=== PATIENT | female | born 1940 | race Caucasian/White ===

== ENCOUNTER → 2022-09-29 | Outpatient (CLI) | payer MEDICARE, SELFPAY ==
[2022-09-29 17:43] LABS: Absolute Lymphocyte Count 1.94 X10^3/uL (0.83-4.51); Absolute Neutrophil Count 4.4 X10^3/uL (2.0-7.7); Basophil# 0.05 X10^3/uL; Basophil% 0.7 % (0-1); Eosinophil# 0.08 X10^3/uL; Eosinophils% 1.1 % (0-5); Hematocrit 41.7 % (37-47); Hemoglobin 13.6 g/dL (12.0-15.0); Lymphocyte # 1.94 X10^3/ul (0.83-4.51); Lymphocyte % 26.8 % (19-41); Mean Corp Hgb Conc 32.6 g/dL (32-36); Mean Corpuscular Hgb 29.5 pg (27.0-32.0); Mean Corpuscular Volume 90.5 fL (81-99); Mean Platelet Vol. 10.1 fl (6.2-12.0); Monocyte# 0.72 X10^3/uL; NRBC Flagged by Analyzer 0 % (0-5); Neutrophil % 60.8 % (47-70); Platelet Count 313 K/mm3 (150-450); RBC Distribution Width CV 12.2 % (11.6-14.6); RBC Distribution Width SD 39.9 fl (35.1-43.9); Red Blood Count 4.61 M/mm3 (4.2-5.4); White Blood Count 7.2 K/mm3 (4.4-11.0)
[2022-09-29 18:11] LABS: AST(SGOT) 21 U/L (15-37); Alanine Aminotransfer ALT/SGPT 23 U/L (13-56); Alkaline Phosphatase 32 U/L (45-117); Anion Gap 8 (5-15); BUN 21 mg/dL (7-18); BUN/Creat Ratio 26.7 RATIO (10-20); Calcium,Total 9.2 mg/dL (8.5-10.1); Chloride 103 mmol/L (98-107); Creatinine, Serum 0.79 mg/dL (0.55-1.02); EST Glomerular Filtration Rate 74 mL/min (>60); Est Glom Filt Rate - Afr Amer 90 mL/min (>60); Glucose 101 mg/dL (74-106); Potassium 3.8 mmol/L (3.5-5.1); Sodium Level 140 mmol/L (136-145); Thyroid Stim Hormone (TSH) 2.53 uIU/mL (0.358-3.74)
[2022-09-29 20:11] LABS: Hepatitis C Antibody Non-Reactive (Nonreactive); Syphilis Antibodies Non-reactive; Vitamin B12 391 pg/mL (211-911); Vitamin D,25 Hydroxy 12.3 ng/mL
== END | disposition home or self-care (01) ==
PROVIDERS: Visit Provider Family Medicine Geriatric Medicine
DX: R53.83 Other fatigue (principal); E55.9 Vitamin D deficiency, unspecified; Z13.89 Encounter for screening for other disorder
CPT/HCPCS: 36415; 80053; 82306; 82607; 82746; 84443; 85025; 86780; 86803

== ENCOUNTER → 2022-10-05 | Outpatient (CLI) | payer MEDICARE, SELFPAY ==
--- NOTE | 2022-10-05 17:39 | CT_ITS ---
INDICATION: ALZHEIMERS DISEASE EXAMINATION: CT BRAIN - CT Head or Brain W/O Contrast Injection TECHNIQUE: Multiple axial images were obtained of the head without intravenous contrast. A radiation dose optimization technique was used for this scan. IV Contrast dosage and agent: None. COMPARISON: None FINDINGS: BRAIN PARENCHYMA: No intra- or extra-axial hemorrhage. No evidence of acute infarct. No intracranial mass or mass effect. Unremarkable white matter for age. There is preservation of the romo/white matter interface. Posterior fossa structures are unremarkable. Mild bilateral carotid and vertebral atherosclerosis. CSF SPACES: Mild global cerebral volume loss for age. No hydrocephalus. Basal cisterns are patent. CALVARIUM, SKULL BASE, PARANASAL SINUSES AND MASTOID AIR CELLS: No acute osseous finding. Paransasal sinuses are clear. Mastoid air cells are clear. ORBITS: Both globes, extraocular muscles, optic nerves and retrobulbar fat appear unremarkable. ASPECTS Score for Acute Strokes: 10 CT/Brain/Head without Contrast IMPRESSION: No CT evidence of acute intracranial hemorrhage or injury. Mild cerebral volume loss for age. Carotid and vertebral atherosclerosis. Electronically Signed: Corey Jerome MD at 1:50 EST ,
== END | disposition home or self-care (01) ==
LOC: CT 17:36
PROVIDERS: PCP Family Medicine Geriatric Medicine; Referring Provider Family Medicine Geriatric Medicine; Visit Provider Family Medicine Geriatric Medicine
DX: G30.9 Alzheimer's disease, unspecified (principal)
CPT/HCPCS: 70450

== ENCOUNTER → 2022-11-05 | Outpatient (CLI) | payer MEDICARE, SELFPAY ==
--- NOTE | 2022-11-05 14:02 | BD_ITS ---
STUDY: DUAL ENERGY X-RAY ABSORPTIOMETRY / DXA REASON FOR EXAM: Female, 82 years old. [id number] TECHNIQUE: Bone Mineral Density (BMD) measurements of lumbar spine and bilateral hips were obtained. COMPARISON: None. FINDINGS: Lumbar Spine (L1-L4): g/cm2 (1.051) / T-score (0.0) / Z-score (2.8) Findings are suggestive of normal bone density with a low fracture risk. Left Femur Total: g/cm2 (0.794) / T-score (-1.2) / Z-score (1.0) Left Femoral Neck: g/cm2 (0.72) / T-score (-0.6) / Z-score (1.8) Right Femur Total: g/cm2 (0.746) / T-score (-1.6) / Z-score (0.6) Right Femoral Neck: g/cm2 (0.777) / T-score (-0.7) / Z-score (1.8) BD/Dexa Bone Density Study IMPRESSION: The patient is considered osteopenic as outlined below according to World Otf Organization (WHO) criteria with a moderate fracture risk. Reference Information: The T-score is the number of standard deviations above or below the standard which is normal for young adults at their peak bone mineral density. The World Health Organization (WHO) interprets the T-scores as follows: Above -1 Normal bone density Between -1 and -2.5 Osteopenia Equal to / or below -2.5 Osteoporosis As a practical clinical guideline, osteopenia may be graded as follows: Mild -1 through -1.5 Moderate -1.6 through -2.0 Severe -2.1 through -2.4 The Z-score is the number of standard deviations above or below age-matched controls. A Z-score of less than -1.5 would be considered abnormal. References: 1. NIH Osteoporosis and Related Bone Diseases www osteo.org 2. International Society for Clinical Densitometry www iscd.org 3. National Osteoporosis Foundation www nof.org Electronically Signed: Sravan Troncoso MD at 13:46 EST ,
== END | disposition home or self-care (01) ==
PROVIDERS: PCP Family Medicine Geriatric Medicine; Visit Provider Family Medicine Geriatric Medicine
DX: Z78.0 Asymptomatic menopausal state (principal)
CPT/HCPCS: 77080

== ENCOUNTER → 2023-03-25 | Outpatient (CLI) | payer MEDICARE, SELFPAY ==
[2023-03-25 15:30] LABS: Absolute Lymphocyte Count 1.65 X10^3/uL (0.83-4.51); Absolute Neutrophil Count 3.7 X10^3/uL (2.0-7.7); Basophil# 0.05 X10^3/uL; Basophil% 0.8 % (0-1); Eosinophil# 0.07 X10^3/uL; Eosinophils% 1.1 % (0-5); Hematocrit 41.8 % (37-47); Hemoglobin 13.6 g/dL (12.0-15.0); Lymphocyte # 1.65 X10^3/ul (0.83-4.51); Lymphocyte % 26.7 % (19-41); Mean Corp Hgb Conc 32.5 g/dL (32-36); Mean Corpuscular Hgb 30.5 pg (27.0-32.0); Mean Corpuscular Volume 93.7 fL (81-99); Mean Platelet Vol. 10.4 fl (6.2-12.0); Monocyte# 0.68 X10^3/uL; NRBC Flagged by Analyzer 0 % (0-5); Neutrophil # 3.71 X10^3/uL (2.7-7.7); Neutrophil % 59.9 % (47-70); Platelet Count 295 K/mm3 (150-450); RBC Distribution Width CV 12.1 % (11.6-14.6); RBC Distribution Width SD 41.9 fl (35.1-43.9); Red Blood Count 4.46 M/mm3 (4.2-5.4); White Blood Count 6.2 K/mm3 (4.4-11.0)
[2023-03-25 15:44] LABS: Vitamin D,25 Hydroxy 18.1 ng/mL
[2023-03-25 15:54] LABS: ALB/GLOB Ratio 1.1 RATIO (0.9-2.4); AST(SGOT) 17 U/L (15-37); Alanine Aminotransfer ALT/SGPT 21 U/L (13-56); Albumin, Serum 3.8 g/dL (3.2-5.0); Alkaline Phosphatase 31 U/L (45-117); Anion Gap 4 (5-15); BUN 23 mg/dL (7-18); BUN/Creat Ratio 25.1 RATIO (10-20); Calcium,Total 8.8 mg/dL (8.5-10.1); Chloride 105 mmol/L (98-107); Creatinine, Serum 0.92 mg/dL (0.55-1.02); EST Glomerular Filtration Rate 62 mL/min (>60); Est Glom Filt Rate - Afr Amer 75 mL/min (>60); Globulin 3.6 g/dL (2.2-4.2); Glucose 115 mg/dL (74-106); Potassium 4.3 mmol/L (3.5-5.1); Protein, Total 7.4 g/dL (6.4-8.2); Sodium Level 139 mmol/L (136-145); Thyroid Stim Hormone (TSH) 2.26 uIU/mL (0.358-3.74)
== END | disposition home or self-care (01) ==
PROVIDERS: PCP Family Medicine Geriatric Medicine; Visit Provider Family Medicine Geriatric Medicine
DX: R53.83 Other fatigue (principal); E55.9 Vitamin D deficiency, unspecified
CPT/HCPCS: 36415; 80053; 82306; 84443; 85025

== ENCOUNTER → 2023-07-01 | Outpatient (CLI) | payer MEDICARE, SELFPAY ==
[2023-07-01 13:22] LABS: Absolute Lymphocyte Count 1.59 X10^3/uL (0.83-4.51); Absolute Neutrophil Count 4.2 X10^3/uL (2.0-7.7); Basophil# 0.04 X10^3/uL; Basophil% 0.6 % (0-1); Eosinophil# 0.06 X10^3/uL; Eosinophils% 0.9 % (0-5); Hematocrit 39.8 % (37-47); Hemoglobin 13.4 g/dL (12.0-15.0); Lymphocyte # 1.59 X10^3/ul (0.83-4.51); Lymphocyte % 24.5 % (19-41); Mean Corp Hgb Conc 33.7 g/dL (32-36); Mean Corpuscular Hgb 31.1 pg (27.0-32.0); Mean Corpuscular Volume 92.3 fL (81-99); Mean Platelet Vol. 9.8 fl (6.2-12.0); Monocyte# 0.59 X10^3/uL; Monocyte% 9.1 % (0-10); NRBC Flagged by Analyzer 0 % (0-5); Neutrophil # 4.18 X10^3/uL (2.7-7.7); Neutrophil % 64.3 % (47-70); Platelet Count 286 K/mm3 (150-450); RBC Distribution Width CV 12.3 % (11.6-14.6); RBC Distribution Width SD 41.9 fl (35.1-43.9); Red Blood Count 4.31 M/mm3 (4.2-5.4); White Blood Count 6.5 K/mm3 (4.4-11.0)
[2023-07-01 13:51] LABS: Vitamin D,25 Hydroxy 15.7 ng/mL
[2023-07-01 14:03] LABS: ALB/GLOB Ratio 1.1 RATIO (0.9-2.4); AST(SGOT) 18 U/L (15-37); Alanine Aminotransfer ALT/SGPT 22 U/L (13-56); Albumin, Serum 3.8 g/dL (3.2-5.0); Alkaline Phosphatase 28 U/L (45-117); Anion Gap 4 (5-15); BUN 18 mg/dL (7-18); BUN/Creat Ratio 22.2 RATIO (10-20); Calcium,Total 8.8 mg/dL (8.5-10.1); Chloride 105 mmol/L (98-107); Creatinine, Serum 0.81 mg/dL (0.55-1.02); EST Glomerular Filtration Rate 71 mL/min (>60); Est Glom Filt Rate - Afr Amer 86 mL/min (>60); Globulin 3.4 g/dL (2.2-4.2); Glucose 100 mg/dL (74-106); Potassium 4.1 mmol/L (3.5-5.1); Protein, Total 7.2 g/dL (6.4-8.2); Sodium Level 140 mmol/L (136-145); Thyroid Stim Hormone (TSH) 2.03 uIU/mL (0.358-3.74)
== END | disposition home or self-care (01) ==
LOC: POLAB3 13:03
PROVIDERS: PCP Family Medicine Geriatric Medicine; Visit Provider Family Medicine Geriatric Medicine
DX: E55.9 Vitamin D deficiency, unspecified (principal); R53.83 Other fatigue
CPT/HCPCS: 36415; 80053; 82306; 84443; 85025

== ENCOUNTER → 2023-08-02 | Outpatient (CLI) | payer MEDICARE, SELFPAY ==
--- NOTE | 2023-08-02 17:47 | MRI_ITS ---
STUDY: MRI BRAIN WITHOUT CONTRAST REASON FOR EXAM: Female, 82 years old. ALZHEIMERS DISEASE TECHNIQUE: Standardized multiplanar fat and water weighted pulse sequences were obtained. COMPARISON: Head CT dated October 05, 2022 FINDINGS: There is mild cerebral atrophy with widening of the extra-axial spaces and ventricular dilatation. There are a limited number of small white matter hyperintensities, distributed throughout the deep white matter tracts of the cerebral hemispheres, consistent with mild chronic white matter ischemic changes. There is no evidence for recent intracranial ischemia or other cause of cytotoxic edema on diffusion weighted imaging (DWI). Normal T2* images of the brain without demonstrated susceptibility artifact. There is no demonstrated hemosiderin stain. Benign bilateral choroid plexus cystws are present which are of no clinical significance. Normal bilateral basal ganglia. Normal thalami. There is no extra-axial fluid accumulation. Normal flow voids within the major intracranial circulation suggesting patency by spin echo criteria. Normal sella turcica, pituitary gland, infundibular stalk, optic chiasm and hypothalamus. Normal tectal plate and pineal gland. Normal midbrain, rohit and medulla. Normal cerebellum. Benign arachnoid granulation posterior to the right cerebellar lobe mentioned. Normal basal cisterns. Normal bilateral temporal bones. Normal bilateral internal auditory canals. No demonstrated orbital abnormality, within the constraints of a routine brain study. Normal visualized paranasal sinuses. Normal calvarium and skull base. Normal visualized soft tissue structures. Normal visualized upper cervical spine. MRI/Brain without Contrast IMPRESSION: 1. Involutional and mild chronic ischemic changes of the brain, as described above. 2. No demonstrated acute infarct or intracranial hemorrhage or suspicious brain lesions Electronically Signed: Carlos Enrique Cruz MD at 16:07 EST Reading Location ID and State: [facility] / [place] , Service support ,
== END | disposition home or self-care (01) ==
PROVIDERS: PCP Family Medicine Geriatric Medicine; Referring Provider Family Medicine Geriatric Medicine; Visit Provider Family Medicine Geriatric Medicine
DX: G30.9 Alzheimer's disease, unspecified (principal)
CPT/HCPCS: 70551

== ENCOUNTER → 2023-08-04 | Outpatient (CLI) | payer MEDICARE, SELFPAY | END | disposition home or self-care (01) | PROVIDERS: PCP Family Medicine Geriatric Medicine; Visit Provider Family Medicine Geriatric Medicine | DX: G30.9 Alzheimer's disease, unspecified (principal) | CPT/HCPCS: 36415 ==

== ENCOUNTER → 2023-10-04 | Outpatient (CLI) | payer MEDICARE, SELFPAY ==
--- OUTSIDE RECORDS SUMMARY | 2023-10-04 11:37 | XMS RPT_ITS | CCD ---
Author Name Unknown Address [address] [place] [id number] Organization [facility] Clinical Note 07-08-2021 Note Date & Type Note Facility 07-08-2021 Note Patient Outreach (DEVEN TNAV) JUAN CALDERON ([id number]) 1940 F Date Time Provider Department 07/08/21 LENA CARDOZO During your visit today, we recorded the following information about you: Lena Cardozo Population Health Navigator 07/08/2021 11:11 AM Signed POPULATION HEALTH NAVIGATION OUTREACH Action/ I tried to leave a voice message and phone is busy sending a letter No care everywhere Contact made with patient or family member? NO Pt identified by name and : NO Outreach Outcome/Action Unable to reach patient: Phone number not valid / voicemail full Letter mailed Reason for Outreach Attribution: Provider Off-boarding Payer: Payor: AET[employer] MEDICARE / Plan: AET[employer] MEDICARE PPO / Product Type: PPO / Care Gap Reviewed:: Reminder: Reminder note to check Health Maintenance for items below Health Maintenance items due: COVID-19 VACCINE(1) Never done ADVANCE DIRECTIVE DISCUSSION Never done PNEUMOVAX AGE 65 AND OVER WITH 5YR LOOKBACK(1) Never done DIABETES SCREEN due on 08/05/2008 DTAP,TDAP,TD(2 - Tdap) due on 12/29/2009 SHINGRIX VACCINE(2 of 3) due on 10/01/2010 INFLUENZA(1) due on 04/30/2021 Advanced Directives Completed: Have you ever planned for future healthcare decisions with a power of contract attorney, living will, or advance directives? No. Please bring a copy to your next appointment or email to [email or web address] Referrals: N/A Message Sent to Practice: NO Navigation Signature: Lena Cardozo Population Health Navigator July 08, 2021 11:10 AM Allergies As of Date: 07/08/2021 Noted Allergy Reaction LIPITOR (ATORVASTATIN CALCIUM) 08/08/2007 SULFA (SULFONAMIDE ANTIBIOTICS) 06/17/2005 2 - Rash Date Reviewed: 08/10/2017 Reviewed by: Lou (Poacher Operator) KEVIN Jones.[employer] PERSON - Fully Assessed Reason for Visit: Population Health Navigation Outreach [[id number]] Cmt: Offboarding Problem List As Of Date 07/08/2021 Noted Resolved DIVERTICULOSIS OF COLON W/O BLEED [K57.30] HYPERLIPIDEMIA NEC/NOS [E78.5] PALPITATIONS [R00.2] 09/02/2007 Letter Text Encounter Status:Closed by [facility] HEALTH NAVIGATOR, LENA Mills on 07/08/21 [facility] Progress note 07-08-2021 Note Date & Type Note Facility 07-08-2021 Note HNO ID: [id number] Author: Lena Cardozo [facility] Health Navigator Service: ? Author Type: ? Type: Progress Notes Filed: 07/08/2021 11:11 AM Note Text: POPULATION HEALTH NAVIGATION OUTREACH Action/I I tried to leave a voice message and phone is busy sending a letter No care everywhere Contact made with patient or family member? NO Pt identified by name and : NO Outreach Outcome/Action Unable to reach patient: Phone number not valid / voicemail full Letter mailed Reason for Outreach Attribution: Provider Off-boarding Payer: Payor: AETNA MEDICARE / Plan: AETNA MEDICARE PPO / Product Type: PPO / Care Gap Reviewed:: Reminder: Reminder note to check Health Maintenance for items below Health Maintenance items due: COVID-19 VACCINE(1) Never done ADVANCE DIRECTIVE DISCUSSION Never done PNEUMOVAX AGE 65 AND OVER WITH 5YR LOOKBACK(1) Never done DIABETES SCREEN due on 08/05/2008 DTAP,TDAP,TD(2 - Tdap) due on 12/29/2009 SHINGRIX VACCINE(2 of 3) due on 10/01/2010 INFLUENZA(1) due on 04/30/2021 Advanced Directives Completed: Have you ever planned for future healthcare decisions with a power of contract attorney, living will, or advance directives? No. Please bring a copy to your next appointment or email to Referrals: N/A Message Sent to Practice: NO Navigation Signature: Lena Cardozo Population Health Navigator July 08, 2021 11:10 AM [facility] Summary Purpose Family History No Family History Records Found Advance Directives No Advanced Directives Records Found Additional Source Comments INFORMATION SOURCE (unrecogn ized section and content) FOR RECORDS PERTAINING TO PATIENTS WHO ARE OR HAVE BEEN ENROLLED IN A CHEMICAL DEPENDENCY/SUBSTANCEABUSE PROGRAM, SOME INFORMATION MAY BE OMITTED. This clinical summary was aggregated from multiple sources. Caution should be exercised in using it in the provision of clinical care. This summary normalizes information from multiple sources, and as a consequence, information in this document may materially change the coding, format and clinical context of patient data. In addition, data may be omitted in some cases. CLINICAL DECISIONS SHOULD BE BASED ON THE PRIMARY CLINICAL RECORDS. [employer] provides no warranty or guarantee of the accuracy or completeness of information in this document.
[2023-10-04 12:38] LABS: Absolute Lymphocyte Count 1.62 X10^3/uL (0.83-4.51); Absolute Neutrophil Count 4.9 X10^3/uL (2.0-7.7); Basophil# 0.05 X10^3/uL; Basophil% 0.7 % (0-1); Eosinophil# 0.06 X10^3/uL; Eosinophils% 0.8 % (0-5); Hematocrit 40.1 % (37-47); Hemoglobin 13.4 g/dL (12.0-15.0); Lymphocyte # 1.62 X10^3/ul (0.83-4.51); Lymphocyte % 22.1 % (19-41); Mean Corp Hgb Conc 33.4 g/dL (32-36); Mean Corpuscular Hgb 30.5 pg (27.0-32.0); Mean Corpuscular Volume 91.1 fL (81-99); Mean Platelet Vol. 9.8 fl (6.2-12.0); Monocyte# 0.68 X10^3/uL; Monocyte% 9.3 % (0-10); NRBC Flagged by Analyzer 0 % (0-5); Neutrophil # 4.85 X10^3/uL (2.7-7.7); Neutrophil % 66.3 % (47-70); Platelet Count 292 K/mm3 (150-450); RBC Distribution Width CV 11.9 % (11.6-14.6); RBC Distribution Width SD 39.6 fl (35.1-43.9); White Blood Count 7.3 K/mm3 (4.4-11.0)
[2023-10-04 13:01] LABS: Vitamin D,25 Hydroxy 29.7 ng/mL
[2023-10-04 13:08] LABS: ALB/GLOB Ratio 0.9 RATIO (0.9-2.4); AST(SGOT) 11 U/L (15-37); Alanine Aminotransfer ALT/SGPT 22 U/L (13-56); Albumin, Serum 3.9 g/dL (3.2-5.0); Alkaline Phosphatase 40 U/L (45-117); Anion Gap 8 (5-15); BUN 21 mg/dL (7-18); BUN/Creat Ratio 24.9 RATIO (10-20); Calcium,Total 9.4 mg/dL (8.5-10.1); Chloride 105 mmol/L (98-107); Creatinine, Serum 0.84 mg/dL (0.55-1.02); EST Glomerular Filtration Rate 68 mL/min (>60); Est Glom Filt Rate - Afr Amer 83 mL/min (>60); Globulin 4.2 g/dL (2.2-4.2); Glucose 122 mg/dL (74-106); Potassium 4.2 mmol/L (3.5-5.1); Protein, Total 8.1 g/dL (6.4-8.2); Sodium Level 140 mmol/L (136-145); Thyroid Stim Hormone (TSH) 2.92 uIU/mL (0.358-3.74)
== END | disposition home or self-care (01) ==
LOC: POLAB3 11:16
PROVIDERS: PCP Family Medicine Geriatric Medicine; Visit Provider Family Medicine Geriatric Medicine
DX: R53.83 Other fatigue (principal); E55.9 Vitamin D deficiency, unspecified
CPT/HCPCS: 36415; 80053; 82306; 84443; 85025

== ENCOUNTER → 2024-06-05 | Outpatient (CLI) | payer MEDICARE, SELFPAY ==
[2024-06-05 11:56] LABS: Absolute Lymphocyte Count 1.48 X10^3/uL (0.83-4.51); Absolute Neutrophil Count 3.4 X10^3/uL (2.0-7.7); Basophil# 0.04 X10^3/uL; Basophil% 0.7 % (0-1); Eosinophil# 0.04 X10^3/uL; Eosinophils% 0.7 % (0-5); Hematocrit 40.4 % (37-47); Hemoglobin 13.3 g/dL (12.0-15.0); Lymphocyte # 1.48 X10^3/ul (0.83-4.51); Lymphocyte % 26.5 % (19-41); Mean Corp Hgb Conc 32.9 g/dL (32-36); Mean Corpuscular Hgb 29.9 pg (27.0-32.0); Mean Corpuscular Volume 90.8 fL (81-99); Mean Platelet Vol. 9.5 fl (6.2-12.0); Monocyte# 0.59 X10^3/uL; Monocyte% 10.6 % (0-10); NRBC Flagged by Analyzer 0 % (0-5); Neutrophil # 3.37 X10^3/uL (2.7-7.7); Neutrophil % 60.2 % (47-70); Platelet Count 277 K/mm3 (150-450); RBC Distribution Width CV 12.3 % (11.6-14.6); RBC Distribution Width SD 40.8 fl (35.1-43.9); Red Blood Count 4.45 M/mm3 (4.2-5.4); White Blood Count 5.6 K/mm3 (4.4-11.0)
[2024-06-05 12:32] LABS: ALB/GLOB Ratio 1.1 RATIO (0.9-2.4); AST(SGOT) 19 U/L (15-37); Alanine Aminotransfer ALT/SGPT 18 U/L (13-56); Albumin, Serum 3.8 g/dL (3.2-5.0); Alkaline Phosphatase 33 U/L (45-117); Anion Gap 6 (5-15); BUN 17 mg/dL (7-18); BUN/Creat Ratio 17.7 RATIO (10-20); Calcium,Total 9.2 mg/dL (8.5-10.1); Chloride 106 mmol/L (98-107); Creatinine, Serum 0.96 mg/dL (0.55-1.02); EST Glomerular Filtration Rate 59 mL/min (>60); Est Glom Filt Rate - Afr Amer 71 mL/min (>60); Globulin 3.6 g/dL (2.2-4.2); Glucose 103 mg/dL (74-106); Protein, Total 7.4 g/dL (6.4-8.2); Sodium Level 139 mmol/L (136-145)
== END | disposition home or self-care (01) ==
LOC: POLAB3 11:40
PROVIDERS: PCP Family Medicine Geriatric Medicine; Visit Provider Family Medicine Geriatric Medicine
DX: R53.83 Other fatigue (principal); E55.9 Vitamin D deficiency, unspecified
CPT/HCPCS: 36415; 80053; 82306; 84443; 85025

== ENCOUNTER → 2024-10-05 | Outpatient (CLI) | payer MEDICARE, SELFPAY ==
[2024-10-05 12:03] LABS: Absolute Neutrophil Count 4.3 X10^3/uL (2.0-7.7); Basophil# 0.07 X10^3/uL; Basophil% 1.1 % (0-1); Eosinophil# 0.03 X10^3/uL; Eosinophils% 0.5 % (0-5); Hematocrit 43.2 % (37-47); Hemoglobin 14.2 g/dL (12.0-15.0); Lymphocyte % 24.3 % (19-41); Mean Corp Hgb Conc 32.9 g/dL (32-36); Mean Corpuscular Hgb 30.6 pg (27.0-32.0); Mean Corpuscular Volume 93.1 fL (81-99); Mean Platelet Vol. 9.5 fl (6.2-12.0); Monocyte# 0.59 X10^3/uL; NRBC Flagged by Analyzer 0 % (0-5); Neutrophil # 4.25 X10^3/uL (2.7-7.7); Neutrophil % 64.5 % (47-70); Platelet Count 310 K/mm3 (150-450); RBC Distribution Width CV 12.3 % (11.6-14.6); RBC Distribution Width SD 42.1 fl (35.1-43.9); Red Blood Count 4.64 M/mm3 (4.2-5.4); White Blood Count 6.6 K/mm3 (4.4-11.0)
[2024-10-05 12:27] LABS: Vitamin D,25 Hydroxy 32.1 ng/mL
[2024-10-05 12:32] LABS: AST(SGOT) 15 U/L (15-37); Alanine Aminotransfer ALT/SGPT 16 U/L (13-56); Albumin, Serum 3.9 g/dL (3.2-5.0); Alkaline Phosphatase 36 U/L (45-117); Anion Gap 8 (5-15); BUN 20 mg/dL (7-18); BUN/Creat Ratio 19.2 RATIO (10-20); Calcium,Total 9.7 mg/dL (8.5-10.1); Chloride 105 mmol/L (98-107); Creatinine, Serum 1.04 mg/dL (0.55-1.02); EST Glomerular Filtration Rate 54 mL/min (>60); Est Glom Filt Rate - Afr Amer 65 mL/min (>60); Glucose 119 mg/dL (74-106); Potassium 4.1 mmol/L (3.5-5.1); Protein, Total 7.9 g/dL (6.4-8.2); Sodium Level 141 mmol/L (136-145)
== END | disposition home or self-care (01) ==
LOC: POLAB3 11:39
PROVIDERS: PCP Family Medicine Geriatric Medicine; Visit Provider Family Medicine Geriatric Medicine
DX: R53.83 Other fatigue (principal); E55.9 Vitamin D deficiency, unspecified
CPT/HCPCS: 36415; 80053; 82306; 84443; 85025

== ENCOUNTER 2024-10-27 08:03 | Emergency (ER) | payer MEDICARE, SELFPAY ==
[2024-10-27 08:06] VITALS: BP 138/78; PULSE 81; RESP 16; O2SAT 96
[2024-10-27 08:07] VITALS: BP 110/69; PULSE 94; RESP 14; TEMP 36.6; O2SAT 97; BMI 19.5
--- NOTE | 2024-10-27 08:26 | EX.ED.DYSGE1 ---
HPI History of Present Illness Chief Complaint: Confusion Informant: patient and friend Narrative Narrative: 84-year-old female presenting to the emergency room out of concern with confusion. Patient has a history of dementia. She follows with Dr. Hahn for primary care. Reportedly this morning around 0700 hrs. the patient texted her friend and asked for help because she was confused. Her friend came over to check on her and nothing seemed off when she brought her to the emergency to be evaluated. Patient notes that she had a few bites of breakfast this morning but not a proper breakfast. She denies any physical pain. No new medications. No dysuria or diarrhea cough or URI symptoms. [facility] Medical History Alzheimer dementia Home Medications ?Medication ?Instructions ?Recorded ?Last Taken ?Type ciprofloxacin HCl 500 mg tablet 1 tab PO BID 08/16/17 Unknown History metronidazole 500 mg tablet 1 tab PO TID 08/16/17 Unknown History Allergy/AdvReac Type Severity Reaction Status Date / Time Sulfa (Sulfonamide Allergy Hives Verified 10/27/24 08:09 Antibiotics) Social History Smoking Status: Never smoker ROS ROS ED Constitutional Constitutional ED: Denies chills, fever(s) or weight loss Eyes Eyes: Denies change in vision or diplopia ENT ENT ED: Denies ear pain, rhinorrhea or sore throat Cardiovascular Cardiovascular: Denies chest pain, orthopnea, palpitations or racing heartbeat Respiratory/Chest Respiratory/Chest: Denies cough, dyspnea or orthopnea Gastrointestinal Gastrointestinal: Denies abdominal pain, diarrhea, nausea or vomiting Genitourinary Genitourinary ED: Denies dysuria, hematuria or urinary frequency Musculoskeletal Musculoskeletal: Denies arthralgias or myalgias Integumentary Denies abscess or rash Neurologic Neurologic: Denies headache(s) or weakness Psychiatric Psychiatric: Denies anxiety, depression, suicidal ideation or suicidal thoughts Endocrine Endocrinology: Denies polydipsia, polyphagia or polyuria Allergic/Immunologic Allergic/Immunologic ED: Denies mouth swelling, tongue swelling or urticaria EXAM Physical Exam Const Vital Signs: 10/27/24 08:06 10/27/24 08:07 10/27/24 10:24 Temperature 97.9 F Temperature Source Oral Pulse Rate 81 94 71 Respiratory Rate 16 14 16 Blood Pressure 138/78 H 110/69 126/78 H Blood Pressure Mean 98 82 94 Pulse Ox 96 97 96 Oxygen Delivery Method Room Air Room Air Room Air Positive well nourished and well developed General Appearance ED: well developed and NAD HEENT Reports normocephalic, head/scalp atraumatic and moist mucous membranes Eyes PERRL and EOMs intact bilaterally Neck no lymphadenopathy, supple and no JVD Resp normal respiratory effort and clear to auscultation bilaterally Cardio regular rate, regular rhythm and no murmurs GI normal to inspection, nondistended, normoactive bowel sounds and non-tender Palpation: soft Back/Spine no CVA tenderness and normal ROM Extremity normal to inspection General Extremety ED: Negative for edema General Extremity: Negative for edema Neuro CN's II-XII intact bilaterally Neuro Narrative: Patient is orientated to name and place this is year. NIH is 0. Sensorium / Orientation: alert Motor Exam: strength 5/5 throughout Psych mental status grossly normal Mood & Affect: Negative for depressed or tearful Skin no rashes or lesions noted and no wounds MDM MDM MDM Narrative Medical decision making narrative: Differential diagnosis includes UTI stroke brain hemorrhage electrolyte abnormalities dehydration encephalopathy hepatic dysfunction Basic blood work was obtained essentially negative glucose 125 normal sodium potassium. Urinalysis with no overt infection. CT the brain showed no acute findings. Clinically the patient is at baseline per family and herself. They are working to get her into care facility with an appointment on Wednesday. Patient and friend are comfortable going home. Return if worsening or concerns History & Record Review Discussion w/independent historian: Patient and Friend Lab Data Attestation: I reviewed the patient's lab results. Labs: Laboratory Results - last 24 hr 10/27/24 10/27/24 08:39 09:09 WBC 5.7 RBC 4.29 Hgb 13.1 Hct 39.0 MCV 90.9 MCH 30.5 MCHC 33.6 RDW Std Deviation 40.5 RDW Coeff of Teresa 12.2 Plt Count 276 MPV 9.4 Immature Gran % (Auto) 0.700 Neut % (Auto) 65.2 Lymph % (Auto) 22.8 [place] % (Auto) 9.6 Eos % (Auto) 1.2 Baso % (Auto) 0.5 Absolute Neuts (auto) 3.7 Absolute Lymphs (auto) 1.29 Nucleated RBC % 0 Sodium 138 Potassium 4.0 Chloride Direct 102 Carbon Dioxide 25.5 Anion Gap 10 BUN 19 Creatinine 0.78 Estim Creat Clear Calc 36.81 Est GFR (MDRD) Non-Af 74 BUN/Creatinine Ratio 24.1 H Glucose 125 H Calcium 9.0 Total Bilirubin 0.49 AST 18 ALT 11 Alkaline Phosphatase 34 L Total Protein 6.6 Albumin 4.0 Globulin 2.5 Albumin/Globulin Ratio 1.6 Urine Color Yellow Urine Clarity Clear Urine pH 7.0 Ur Specific [place] 1.010 Urine Protein Negative Urine Glucose (UA) Normal Urine Ketones Negative Urine Occult Blood Negative Urine Nitrite Negative Urine Bilirubin Negative Urine Urobilinogen Normal Ur Leukocyte Esterase Negative Urine RBC 0 SEEN Urine WBC 0-5 SEEN Ur Squamous Epith Cells 0 SEEN Ur Renal Epithelial Cell 0-5 SEEN Urine Bacteria 0 SEEN Urine Mucus 0 SEEN Radiography Diagnostic Testing: Clinical Impression(s) from Imaging Studies Brain CT 10/27/24 08:44 IMPRESSION: Stable examination. Atrophy in keeping with the patient's age. Reading Location: [id number] Discharge Plan Triage Chief Complaint: Confusion ED Provider: Yoshi Hebert Dx/Rx/DC Orders Clinical Impression: Alzheimer's dementia, Confusion Instructions: ED DEMENTIA Alzheimer's Prescriptions: No Action metronidazole 500 MG tablet 1 tab PO TID Patient Comments: ciprofloxacin HCl 500 MG tablet 1 tab PO BID Patient Comments: Primary Care Provider: Adrian Hahn Chi Referrals: Adrian Hahn Chi, MD [Primary Care Provider] - Keep Arielle appointment Print Language: Uzbek Disposition Disposition: Home, Self Care
--- NOTE | 2024-10-27 08:44 | CT_ITS ---
EXAM: BRAIN/HEAD WITHOUT CONTRAST CLINICAL HISTORY: Confusion. History of Alzheimer's dementia. COMPARISON: Comparison is made with prior study dated October 07, 2022. TECHNIQUE: Multiple axial tomographic images were obtained without intravenous contrast administration. Coronal and sagittal reconstruction were obtained as well. FINDINGS: There is a mild degree of cerebral atrophy. Hyperostosis frontalis interna. Mild degree of decreased attenuation in the periventricular distribution suggestive of chronic small-vessel disease. Atherosclerotic plaque formation of the vertebral arteries and cavernous portions of the internal carotid arteries bilaterally. CT/Brain/Head without Contrast IMPRESSION: Stable examination. Atrophy in keeping with the patient's age. Reading Location: [id number]
[2024-10-27 08:46] LABS: Absolute Lymphocyte Count 1.29 X10^3/uL (0.83-4.51); Absolute Neutrophil Count 3.7 X10^3/uL (2.0-7.7); Basophil# 0.03 X10^3/uL; Basophil% 0.5 % (0-1); Eosinophil# 0.07 X10^3/uL; Eosinophils% 1.2 % (0-5); Hemoglobin 13.1 g/dL (12.0-15.0); Lymphocyte # 1.29 X10^3/ul (0.83-4.51); Lymphocyte % 22.8 % (19-41); Mean Corp Hgb Conc 33.6 g/dL (32-36); Mean Corpuscular Hgb 30.5 pg (27.0-32.0); Mean Corpuscular Volume 90.9 fL (81-99); Mean Platelet Vol. 9.4 fl (6.2-12.0); Monocyte# 0.54 X10^3/uL; Monocyte% 9.6 % (0-10); NRBC Flagged by Analyzer 0 % (0-5); Neutrophil # 3.68 X10^3/uL (2.7-7.7); Neutrophil % 65.2 % (47-70); Platelet Count 276 K/mm3 (150-450); RBC Distribution Width CV 12.2 % (11.6-14.6); RBC Distribution Width SD 40.5 fl (35.1-43.9); Red Blood Count 4.29 M/mm3 (4.2-5.4); White Blood Count 5.7 K/mm3 (4.4-11.0)
[2024-10-27 09:15] LABS: ALB/GLOB Ratio 1.6 RATIO (0.9-2.4); AST(SGOT) 18 U/L (<=31); Alanine Aminotransfer ALT/SGPT 11 U/L (<=34); Alkaline Phosphatase 34 U/L (35-104); Anion Gap 10 (5-15); BUN 19 mg/dL (4-19); BUN/Creat Ratio 24.1 RATIO (10-20); Carbon Dioxide 25.5 mmol/L (22.0-29.0); Chloride 102 mmol/L (96-108); Creatinine, Serum 0.78 mg/dL (0.70-1.20); EST Glomerular Filtration Rate 74 (>60); Estimated Creatinine Clearance 36.81 ml/min; Globulin 2.5 g/dL (2.2-4.2); Glucose 125 mg/dL (70-99); Protein, Total 6.6 g/dL (5.9-8.4); Sodium Level 138 mmol/L (133-145); Total Bilirubin 0.49 mg/dL (0.00-1.30)
[2024-10-27 09:16] LABS: Bacteria 0 SEEN /hpf (None Seen); Mucous, Urine 0 SEEN /hpf (<or=2+); Squamous Epithelial Cells - UA 0 SEEN /hpf (5-10)
[2024-10-27 09:46] LABS: Color, Urine Yellow (Yellow); Glucose, Dipstick Normal (Normal); Ketone-Dipstick Negative (Negative); Leukocyte Esterase-Dipstick Negative /ul (Negative); Nitrite-Dipstick Negative (Negative); Occult Blood-Urine Negative /ul (Negative); Protein-Dipstick Negative (Negative); Urine Bilirubin Dipstick Negative (Negative); Urine Clarity Clear (Clear); Urine Urobilinogen Normal (Normal)
[2024-10-27 10:14] LABS: Red Blood Cells-Urine 0 SEEN /hpf (0-5); Renal Epithelial Cells 0-5 SEEN /hpf (0-5); White Blood Cells 0-5 SEEN /hpf (0-5)
[2024-10-27 10:24] VITALS: BP 126/78; PULSE 71; RESP 16; O2SAT 96
[2024-10-27 10:39] VITALS: BP 128/70; PULSE 70; RESP 16; TEMP 36.6; O2SAT 99
== END 2024-10-27 10:40 | disposition home or self-care (01) ==
PROVIDERS: Emergency Provider Emergency Medicine; PCP Family Medicine Geriatric Medicine; Visit Provider Emergency Medicine
DX: G30.9 Alzheimer's disease, unspecified (principal); F02.80 Dementia in other diseases classified elsewhere, unspecified severity, without behavioral disturbance, psychotic disturbance, mood disturbance, and anxiety; R41.0 Disorientation, unspecified
CPT/HCPCS: 70450; 80053; 81001; 85025; 99283; A4216

== ENCOUNTER → 2025-01-26 | Outpatient (CLI) | payer MEDICARE, SELFPAY ==
[2025-01-26 12:56] LABS: Absolute Lymphocyte Count 1.56 X10^3/uL (0.83-4.51); Absolute Neutrophil Count 5.1 X10^3/uL (2.0-7.7); Basophil# 0.06 X10^3/uL; Basophil% 0.8 % (0-1); Eosinophil# 0.07 X10^3/uL; Eosinophils% 0.9 % (0-5); Hemoglobin 13.4 g/dL (12.0-15.0); Lymphocyte # 1.56 X10^3/ul (0.83-4.51); Lymphocyte % 20.4 % (19-41); Mean Corp Hgb Conc 33.5 g/dL (32-36); Mean Corpuscular Hgb 31.2 pg (27.0-32.0); Mean Platelet Vol. 9.8 fl (6.2-12.0); Monocyte# 0.78 X10^3/uL; Monocyte% 10.2 % (0-10); NRBC Flagged by Analyzer 0 % (0-5); Neutrophil # 5.11 X10^3/uL (2.7-7.7); Neutrophil % 66.8 % (47-70); Platelet Count 269 K/mm3 (150-450); RBC Distribution Width CV 12.5 % (11.6-14.6); RBC Distribution Width SD 43.1 fl (35.1-43.9); White Blood Count 7.7 K/mm3 (4.4-11.0)
[2025-01-26 13:02] LABS: Anion Gap 11 (5-15); BUN 19 mg/dL (4-19); BUN/Creat Ratio 20.2 RATIO (10-20); Calcium,Total 9.6 mg/dL (7.6-11.0); Carbon Dioxide 25.8 mmol/L (21.0-32.0); Chloride 103 mmol/L (98-108); Creatinine, Serum 0.95 mg/dL (0.70-1.20); EST Glomerular Filtration Rate 58 (>60); Glucose 112 mg/dL (70-99); Potassium 4.4 mmol/L (3.3-5.1); Sodium Level 140 mmol/L (133-145)
== END | disposition home or self-care (01) ==
PROVIDERS: PCP Family Medicine Geriatric Medicine; Referring Provider Family Medicine Geriatric Medicine; Visit Provider Family Medicine Geriatric Medicine
DX: G93.40 Encephalopathy, unspecified (principal); N39.0 Urinary tract infection, site not specified
CPT/HCPCS: 36415; 80048; 85025; 87077; 87086; 87088; 87186

== ENCOUNTER → 2025-02-26 | Outpatient (REF) | payer MEDICARE, SELFPAY ==
[2025-02-27 09:52] LABS: Bacteria 0 SEEN /hpf (None Seen); Mucous, Urine 0 SEEN /hpf (<or=2+); Red Blood Cells-Urine 0 SEEN /hpf (0-5)
[2025-02-27 10:55] LABS: Color, Urine Yellow (Yellow); Glucose, Dipstick Normal (Normal); Ketone-Dipstick Negative (Negative); Leukocyte Esterase-Dipstick 500 /ul (Negative); Nitrite-Dipstick Negative (Negative); Occult Blood-Urine 10 /ul (Negative); Protein-Dipstick 15 mg/dl (Negative); Specific Gravity, Urine 1.025 (1.002-1.030); Urine Bilirubin Dipstick Negative (Negative); Urine Clarity Sl. Cloudy (Clear); Urine Urobilinogen Normal (Normal)
[2025-02-27 12:26] LABS: Calcium Oxalate Crystals Ur 1+ /hpf (<or=2+); Squamous Epithelial Cells - UA 0-5 SEEN /hpf (5-10); White Blood Cells 5-10 SEEN /hpf (0-5)
== END ==
LOC: OLS.BROOKB 02:00
PROVIDERS: PCP Family Medicine Geriatric Medicine; Visit Provider Family Medicine Geriatric Medicine
DX: N39.0 Urinary tract infection, site not specified (principal)
CPT/HCPCS: 81001; 87086; 87088

== ENCOUNTER → 2025-04-04 | Outpatient (CLI) | payer MEDICARE, SELFPAY ==
[2025-04-04 10:03] LABS: Hematocrit 42.5 % (37-47); Hemoglobin 14.2 g/dL (12.0-15.0); Immature Granulocytes Count 0.050 X10^3/uL (0.0-0.0); Mean Corp Hgb Conc 33.4 g/dL (32-36); Mean Corpuscular Volume 93.2 fL (81-99); Mean Platelet Vol. 10.3 fl (6.2-12.0); NRBC Flagged by Analyzer 0 % (0-5); Platelet Count 279 K/mm3 (150-450); RBC Distribution Width CV 12.2 % (11.6-14.6); RBC Distribution Width SD 42.1 fl (35.1-43.9); Red Blood Count 4.56 M/mm3 (4.2-5.4); White Blood Count 6.9 K/mm3 (4.4-11.0)
[2025-04-04 11:25] LABS: AST(SGOT) 19 U/L (<=31); Alanine Aminotransfer ALT/SGPT 14 U/L (<=34); Albumin, Serum 4.2 g/dL (3.4-4.8); Alkaline Phosphatase 38 U/L (35-104); Anion Gap 14 (5-15); BUN 19 mg/dL (4-19); BUN/Creat Ratio 21.0 RATIO (10-20); Calcium,Total 9.6 mg/dL (7.6-11.0); Carbon Dioxide 24.6 mmol/L (21.0-32.0); Chloride 103 mmol/L (98-108); Globulin 3.0 g/dL (2.2-4.2); Glucose 117 mg/dL (70-99); Potassium 4.2 mmol/L (3.3-5.1); Vitamin D,25 Hydroxy 22.5 ng/mL (30-100)
--- OUTSIDE RECORDS SUMMARY | 2025-04-04 12:00 | XMS RPT_ITS | CCD ---
Author Organization [facility] Care Team Providers Care Telephony Engineer Name Role Phone Jovani VARGAS, Dr. Adrian Tomas Primary Care Provider Dr. Adrian Hahn MD, Chi Attending Provider Dr. Yoshi Hebert DO Attending Provider [phone] Dr. Yoshi Hebert DO Emergency Provider Dr. Adrian Hahn MD, Chi Referring Provider Jovani, Adrian Chi Primary Care Unavailable Jovani, Adrian Chi Attending Unavailable Yoshi Hebert Attending Unavailable Jovani, Adrian Chi Primary Care Unavailable Jovani, Adrian Chi Primary Care Unavailable Jovani OLS, Adrian Chi Attending Unavailable Jovani, Adrian Chi Primary Care Unavailable Jovani, Adrian Chi Attending Unavailable Jovani, Adrian Chi Attending Unavailable Jovani, Adrian Chi Referring Unavailable Jovani, Adrian Chi Primary Care Unavailable Allergies Allergy Classification Reported Allergen(s) Allergy Type Date of Onset Reaction(s) Facility (7 sources) Sulfonamides (Antibiotic) Allergy to substance 0 [facility] (1 source) Sulfonamides (Antibiotic) Drug allergy (disorder) 5 [facility] Repository Medications Current Medications Medication Drug Class(es) Dates Sig (Normalized) Sig (Original) ciprofloxacin 500 mg oral tablet (7 sources) Quinolone Antimicrobial Start: 08-16-2017 Ciprofloxacin Hcl 500 MG tablet Active 1 {tbl} PO TWICE A DAY August 16, 2017 1:00am metroNIDAZOLE 500 mg oral tablet (7 sources) Nitroimidazole Antimicrobial Start: 08-16-2017 Metronidazole 500 MG tablet Active 1 {tbl} PO THREE TIMES A DAY August 16, 2017 1:00am Problems Active Problems Problem Classification Problem Date Documented Da te Episodic/Chronic Delirium, dementia, and amnestic and other cognitive disorders (1 source) Alzheimer's disease; Translations: [Alzheimer's disease, unspecified] 11-04-2024 Chronic Other nervous system disorders (1 source) Encephalopathy, unspecified; Translations: [Encephalopathy, unspecified] Onset: 01-30-2025 Chronic Residual codes; unclassified (1 source) Confusional state; Translations: [Disorientation, unspecified] 11-04-2024 Episodic Urinary tract infections (1 source) Urinary tract infection, site not specified; Translations: [Urinary tract infection, site not specified] Onset: 03-19-2025 Episodic Past or Other Problems Problem Classification Problem Date Documented Da te Episodic/Chronic Malaise and fatigue (1 source) Other fatigue; Translations: [Other fatigue] Onset: 10-19-2024 Episodic Residual codes; unclassified (1 source) Disorientation, unspecified; Translations: [Disorientation, unspecified] Onset: 11-09-2024 Episodic Results Test Name Value Interpretation Reference Range Facility Urine Cultureon 01-29-2025 [facility] #1, 2 Below infectio n level. Staphylococcus aureus [place] Count <1000 Mixed Gram Pos Gram Neg Org Mixed Gram Pos Gram Neg Org MIXC Mixed contaminants. Submit a new specimen if indicated. Staphylococcus aureus: REACTION cefOXitin Susc Islt Doxycycline Islt [place] <=0.5 S Clindamycin.induced Susc Islt Gentamicin Islt [place] <=0.5 S Linezolid Islt [place] 2 S Moxifloxacin Islt [place] <=0.25 S Nitrofurantoin Islt [place] <=16 S Oxacillin Susc Islt 0.5 S Tetracycline Islt [place] <=1 S TMP SMX Islt [place] <=10 S Vancomycin Islt [place] 1 S Normal [facility] Comment on above: Performed By: #### M 100.2207 #### [facility] [address] [place], [address] Absolute lymphocyte countOrd ered By: Adrian Hahn on 01-26-2025 Lymphocytes Auto (Unsp spec) [#/Vol] 1.56 10*3/uL 0.83-4.51 [facility] Absolute neutrophil countOrd ered By: Adrian Hahn on 01-26-2025 Neutrophils (Bld) [#/Vol] 5.1 10*3/uL 2.0-7.7 [facility] Anion gap in Serum or Plasma Ordered By: Adrian Hahn on 01-26-2025 Anion gap [Moles/Vol] 11 mmol/L 5-15 [facility] Automated lymphocyte count a s percentage of total leukocytesOrdered By: Adrian Hahn on 01-26-2025 Lymphocytes/100 WBC Auto (Unsp spec) 20.4 % 19-41 [facility] BUN/creatinine ratioOrdered By: Adrian Hahn on 01-26-2025 Urea nitrogen/Creatinine [Mass ratio] 20.2 mg/mg High 10-20 [facility] Basic Metabolic Profile (BMP )on 01-26-2025 BUN/CRE 20.2 RATIO High - [facility] Comment on above: Performed By: #### L 500.4050, L501.9520, L506.1000, L100.0100 #### [facility] [address] [place], [address] Calcium [Mass/Vol] 9.6 mg/dL Normal 7.6-11.0 [facility] Comment on above: Performed By: #### L 500.4050, L501.9520, L506.1000, L100.0100 #### [facility] [address] [place], [address] Chloride [Moles/Vol] 103 mmol/L Normal 98-108 [facility] Comment on above: Performed By: #### L 500.4050, L501.9520, L506.1000, L100.0100 #### [facility] [address] [place], [address] CO2 [Moles/Vol] 25.8 mmol/L Normal 21.0-32.0 [facility] Comment on above: Performed By: #### L 500.4050, L501.9520, L506.1000, L100.0100 #### [facility] [address] [place], [address] Creatinine [Mass/Vol] 0.95 mg/dL Normal 0.70-1.20 [facility] Comment on above: Performed By: #### L 500.4050, L501.9520, L506.1000, L100.0100 #### [facility] [address] [place], [address] GAP 11 Normal 5-15 [facility] Comment on above: Performed By: #### L 500.4050, L501.9520, L506.1000, L100.0100 #### [facility] [address] [place], [address] GFR/1.73 sq M.predicted among non-blacks MDRD (S/P/Bld) [Vol rate/Area] 58 mL/min/{1.73_m2} Low >60 [facility] Comment on above: Result Comment: mL/m in/1.73m2 CKD-EPI Creatinine Equation (2020) Performed By: #### L 500.4050, L501.9520, L506.1000, L100.0100 #### [facility] [address] [place], [address] Glucose [Mass/Vol] 112 mg/dL High 70-99 [facility] Comment on above: Performed By: #### L 500.4050, L501.9520, L506.1000, L100.0100 #### [facility] [address] [place], [address] Potassium [Moles/Vol] 4.4 mmol/L Normal 3.3-5.1 [facility] Comment on above: Performed By: #### L 500.4050, L501.9520, L506.1000, L100.0100 #### [facility] [address] [place], [address] Sodium [Moles/Vol] 140 mmol/L Normal 133-145 [facility] Comment on above: Performed By: #### L 500.4050, L501.9520, L506.1000, L100.0100 #### [facility] [address] [place], [address] Urea nitrogen [Mass/Vol] 19 mg/dL Normal 4-19 [facility] Comment on above: Performed By: #### L 500.4050, L501.9520, L506.1000, L100.0100 #### [facility] [address] [place], [address] Basophil percentageOrdered B y: Adrian aHhn on 01-26-2024 Basophils/100 WBC (Bld) 0.8 % 0-1 [facility] CBC W/Diff, Automatedon 12-30-2024 Absolute Lymph 1.56 X10 3/uL Normal 0.83-4.51 [facility] Comment on above: Performed By: #### L 500.4050, L501.9520, L506.1000, L100.0100 #### [facility] [address] [place], [address] Absolute Neut 5.1 X10 3/uL Normal 2.0-7.7 [facility] Comment on above: Performed By: #### L 500.4050, L501.9520, L506.1000, L100.0100 #### [facility] [address] [place], [address] Basophils/100 WBC (Bld) 0.8 % Normal 0-1 [facility] Comment on above: Performed By: #### L 500.4050, L501.9520, L506.1000, L100.0100 #### [facility] [address] [place], [address] Eosinophils/100 WBC (Bld) 0.9 % Normal 0-5 [facility] Comment on above: Performed By: #### L 500.4050, L501.9520, L506.1000, L100.0100 #### [facility] [address] [place], [address] Erythrocyte distribution width (RBC) [Ratio] 12.5 % Normal 11.6-14.6 [facility] Comment on above: Performed By: #### L 500.4050, L501.9520, L506.1000, L100.0100 #### [facility] [address] [place], [address] Hematocrit (Bld) [Volume fraction] 40.0 % Normal 37-47 [facility] Comment on above: Performed By: #### L 500.4050, L501.9520, L506.1000, L100.0100 #### [facility] [address] [place], [address] Hemoglobin (Bld) [Mass/Vol] 13.4 g/dL Normal 12.0-15.0 [facility] Comment on above: Performed By: #### L 500.4050, L501.9520, L506.1000, L100.0100 #### [facility] [address] [place], [address] IG% 0.900 Normal 0.0-0.9 [facility] Comment on above: Result Comment: IG% - Immature Granulocytes (promyelocytes, myelocytes and metamyelocytes) > 1% indicates that a LEFT SHIFT is Present. Performed By: #### L 500.4050, L501.9520, L506.1000, L100.0100 #### [facility] [address] [place], [address] Lymphocytes/100 WBC (Bld) 20.4 % Normal 19-41 [facility] Comment on above: Performed By: #### L 500.4050, L501.9520, L506.1000, L100.0100 #### [facility] [address] [place], [address] MCH (RBC) [Entitic mass] 31.2 pg Normal 27.0-32.0 [facility] Comment on above: Performed By: #### L 500.4050, L501.9520, L506.1000, L100.0100 #### [facility] [address] [place], [address] MCHC (RBC) [Mass/Vol] 33.5 g/dL Normal 32-36 [facility] Comment on above: Performed By: #### L 500.4050, L501.9520, L506.1000, L100.0100 #### [facility] [address] [place], [address] MCV (RBC) [Entitic vol] 93.0 fL Normal 81-99 [facility] Comment on above: Performed By: #### L 500.4050, L501.9520, L506.1000, L100.0100 #### [facility] [address] [place], [address] Monocytes/100 WBC (Bld) 10.2 % High 0-10 [facility] Comment on above: Performed By: #### L 500.4050, L501.9520, L506.1000, L100.0100 #### [facility] [address] [place], [address] Neutrophils/100 WBC (Bld) 66.8 % Normal 47-70 [facility] Comment on above: Performed By: #### L 500.4050, L501.9520, L506.1000, L100.0100 #### [facility] [address] [place], [address] Nucleated RBC (Bld) [#/Vol] 0 10*3/uL Normal 0-5 [facility] Comment on above: Performed By: #### L 500.4050, L501.9520, L506.1000, L100.0100 #### [facility] [address] [place], [address] Platelet mean volume (Bld) [Entitic vol] 9.8 fL Normal 6.2-12.0 [facility] Comment on above: Performed By: #### L 500.4050, L501.9520, L506.1000, L100.0100 #### [facility] [address] [place], [address] Platelets (Bld) [#/Vol] 269 10*3/uL Normal 150-450 [facility] Comment on above: Performed By: #### L 500.4050, L501.9520, L506.1000, L100.0100 #### [facility] [address] [place], [address] RBC (Bld) [#/Vol] 4.30 10*6/uL Normal 4.2-5.4 [facility] Comment on above: Performed By: #### L 500.4050, L501.9520, L506.1000, L100.0100 #### [facility] [address] [place], [address] RDW SD 43.1 fl Normal 35.1-43.9 [facility] Comment on above: Performed By: #### L 500.4050, L501.9520, L506.1000, L100.0100 #### [facility] [address] [place], [address] WBC (Bld) [#/Vol] 7.7 10*3/uL Normal 4.4-11.0 [facility] Comment on above: Performed By: #### L 500.4050, L501.9520, L506.1000, L100.0100 #### [facility] [address] [place], [address] Carbon dioxide, total [Moles /volume] in Central venous bloodOrdered By: Adrian frazier 01-26-2025 CO2 [Moles/Vol] 25.8 mmol/L 21.0-32.0 [facility] Chloride assayOrdered By: Clarence Hahn on 01-26-2025 Chloride [Moles/Vol] 103 mmol/L 98-108 [facility] Eosinophil percentageOrdered By: Adrian Hahn 01-26-2025 Eosinophils/100 WBC (Bld) 0.9 % 0-5 [facility] Erythrocyte distribution wid th ratioOrdered By: Adrian Hahn 01-26-2025 Erythrocyte distribution width (RBC) [Ratio] 12.5 % 11.6-14.6 [facility] Erythrocyte distribution wid th standard deviationOrdered By: Adrian Hahn 01-26-2025 Erythrocyte distribution width (RBC) [Ratio] 43.1 fl 35.1-43.9 [facility] Glomerular filtration rate ( GFR) estimation/1.73 sq m using serum, plasma, or whole bOrdered By: Adrian Hahn on 01-26-2025 GFR/1.73 sq M.predicted among non-blacks MDRD (S/P/Bld) [Vol rate/Area] 58 mL/min/{1.73_m2} Low >60 [facility] Comment on above: mL/min/1.73m2 CKD-EP I Creatinine Equation (2020) Hematocrit Auto (Bld) [Volum e fraction]Ordered By: Adrian Hahn 01-26-2025 Hematocrit (Bld) [Volume fraction] 40.0 % 37-47 [facility] Hemoglobin measurementOrdere d By: Adrian Hahn 01-26-2025 Hemoglobin (Bld) [Mass/Vol] 13.4 g/dL 12.0-15.0 [facility] Immature granulocytes/100 WB C Auto (Bld)Ordered By: Adrian Hahn 01-26-2025 Immature granulocytes/100 WBC (Bld) 0.900 % 0.0-0.9 [facility] Comment on above: IG% - Immature Granu locytes (promyelocytes, myelocytes and metamyelocytes) > 1% indicates that a LEFT SHIFT is Present. MCV (mean corpuscular volume ) determinationOrdered By: Adrian Hahn 01-26-2025 MCV (RBC) [Entitic vol] 93.0 fL 81-99 [facility] Mean corpuscular hemoglobin (MCH) determinationOrdered By: Adrian Hahn 01-26-2025 MCH (RBC) [Entitic mass] 31.2 pg 27.0-32.0 [facility] Mean corpuscular hemoglobin concentration (MCHC) determinationOrdered By: Adrian Hahn on 01-26-2025 MCHC (RBC) [Mass/Vol] 33.5 g/dL 32-36 [facility] Mean platelet volume determi nationOrdered By: Adrian Hahn on 01-26-2025 Platelet mean volume (Bld) [Entitic vol] 9.8 fL 6.2-12.0 [facility] Monocyte percentageOrdered B y: Adrian Hahn on 01-26-2025 Monocytes/100 WBC (Bld) 10.2 % High 0-10 [facility] Neutrophil percentageOrdered By: Adrian Hahn on 01-26-2025 Neutrophils/100 WBC (Bld) 66.8 % 47-70 [facility] Nucleated red blood cell per centageOrdered By: Adrian Hahn on 01-26-2025 Nucleated RBC/100 WBC (Bld) [Ratio] 0 % 0-5 [facility] Platelet countOrdered By: Clarence Hahn on 01-26-2025 Platelets (Bld) [#/Vol] 269 10*3/uL 150-450 [facility] Potassium measurement (mass/ volume)Ordered By: Adrian Hahn on 01-26-2025 Potassium (Unsp spec) [Mass/Vol] 4.4 mmol/L 3.3-5.1 [facility] RBC Auto (Bld) [#/Vol]Ordere d By: Adrian Hahn on 01-26-2025 RBC (Bld) [#/Vol] 4.30 10*6/uL 4.2-5.4 [facility] Serum creatinine measurement (mass/volume)Ordered By: Adrian Hahn on 01-26-2025 Creatinine [Mass/Vol] 0.95 mg/dL 0.70-1.20 [facility] Serum glucose measurement (m ass/volume)Ordered By: Adrian Hahn on 01-26-2025 Glucose [Mass/Vol] 112 mg/dL High 70-99 [facility] Serum or plasma calcium rosio urement (mass/volume)Ordered By: Adrian Hahn 01-26-2025 Calcium [Mass/Vol] 9.6 mg/dL 7.6-11.0 [facility] Serum or plasma urea nitroge n measurement (mass/volume)Ordered By: Adrian Hahn on 01-26-2025 Urea nitrogen [Mass/Vol] 19 mg/dL 4-19 [facility] Sodium levelOrdered By: Adrian Hahn on 01-26-2025 Sodium [Moles/Vol] 140 mmol/L 133-145 [facility] Urine cultureOrdered By: Adrian Hahn on 01-26-2025 Bacteria identified Cx Nom (U) Staphylococcus aureus Abnormal [facility] Bacteria identified Cx Nom (U) Mixed Gram Pos & Gram Neg Org Abnormal [facility] White blood cell (WBC) count Ordered By: Adrian Hahn on 01-26-2025 WBC (Bld) [#/Vol] 7.7 10*3/uL 4.4-11.0 [facility] Absolute lymphocyte countOrd ered By: Yoshi Hebert on 10-27-2024 Lymphocytes Auto (Unsp spec) [#/Vol] 1.29 10*3/uL 0.83-4.51 [facility] Absolute neutrophil countOrd ered By: Yoshi Hebert on 10-27-2024 Neutrophils (Bld) [#/Vol] 3.7 10*3/uL 2.0-7.7 [facility] Automated lymphocyte count a s percentage of total leukocytesOrdered By: Yoshi Hebert on 10-27-2024 Lymphocytes/100 WBC Auto (Unsp spec) 22.8 % 19-41 [facility] BUN/creatinine ratioOrdered By: Yoshi Hebert on 10-27-2024 Urea nitrogen/Creatinine [Mass ratio] 24.1 mg/mg High 10-20 [facility] Basophil percentageOrdered B y: Yoshi Hebert on 10-27-2024 Basophils/100 WBC (Bld) 0.5 % 0-1 [facility] Bilirubin Test strip Ql (U)O rdered By: Yoshi Hebert on 10-27-2024 Bilirubin Ql (U) Negative Negative [facility] Bilirubin, totalOrdered By: Yoshi Hebert on 10-27-2024 Bilirubin [Mass/Vol] 0.49 mg/dL 0.00-1.30 [facility] Brain/Head without Contrasto n 10-27-2024 Brain/Head without Contrast [facility] Services [address] [place], [place] [id number] Brain/Head without Contrast MR#: [id number] Acct: [id number] Name: JUAN CALDERON Rep #: [id number] : [id number] F 84 From: Sravan pendleton MD PCP: Dr. Adrian Hahn MD Status: REG ER Study: Brain/Head without Contrast Date of Exam: 10/01 04/23 Exam# [id number] Ordering Dr: Yoshi Hebert DO EXAM: BRAIN/HEAD WITHOUT CONTRAST CLINICAL HISTORY: Confusion. History of Alzheimer's dementia. COMPARISON: Comparison is made with prior study dated October 07, 2022. TECHNIQUE: Multiple axial tomographic images were obtained without intravenous contrast administration. Coronal and sagittal reconstruction were obtained as well. FINDINGS: There is a mild degree of cerebral atrophy. Hyperostosis frontalis interna. Mild degree of decreased attenuation in the periventricular distribution suggestive of chronic small-vessel disease. Atherosclerotic plaque formation of the vertebral arteries and cavernous portions of the internal carotid arteries bilaterally. CT/Brain/Head without Contrast IMPRESSION: Stable examination. Atrophy in keeping with the patient's age. Reading Location: [facility] CC: Dr. Yoshi Hebert DO; Dr. Adrian Hahn MD Clinical Evaluator: Signed Normal [facility] CBC W/Diff, Automatedon 10-01 Absolute Lymph 1.29 X10 3/uL Normal 0.83-4.51 [facility] Comment on above: Performed By: #### L 500.4050, L501.9520, L506.1000, L100.0100 #### [facility] [address] [place], [place], [id number] Absolute Neut 3.7 X10 3/uL Normal 2.0-7.7 [facility] Comment on above: Performed By: #### L 500.4050, L501.9520, L506.1000, L100.0100 #### [facility] [address] [place], [address] Basophils/100 WBC (Bld) 0.5 % Normal 0-1 [facility] Comment on above: Performed By: #### L 500.4050, L501.9520, L506.1000, L100.0100 #### [facility] [address] [place], [address] Eosinophils/100 WBC (Bld) 1.2 % Normal 0-5 [facility] Comment on above: Performed By: #### L 500.4050, L501.9520, L506.1000, L100.0100 #### [facility] [address] [place], [address] Erythrocyte distribution width (RBC) [Ratio] 12.2 % Normal 11.6-14.6 [facility] Comment on above: Performed By: #### L 500.4050, L501.9520, L506.1000, L100.0100 #### [facility] [address] [place], [address] Hematocrit (Bld) [Volume fraction] 39.0 % Normal 37-47 [facility] Comment on above: Performed By: #### L 500.4050, L501.9520, L506.1000, L100.0100 #### [facility] [address] [place], [address] Hemoglobin (Bld) [Mass/Vol] 13.1 g/dL Normal 12.0-15.0 [facility] Comment on above: Performed By: #### L 500.4050, L501.9520, L506.1000, L100.0100 #### [facility] [address] [place], [address] IG% 0.700 Normal 0.0-0.9 [facility] Comment on above: Result Comment: IG% - Immature Granulocytes (promyelocytes, myelocytes and metamyelocytes) > 1% indicates that a LEFT SHIFT is Present. Performed By: #### L 500.4050, L501.9520, L506.1000, L100.0100 #### [facility] [address] [place], [address] Lymphocytes/100 WBC (Bld) 22.8 % Normal 19-41 [facility] Comment on above: Performed By: #### L 500.4050, L501.9520, L506.1000, L100.0100 #### [facility] [address] [place], [address] MCH (RBC) [Entitic mass] 30.5 pg Normal 27.0-32.0 [facility] Comment on above: Performed By: #### L 500.4050, L501.9520, L506.1000, L100.0100 #### [facility] [address] [place], [address] MCHC (RBC) [Mass/Vol] 33.6 g/dL Normal 32-36 [facility] Comment on above: Performed By: #### L 500.4050, L501.9520, L506.1000, L100.0100 #### [facility] [address] [place], [address] MCV (RBC) [Entitic vol] 90.9 fL Normal 81-99 [facility] Comment on above: Performed By: #### L 500.4050, L501.9520, L506.1000, L100.0100 #### [facility] [address] [place], [address] Monocytes/100 WBC (Bld) 9.6 % Normal 0-10 [facility] Comment on above: Performed By: #### L 500.4050, L501.9520, L506.1000, L100.0100 #### [facility] [address] [place], [address] Neutrophils/100 WBC (Bld) 65.2 % Normal 47-70 [facility] Comment on above: Performed By: #### L 500.4050, L501.9520, L506.1000, L100.0100 #### [facility] [address] [place], [address] Nucleated RBC (Bld) [#/Vol] 0 10*3/uL Normal 0-5 [facility] Comment on above: Performed By: #### L 500.4050, L501.9520, L506.1000, L100.0100 #### [facility] [address] [place], [address] Platelet mean volume (Bld) [Entitic vol] 9.4 fL Normal 6.2-12.0 [facility] Comment on above: Performed By: #### L 500.4050, L501.9520, L506.1000, L100.0100 #### [facility] [address] [place], [address] Platelets (Bld) [#/Vol] 276 10*3/uL Normal 150-450 [facility] Comment on above: Performed By: #### L 500.4050, L501.9520, L506.1000, L100.0100 #### [facility] [address] [place], [address] RBC (Bld) [#/Vol] 4.29 10*6/uL Normal 4.2-5.4 [facility] Comment on above: Performed By: #### L 500.4050, L501.9520, L506.1000, L100.0100 #### [facility] [address] [place], [address] RDW SD 40.5 fl Normal 35.1-43.9 [facility] Comment on above: Performed By: #### L 500.4050, L501.9520, L506.1000, L100.0100 #### [facility] [address] [place], [address] WBC (Bld) [#/Vol] 5.7 10*3/uL Normal 4.4-11.0 [facility] Comment on above: Performed By: #### L 500.4050, L501.9520, L506.1000, L100.0100 #### [facility] [address] [place], [address] Carbon dioxide measurementOr dered By: Yoshi Hebert on 10-27-2024 CO2 [Moles/Vol] 25.5 mmol/L 22.0-29.0 [facility] Chloride measurementOrdered By: Yoshi Hebert on 10-27-2024 Chloride [Moles/Vol] 102 mmol/L 96-108 [facility] Comprehensive Metabolic Prof ilon 10-27-2024 Albumin [Mass/Vol] 4.0 g/dL Normal 3.4-4.8 [facility] Comment on above: Performed By: #### L 500.4050, L501.9520, L506.1000, L100.0100 #### [facility] [address] [place], [address] Albumin/Globulin [Mass ratio] 1.6 {ratio} Normal 0.9-2.4 [facility] Comment on above: Performed By: #### L 500.4050, L501.9520, L506.1000, L100.0100 #### [facility] [address] [place], [address] ALK PHOS 34 U/L Low 35-104 [facility] Comment on above: Performed By: #### L 500.4050, L501.9520, L506.1000, L100.0100 #### [facility] [address] [place], [address] ALT [Catalytic activity/Vol] 11 U/L Normal <=34 [facility] [facility] Comment on above: Performed By: #### L 500.4050, L501.9520, L506.1000, L100.0100 #### [facility] [address] [place], [address] Anion gap [Moles/Vol] 10 mmol/L Normal 5-15 [facility] Comment on above: Performed By: #### L 500.4050, L501.9520, L506.1000, L100.0100 #### [facility] [address] [place], [address] AST [Catalytic activity/Vol] 18 U/L Normal <=31 [facility] Comment on above: Performed By: #### L 500.4050, L501.9520, L506.1000, L100.0100 #### [facility] [address] [place], [address] Bilirubin [Mass/Vol] 0.49 mg/dL Normal 0.00-1.30 [facility] Comment on above: Performed By: #### L 500.4050, L501.9520, L506.1000, L100.0100 #### [facility] [address] [place], [address] BUN/CRE 24.1 RATIO High 10-20 [facility] Comment on above: Performed By: #### L 500.4050, L501.9520, L506.1000, L100.0100 #### [facility] [address] [place], [address] Calcium [Mass/Vol] 9.0 mg/dL Normal 7.6-11.0 [facility] Comment on above: Performed By: #### L 500.4050, L501.9520, L506.1000, L100.0100 #### [facility] [address] [place], [address] Chloride [Moles/Vol] 102 mmol/L Normal 96-108 [facility] Comment on above: Performed By: #### L 500.4050, L501.9520, L506.1000, L100.0100 #### [facility] [address] [place], [address] CO2 [Moles/Vol] 25.5 mmol/L Normal 22.0-29.0 [facility] Comment on above: Performed By: #### L 500.4050, L501.9520, L506.1000, L100.0100 #### [facility] [address] [place], [address] Creatinine [Mass/Vol] 0.78 mg/dL Normal 0.70-1.20 [facility] Comment on above: Performed By: #### L 500.4050, L501.9520, L506.1000, L100.0100 #### [facility] [address] [place], [address] ECRCL 36.81 ml/min Normal [facility] Comment on above: Performed By: #### L 500.4050, L501.9520, L506.1000, L100.0100 #### [facility] [address] [place], [address] GFR/1.73 sq M.predicted among non-blacks MDRD (S/P/Bld) [Vol rate/Area] 74 mL/min/{1.73_m2} Normal >60 [facility] Comment on above: Result Comment: mL/m in/1.73m2 CKD-EPI Creatinine Equation (2020) Performed By: #### L 500.4050, L501.9520, L506.1000, L100.0100 #### [facility] [address] [place], [address] Globulin (S) [Mass/Vol] 2.5 g/dL Normal 2.2-4.2 [facility] Comment on above: Performed By: #### L 500.4050, L501.9520, L506.1000, L100.0100 #### [facility] [address] [place], [address] Glucose [Mass/Vol] 125 mg/dL High 70-99 [facility] Comment on above: Performed By: #### L 500.4050, L501.9520, L506.1000, L100.0100 #### [facility] [address] [place], [address] Potassium [Moles/Vol] 4.0 mmol/L Normal 3.3-5.1 [facility] Comment on above: Performed By: #### L 500.4050, L501.9520, L506.1000, L100.0100 #### [facility] [address] [place], [address] Sodium [Moles/Vol] 138 mmol/L Normal 133-145 [facility] Comment on above: Performed By: #### L 500.4050, L501.9520, L506.1000, L100.0100 #### [facility] [address] [place], [address] T PROT 6.6 g/dL Normal 5.9-8.4 [facility] Comment on above: Performed By: #### L 500.4050, L501.9520, L506.1000, L100.0100 #### [facility] [address] [place], [address] Urea nitrogen [Mass/Vol] 19 mg/dL Normal 4-19 [facility] Comment on above: Performed By: #### L 500.4050, L501.9520, L506.1000, L100.0100 #### [facility] [address] [place], [address] Emergency Department Summary on 10-27-2024 Emergency Department Summary [facility] Medical Records Department [address] [place] [address] Emergency Department Summary 10/27/24 MR#: [id number] Acct: [id number] Name: JUAN CALDERON Rep #: [id number] : 1940 84 From: Yoshi Hebert DO PCP: Dr. Adrian Hahn MD Status:DEP ER Location: ED HPI History of Present Illness Chief Complaint: Confusion Informant: patient and friend Narrative Narrative: 84-year-old female presenting to the emergency room out of concern with confusion. Patient has a history of dementia. She follows with Dr. Hahn for primary care. Reportedly this morning around 0700 hrs. the patient texted her friend and asked for help because she was confused. Her friend came over to check on her and nothing seemed off when she brought her to the emergency to be evaluated. Patient notes that she had a few bites of breakfast this morning but not a proper breakfast. She denies any physical pain. No new medications. No dysuria or diarrhea cough or URI symptoms. [facility] Medical History Alzheimer dementia Home Medications ???Medication ???Instructions ???Recorded ???Last Taken ???Type ciprofloxacin HCl 500 mg tablet 1 tab PO BID 08/16/17 Unknown Hist ory metronidazole 500 mg tablet 1 tab PO TID 08/16/17 Unknown Hist ory Allergy/AdvReac Type Severity Reaction Status Date / Time Sulfa (Sulfonamide Allergy Hives Verified 10/27/24 08:09 Antibiotics) Social History Smoking Status: Never smoker ROS ROS ED Constitutional Constitutional ED: Denies chills, fever(s) or weight loss Eyes Eyes: Denies change in vision or diplopia ENT ENT ED: Denies ear pain, rhinorrhea or sore throat Cardiovascular Cardiovascular: Denies chest pain, orthopnea, palpitations or racing heartbeat Respiratory/Chest Respiratory/Chest: Denies cough, dyspnea or orthopnea Gastrointestinal Gastrointestinal: Denies abdominal pain, diarrhea, nausea or vomiting Genitourinary Genitourinary ED: Denies dysuria, hematuria or urinary frequency Musculoskeletal Musculoskeletal: Denies arthralgias or myalgias Integumentary Denies abscess or rash Neurologic Neurologic: Denies headache(s) or weakness Psychiatric Psychiatric: Denies anxiety, depression, suicidal ideation or suicidal thoughts Endocrine Endocrinology: Denies polydipsia, polyphagia or polyuria Allergic/Immunologic Allergic/Immunologic ED: Denies mouth swelling, tongue swelling or urticaria EXAM Physical Exam Const Vital Signs: 10/27/24 08:06 10/27/24 08:07 10/27/24 10:24 Temperature 97.9 F Temperature Source Oral Pulse Rate 81 94 71 Respiratory Rate 16 14 16 Blood Pressure 138/78 H 110/69 126/78 H Blood Pressure Mean 98 82 94 Pulse Ox 96 97 96 Oxygen Delivery Method Room Air Room Air Room Air Positive well nourished and well developed General Appearance ED: well developed and NAD HEENT Reports normocephalic, head/scalp atraumatic and moist mucous membranes Eyes PERRL and EOMs intact bilaterally Neck no lymphadenopathy, supple and no JVD Resp normal respiratory effort and clear to auscultation bilaterally Cardio regular rate, regular rhythm and no murmurs GI normal to inspection, nondistended, normoactive bowel sounds and non-tender Palpation: soft Back/Spine no CVA tenderness and normal ROM Extremity normal to inspection General Extremety ED: Negative for edema General Extremity: Negative for edema Neuro CN's II-XII intact bilaterally Neuro Narrative: Patient is orientated to name and place this is year. NIH is 0. Sensorium / Orientation: alert Motor Exam: strength 5/5 throughout Psych mental status grossly normal Mood Affect: Negative for depressed or tearful Skin no rashes or lesions noted and no wounds MDM MDM MDM Narrative Medical decision making narrative: Differential diagnosis includes UTI stroke brain hemorrhage electrolyte abnormalities dehydration encephalopathy hepatic dysfunction Basic blood work was obtained essentially negative glucose 125 normal sodium potassium. Urinalysis with no overt infection. CT the brain showed no acute findings. Clinically the patient is at baseline per family and herself. They are working to get her into care facility with an appointment on Wednesday. Patient and friend are comfortable going home. Return if worsening or concerns History Record Review Discussion w/independent historian: Patient and Friend Lab Data Attestation: I reviewed the patient's lab results. Labs: Laboratory Results - last 24 hr 10/27/24 10/27/24 08:39 09:09 WBC 5.7 RBC 4.29 Hgb 13.1 Hct 39.0 MCV 90.9 MCH 30.5 MCHC 33.6 RDW Std Deviation 40.5 RDW Coeff of (more content not included)... Normal [facility] Eosinophil percentageOrdered By: Yoshi Hebert on 10-27-2024 Eosinophils/100 WBC (Bld) 1.2 % 0-5 [facility] Erythrocyte distribution wid th ratioOrdered By: Yoshi Hebert on 10-27-2024 Erythrocyte distribution width (RBC) [Ratio] 12.2 % 11.6-14.6 [facility] Erythrocyte distribution wid th standard deviationOrdered By: Yoshi Hebert on 10-27-2024 Erythrocyte distribution width (RBC) [Ratio] 40.5 fl 35.1-43.9 [facility] Glomerular filtration rate ( GFR) estimation/1.73 sq m using serum, plasma, or whole bOrdered By: Yoshi Hebert on 10-27-2024 GFR/1.73 sq M.predicted among non-blacks MDRD (S/P/Bld) [Vol rate/Area] 74 mL/min/{1.73_m2} >60 [facility] Comment on above: mL/min/1.73m2 CKD-EP I Creatinine Equation (2020) Hematocrit Auto (Bld) [Volum e fraction]Ordered By: Yoshi Hebert on 10-27-2024 Hematocrit (Bld) [Volume fraction] 39.0 % 37-47 [facility] Hemoglobin measurementOrdere d By: Yoshi Hebert on 10-27-2024 Hemoglobin (Bld) [Mass/Vol] 13.1 g/dL 12.0-15.0 [facility] Immature granulocytes/100 WB C Auto (Bld)Ordered By: Yoshi Hebert on 10-27-2024 Immature granulocytes/100 WBC (Bld) 0.700 % 0.0-0.9 [facility] Comment on above: IG% - Immature Granu locytes (promyelocytes, myelocytes and metamyelocytes) > 1% indicates that a LEFT SHIFT is Present. Ketones Test strip Ql (U)Ord ered By: Yoshi Hebert on 10-27-2024 Ketones Ql (U) Negative Negative [facility] - Chemistry and C hemistry - challengeOrdered By: Yoshi Hebert on 10-27-2024 AST [Catalytic activity/Vol] 18 U/L <32 [facility] MCV (mean corpuscular volume ) determinationOrdered By: Yoshi Hebert on 10-27-2024 MCV (RBC) [Entitic vol] 90.9 fL 81-99 [facility] Mean corpuscular hemoglobin (MCH) determinationOrdered By: Yoshi Hebert on 10-27-2024 MCH (RBC) [Entitic mass] 30.5 pg 27.0-32.0 [facility] Mean corpuscular hemoglobin concentration (MCHC) determinationOrdered By: Yoshi Hebert on 10-27-2024 MCHC (RBC) [Mass/Vol] 33.6 g/dL 32-36 [facility] Mean platelet volume determi nationOrdered By: Yoshi Hebert on 10-27-2024 Platelet mean volume (Bld) [Entitic vol] 9.4 fL 6.2-12.0 [facility] Microscopic analysis of urin e for red blood cells (RBC)Ordered By: Yoshi Hebert on 10-27-2024 Microscopic analysis of urine for red blood cells (RBC) 0 SEEN /hpf 0-5 [facility] Monocyte percentageOrdered B y: Yoshi Hebert on 10-27-2024 Monocytes/100 WBC (Bld) 9.6 % 0-10 [facility] Mucus LM Ql (Urine sed)Order ed By: Yoshi Hebert on 10-27-2024 Mucus Ql (Urine sed) 0 SEEN /hpf [facility] Neutrophil percentageOrdered By: Yoshi Hebert on 10-27-2024 Neutrophils/100 WBC (Bld) 65.2 % 47-70 [facility] Nitrite Test strip Ql (U)Ord ered By: Yoshi Hebert on 10-27-2024 Nitrite Ql (U) Negative Negative [facility] Nucleated red blood cell per centageOrdered By: Yoshi Hebert on 10-27-2024 Nucleated RBC/100 WBC (Bld) [Ratio] 0 % 0-5 [facility] Platelet countOrdered By: Ramon Hebert on 10-27-2024 Platelets (Bld) [#/Vol] 276 10*3/uL 150-450 [facility] Protein Test strip Ql (U)Ord ered By: Yoshi Hebert on 10-27-2024 Protein Ql (U) Negative Negative [facility] RBC Auto (Bld) [#/Vol]Ordere d By: Yoshi Hebert on 10-27-2024 RBC (Bld) [#/Vol] 4.29 10*6/uL 4.2-5.4 [facility] Serum creatinine measurement (mass/volume)Ordered By: Yoshi Hebert on 10-27-2024 Creatinine [Mass/Vol] 0.78 mg/dL 0.70-1.20 [facility] Serum globulin measurementOr dered By: Yoshi Hebert on 10-27-2024 Globulin (S) [Mass/Vol] 2.5 g/dL 2.2-4.2 [facility] Serum glucose measurement (m ass/volume)Ordered By: Yoshi Hebert on 10-27-2024 Glucose [Mass/Vol] 125 mg/dL High 70-99 [facility] Serum or plasma alanine husain otransferase (ALT) measurementOrdered By: Yoshi Hebert on 10-27-2024 ALT [Catalytic activity/Vol] 11 U/L <35 [facility] Serum or plasma albumin rosio urement (mass/volume)Ordered By: Yoshi Hebert on 10-27-2024 Albumin [Mass/Vol] 4.0 g/dL 3.4-4.8 [facility] Serum or plasma albumin/glob ulin mass ratioOrdered By: Yoshi Hebert on 10-27-2024 Albumin/Globulin [Mass ratio] 1.6 {ratio} 0.9-2.4 [facility] Serum or plasma alkaline ed sphatase measurementOrdered By: Yoshi Hebert on 10-27-2024 ALP [Catalytic activity/Vol] 34 U/L Low 35-104 [facility] Serum or plasma anion gap de termination (moles/volume)Ordered By: Yoshi Hebert on 10-27-2024 Anion gap [Moles/Vol] 10 mmol/L 5-15 [facility] Serum or plasma calcium rosio urement (mass/volume)Ordered By: Yoshi Hebert on 10-27-2024 Calcium [Mass/Vol] 9.0 mg/dL 7.6-11.0 [facility] Serum or plasma potassium me asurementOrdered By: Yoshi Hebert on 10-27-2024 Potassium [Moles/Vol] 4.0 mmol/L 3.3-5.1 [facility] Serum or plasma sodium measu rement (moles/volume)Ordered By: Yoshi Hebert on 10-27-2024 Sodium [Moles/Vol] 138 mmol/L 133-145 [facility] Serum or plasma urea nitroge n measurement (mass/volume)Ordered By: Yoshi Hebert on 10-27-2024 Urea nitrogen [Mass/Vol] 19 mg/dL 4-19 [facility] Squamous epithelial cells de tection in urine sediment by light microscopyOrdered By: Yoshi Hebert on 10-27-2024 Epithelial cells.squamous LM Ql (Urine sed) 0 SEEN /hpf 5-10 [facility] Total proteinOrdered By: Franklin Hebert on 10-27-2024 Protein [Mass/Vol] 6.6 g/dL 5.9-8.4 [facility] Urinalysis, Completeon 10-27 EPI,RENAL 0-5 SEEN Normal 0-5 [facility] Comment on above: Order Comment: CLEAN CATCH Performed By: #### L 500.4050, L501.9520, L506.1000, L100.0100 #### [facility] [address] [place], [address] RBC 0 SEEN Normal 0-5 [facility] Comment on above: Order Comment: CLEAN CATCH Performed By: #### L 500.4050, L501.9520, L506.1000, L100.0100 #### [facility] [address] [place], [address] WBC 0-5 SEEN Normal 0-5 [facility] Comment on above: Order Comment: CLEAN CATCH Performed By: #### L 500.4050, L501.9520, L506.1000, L100.0100 #### [facility] [address] [place], [address] BACTERIA 0 SEEN Normal None Seen [facility] Comment on above: Order Comment: CLEAN CATCH Performed By: #### L 500.4050, L501.9520, L506.1000, L100.0100 #### [facility] [address] [place], [address] EPI,SQUAMOUS 0 SEEN Normal 5-10 [facility] Comment on above: Order Comment: CLEAN CATCH Performed By: #### L 500.4050, L501.9520, L506.1000, L100.0100 #### [facility] [address] [place], [address] Mucus Ql (Urine sed) 0 SEEN Normal [facility] Comment on above: Order Comment: CLEAN CATCH Performed By: #### L 500.4050, L501.9520, L506.1000, L100.0100 #### [facility] [address] [place], [address] Urine clarityOrdered By: Franklin Hebert on 10-27-2024 Clarity (U) Clear Clear [facility] Urine color determinationOrd ered By: Yoshi Hebert on 10-27-2024 Color (U) Yellow Yellow [facility] Urine glucose detectionOrder ed By: Yoshi Hebert on 10-27-2024 Glucose Ql (U) Normal mg/dl Normal [facility] Urine leukocyte esterase det ection by dipstickOrdered By: Yoshi Hebert on 10-27-2024 Leukocyte esterase Test strip Ql (U) Negative Negative [facility] Urine pHOrdered By: Yoshi lima on 10-27-2024 pH (U) 7.0 [pH] 5.0 - 8.0 [facility] Urine sediment bacteria coun t by microscopy (number/high power field)Ordered By: Yoshi Hebert on 10-27-2024 Bacteria LM.HPF (Urine sed) [#/Area] 0 /[HPF] None Seen [facility] Urine sediment renal epithel ial cell count by microscopy (number/high power field)Ordered By: Yoshi Hebert on 10-27-2024 Epithelial cells.renal LM.HPF (Urine sed) [#/Area] 0 /[HPF] 0-5 [facility] Urine specific gravity measu rementOrdered By: Yoshi Hebert on 10-27-2024 Specific gravity (U) [Rel density] 1.010 1.002-1.030 [facility] Urine urobilinogen measureme ntOrdered By: Yoshi Hebert on 10-27-2024 Urobilinogen Ql (U) Normal mg/dl Normal [facility] White blood cell (WBC) count Ordered By: Yoshi Hebert on 10-27-2024 WBC (Bld) [#/Vol] 5.7 10*3/uL 4.4-11.0 [facility] White blood cell countOrdere d By: Yoshi Hebert on 10-27-2024 White blood cell count 0-5 SEEN /hpf 0-5 [facility] Absolute lymphocyte countOrd ered By: Adrian Hahn on 10-05-2024 Lymphocytes Auto (Unsp spec) [#/Vol] 1.60 10*3/uL 0.83-4.51 [facility] Absolute neutrophil countOrd ered By: Adrian Hahn on 10-05-2024 Neutrophils (Bld) [#/Vol] 4.3 10*3/uL 2.0-7.7 [facility] Albumin to globulin ratioOrd ered By: Adrian Hahn on 10-05-2024 Albumin/Globulin [Mass ratio] 1.0 {ratio} 0.9-2.4 [facility] Automated lymphocyte count a s percentage of total leukocytesOrdered By: Adrian Hahn on 10-05-2024 Lymphocytes/100 WBC Auto (Unsp spec) 24.3 % 19-41 [facility] Basophil percentageOrdered B y: Adrian Hahn on 10-05-2024 Basophils/100 WBC (Bld) 1.1 % High 0-1 [facility] Bilirubin, totalOrdered By: Adrian Hahn on 10-05-2024 Bilirubin [Mass/Vol] 0.70 mg/dL 0.20-1.00 [facility] Comment on above: For patients on eltr ombopag therapy, use of Dimension [place] TBIL is not recommended. Blood urea nitrogen (BUN)/cr eatinine ratioOrdered By: Adrian Hahn on 10-05-2024 Urea nitrogen/Creatinine [Mass ratio] 19.2 mg/mg 10-20 [facility] CBC W/Diff, Automatedon Absolute Lymph 1.60 X10 3/uL Normal 0.83-4.51 [facility] Comment on above: Performed By: #### L 501.9520, L100.0100, L500.4050, L506.1000 #### [facility] [address] [place], [address] Absolute Neut 4.3 X10 3/uL Normal 2.0-7.7 [facility] Comment on above: Performed By: #### L 501.9520, L100.0100, L500.4050, L506.1000 #### [facility] [address] [place], [address] Basophils/100 WBC (Bld) 1.1 % High 0-1 [facility] Comment on above: Performed By: #### L 501.9520, L100.0100, L500.4050, L506.1000 #### [facility] [address] [place], [address] Eosinophils/100 WBC (Bld) 0.5 % Normal 0-5 [facility] Comment on above: Performed By: #### L 501.9520, L100.0100, L500.4050, L506.1000 #### [facility] [address] [place], [address] Erythrocyte distribution width (RBC) [Ratio] 12.3 % Normal 11.6-14.6 [facility] Comment on above: Performed By: #### L 501.9520, L100.0100, L500.4050, L506.1000 #### [facility] [address] [place], [address] Hematocrit (Bld) [Volume fraction] 43.2 % Normal 37-47 [facility] Comment on above: Performed By: #### L 501.9520, L100.0100, L500.4050, L506.1000 #### [facility] [address] [place], [address] Hemoglobin (Bld) [Mass/Vol] 14.2 g/dL Normal 12.0-15.0 [facility] Comment on above: Performed By: #### L 501.9520, L100.0100, L500.4050, L506.1000 #### [facility] [address] [place], [address] IG% 0.600 Normal 0.0-0.9 [facility] Comment on above: Result Comment: IG% - Immature Granulocytes (promyelocytes, myelocytes and metamyelocytes) > 1% indicates that a LEFT SHIFT is Present. Performed By: #### L 501.9520, L100.0100, L500.4050, L506.1000 #### [facility] [address] [place], [address] Lymphocytes/100 WBC (Bld) 24.3 % Normal 19-41 [facility] Comment on above: Performed By: #### L 501.9520, L100.0100, L500.4050, L506.1000 #### [facility] [address] [place], [address] MCH (RBC) [Entitic mass] 30.6 pg Normal 27.0-32.0 [facility] Comment on above: Performed By: #### L 501.9520, L100.0100, L500.4050, L506.1000 #### [facility] [address] [place], [address] MCHC (RBC) [Mass/Vol] 32.9 g/dL Normal 32-36 [facility] Comment on above: Performed By: #### L 501.9520, L100.0100, L500.4050, L506.1000 #### [facility] [address] [place], [address] MCV (RBC) [Entitic vol] 93.1 fL Normal 81-99 [facility] Comment on above: Performed By: #### L 501.9520, L100.0100, L500.4050, L506.1000 #### [facility] [address] [place], [address] Monocytes/100 WBC (Bld) 9.0 % Normal 0-10 [facility] Comment on above: Performed By: #### L 501.9520, L100.0100, L500.4050, L506.1000 #### [facility] [address] [place], [address] Neutrophils/100 WBC (Bld) 64.5 % Normal 47-70 [facility] Comment on above: Performed By: #### L 501.9520, L100.0100, L500.4050, L506.1000 #### [facility] [address] [place], [address] Nucleated RBC (Bld) [#/Vol] 0 10*3/uL Normal 0-5 [facility] Comment on above: Performed By: #### L 501.9520, L100.0100, L500.4050, L506.1000 #### [facility] [address] [place], [address] Platelet mean volume (Bld) [Entitic vol] 9.5 fL Normal 6.2-12.0 [facility] Comment on above: Performed By: #### L 501.9520, L100.0100, L500.4050, L506.1000 #### [facility] [address] [place], [address] Platelets (Bld) [#/Vol] 310 10*3/uL Normal 150-450 [facility] Comment on above: Performed By: #### L 501.9520, L100.0100, L500.4050, L506.1000 #### [facility] [address] [place], [address] RBC (Bld) [#/Vol] 4.64 10*6/uL Normal 4.2-5.4 [facility] Comment on above: Performed By: #### L 501.9520, L100.0100, L500.4050, L506.1000 #### [facility] [address] [place], [address] RDW SD 42.1 fl Normal 35.1-43.9 [facility] Comment on above: Performed By: #### L 501.9520, L100.0100, L500.4050, L506.1000 #### [facility] [address] [place], [address] WBC (Bld) [#/Vol] 6.6 10*3/uL Normal 4.4-11.0 [facility] Comment on above: Performed By: #### L 501.9520, L100.0100, L500.4050, L506.1000 #### [facility] [address] [place], [address] Carbon dioxide measurementOr dered By: Adrian Hahn on 10-05-2024 CO2 [Moles/Vol] 28.0 mmol/L 21.0-32.0 [facility] Chloride measurementOrdered By: Adrian Hahn on 10-05-2024 Chloride [Moles/Vol] 105 mmol/L 98-107 [facility] Comprehensive Metabolic Prof ilon 10-05-2024 Albumin [Mass/Vol] 3.9 g/dL Normal 3.2-5.0 [facility] Comment on above: Performed By: #### L 501.9520, L100.0100, L500.4050, L506.1000 #### [facility] [address] [place], [address] Albumin/Globulin [Mass ratio] 1.0 {ratio} Normal 0.9-2.4 [facility] Comment on above: Performed By: #### L 501.9520, L100.0100, L500.4050, L506.1000 #### [facility] [address] [place], [address] ALK P 36 U/L Low 45-117 [facility] Comment on above: Performed By: #### L 501.9520, L100.0100, L500.4050, L506.1000 #### [facility] [facility] [address] [place], [address] ALT [Catalytic activity/Vol] 16 U/L Normal 13-56 [facility] Comment on above: Performed By: #### L 501.9520, L100.0100, L500.4050, L506.1000 #### [facility] [address] [place], [address] AST [Catalytic activity/Vol] 15 U/L Normal 15-37 [facility] Comment on above: Performed By: #### L 501.9520, L100.0100, L500.4050, L506.1000 #### [facility] [address] [place], [address] Bilirubin [Mass/Vol] 0.70 mg/dL Normal 0.20-1.00 [facility] Comment on above: Result Comment: For patients on eltrombopag therapy, use of Dimension [place] TBIL is not recommended. Performed By: #### L 501.9520, L100.0100, L500.4050, L506.1000 #### [facility] [address] [place], [address] BUN/CRE 19.2 RATIO Normal 10-20 [facility] Comment on above: Performed By: #### L 501.9520, L100.0100, L500.4050, L506.1000 #### [facility] [address] [place], [address] CA,Total 9.7 mg/dL Normal 8.5-10.1 [facility] Comment on above: Performed By: #### L 501.9520, L100.0100, L500.4050, L506.1000 #### [facility] [address] [place], [address] Chloride [Moles/Vol] 105 mmol/L Normal 98-107 [facility] Comment on above: Performed By: #### L 501.9520, L100.0100, L500.4050, L506.1000 #### [facility] [address] [place], [address] CO2 [Moles/Vol] 28.0 mmol/L Normal 21.0-32.0 [facility] Comment on above: Performed By: #### L 501.9520, L100.0100, L500.4050, L506.1000 #### [facility] [address] [place], [address] Creatinine [Mass/Vol] 1.04 mg/dL High 0.55-1.02 [facility] Comment on above: Result Comment: The validity of the calculated GFR GFRAA in patients over 70 years has not been determined. Clinical correlation is essential. Performed By: #### L 501.9520, L100.0100, L500.4050, L506.1000 #### [facility] [address] [place], [address] EST GFR - AA 65 mL/min Normal >60 [facility] Comment on above: Result Comment: Afri can [place] GFR Calc Performed By: #### L 501.9520, L100.0100, L500.4050, L506.1000 #### [facility] [address] [place], [address] GAP 8 Normal 5-15 [facility] Comment on above: Performed By: #### L 501.9520, L100.0100, L500.4050, L506.1000 #### [facility] [address] [place], [address] GFR/1.73 sq M.predicted among non-blacks MDRD (S/P/Bld) [Vol rate/Area] 54 mL/min/{1.73_m2} Low >60 [facility] Comment on above: Result Comment: Non- GFR Calc Performed By: #### L 501.9520, L100.0100, L500.4050, L506.1000 #### [facility] [address] [place], [address] Globulin (S) [Mass/Vol] 4.0 g/dL Normal 2.2-4.2 [facility] Comment on above: Performed By: #### L 501.9520, L100.0100, L500.4050, L506.1000 #### [facility] [address] [place], [address] Glucose [Mass/Vol] 119 mg/dL High 74-106 [facility] Comment on above: Result Comment: Fast ing Glucose result from 100 to 125 mg/dL suggests IMPAIRED HOMEOSTASIS per A.D.A. criteria. Performed By: #### L 501.9520, L100.0100, L500.4050, L506.1000 #### [facility] [address] [place], [address] Potassium [Moles/Vol] 4.1 mmol/L Normal 3.5-5.1 [facility] Comment on above: Performed By: #### L 501.9520, L100.0100, L500.4050, L506.1000 #### [facility] [address] [place], [address] Sodium [Moles/Vol] 141 mmol/L Normal 136-145 [facility] Comment on above: Performed By: #### L 501.9520, L100.0100, L500.4050, L506.1000 #### [facility] [address] [place], [address] T PROT 7.9 g/dL Normal 6.4-8.2 [facility] Comment on above: Performed By: #### L 501.9520, L100.0100, L500.4050, L506.1000 #### [facility] [address] [place], [address] Urea nitrogen [Mass/Vol] 20 mg/dL High 7-18 [facility] Comment on above: Performed By: #### L 501.9520, L100.0100, L500.4050, L506.1000 #### [facility] [address] [place], [address] Eosinophil percentageOrdered By: Adrian Hahn on 10-05-2024 Eosinophils/100 WBC (Bld) 0.5 % 0-5 [facility] Erythrocyte distribution wid th ratioOrdered By: Adrian Hahn on 10-05-2024 Erythrocyte distribution width (RBC) [Ratio] 12.3 % 11.6-14.6 [facility] Erythrocyte distribution wid th standard deviationOrdered By: Adrian Hahn on 10-05-2024 Erythrocyte distribution width (RBC) [Ratio] 42.1 fl 35.1-43.9 [facility] Glomerular filtration rate ( GFR) estimationOrdered By: Adrian Hahn on 10-05-2024 GFR/1.73 sq M.predicted among non-blacks MDRD (S/P/Bld) [Vol rate/Area] 54 mL/min/{1.73_m2} Low >60 [facility] Comment on above: Non- GFR Calc Glucose measurementOrdered B y: Adrian Hahn on 10-05-2024 Glucose [Mass/Vol] 119 mg/dL High 74-106 [facility] Comment on above: Fasting Glucose resu lt from 100 to 125 mg/dL suggests IMPAIRED HOMEOSTASIS per A.D.A. criteria. Hematocrit Auto (Bld) [Volum e fraction]Ordered By: Adrian Hahn on 10-05-2024 Hematocrit (Bld) [Volume fraction] 43.2 % 37-47 [facility] Hemoglobin measurementOrdere d By: Adrian Hahn on 10-05-2024 Hemoglobin (Bld) [Mass/Vol] 14.2 g/dL 12.0-15.0 [facility] Immature granulocytes/100 WB C Auto (Bld)Ordered By: Adrian Hahn on 10-05-2024 Immature granulocytes/100 WBC (Bld) 0.600 % 0.0-0.9 [facility] Comment on above: IG% - Immature Granu locytes (promyelocytes, myelocytes and metamyelocytes) > 1% indicates that a LEFT SHIFT is Present. Laboratory - Chemistry and C hemistry - challengeOrdered By: Adrian Hahn on 10-05-2024 AST [Catalytic activity/Vol] 15 U/L 15-37 [facility] MCV (mean corpuscular volume ) determinationOrdered By: Adrian Hahn 10-05-2024 MCV (RBC) [Entitic vol] 93.1 fL 81-99 [facility] Mean corpuscular hemoglobin (MCH) determinationOrdered By: Adrian Hahn 10-05-2024 MCH (RBC) [Entitic mass] 30.6 pg 27.0-32.0 [facility] Mean corpuscular hemoglobin concentration (MCHC) determinationOrdered By: Adrian Hahn 10-05-2024 MCHC (RBC) [Mass/Vol] 32.9 g/dL 32-36 [facility] Mean platelet volume determi nationOrdered By: Adrian Hahn 10-05-2024 Platelet mean volume (Bld) [Entitic vol] 9.5 fL 6.2-12.0 [facility] Monocyte percentageOrdered B y: Adrian Hahn on 10-05-2024 Monocytes/100 WBC (Bld) 9.0 % 0-10 [facility] Neutrophil percentageOrdered By: Adrian Hahn on 10-05-2024 Neutrophils/100 WBC (Bld) 64.5 % 47-70 [facility] Nucleated red blood cell per centageOrdered By: Adrian Hahn on 10-05-2024 Nucleated RBC/100 WBC (Bld) [Ratio] 0 % 0-5 [facility] Platelet countOrdered By: Clarence Hahn on 10-05-2024 Platelets (Bld) [#/Vol] 310 10*3/uL 150-450 [facility] Potassium measurementOrdered By: Adrian Hahn on 10-05-2024 Potassium [Moles/Vol] 4.1 mmol/L 3.5-5.1 [facility] RBC Auto (Bld) [#/Vol]Ordere d By: Adrian Hahn on 10-05-2024 RBC (Bld) [#/Vol] 4.64 10*6/uL 4.2-5.4 [facility] Serum anion gap measurementO rdered By: Adrian Hahn on 10-05-2024 Anion gap [Moles/Vol] 8 mmol/L 5-15 [facility] Serum globulin measurementOr dered By: Adrian Hahn on 10-05-2024 Globulin (S) [Mass/Vol] 4.0 g/dL 2.2-4.2 [facility] Serum or plasma alanine husain otransferase (ALT) measurementOrdered By: Adrian Hahn on 10-05-2024 ALT [Catalytic activity/Vol] 16 U/L 13-56 [facility] Serum or plasma albumin rosio urement (mass/volume)Ordered By: Adrian Hahn on 10-05-2024 Albumin [Mass/Vol] 3.9 g/dL 3.2-5.0 [facility] Serum or plasma alkaline ed sphatase measurementOrdered By: Adrian Hahn on 10-05-2024 ALP [Catalytic activity/Vol] 36 U/L Low 45-117 [facility] Serum or plasma calcium rosio urement (mass/volume)Ordered By: Adrian Hahn on 10-05-2024 Calcium [Mass/Vol] 9.7 mg/dL 8.5-10.1 [facility] Serum or plasma creatinine m easurement (mass/volume)Ordered By: Adrian Hahn on 10-05-2024 Creatinine [Mass/Vol] 1.04 mg/dL High 0.55-1.02 [facility] Comment on above: The validity of the calculated GFR & GFRAA in patients over 70 years has not been determined. Clinical correlation is essential. Serum or plasma thyroid stim ulating hormone (TSH) measurement (units/volume)Ordered By: Adrian Hahn on 10-05-2024 TSH Qn 2.060 uIU/mL 0.358-3.740 [facility] Serum or plasma urea nitroge n measurement (mass/volume)Ordered By: Adrian Hahn on 10-05-2024 Urea nitrogen [Mass/Vol] 20 mg/dL High 7-18 [facility] Sodium levelOrdered By: Adrian Hahn on 10-05-2024 Sodium [Moles/Vol] 141 mmol/L 136-145 [facility] Thyroid Stim Hormone (TSH)on 10-05-2024 TSH 2.060 uIU/mL Normal 0.358-3.740 [facility] Comment on above: Performed By: #### L 501.9520, L100.0100, L500.4050, L506.1000 #### [facility] [address] [place], [place], [address] Total proteinOrdered By: Adrian Hahn on 10-05-2024 Protein [Mass/Vol] 7.9 g/dL 6.4-8.2 [facility] Vitamin D,25 Hydroxyon 10-05 Vitamin D 25-OH 32.1 ng/mL Normal [facility] Comment on above: Result Comment: Claritza min D 25(OH) Status Range Deficiency <20 ng/mL (50nmol/L) Insufficiency 20 - 30 ng/mL (50 - 75 nmol/L) Sufficiency 30 - 100 ng/mL (75 - 250 nmol/L) Toxicity >100 ng/mL (>250 nmol/L) Performed By: #### L 501.9520, L100.0100, L500.4050, L506.1000 #### [facility] [address] [place], [address] White blood cell (WBC) count Ordered By: Adrian Hahn on 10-05-2024 WBC (Bld) [#/Vol] 6.6 10*3/uL 4.4-11.0 [facility] CBC W/Diff, Automatedon 10-0 7-2023 Absolute Lymph 1.48 X10 3/uL Normal 0.83-4.51 [facility] Comment on above: Performed By: #### L 500.4050, L501.9520, L506.1000, L100.0100 #### [facility] [address] [place], [address] Absolute Neut 3.4 X10 3/uL Normal 2.0-7.7 [facility] Comment on above: Performed By: #### L 500.4050, L501.9520, L506.1000, L100.0100 #### [facility] [address] [place], [address] Basophils/100 WBC (Bld) 0.7 % Normal 0-1 [facility] Comment on above: Performed By: #### L 500.4050, L501.9520, L506.1000, L100.0100 #### [facility] [address] [place], [address] Eosinophils/100 WBC (Bld) 0.7 % Normal 0-5 [facility] Comment on above: Performed By: #### L 500.4050, L501.9520, L506.1000, L100.0100 #### [facility] [address] [place], [address] Erythrocyte distribution width (RBC) [Ratio] 12.3 % Normal 11.6-14.6 [facility] Comment on above: Performed By: #### L 500.4050, L501.9520, L506.1000, L100.0100 #### [facility] [address] [place], [address] Hematocrit (Bld) [Volume fraction] 40.4 % Normal 37-47 [facility] Comment on above: Performed By: #### L 500.4050, L501.9520, L506.1000, L100.0100 #### [facility] [address] [place], [address] Hemoglobin (Bld) [Mass/Vol] 13.3 g/dL Normal 12.0-15.0 [facility] Comment on above: Performed By: #### L 500.4050, L501.9520, L506.1000, L100.0100 #### [facility] [address] [place], [address] IG% 1.300 High 0.0-0.9 [facility] Comment on above: Result Comment: IG% - Immature Granulocytes (promyelocytes, myelocytes and metamyelocytes) > 1% indicates that a LEFT SHIFT is Present. Performed By: #### L 500.4050, L501.9520, L506.1000, L100.0100 #### [facility] [address] [place], [address] Lymphocytes/100 WBC (Bld) 26.5 % Normal 19-41 [facility] Comment on above: Performed By: #### L 500.4050, L501.9520, L506.1000, L100.0100 #### [facility] [address] [place], [address] MCH (RBC) [Entitic mass] 29.9 pg Normal 27.0-32.0 [facility] Comment on above: Performed By: #### L 500.4050, L501.9520, L506.1000, L100.0100 #### [facility] [address] [place], [address] MCHC (RBC) [Mass/Vol] 32.9 g/dL Normal 32-36 [facility] Comment on above: Performed By: #### L 500.4050, L501.9520, L506.1000, L100.0100 #### [facility] [address] [place], [address] MCV (RBC) [Entitic vol] 90.8 fL Normal 81-99 [facility] Comment on above: Performed By: #### L 500.4050, L501.9520, L506.1000, L100.0100 #### [facility] [address] [place], [address] Monocytes/100 WBC (Bld) 10.6 % High 0-10 [facility] Comment on above: Performed By: #### L 500.4050, L501.9520, L506.1000, L100.0100 #### [facility] [address] [place], [address] Neutrophils/100 WBC (Bld) 60.2 % Normal 47-70 [facility] Comment on above: Performed By: #### L 500.4050, L501.9520, L506.1000, L100.0100 #### [facility] [address] [place], [address] Nucleated RBC (Bld) [#/Vol] 0 10*3/uL Normal 0-5 [facility] Comment on above: Performed By: #### L 500.4050, L501.9520, L506.1000, L100.0100 #### [facility] [address] [place], [address] Platelet mean volume (Bld) [Entitic vol] 9.5 fL Normal 6.2-12.0 [facility] Comment on above: Performed By: #### L 500.4050, L501.9520, L506.1000, L100.0100 #### [facility] [address] [place], [address] Platelets (Bld) [#/Vol] 277 10*3/uL Normal 150-450 [facility] Comment on above: Performed By: #### L 500.4050, L501.9520, L506.1000, L100.0100 #### [facility] [address] [place], [address] RBC (Bld) [#/Vol] 4.45 10*6/uL Normal 4.2-5.4 [facility] Comment on above: Performed By: #### L 500.4050, L501.9520, L506.1000, L100.0100 #### [facility] [address] [place], [address] RDW SD 40.8 fl Normal 35.1-43.9 [facility] Comment on above: Performed By: #### L 500.4050, L501.9520, L506.1000, L100.0100 #### [facility] [address] [place], [address] WBC (Bld) [#/Vol] 5.6 10*3/uL Normal 4.4-11.0 [facility] Comment on above: Performed By: #### L 500.4050, L501.9520, L506.1000, L100.0100 #### [facility] [address] [place], [address] Comprehensive Metabolic Prof [facility] 06-05-2024 Albumin [Mass/Vol] 3.8 g/dL Normal 3.2-5.0 [facility] Comment on above: Performed By: #### L 500.4050, L501.9520, L506.1000, L100.0100 #### [facility] [address] [place], [address] Albumin/Globulin [Mass ratio] 1.1 {ratio} Normal 0.9-2.4 [facility] Comment on above: Performed By: #### L 500.4050, L501.9520, L506.1000, L100.0100 #### [facility] [address] [place], [address] ALK P 33 U/L Low 45-117 [facility] Comment on above: Performed By: #### L 500.4050, L501.9520, L506.1000, L100.0100 #### [facility] [address] [place], [address] ALT [Catalytic activity/Vol] 18 U/L Normal 13-56 [facility] Comment on above: Performed By: #### L 500.4050, L501.9520, L506.1000, L100.0100 #### [facility] [address] [place], [address] AST [Catalytic activity/Vol] 19 U/L Normal 15-37 [facility] Comment on above: Performed By: #### L 500.4050, L501.9520, L506.1000, L100.0100 #### [facility] [address] [place], [address] Bilirubin [Mass/Vol] 0.70 mg/dL Normal 0.20-1.00 [facility] Comment on above: Result Comment: For patients on eltrombopag therapy, use of Dimension [place] TBIL is not recommended. Performed By: #### L 500.4050, L501.9520, L506.1000, L100.0100 #### [facility] [address] [place], [address] BUN/CRE 17.7 RATIO Normal 10-20 [facility] Comment on above: Performed By: #### L 500.4050, L501.9520, L506.1000, L100.0100 #### [facility] [address] [place], [address] CA,Total 9.2 mg/dL Normal 8.5-10.1 [facility] Comment on above: Performed By: #### L 500.4050, L501.9520, L506.1000, L100.0100 #### [facility] [address] [place], [address] Chloride [Moles/Vol] 106 mmol/L Normal 98-107 [facility] Comment on above: Performed By: #### L 500.4050, L501.9520, L506.1000, L100.0100 #### [facility] [address] [place], [address] CO2 [Moles/Vol] 27.0 mmol/L Normal 21.0-32.0 [facility] Comment on above: Performed By: #### L 500.4050, L501.9520, L506.1000, L100.0100 #### [facility] [address] [place], [address] Creatinine [Mass/Vol] 0.96 mg/dL Normal 0.55-1.02 [facility] Comment on above: Result Comment: The validity of the calculated GFR GFRAA in patients over 70 years has not been determined. Clinical correlation is essential. Performed By: #### L 500.4050, L501.9520, L506.1000, L100.0100 #### [facility] [address] [place], [address] EST GFR - AA 71 mL/min Normal >60 [facility] Comment on above: Result Comment: Afri can [place] GFR Calc Performed By: #### L 500.4050, L501.9520, L506.1000, L100.0100 #### [facility] [address] [place], [address] GAP 6 Normal 5-15 [facility] Comment on above: Performed By: #### L 500.4050, L501.9520, L506.1000, L100.0100 #### [facility] [address] [place], [address] GFR/1.73 sq M.predicted among non-blacks MDRD (S/P/Bld) [Vol rate/Area] 59 mL/min/{1.73_m2} Low >60 [facility] Comment on above: Result Comment: Non- GFR Calc Performed By: #### L 500.4050, L501.9520, L506.1000, L100.0100 #### [facility] [address] [place], [address] Globulin (S) [Mass/Vol] 3.6 g/dL Normal 2.2-4.2 [facility] Comment on above: Performed By: #### L 500.4050, L501.9520, L506.1000, L100.0100 #### [facility] [address] [place], [address] Glucose [Mass/Vol] 103 mg/dL Normal 74-106 [facility] Comment on above: Result Comment: Fast ing Glucose result from 100 to 125 mg/dL suggests IMPAIRED HOMEOSTASIS per A.D.A. criteria. Performed By: #### L 500.4050, L501.9520, L506.1000, L100.0100 #### [facility] [address] [place], [address] Potassium [Moles/Vol] 4.0 mmol/L Normal 3.5-5.1 [facility] Comment on above: Performed By: #### L 500.4050, L501.9520, L506.1000, L100.0100 #### [facility] [address] [place], [address] Sodium [Moles/Vol] 139 mmol/L Normal 136-145 [facility] Comment on above: Performed By: #### L 500.4050, L501.9520, L506.1000, L100.0100 #### [facility] [address] [place], [address] T PROT 7.4 g/dL Normal 6.4-8.2 [facility] Comment on above: Performed By: #### L 500.4050, L501.9520, L506.1000, L100.0100 #### [facility] [address] [place], [address] Urea nitrogen [Mass/Vol] 17 mg/dL Normal 7-18 [facility] Comment on above: Performed By: #### L 500.4050, L501.9520, L506.1000, L100.0100 #### [facility] [address] [place], [address] Thyroid Stim Hormone (TSH)on 06-05-2024 TSH 2.880 uIU/mL Normal 0.358-3.740 [facility] Comment on above: Performed By: #### L 500.4050, L501.9520, L506.1000, L100.0100 #### [facility] [address] [place], [address] Vitamin D,25 Hydroxyon 06-05 Vitamin D 25-OH 33.0 ng/mL Normal [facility] Comment on above: Result Comment: Claritza min D 25(OH) Status Range Deficiency <20 ng/mL (50nmol/L) Insufficiency 20 - 30 ng/mL (50 - 75 nmol/L) Sufficiency 30 - 100 ng/mL (75 - 250 nmol/L) Toxicity >100 ng/mL (>250 nmol/L) Performed By: #### L 500.4050, L501.9520, L506.1000, L100.0100 #### [facility] [address] [place], [address] Absolute lymphocyte countOrd ered By: Adrian Hahn on 10-04-2023 Lymphocytes Auto (Unsp spec) [#/Vol] 1.62 10*3/uL 0.83-4.51 [facility] Automated lymphocyte count a s percentage of total leukocytesOrdered By: Adrian Hahn on 10-04-2023 Lymphocytes/100 WBC Auto (Unsp spec) 22.1 % 19-41 [facility] Basophil percentageOrdered B y: Adrian Hahn on 10-04-2023 Basophils/100 WBC (Bld) 0.7 % 0-1 [facility] Bilirubin [Mass/Vol] 0.50 mg/dL 0.20-1.00 [facility] Comment on above: For patients on eltr ombopag therapy, use of Dimension [place] TBIL is not recommended. Chloride [Moles/Vol] 105 mmol/L 98-107 [facility] Eosinophils/100 WBC (Bld) 0.8 % 0-5 [facility] Glucose [Mass/Vol] 122 mg/dL 74-106 [facility] Comment on above: Fasting Glucose resu lt from 100 to 125 mg/dL suggests IMPAIRED HOMEOSTASIS per A.D.A. criteria. Hemoglobin (Bld) [Mass/Vol] 13.4 g/dL 12.0-15.0 [facility] Monocytes/100 WBC (Bld) 9.3 % 0-10 [facility] Neutrophils (Bld) [#/Vol] 4.9 10*3/uL 2.0-7.7 [facility] Neutrophils/100 WBC (Bld) 66.3 % 47-70 [facility] Potassium [Moles/Vol] 4.2 mmol/L 3.5-5.1 [facility] Protein [Mass/Vol] 8.1 g/dL 6.4-8.2 [facility] Sodium [Moles/Vol] 140 mmol/L 136-145 [facility] WBC (Bld) [#/Vol] 7.3 10*3/uL 4.4-11.0 [facility] Determination of erythrocyte mean corpuscular volume (MCV)Ordered By: Adrian Hahn on 10-04-2023 MCV (RBC) [Entitic vol] 91.1 fL 81-99 [facility] Erythrocyte distribution wid th ratioOrdered By: Adrian Hahn 10-04-2023 Erythrocyte distribution width (RBC) [Ratio] 11.9 % 11.6-14.6 [facility] Erythrocyte distribution wid th standard deviationOrdered By: Adrian Hahn on 10-04-2023 Erythrocyte distribution width (RBC) [Entitic vol] 39.6 fL 35.1-43.9 [facility] Hematocrit Auto (Bld) [Volum e fraction]Ordered By: Adrian Hahn on 10-04-2023 Hematocrit (Bld) [Volume fraction] 40.1 % 37-47 [facility] Immature granulocytes/100 WB C Auto (Bld)Ordered By: Adrian Hahn on 10-04-2023 Immature granulocytes/100 WBC (Bld) 0.800 % 0.0-0.9 [facility] Comment on above: IG% - Immature Granu locytes (promyelocytes, myelocytes and metamyelocytes) > 1% indicates that a LEFT SHIFT is Present. Laboratory - Chemistry and C hemistry - challengeOrdered By: Adrian Hahn on 10-04-2023 Albumin/Globulin [Mass ratio] 0.9 {ratio} 0.9-2.4 [facility] ALP [Catalytic activity/Vol] 40 U/L 45-117 [facility] ALT [Catalytic activity/Vol] 22 U/L 13-56 [facility] CO2 [Moles/Vol] 27.0 mmol/L 21.0-32.0 [facility] Globulin (S) [Mass/Vol] 4.2 g/dL 2.2-4.2 [facility] Urea nitrogen/Creatinine [Mass ratio] 24.9 mg/mg 10-20 [facility] Laboratory - Hematology and Cell countsOrdered By: Adrian Hahn on 10-04-2023 MCH (RBC) [Entitic mass] 30.5 pg 27.0-32.0 [facility] MCHC (RBC) [Mass/Vol] 33.4 g/dL 32-36 [facility] Nucleated RBC/100 WBC (Bld) [Ratio] 0 % 0-5 [facility] Platelets (Bld) [#/Vol] 292 10*3/uL 150-450 [facility] No Panel InformationOrdered By: Adrian Hahn on 10-04-2023 Estimated GFR (MDRD) Amer 83 mL/min >60 [facility] Comment on above: GFR Calc Estimated GFR (MDRD) Non-Af Amer 68 mL/min >60 [facility] Comment on above: Non- GFR Calc Vitamin D 25-Hydroxy 29.7 ng/mL [facility] Comment on above: Vitamin D 25(OH) Sta tus Range Deficiency <20 ng/mL (50nmol/L) Insufficiency 20 - 30 ng/mL (50 - 75 nmol/L) Sufficiency 30 - 100 ng/mL (75 - 250 nmol/L) Toxicity >100 ng/mL (>250 nmol/L) Platelet mean volume Delio-Ec ker (Bld) [Entitic vol]Ordered By: Adrian Hahn on 10-04-2023 Platelet mean volume (Bld) [Entitic vol] 9.8 fL 6.2-12.0 [facility] RBC Auto (Bld) [#/Vol]Ordere d By: Adrian Hahn on 10-04-2023 RBC (Bld) [#/Vol] 4.40 10*6/uL 4.2-5.4 [facility] Serum or plasma calcium rosio urement (mass/volume)Ordered By: Adrian Hahn on 10-04-2023 Calcium [Mass/Vol] 9.4 mg/dL 8.5-10.1 [facility] Serum or plasma creatinine m easurement (mass/volume)Ordered By: Adrian Hahn on 10-04-2023 Creatinine [Mass/Vol] 0.84 mg/dL 0.55-1.02 [facility] Comment on above: The validity of the calculated GFR & GFRAA in patients over 70 years has not been determined. Clinical correlation is essential. Serum or plasma thyroid stim ulating hormone (TSH) measurement (units/volume)Ordered By: Adrian Hahn on 10-04-2023 TSH Qn 2.92 uIU/mL 0.358-3.74 [facility] Serum or plasma urea nitroge n measurement (mass/volume)Ordered By: Adrian Hahn on 10-04-2023 Urea nitrogen [Mass/Vol] 21 mg/dL 7-18 [facility] Thin prep Papanicolaou smear with manual screeningOrdered By: Adrian Hahn on 10-04-2023 Thin prep Papanicolaou smear with manual screening 3.9 g/dL 3.2-5.0 [facility] Thin prep Papanicolaou smear with manual screening 11 U/L 15-37 [facility] Thin prep Papanicolaou smear with manual screening 8 5-15 [facility] No Panel InformationOrdered By: Adrian Hahn on 08-04-2023 Miscellaneous Test See comment [facility] Comment on above: TEST RESULTS LIMITSA JOHNNY Alzheimer's RiskMethodology: Patient DNA is assayed for the APOE genotype by PCRamplification of a specific region in exon 4 of the APOEgene followed by digestion with restriction enzyme Tape Sewer Iand separation of fragments by polyacrylamide gelelectrophoresis. This approach allows the APOE E2, E3, andE4 alleles to be distinguished. Analytical sensitivity andspecificity are >99.5%. Individuals are interpreted ashaving one of the following genotypes: E2/E2, E3/E3, E4/E4,E2/E3, E2/E4, E3/E4.APO E Genotyping Result: E3/E4 (one copy of the APOE4 variant)Interpretation: Positive for one copy of the APOE4 variant that isassociated with increased risk for late onset Alzheimer'sdisease (AD). Therefore the lifetime risk for AD isincreased in this individual. However, most individualswith one copy of the APOE4 variant do not develop AD.RECOMMENDATIONSGenetic counseling is recommended.Due to the lack of measures to prevent the development ofAD, the ACMG/NSGC guidelines do not recommendpresymptomatic testing, but if it is performed, guidelinesare provided (Silvino LEIJA et al. 2011). The APOE Genotyping:Alzheimer's Risk test is not recommended for children.NOTE: This is not a diagnostic test. Results should beinterpreted along with clinical findings and other data.This test evaluates only for the APOE genotype and cannotdetect genetic abnormalities elsewhere in the genome. Itshould be realized that there are possible sources of errorincluding sample misidentification, rare technical errors,trace contamination of PCR reactions, and rare geneticvariants that may interfere with analysis.For inquiries or genetic consultation, please call [facility] .Comment: INFORMATION ABOUT THE APOE GENOTYPE AND ALZHEIMER'S DISEASEAlzheimer's disease (AD) is the most common form ofdementia in the elderly and currently affects more than 5million Americans. It is a progressive neurodegenerativedisorder with brain findings of plaques and neurofibrillarytangles containing beta-amyloid and tau proteinrespectively. The predominant form of AD is late onset (age > 60-65), which can be familial (15-20%) or sporadic. The [id number] increases the risk for late onset AD and maycontribute to the pathology of the disease. This risk isincreased by approximately 2 to 3-fold for individuals withone copy of the APOE4 variant and by approximately [id number] for individuals with two copies of this variant(E4/E4 genotype). The APOE2 variant has some protectiveeffect against development of late onset AD. The lifetimerisk for late onset AD is approximately 10-12% in thegeneral population, though it is higher in women than menand doubles when there is a first degree relative with thisdisorder. The lifetime risk is approximately 9% forindividuals negative for APOE4, and for individuals withE4/E4 may be as high as 25% for males and 45% for females.Among patients with late onset AD, the presence of [id number] lead to earlier development of symptoms.However, APOE4 is neither necessary nor sufficient for thedevelopment of AD. Approximately 30-50% of patients withlate onset AD do not have an APOE4 allele.APOE4 is common, with 25% of the general population havingone copy and 1% having two copies of this variant. Amongpatients with late onset AD, 50-70% are positive for APOE4.The development of late onset AD is influenced by manyfactors other than APOE4 including age, gender, familyhistory, level of education and history of head trauma.Midlife cardiovascular risk factors in individuals withAPOE4 also increase risk for cognitive decline. A number ofgenetic influences in addition to APOE4 have also beenreported and are under investigation.This test was developed and its performance characteristicsdetermined by [employer]. It has not been cleared or approvedby the Food and Drug Administration. The FDA has determinedthat such clearance or approval is not necessary.REFERENCESAlladonna A et al. Sex modifies the APOE-related risk ofdeveloping Alzheimer disease. Annal [id number];75(4):563-573Bird TD. Alzheimer Disease Overview. GeneReviews(internet). Adrian JIMENEZ et al., editors. [facility]:[employer], [place], [place]. Last revised 2014.Silvino JS et al. Genetic counseling and testing forAlzheimer disease: Joint practice guidelines of theAmerican College of Medical Genetics and the [facility]. Leatha in Dpe0496;[phone])555-601.Ben MCCRAY. Apolipoprotein E: Implications for ADneurobiology, epidemiology and risk assessment.Neurobiology of Aging 2011;32:778-790 TESTING PERFORMED AT [facility]. ORIGINAL REPORT ON FILE IN LAB CONTAINS ADDITIONAL TEST SITE INFORMATION. Absolute lymphocyte countOrd ered By: Adrian Hahn on 07-01-2023 Lymphocytes Auto (Unsp spec) [#/Vol] 1.59 10*3/uL 0.83-4.51 [facility] Basophil percentageOrdered B y: Adrian Hahn on 07-01-2023 Basophils/100 WBC (Bld) 0.6 % 0-1 [facility] Bilirubin [Mass/Vol] 0.40 mg/dL 0.20-1.00 [facility] Comment on above: For patients on eltr ombopag therapy, use of [place] TBIL is not recommended. Chloride [Moles/Vol] 105 mmol/L 98-107 [facility] Eosinophils/100 WBC (Bld) 0.9 % 0-5 [facility] Glucose [Mass/Vol] 100 mg/dL 74-106 [facility] Comment on above: Fasting Glucose resu lt from 100 to 125 mg/dL suggests IMPAIRED HOMEOSTASIS per A.D.A. criteria. Neutrophils (Bld) [#/Vol] 4.2 10*3/uL 2.0-7.7 [facility] Neutrophils/100 WBC (Bld) 64.3 % 47-70 [facility] Potassium [Moles/Vol] 4.1 mmol/L 3.5-5.1 [facility] Protein [Mass/Vol] 7.2 g/dL 6.4-8.2 [facility] Sodium [Moles/Vol] 140 mmol/L 136-145 [facility] WBC (Bld) [#/Vol] 6.5 10*3/uL 4.4-11.0 [facility] Blood erythrocytes count (nu mber/volume)Ordered By: Adrian Hahn on 07-01-2023 RBC (Bld) [#/Vol] 4.31 10*6/uL 4.2-5.4 [facility] Blood hemoglobin measurement (mass/volume)Ordered By: Adrian Hahn on 07-01-2023 Hemoglobin (Bld) [Mass/Vol] 13.4 g/dL 12.0-15.0 [facility] Blood lymphocytes/100 leukoc ytesOrdered By: Adrian Hahn on 07-01-2023 Lymphocytes/100 WBC (Bld) 24.5 % 19-41 [facility] Blood monocytes/100 leukocyt esOrdered By: [facility]ani on 07-01-2023 Monocytes/100 WBC (Bld) 9.1 % 0-10 [facility] Blood platelet mean volumeOr dered By: [facility] on 07-01-2023 Platelet mean volume (Bld) [Entitic vol] 9.8 fL 6.2-12.0 [facility] Determination of erythrocyte mean corpuscular volume (MCV)Ordered By: Adrian Hahn on 07-01-2023 MCV (RBC) [Entitic vol] 92.3 fL 81-99 [facility] Hematocrit Auto (Bld) [Volum e fraction][facility] Hematocrit (Bld) [Volume fraction] 39.8 % 37-47 [facility] Laboratory - Chemistry and C hemistry - challengeOrdered By: [facility]ani 07-01-2023 ALP [Catalytic activity/Vol] 28 U/L 45-117 [facility] ALT [Catalytic activity/Vol] 22 U/L 13-56 [facility] CO2 [Moles/Vol] 31.0 mmol/L 21.0-32.0 [facility] Globulin (S) [Mass/Vol] 3.4 g/dL 2.2-4.2 [facility] Urea nitrogen/Creatinine [Mass ratio] 22.2 mg/mg 10-20 [facility] Laboratory - Hematology and Cell countsOrdered By: Adrian Hahn on 07-01-2023 Erythrocyte distribution width (RBC) [Entitic vol] 41.9 fL 35.1-43.9 [facility] Erythrocyte distribution width (RBC) [Ratio] 12.3 % 11.6-14.6 [facility] Immature granulocytes/100 WBC (Bld) 0.600 % 0.0-0.9 [facility] Comment on above: IG% - Immature Granu locytes (promyelocytes, myelocytes and metamyelocytes) > 1% indicates that a LEFT SHIFT is Present. MCH (RBC) [Entitic mass] 31.1 pg 27.0-32.0 [facility] Nucleated RBC/100 WBC (Bld) [Ratio] 0 % 0-5 [facility] MCHC Auto (RBC) [Mass/Vol]Or dered By: Adrian Hahn on 07-01-2023 MCHC (RBC) [Mass/Vol] 33.7 g/dL 32-36 [facility] No Panel InformationOrdered By: Adrian Hahn on 07-01-2023 Estimated GFR (MDRD) Amer 86 mL/min >60 [facility] Comment on above: GFR Calc Estimated GFR (MDRD) Non-Af Amer 71 mL/min >60 [facility] Comment on above: Non- GFR Calc Thyroid Stimulating Hormone (TSH) 2.03 uIU/mL 0.358-3.74 [facility] Vitamin D 25-Hydroxy 15.7 ng/mL [facility] Comment on above: Vitamin D 25(OH) Sta tus Range Deficiency <20 ng/mL (50nmol/L) Insufficiency 20 - 30 ng/mL (50 - 75 nmol/L) Sufficiency 30 - 100 ng/mL (75 - 250 nmol/L) Toxicity >100 ng/mL (>250 nmol/L) Platelets bldOrdered By: Adrian Hahn on 07-01-2023 Platelets (Bld) [#/Vol] 286 10*3/uL 150-450 [facility] Serum or plasma albumin rosio urement (mass/volume)Ordered By: Adrian Hahn on 07-01-2023 Albumin [Mass/Vol] 3.8 g/dL 3.2-5.0 [facility] Serum or plasma albumin/glob ulin mass ratioOrdered By: Adrian Hahn on 07-01-2023 Albumin/Globulin [Mass ratio] 1.1 {ratio} 0.9-2.4 [facility] Serum or plasma calcium rosio urement (mass/volume)Ordered By: Adrian Hahn on 07-01-2023 Calcium [Mass/Vol] 8.8 mg/dL 8.5-10.1 [facility] Serum or plasma creatinine m easurement (mass/volume)Ordered By: Adrian Hahn on 07-01-2023 Creatinine [Mass/Vol] 0.81 mg/dL 0.55-1.02 [facility] Comment on above: The validity of the calculated GFR & GFRAA in patients over 70 years has not been determined. Clinical correlation is essential. Serum or plasma urea nitroge n measurement (mass/volume)Ordered By: Adrian Hahn on 07-01-2023 Urea nitrogen [Mass/Vol] 18 mg/dL 7-18 [facility] Thin prep Papanicolaou smear with manual screeningOrdered By: Adrian Hahn on 07-01-2023 Thin prep Papanicolaou smear with manual screening 18 U/L 15-37 [facility] Thin prep Papanicolaou smear with manual screening 4 5-15 [facility] Absolute lymphocyte countOrd ered By: Adrian Hahn on 03-25-2023 Lymphocytes Auto (Unsp spec) [#/Vol] 1.65 10*3/uL 0.83-4.51 [facility] Basophil percentageOrdered B y: Adrian Hahn on 03-25-2023 Basophils/100 WBC (Bld) 0.8 % 0-1 [facility] Bilirubin [Mass/Vol] 0.60 mg/dL 0.20-1.00 [facility] Comment on above: For patients on eltr ombopag therapy, use of [place] TBIL is not recommended. Chloride [Moles/Vol] 105 mmol/L 98-107 [facility] Eosinophils/100 WBC (Bld) 1.1 % 0-5 [facility] Glucose [Mass/Vol] 115 mg/dL 74-106 [facility] Comment on above: Fasting Glucose resu lt from 100 to 125 mg/dL suggests IMPAIRED HOMEOSTASIS per A.D.A. criteria. Neutrophils (Bld) [#/Vol] 3.7 10*3/uL 2.0-7.7 [facility] Neutrophils/100 WBC (Bld) 59.9 % 47-70 [facility] Potassium [Moles/Vol] 4.3 mmol/L 3.5-5.1 [facility] Protein [Mass/Vol] 7.4 g/dL 6.4-8.2 [facility] Sodium [Moles/Vol] 139 mmol/L 136-145 [facility] WBC (Bld) [#/Vol] 6.2 10*3/uL 4.4-11.0 [facility] Blood erythrocytes count (nu mber/volume)Ordered By: Adrian Hahn on 03-25-2023 RBC (Bld) [#/Vol] 4.46 10*6/uL 4.2-5.4 [facility] Blood hemoglobin measurement (mass/volume)Ordered By: Adrian Hahn on 03-25-2023 Hemoglobin (Bld) [Mass/Vol] 13.6 g/dL 12.0-15.0 [facility] Blood lymphocytes/100 leukoc ytesOrdered By: Adrian Hahn on 03-25-2023 Lymphocytes/100 WBC (Bld) 26.7 % 19-41 [facility] Blood monocytes/100 leukocyt esOrdered By: Adrian Hahn on 03-25-2023 Monocytes/100 WBC (Bld) 11.0 % 0-10 [facility] Blood platelet mean volumeOr dered By: Adrian Hahn on 03-25-2023 Platelet mean volume (Bld) [Entitic vol] 10.4 fL 6.2-12.0 [facility] Determination of erythrocyte mean corpuscular volume (MCV)Ordered By: Adrian Hahn 03-25-2023 MCV (RBC) [Entitic vol] 93.7 fL 81-99 [facility] Hematocrit Auto (Bld) [Volum e fraction]Ordered By: Adrian Hahn 03-25-2023 Hematocrit (Bld) [Volume fraction] 41.8 % 37-47 [facility] Laboratory - Chemistry and C hemistry - challengeOrdered By: Adrian Hahn on 03-25-2023 ALP [Catalytic activity/Vol] 31 U/L 45-117 [facility] ALT [Catalytic activity/Vol] 21 U/L 13-56 [facility] CO2 [Moles/Vol] 30.0 mmol/L 21.0-32.0 [facility] Globulin (S) [Mass/Vol] 3.6 g/dL 2.2-4.2 [facility] Urea nitrogen/Creatinine [Mass ratio] 25.1 mg/mg 10-20 [facility] Laboratory - Hematology and Cell countsOrdered By: Adrian Hahn on 03-25-2023 Erythrocyte distribution width (RBC) [Entitic vol] 41.9 fL 35.1-43.9 [facility] Erythrocyte distribution width (RBC) [Ratio] 12.1 % 11.6-14.6 [facility] Immature granulocytes/100 WBC (Bld) 0.500 % 0.0-0.9 [facility] Comment on above: IG% - Immature Granu locytes (promyelocytes, myelocytes and metamyelocytes) > 1% indicates that a LEFT SHIFT is Present. MCH (RBC) [Entitic mass] 30.5 pg 27.0-32.0 [facility] Nucleated RBC/100 WBC (Bld) [Ratio] 0 % 0-5 [facility] MCHC Auto (RBC) [Mass/Vol]Or dered By: Adrian Hahn on 03-25-2023 MCHC (RBC) [Mass/Vol] 32.5 g/dL 32-36 [facility] No Panel InformationOrdered By: Adrian Hahn on 03-25-2023 Estimated GFR (MDRD) Amer 75 mL/min >60 [facility] Comment on above: GFR Calc Estimated GFR (MDRD) Non-Af Amer 62 mL/min >60 [facility] Comment on above: Non- GFR Calc Thyroid Stimulating Hormone (TSH) 2.26 uIU/mL 0.358-3.74 [facility] Vitamin D 25-Hydroxy 18.1 ng/mL [facility] Comment on above: Vitamin D 25(OH) Sta tus Range Deficiency <20 ng/mL (50nmol/L) Insufficiency 20 - 30 ng/mL (50 - 75 nmol/L) Sufficiency 30 - 100 ng/mL (75 - 250 nmol/L) Toxicity >100 ng/mL (>250 nmol/L) Platelets bldOrdered By: Adrian Hahn on 03-25-2023 Platelets (Bld) [#/Vol] 295 10*3/uL 150-450 [facility] Serum or plasma albumin rosio urement (mass/volume)Ordered By: Adrian Hahn on 03-25-2023 Albumin [Mass/Vol] 3.8 g/dL 3.2-5.0 [facility] Serum or plasma albumin/glob ulin mass ratioOrdered By: Adrian Hahn on 03-25-2023 Albumin/Globulin [Mass ratio] 1.1 {ratio} 0.9-2.4 [facility] Serum or plasma calcium rosio urement (mass/volume)Ordered By: Adrian Hahn on 03-25-2023 Calcium [Mass/Vol] 8.8 mg/dL 8.5-10.1 [facility] Serum or plasma creatinine m easurement (mass/volume)Ordered By: Adrian Hahn on 03-25-2023 Creatinine [Mass/Vol] 0.92 mg/dL 0.55-1.02 [facility] Comment on above: The validity of the calculated GFR & GFRAA in patients over 70 years has not been determined. Clinical correlation is essential. Serum or plasma urea nitroge n measurement (mass/volume)Ordered By: Adrian Hahn on 03-25-2023 Urea nitrogen [Mass/Vol] 23 mg/dL 7-18 [facility] Thin prep Papanicolaou smear with manual screeningOrdered By: Adrian Hahn 03-25-2023 Thin prep Papanicolaou smear with manual screening 17 U/L 15-37 [facility] Thin prep Papanicolaou smear with manual screening 4 5-15 [facility] Absolute lymphocyte countOrd ered By: Adrian Hahn on 09-29-2022 Lymphocytes Auto (Unsp spec) [#/Vol] 1.94 10*3/uL 0.83-4.51 [facility] Basophil percentageOrdered B y: Adrian Hahn on 09-29-2022 Basophils/100 WBC (Bld) 0.7 % 0-1 [facility] Bilirubin [Mass/Vol] 0.40 mg/dL 0.20-1.00 [facility] Comment on above: For patients on eltr ombopag therapy, use of [place] TBIL is not recommended. Chloride [Moles/Vol] 103 mmol/L 98-107 [facility] Eosinophils/100 WBC (Bld) 1.1 % 0-5 [facility] Glucose [Mass/Vol] 101 mg/dL 74-106 [facility] Comment on above: Fasting Glucose resu lt from 100 to 125 mg/dL suggests IMPAIRED HOMEOSTASIS per A.D.A. criteria. Neutrophils (Bld) [#/Vol] 4.4 10*3/uL 2.0-7.7 [facility] Neutrophils/100 WBC (Bld) 60.8 % 47-70 [facility] Potassium [Moles/Vol] 3.8 mmol/L 3.5-5.1 [facility] Protein [Mass/Vol] 8.0 g/dL 6.4-8.2 [facility] Sodium [Moles/Vol] 140 mmol/L 136-145 [facility] WBC (Bld) [#/Vol] 7.2 10*3/uL 4.4-11.0 [facility] Blood erythrocytes count (nu mber/volume)Ordered By: Adrian Hahn on 09-29-2022 RBC (Bld) [#/Vol] 4.61 10*6/uL 4.2-5.4 [facility] Blood hemoglobin measurement (mass/volume)Ordered By: Adrian Hahn on 09-29-2022 Hemoglobin (Bld) [Mass/Vol] 13.6 g/dL 12.0-15.0 [facility] Blood lymphocytes/100 leukoc ytesOrdered By: Adrian Hahn on 09-29-2022 Lymphocytes/100 WBC (Bld) 26.8 % 19-41 [facility] Blood monocytes/100 leukocyt esOrdered By: Adrian Hahn on 09-29-2022 Monocytes/100 WBC (Bld) 10.0 % 0-10 [facility] Blood platelet mean volumeOr dered By: Adrian Hahn on 09-29-2022 Platelet mean volume (Bld) [Entitic vol] 10.1 fL 6.2-12.0 [facility] Determination of erythrocyte mean corpuscular volume (MCV)Ordered By: Adrian Hahn on 09-29-2022 MCV (RBC) [Entitic vol] 90.5 fL 81-99 [facility] Hematocrit Auto (Bld) [Volum e fraction]Ordered By: Adrian Hahn on 09-29-2022 Hematocrit (Bld) [Volume fraction] 41.7 % 37-47 [facility] Laboratory - Chemistry and C hemistry - challengeOrdered By: Adrian Hahn on 09-29-2022 ALP [Catalytic activity/Vol] 32 U/L 45-117 [facility] ALT [Catalytic activity/Vol] 23 U/L 13-56 [facility] CO2 [Moles/Vol] 29.0 mmol/L 21.0-32.0 [facility] Cobalamin (Vitamin B12) [Mass/Vol] 391 pg/mL 211-911 [facility] Globulin (S) [Mass/Vol] 4.0 g/dL 2.2-4.2 [facility] Urea nitrogen/Creatinine [Mass ratio] 26.7 mg/mg 10-20 [facility] Laboratory - Hematology and Cell countsOrdered By: Adrian Hahn on 09-29-2022 Erythrocyte distribution width (RBC) [Entitic vol] 39.9 fL 35.1-43.9 [facility] Erythrocyte distribution width (RBC) [Ratio] 12.2 % 11.6-14.6 [facility] Immature granulocytes/100 WBC (Bld) 0.600 % 0.0-0.9 [facility] Comment on above: IG% - Immature Granu locytes (promyelocytes, myelocytes and metamyelocytes) > 1% indicates that a LEFT SHIFT is Present. MCH (RBC) [Entitic mass] 29.5 pg 27.0-32.0 [facility] Nucleated RBC/100 WBC (Bld) [Ratio] 0 % 0-5 [facility] MCHC Auto (RBC) [Mass/Vol]Or dered By: Adrian Hahn on 09-29-2022 MCHC (RBC) [Mass/Vol] 32.6 g/dL 32-36 [facility] No Panel InformationOrdered By: Adrian Hahn on 09-29-2022 Estimated GFR (MDRD) Amer 90 mL/min >60 [facility] Comment on above: GFR Calc Estimated GFR (MDRD) Non-Af Amer 74 mL/min >60 [facility] Comment on above: Non- GFR Calc Hepatitis C Antibody Non-Reactive Nonreactive [facility] Comment on above: Non Reactive: < 0.8 Equivocal: >/= 0.8 to < 1.0 Reactive: >/= 1.0The CDC recommends that a reactive/equivocal HCV antibody result be followed up by the HCV Nucleic Acid Amplificationtest ([id number]) Thyroid Stimulating Hormone (TSH) 2.53 uIU/mL 0.358-3.74 [facility] Vitamin D 25-Hydroxy 12.3 ng/mL [facility] Comment on above: Vitamin D 25(OH) Sta tus Range Deficiency <20 ng/mL (50nmol/L) Insufficiency 20 - 30 ng/mL (50 - 75 nmol/L) Sufficiency 30 - 100 ng/mL (75 - 250 nmol/L) Toxicity >100 ng/mL (>250 nmol/L) Platelets bldOrdered By: Adrian Hahn on 09-29-2022 Platelets (Bld) [#/Vol] 313 10*3/uL 150-450 [facility] Serum Treponema species anti body detectionOrdered By: Adrian Hahn on 09-29-2022 Treponema sp Ab Ql (S) Non-Reactive [facility] Serum or plasma albumin rsoio urement (mass/volume)Ordered By: Adrian Hahn 09-29-2022 Albumin [Mass/Vol] 4.0 g/dL 3.2-5.0 [facility] Serum or plasma albumin/glob ulin mass ratioOrdered By: Adrian Hahn 09-29-2022 Albumin/Globulin [Mass ratio] 1.0 {ratio} 0.9-2.4 [facility] Serum or plasma calcium rosio urement (mass/volume)Ordered By: Adrian Hahn 09-29-2022 Calcium [Mass/Vol] 9.2 mg/dL 8.5-10.1 [facility] Serum or plasma creatinine m easurement (mass/volume)Ordered By: Adrian Hahn 09-29-2022 Creatinine [Mass/Vol] 0.79 mg/dL 0.55-1.02 [facility] Comment on above: The validity of the calculated GFR & GFRAA in patients over 70 years has not been determined. Clinical correlation is essential. Serum or plasma folate measu rement (mass/volume)Ordered By: Adrian Hahn on 09-29-2022 Folate [Mass/Vol] 14.80 ng/mL 3.1-55.4 [facility] Serum or plasma urea nitroge n measurement (mass/volume)Ordered By: Adrian Hahn on 09-29-2022 Urea nitrogen [Mass/Vol] 21 mg/dL 7-18 [facility] Thin prep Papanicolaou smear with manual screeningOrdered By: Adrian Hahn on 09-29-2022 Thin prep Papanicolaou smear with manual screening 21 U/L 15-37 [facility] Thin prep Papanicolaou smear with manual screening 8 5-15 [facility] Vital Signs Date Time Vital Sign Value Performing Clinician Faci lity 10-27-2024 10:39-0500 Body temperature 97.9 [degF] Dr. Adrian Hahn MD Work Phone: [facility] 10-27-2024 10:39-0500 Diastolic blood pressure 70 mm[Hg] Dr. Adrian Hahn MD Work Phone: [facility] 10-27-2024 10:39-0500 Heart rate 70 /min Dr. Adrian Hahn MD Work Phone: [facility] 10-27-2024 10:39-0500 Respiratory rate 16 /min Dr. Adrian Hahn MD Work Phone: [facility] 10-27-2024 10:39-0500 SaO2% (BldA) [Mass fraction] 99 % Dr. Adrian Hahn MD Work Phone: [facility] 10-27-2024 10:39-0500 Systolic blood pressure 128 mm[Hg] Dr. Adrian Hahn MD Work Phone: [facility] 10-27-2024 08:07-0500 Body height 152.[address] Adrian Hahn MD Work Phone: [facility] 10-27-2024 08:07-0500 Body mass index (BMI) [Ratio] 19.5 kg/m2 Dr. Adrian Hahn MD Work Phone: [facility] 10-27-2024 08:07-0500 Body weight 45.[address] Adrian Hahn MD Work Phone: [facility] Encounters Encounter Date Encounter Type Care Provider Facility Start: 02-26-2025 ambulatory Adrian Hahn Facility:[facility] Start: 01-26-2025 End: 01-26-[address] Adrian Hahn MD Work Phone: [facility] Work Phone: Start: 01-26-2025 End: 01-26-[address] Adrian Hahn MD -Laboratory Work Phone: Start: 01-26-2025 End: 01-26-[address] [facility] Facility:[facility] Start: 10-27-2024 End: 10-27-2024 Emergency department patient visit Dr. Yoshi Hebert DO -Emergency Department Work Phone: Start: 10-05-2024 End: 10-05-[address] Adrian Hahn MD -Laboratory Phy Office 3rd Flr Start: 10-05-2024 End: 10-05-[address] [facility] Facility:[facility] Start: 06-05-2024 End: 06-05-[address] [facility] Facility:[facility] Start: 10-04-2023 End: 10-04-2023 ambulatory [facility] Work Phone: Start: 10-04-2023 End: 10-04-2023 Patient encounter procedure [facility]-Laboratory, Phy Office 3rd Flr Start: 08-04-2023 End: 08-04-2023 ambulatory [facility] Work Phone: Start: 08-04-2023 End: 08-04-2023 Patient encounter procedure [facility]-Laboratory, Phy Office 3rd Flr Start: 08-02-2023 End: 08-02-2023 ambulatory [facility] Work Phone: Start: 08-02-2023 End: 08-02-2023 Patient encounter procedure [facility] Work Phone: Start: 07-01-2023 End: 07-01-2023 ambulatory [facility] Work Phone: Start: 07-01-2023 End: 07-01-2023 Patient encounter procedure [facility]-Laboratory, Phy Office 3rd Flr Start: 03-25-2023 End: 03-25-2023 ambulatory [facility] Work Phone: Start: 03-25-2023 End: 03-25-2023 Patient encounter procedure [facility]-Laboratory, Phy Office 3rd Flr Start: 10-05-2022 Patient encounter procedure [facility], [facility] Start: 09-29-2022 End: 09-29-2022 ambulatory [facility] Work Phone: Start: 09-29-2022 End: 09-29-2022 Patient encounter procedure [facility]-Laboratory, Phy Office 3rd Flr Procedures Date Procedure Procedure Detail Performing Clinician Start: 01-26-[address] Adrian zabala MD Work Phone: Start: 10-27-2024 Urnls dip stick/tabl et reagent auto microscopy Dr. Adrian Hahn MD Work Phone: Start: 10-27-2024 CT of head without contrast Dr. Adrian Hahn MD Work Phone: Start: 10-27-[address] Adrian Hahn MD Work Phone: Start: 10-05-2024 Measurement of renal function Dr. Adrian Hahn MD Work Phone: Comment on above: GFR Calc Start: 10-05-2024 Vitamin D, 25-hydrox y measurement Dr. Adrian Hahn MD Work Phone: Comment on above: Vitamin D 25(OH) Sta tus Range Deficiency <20 ng/mL (50nmol/L) Insufficiency 20 - 30 ng/mL (50 - 75 nmol/L) Sufficiency 30 - 100 ng/mL (75 - 250 nmol/L) Toxicity >100 ng/mL (>250 nmol/L) Start: 08-02-2023 MRI of brain without contrast Start: 10-05-2022 CT of head without contrast Plan of Treatment Date Care Activity Detail Author Start: 10-27-2024 [facility] Start: 08-04-2023 Procedure [facility] Patient Education ED DEMENTIA [facility] Work Phone: Patient referral [facility] Work Phone: Payers Date Payer Category Payer Medicare [id number] 2024 Self-pay [id number] Private Health Insurance [employer] [facility] [id number] Unknown MED [facility] AMER [id number] Unknown [id number] Unknown [id number] Unknown [id number] Unknown [id number] Unknown [id number] Social History Date Type Detail Facility Start: 08-16-2017 End: 08-16-2017 Tobacco smoking status NHIS Unknown if ever smoked [facility] Start: 1940 Sex Assigned At Female [facility] Start: 10-27-2024 Tobacco smoking stat us NHIS Never smoked tobacco (finding) [facility] Mental Status Date Assessment Result Facility 10-27-2024 Cognitive function Voice/Name [facility] Work Phone: Clinical Note 07-08-2021 Note Date & Type Note Facility 07-08-2021 Note Patient Outreach (DEVEN CRUZ) JUAN CALDERON ([id number]) 1940 F Date Time Provider Department 07/08/21 JOELLE CARDOZO During your visit today, we recorded the following information about you: Joelle Cardozo Population Health Navigator 07/08/2021 11:11 AM Signed POPULATION HEALTH NAVIGATION OUTREACH Action/FYI I tried to leave a voice message [...] future healthcare decisions with a power of securities attorney, living will, or advance directives? No. Please bring a copy to your next appointment or email to Referrals: N/A Message Sent to Practice: NO Navigation Signature: Joelle Cardozo Population Health Navigator July 08, 2021 11:10 AM Allergies As of Date: 07/08/2021 Noted Allergy Reaction LIPITOR (ATORVASTATIN CALCIUM) 08/08/2007 SULFA (SULFONAMIDE ANTIBIOTICS) 06/17/2005 2 - Rash Date Reviewed: 08/10/2017 Reviewed by: [facility] KEVIN Jones.GUERRERO - Fully Assessed Reason for Visit: Population Health Navigation Outreach [3910] Cmt: Offboarding Problem List As Of Date 07/08/2021 Noted Resolved DIVERTICULOSIS OF COLON W/O BLEED [K57.30] HYPERLIPIDEMIA NEC/NOS [E78.5] PALPITATIONS [R00.2] 09/02/2007 Letter Text Encounter Status:Closed by JULIANE POPULATION HEALTH NAVIGATOR, JOELLE Mills on 07/08/21 [facility] Progress note 07-08-2021 Note Date & Type Note Facility 07-08-2021 Note HNO ID: [id number] Author: Joelle Cardozo Population Health Navigciro Service: ? Author Type: ? Type: Progress Notes Filed: 07/08/2021 11:11 AM Note Text: POPULATION HEALTH NAVIGATION OUTREACH Action/FYI I tried to leave a voice message [...] future healthcare decisions with a power of securities attorney, living will, or advance directives? No. Please bring a copy to your next appointment or email to Referrals: N/A Message Sent to Practice: NO Navigation Signature: Joelle Cardozo Population Health Navigator July 08, 2021 11:10 AM [facility] Evaluation note Note Date & Type Note Facility Evaluation note No assessment information availa [facility] Work Phone: Reason for referral (narrative) Note Date & Type Note Facility Reason for referral (narrative) No reason for referral information available [facility] Work Phone: Summary Purpose Family History No Family History Records FoundNo Family History Records Found Advance Directives No Advanced Directives Records Found Advance Directive Response Recorded Date/ Time Living Will Yes August 16 017 2:52pm Power of Veterinary Nurse Yes August 16, 2017 2:52pm Advance Directive Response Recorded Date/ Time Living Will Yes August 16 017 3:52pm Power of Veterinary Nurse Yes August 16, 2017 3:52pm Advance Directive Response Recorded Date/ Time Living Will No October 27 025 9:20am Do you have a Healthcare Power of Veterinary Nurse? No October 27, 2024 9:20am Chief Complaint and Reason for Visit Chief Complaint ALZHEIMERS Chief Complaint Alzheimer's disease, unspecified Chief Complaint Admit Date CONFUSION October 27, 2024 8:03am Additional Source Comments INFORMATION SOURCE (unrecogn ized section and content) DATE CREATED AUTHOR 07/09/2021 [facility] DATE CREATED AUTHOR AUTHOR'S ORGANIZ ATION 03/20/2025 [facility] Teams (unrecognized sec tion and content) Team Status: Active Member Role Status Dates Dr. Antonino Mandel III, MD Family Provider Active Dr. Adrian Hahn MD Primary Care Provider Active Team Status: Inactive Member Role Status Dates Adrian Hahn MD Attending Provider Active Team Status: Active Member Role Status Dates Dr. Adrian Hahn MD Primary Care Provi sarah, Attending Provider, Referring Provider Active Team Status: Inactive Member Role Status Dates Dr. Adrian Hahn MD Primary Care Provider, Attending Provider Active Team Status: Inactive Member Role Status Dates Dr. Adrian Hahn MD Primary Care Provi sarah, Attending Provider, Referring Provider Active Team Status: Active Member Role Status Dates Dr. Adrian Hahn MD Primary Care Provider, Attending Provider Active Team Status: Active Member Role Status Dates Dr. Adrian Hahn MD Primary Care Provider Active Team Status: Inactive Member Role Status Dates Dr. Adrian Hahn MD Primary Care Provider Active Start: October 05, 2024 End: October 05, 2024 Dr. Adrian Hahn MD Attending Provider Active Start: October 05, 2024 End: October 05, 2024 Team Status: Inactive Member Role Status Dates Dr. Adrian Hahn MD Primary Care Provider Active Start: October 27, 2024 End: October 27, 2024 Dr. Yoshi Hebert DO Attending Provider Active Start: October 27, 2024 End: October 27, 2024 Dr. Yoshi Hebert DO Emergency Provider Active Start: October 27, 2024 End: October 27, 2024 Team Status: Inactive Member Role Status Dates Dr. Adrian Hahn MD Primary Care Provider Active Start: January 26, 2025 End: January 26, 2025 Dr. Adrian Hahn MD Attending Provider Active Start: January 26, 2025 End: January 26, 2025 Dr. Adrian Hahn MD Referring Provider Active Start: January 26, 2025 End: January 26, 2025 Goals (unrecognized section and content) Goals may be documented in a n alternate sectionGoals may be documented in an alternate sectionGoals may be documented in an alternate sectionGoals may be documented in an alternate sectionGoals may be documented in an alternate sectionGoals may be documented in an alternate sectionGoals may be documented in an alternate section FOR RECORDS PERTAINING TO PATIENTS WHO ARE [...] BE BASED ON THE PRIMARY CLINICAL RECORDS. [employer] provides no warranty or guarantee of the accuracy or completeness of information in this document.
--- OUTSIDE RECORDS SUMMARY | 2025-04-04 12:00 | XMS RPT_ITS | CCD ---
Author Organization [facility] Care Team Providers Care Small Electric Engine Technician Name Role Phone Jovani VARGAS, Dr. Adrian Tomas Primary Care Provider [phone] Dr. Adrian Hahn MD, [place] Attending Provider Dr. Yoshi Hebert DO Attending Provider Dr. Yoshi Hebert DO Emergency Provider Dr. [...] sources) Sulfonamides (Antibiotic) Allergy to substance 0 [facility] (1 source) Sulfonamides (Antibiotic) Drug allergy (disorder) 5 [facility] Repository Medications Current Medications Medication Drug Class(es) [...] 2 Below infectio n level. Staphylococcus aureus [place] Count <1000 Mixed Gram Pos Gram Neg [...] S Vancomycin Islt [place] 1 S Normal [facility] Comment on above: Performed By: #### M 100.2201 #### [facility] [address] [place], [address] Absolute lymphocyte countOrd ered By: Adrian Hahn on 01-26-2025 Lymphocytes Auto (Unsp spec) [#/Vol] 1.56 10*3/uL 0.83-4.51 [facility] Absolute neutrophil countOrd ered By: Adrian Hahn on 01-26-2025 Neutrophils (Bld) [#/Vol] 5.1 10*3/uL 2.0-7.7 [facility] Anion gap in Serum or Plasma Ordered By: Adrian Hahn on 01-26-2025 Anion gap [Moles/Vol] 11 mmol/L 5-15 [facility] Automated lymphocyte count a s percentage of total leukocytesOrdered By: Adrian Hahn on 01-26-2025 Lymphocytes/100 WBC Auto (Unsp spec) 20.4 % 19-41 [facility] BUN/creatinine ratioOrdered By: Adrian Hahn on 01-26-2025 Urea nitrogen/Creatinine [Mass ratio] 20.2 mg/mg High 10-20 [facility] Basic Metabolic Profile (BMP )on 01-26-2025 BUN/CRE 20.2 RATIO High - [facility] Comment on above: Performed By: #### L 500.4050, L501.9520, L506.1000, L100.0100 #### [facility] [address] [place], [address] Calcium [Mass/Vol] 9.6 mg/dL Normal 7.6-11.0 [facility] Comment on above: Performed By: #### L 500.4050, L501.9520, L506.1000, L100.0100 #### [facility] [address] [place], [address] Chloride [Moles/Vol] 103 mmol/L Normal 98-108 [facility] Comment on above: Performed By: #### L 500.4050, L501.9520, L506.1000, L100.0100 #### [facility] [address] [place], [address] CO2 [Moles/Vol] 25.8 mmol/L Normal 21.0-32.0 [facility] Comment on above: Performed By: #### L 500.4050, L501.9520, L506.1000, L100.0100 #### [facility] [address] [place], [address] Creatinine [Mass/Vol] 0.95 mg/dL Normal 0.70-1.20 [facility] Comment on above: Performed By: #### L 500.4050, L501.9520, L506.1000, L100.0100 #### [facility] [address] [place], [address] GAP 11 Normal 5-15 [facility] Comment on above: Performed By: #### L 500.4050, L501.9520, L506.1000, L100.0100 #### [facility] [address] [place], [address] GFR/1.73 sq M.predicted among non-blacks MDRD (S/P/Bld) [Vol rate/Area] 58 mL/min/{1.73_m2} Low >60 [facility] Comment on above: Result Comment: mL/m in/1.73m2 CKD-EPI Creatinine Equation (2020) Performed By: #### L 500.4050, L501.9520, L506.1000, L100.0100 #### [facility] [address] [place], [address] Glucose [Mass/Vol] 112 mg/dL High 70-99 [facility] Comment on above: Performed By: #### L 500.4050, L501.9520, L506.1000, L100.0100 #### [facility] [address] [place], [address] Potassium [Moles/Vol] 4.4 mmol/L Normal 3.3-5.1 [facility] Comment on above: Performed By: #### L 500.4050, L501.9520, L506.1000, L100.0100 #### [facility] [address] [place], [address] Sodium [Moles/Vol] 140 mmol/L Normal 133-145 [facility] Comment on above: Performed By: #### L 500.4050, L501.9520, L506.1000, L100.0100 #### [facility] [address] [place], [address] Urea nitrogen [Mass/Vol] 19 mg/dL Normal 4-19 [facility] Comment on above: Performed By: #### L 500.4050, L501.9520, L506.1000, L100.0100 #### [facility] [address] [place], [address] Basophil percentageOrdered B y: Adrian Hahn on 01-26-2024 Basophils/100 WBC (Bld) 0.8 % 0-1 [facility] CBC W/Diff, Automatedon 12-30-2024 Absolute Lymph 1.56 X10 3/uL Normal 0.83-4.51 [facility] Comment on above: Performed By: #### L 500.4050, L501.9520, L506.1000, L100.0100 #### [facility] [address] [place], [address] Absolute Neut 5.1 X10 3/uL Normal 2.0-7.7 [facility] Comment on above: Performed By: #### L 500.4050, L501.9520, L506.1000, L100.0100 #### [facility] [address] [place], [address] Basophils/100 WBC (Bld) 0.8 % Normal 0-1 [facility] Comment on above: Performed By: #### L 500.4050, L501.9520, L506.1000, L100.0100 #### [facility] [address] [place], [address] Eosinophils/100 WBC (Bld) 0.9 % Normal 0-5 [facility] Comment on above: Performed By: #### L 500.4050, L501.9520, L506.1000, L100.0100 #### [facility] [address] [place], [address] Erythrocyte distribution width (RBC) [Ratio] 12.5 % Normal 11.6-14.6 [facility] Comment on above: Performed By: #### L 500.4050, L501.9520, L506.1000, L100.0100 #### [facility] [address] [place], [address] Hematocrit (Bld) [Volume fraction] 40.0 % Normal 37-47 [facility] Comment on above: Performed By: #### L 500.4050, L501.9520, L506.1000, L100.0100 #### [facility] [address] [place], [address] Hemoglobin (Bld) [Mass/Vol] 13.4 g/dL Normal 12.0-15.0 [facility] Comment on above: Performed By: #### L 500.4050, L501.9520, L506.1000, L100.0100 #### [facility] [address] [place], [address] IG% 0.900 Normal 0.0-0.9 [facility] Comment on above: Result Comment: IG% - Immature Granulocytes (promyelocytes, myelocytes and metamyelocytes) > 1% indicates that a LEFT SHIFT is Present. Performed By: #### L 500.4050, L501.9520, L506.1000, L100.0100 #### [facility] [address] [place], [address] Lymphocytes/100 WBC (Bld) 20.4 % Normal 19-41 [facility] Comment on above: Performed By: #### L 500.4050, L501.9520, L506.1000, L100.0100 #### [facility] [address] [place], [address] MCH (RBC) [Entitic mass] 31.2 pg Normal 27.0-32.0 [facility] Comment on above: Performed By: #### L 500.4050, L501.9520, L506.1000, L100.0100 #### [facility] [address] [place], [address] MCHC (RBC) [Mass/Vol] 33.5 g/dL Normal 32-36 [facility] Comment on above: Performed By: #### L 500.4050, L501.9520, L506.1000, L100.0100 #### [facility] [address] [place], [address] MCV (RBC) [Entitic vol] 93.0 fL Normal 81-99 [facility] Comment on above: Performed By: #### L 500.4050, L501.9520, L506.1000, L100.0100 #### [facility] [address] [place], [address] Monocytes/100 WBC (Bld) 10.2 % High 0-10 [facility] Comment on above: Performed By: #### L 500.4050, L501.9520, L506.1000, L100.0100 #### [facility] [address] [place], [address] Neutrophils/100 WBC (Bld) 66.8 % Normal 47-70 [facility] Comment on above: Performed By: #### L 500.4050, L501.9520, L506.1000, L100.0100 #### [facility] [address] [place], [address] Nucleated RBC (Bld) [#/Vol] 0 10*3/uL Normal 0-5 [facility] Comment on above: Performed By: #### L 500.4050, L501.9520, L506.1000, L100.0100 #### [facility] [address] [place], [address] Platelet mean volume (Bld) [Entitic vol] 9.8 fL Normal 6.2-12.0 [facility] Comment on above: Performed By: #### L 500.4050, L501.9520, L506.1000, L100.0100 #### [facility] [address] [place], [address] Platelets (Bld) [#/Vol] 269 10*3/uL Normal 150-450 [facility] Comment on above: Performed By: #### L 500.4050, L501.9520, L506.1000, L100.0100 #### [facility] [address] [place], [address] RBC (Bld) [#/Vol] 4.30 10*6/uL Normal 4.2-5.4 [facility] Comment on above: Performed By: #### L 500.4050, L501.9520, L506.1000, L100.0100 #### [facility] [address] [place], [address] RDW SD 43.1 fl Normal 35.1-43.9 [facility] Comment on above: Performed By: #### L 500.4050, L501.9520, L506.1000, L100.0100 #### [facility] [address] [place], [address] WBC (Bld) [#/Vol] 7.7 10*3/uL Normal 4.4-11.0 [facility] Comment on above: Performed By: #### L 500.4050, L501.9520, L506.1000, L100.0100 #### [facility] [address] [place], [address] Carbon dioxide, total [Moles /volume] in Central venous bloodOrdered By: Adrian frazier 01-26-2025 CO2 [Moles/Vol] 25.8 mmol/L 21.0-32.0 [facility] Chloride assayOrdered By: Clarence Hahn on 01-26-2025 Chloride [Moles/Vol] 103 mmol/L 98-108 [facility] Eosinophil percentageOrdered By: Adrian Hahn 01-26-2025 Eosinophils/100 WBC (Bld) 0.9 % 0-5 [facility] Erythrocyte distribution wid th ratioOrdered By: Adrian Hahn 01-26-2025 Erythrocyte distribution width (RBC) [Ratio] 12.5 % 11.6-14.6 [facility] Erythrocyte distribution wid th standard deviationOrdered By: Adrian Hahn 01-26-2025 Erythrocyte distribution width (RBC) [Ratio] 43.1 fl 35.1-43.9 [facility] Glomerular filtration rate ( GFR) estimation/1.73 sq m using serum, plasma, or whole bOrdered By: Adrian Hahn on 01-26-2025 GFR/1.73 sq M.predicted among non-blacks MDRD (S/P/Bld) [Vol rate/Area] 58 mL/min/{1.73_m2} Low >60 [facility] Comment on above: mL/min/1.73m2 CKD-EP I Creatinine Equation (2020) Hematocrit Auto (Bld) [Volum e fraction]Ordered By: Adrian Hahn 01-26-2025 Hematocrit (Bld) [Volume fraction] 40.0 % 37-47 [facility] Hemoglobin measurementOrdere d By: Adrian Hahn 01-26-2025 Hemoglobin (Bld) [Mass/Vol] 13.4 g/dL 12.0-15.0 [facility] Immature granulocytes/100 WB C Auto (Bld)Ordered By: Adrian Hahn 01-26-2025 Immature granulocytes/100 WBC (Bld) 0.900 % 0.0-0.9 [facility] Comment on above: IG% - Immature Granu locytes (promyelocytes, myelocytes and metamyelocytes) > 1% indicates that a LEFT SHIFT is Present. MCV (mean corpuscular volume ) determinationOrdered By: Adrian Hahn 01-26-2025 MCV (RBC) [Entitic vol] 93.0 fL 81-99 [facility] Mean corpuscular hemoglobin (MCH) determinationOrdered By: Adrian Hahn 01-26-2025 MCH (RBC) [Entitic mass] 31.2 pg 27.0-32.0 [facility] Mean corpuscular hemoglobin concentration (MCHC) determinationOrdered By: Adrian Hahn on 01-26-2025 MCHC (RBC) [Mass/Vol] 33.5 g/dL 32-36 [facility] Mean platelet volume determi nationOrdered By: Adrian Hahn on 01-26-2025 Platelet mean volume (Bld) [Entitic vol] 9.8 fL 6.2-12.0 [facility] Monocyte percentageOrdered B y: Adrian Hahn on 01-26-2025 Monocytes/100 WBC (Bld) 10.2 % High 0-10 [facility] Neutrophil percentageOrdered By: Adrian Hahn on 01-26-2025 Neutrophils/100 WBC (Bld) 66.8 % 47-70 [facility] Nucleated red blood cell per centageOrdered By: Adrian Hahn on 01-26-2025 Nucleated RBC/100 WBC (Bld) [Ratio] 0 % 0-5 [facility] Platelet countOrdered By: Clarence Hahn on 01-26-2025 Platelets (Bld) [#/Vol] 269 10*3/uL 150-450 [facility] Potassium measurement (mass/ volume)Ordered By: Adrian Hahn on 01-26-2025 Potassium (Unsp spec) [Mass/Vol] 4.4 mmol/L 3.3-5.1 [facility] RBC Auto (Bld) [#/Vol]Ordere d By: Adrian Hahn on 01-26-2025 RBC (Bld) [#/Vol] 4.30 10*6/uL 4.2-5.4 [facility] Serum creatinine measurement (mass/volume)Ordered By: Adrian Hahn on 01-26-2025 Creatinine [Mass/Vol] 0.95 mg/dL 0.70-1.20 [facility] Serum glucose measurement (m ass/volume)Ordered By: Adrian Hahn on 01-26-2025 Glucose [Mass/Vol] 112 mg/dL High 70-99 [facility] Serum or plasma calcium rosio urement (mass/volume)Ordered By: Adrian Hahn 01-26-2025 Calcium [Mass/Vol] 9.6 mg/dL 7.6-11.0 [facility] Serum or plasma urea nitroge n measurement (mass/volume)Ordered By: Adrian Hahn on 01-26-2025 Urea nitrogen [Mass/Vol] 19 mg/dL 4-19 [facility] Sodium levelOrdered By: Adrian Hahn on 01-26-2025 Sodium [Moles/Vol] 140 mmol/L 133-145 [facility] Urine cultureOrdered By: Adrian Hahn on 01-26-2025 Bacteria identified Cx Nom (U) Staphylococcus aureus Abnormal [facility] Bacteria identified Cx Nom (U) Mixed Gram Pos & Gram Neg Org Abnormal [facility] White blood cell (WBC) count Ordered By: Adrian Hahn on 01-26-2025 WBC (Bld) [#/Vol] 7.7 10*3/uL 4.4-11.0 [facility] Absolute lymphocyte countOrd ered By: Yoshi Hebert on 10-27-2024 Lymphocytes Auto (Unsp spec) [#/Vol] 1.29 10*3/uL 0.83-4.51 [facility] Absolute neutrophil countOrd ered By: Yoshi Hebert on 10-27-2024 Neutrophils (Bld) [#/Vol] 3.7 10*3/uL 2.0-7.7 [facility] Automated lymphocyte count a s percentage of total leukocytesOrdered By: Yoshi Hebert on 10-27-2024 Lymphocytes/100 WBC Auto (Unsp spec) 22.8 % 19-41 [facility] BUN/creatinine ratioOrdered By: Yoshi Hebert on 10-27-2024 Urea nitrogen/Creatinine [Mass ratio] 24.1 mg/mg High 10-20 [facility] Basophil percentageOrdered B y: Yoshi Hebert on 10-27-2024 Basophils/100 WBC (Bld) 0.5 % 0-1 [facility] Bilirubin Test strip Ql (U)O rdered By: Yoshi Hebert on 10-27-2024 Bilirubin Ql (U) Negative Negative [facility] Bilirubin, totalOrdered By: Yoshi Hebert on 10-27-2024 Bilirubin [Mass/Vol] 0.49 mg/dL 0.00-1.30 [facility] Brain/Head without Contrasto n 10-27-2024 Brain/Head without Contrast [facility] Imaging Services [address] [place], [place] [id number] Brain/Head without Contrast MR#: [id number] Acct: [id number] Name: JUAN CALDERON Rep #: [id number] : 1940 F 84 From: Sravan pendleton MD PCP: Dr. Adrian Hahn MD Status: REG ER Study: Brain/Head without Contrast Date of Exam: 10/01 04/23 Exam# [id number] Ordering Dr: Yoshi Hebert DO EXAM: BRAIN/HEAD [...] keeping with the patient's age. Reading Location: [facility] CC: Dr. Yoshi Hebert DO; Dr. Adrian Hahn MD Client Application Support Engineer: Signed Normal [facility] CBC W/Diff, Automatedon 10-01 Absolute Lymph 1.29 X10 3/uL Normal 0.83-4.51 [facility] Comment on above: Performed By: #### L 500.4050, L501.9520, L506.1000, L100.0100 #### [facility] [address] [place], [place], [id number] Absolute Neut 3.7 X10 3/uL Normal 2.0-7.7 [facility] Comment on above: Performed By: #### L 500.4050, L501.9520, L506.1000, L100.0100 #### [facility] [address] [place], [address] Basophils/100 WBC (Bld) 0.5 % Normal 0-1 [facility] Comment on above: Performed By: #### L 500.4050, L501.9520, L506.1000, L100.0100 #### [facility] [address] [place], [address] Eosinophils/100 WBC (Bld) 1.2 % Normal 0-5 [facility] Comment on above: Performed By: #### L 500.4050, L501.9520, L506.1000, L100.0100 #### [facility] [address] [place], [address] Erythrocyte distribution width (RBC) [Ratio] 12.2 % Normal 11.6-14.6 [facility] Comment on above: Performed By: #### L 500.4050, L501.9520, L506.1000, L100.0100 #### [facility] [address] [place], [address] Hematocrit (Bld) [Volume fraction] 39.0 % Normal 37-47 [facility] Comment on above: Performed By: #### L 500.4050, L501.9520, L506.1000, L100.0100 #### [facility] [address] [place], [address] Hemoglobin (Bld) [Mass/Vol] 13.1 g/dL Normal 12.0-15.0 [facility] Comment on above: Performed By: #### L 500.4050, L501.9520, L506.1000, L100.0100 #### [facility] [address] [place], [address] IG% 0.700 Normal 0.0-0.9 [facility] Comment on above: Result Comment: IG% - Immature Granulocytes (promyelocytes, myelocytes and metamyelocytes) > 1% indicates that a LEFT SHIFT is Present. Performed By: #### L 500.4050, L501.9520, L506.1000, L100.0100 #### [facility] [address] [place], [address] Lymphocytes/100 WBC (Bld) 22.8 % Normal 19-41 [facility] Comment on above: Performed By: #### L 500.4050, L501.9520, L506.1000, L100.0100 #### [facility] [address] [place], [address] MCH (RBC) [Entitic mass] 30.5 pg Normal 27.0-32.0 [facility] Comment on above: Performed By: #### L 500.4050, L501.9520, L506.1000, L100.0100 #### [facility] [address] [place], [address] MCHC (RBC) [Mass/Vol] 33.6 g/dL Normal 32-36 [facility] Comment on above: Performed By: #### L 500.4050, L501.9520, L506.1000, L100.0100 #### [facility] [address] [place], [address] MCV (RBC) [Entitic vol] 90.9 fL Normal 81-99 [facility] Comment on above: Performed By: #### L 500.4050, L501.9520, L506.1000, L100.0100 #### [facility] [address] [place], [address] Monocytes/100 WBC (Bld) 9.6 % Normal 0-10 [facility] Comment on above: Performed By: #### L 500.4050, L501.9520, L506.1000, L100.0100 #### [facility] [address] [place], [address] Neutrophils/100 WBC (Bld) 65.2 % Normal 47-70 [facility] Comment on above: Performed By: #### L 500.4050, L501.9520, L506.1000, L100.0100 #### [facility] [address] [place], [address] Nucleated RBC (Bld) [#/Vol] 0 10*3/uL Normal 0-5 [facility] Comment on above: Performed By: #### L 500.4050, L501.9520, L506.1000, L100.0100 #### [facility] [address] [place], [address] Platelet mean volume (Bld) [Entitic vol] 9.4 fL Normal 6.2-12.0 [facility] Comment on above: Performed By: #### L 500.4050, L501.9520, L506.1000, L100.0100 #### [facility] [address] [place], [address] Platelets (Bld) [#/Vol] 276 10*3/uL Normal 150-450 [facility] Comment on above: Performed By: #### L 500.4050, L501.9520, L506.1000, L100.0100 #### [facility] [address] [place], [address] RBC (Bld) [#/Vol] 4.29 10*6/uL Normal 4.2-5.4 [facility] Comment on above: Performed By: #### L 500.4050, L501.9520, L506.1000, L100.0100 #### [facility] [address] [place], [address] RDW SD 40.5 fl Normal 35.1-43.9 [facility] Comment on above: Performed By: #### L 500.4050, L501.9520, L506.1000, L100.0100 #### [facility] [address] [place], [address] WBC (Bld) [#/Vol] 5.7 10*3/uL Normal 4.4-11.0 [facility] Comment on above: Performed By: #### L 500.4050, L501.9520, L506.1000, L100.0100 #### [facility] [address] [place], [address] Carbon dioxide measurementOr dered By: Yoshi Hebert on 10-27-2024 CO2 [Moles/Vol] 25.5 mmol/L 22.0-29.0 [facility] Chloride measurementOrdered By: Yoshi Hebert on 10-27-2024 Chloride [Moles/Vol] 102 mmol/L 96-108 [facility] Comprehensive Metabolic Prof ilon 10-27-2024 Albumin [Mass/Vol] 4.0 g/dL Normal 3.4-4.8 [facility] Comment on above: Performed By: #### L 500.4050, L501.9520, L506.1000, L100.0100 #### [facility] [address] [place], [address] Albumin/Globulin [Mass ratio] 1.6 {ratio} Normal 0.9-2.4 [facility] Comment on above: Performed By: #### L 500.4050, L501.9520, L506.1000, L100.0100 #### [facility] [address] [place], [address] ALK PHOS 34 U/L Low 35-104 [facility] Comment on above: Performed By: #### L 500.4050, L501.9520, L506.1000, L100.0100 #### [facility] [address] [place], [address] ALT [Catalytic activity/Vol] 11 U/L Normal <=34 [facility] Comment on above: Performed By: #### L 500.4050, L501.9520, L506.1000, L100.0100 #### [facility] [address] [place], [address] Anion gap [Moles/Vol] 10 mmol/L Normal 5-15 [facility] Comment on above: Performed By: #### L 500.4050, L501.9520, L506.1000, L100.0100 #### [facility] [address] [place], [address] AST [Catalytic activity/Vol] 18 U/L Normal <=31 [facility] Comment on above: Performed By: #### L 500.4050, L501.9520, L506.1000, L100.0100 #### [facility] [address] [place], [address] Bilirubin [Mass/Vol] 0.49 mg/dL Normal 0.00-1.30 [facility] Comment on above: Performed By: #### L 500.4050, L501.9520, L506.1000, L100.0100 #### [facility] [address] [place], [address] BUN/CRE 24.1 RATIO High 10-20 [facility] Comment on above: Performed By: #### L 500.4050, L501.9520, L506.1000, L100.0100 #### [facility] [address] [place], [address] Calcium [Mass/Vol] 9.0 mg/dL Normal 7.6-11.0 [facility] Comment on above: Performed By: #### L 500.4050, L501.9520, L506.1000, L100.0100 #### [facility] [address] [place], [address] Chloride [Moles/Vol] 102 mmol/L Normal 96-108 [facility] Comment on above: Performed By: #### L 500.4050, L501.9520, L506.1000, L100.0100 #### [facility] [address] [place], [address] CO2 [Moles/Vol] 25.5 mmol/L Normal 22.0-29.0 [facility] Comment on above: Performed By: #### L 500.4050, L501.9520, L506.1000, L100.0100 #### [facility] [address] [place], [address] Creatinine [Mass/Vol] 0.78 mg/dL Normal 0.70-1.20 [facility] Comment on above: Performed By: #### L 500.4050, L501.9520, L506.1000, L100.0100 #### [facility] [address] [place], [address] ECRCL 36.81 ml/min Normal [facility] Comment on above: Performed By: #### L 500.4050, L501.9520, L506.1000, L100.0100 #### [facility] [address] [place], [address] GFR/1.73 sq M.predicted among non-blacks MDRD (S/P/Bld) [Vol rate/Area] 74 mL/min/{1.73_m2} Normal >60 [facility] Comment on above: Result Comment: mL/m in/1.73m2 CKD-EPI Creatinine Equation (2020) Performed By: #### L 500.4050, L501.9520, L506.1000, L100.0100 #### [facility] [address] [place], [address] Globulin (S) [Mass/Vol] 2.5 g/dL Normal 2.2-4.2 [facility] Comment on above: Performed By: #### L 500.4050, L501.9520, L506.1000, L100.0100 #### [facility] [address] [place], [address] Glucose [Mass/Vol] 125 mg/dL High 70-99 [facility] Comment on above: Performed By: #### L 500.4050, L501.9520, L506.1000, L100.0100 #### [facility] [address] [place], [address] Potassium [Moles/Vol] 4.0 mmol/L Normal 3.3-5.1 [facility] Comment on above: Performed By: #### L 500.4050, L501.9520, L506.1000, L100.0100 #### [facility] [address] [place], [address] Sodium [Moles/Vol] 138 mmol/L Normal 133-145 [facility] Comment on above: Performed By: #### L 500.4050, L501.9520, L506.1000, L100.0100 #### [facility] [address] [place], [address] T PROT 6.6 g/dL Normal 5.9-8.4 [facility] Comment on above: Performed By: #### L 500.4050, L501.9520, L506.1000, L100.0100 #### [facility] [address] [place], [address] Urea nitrogen [Mass/Vol] 19 mg/dL Normal 4-19 [facility] Comment on above: Performed By: #### L 500.4050, L501.9520, L506.1000, L100.0100 #### [facility] [address] [place], [address] Emergency Department Summary on 10-27-2024 Emergency Department Summary [facility] Medical Records Department [address] [place] [address] Emergency Department Summary 10/27/24 MR#: [id number] Acct: [id number] Name: JUAN CALDERON Rep #: [id number] : 1940 84 From: Yoshi Hebert DO [...] dysuria or diarrhea cough or URI symptoms. [facility] Medical History Alzheimer dementia Home Medications [...] Coeff of (more content not included)... Normal [facility] Eosinophil percentageOrdered By: Yoshi Hebert on 10-27-2024 Eosinophils/100 WBC (Bld) 1.2 % 0-5 [facility] Erythrocyte distribution wid th ratioOrdered By: Yoshi Hebert on 10-27-2024 Erythrocyte distribution width (RBC) [Ratio] 12.2 % 11.6-14.6 [facility] Erythrocyte distribution wid th standard deviationOrdered By: Yoshi Hebert on 10-27-2024 Erythrocyte distribution width (RBC) [Ratio] 40.5 fl 35.1-43.9 [facility] Glomerular filtration rate ( GFR) estimation/1.73 sq m using serum, plasma, or whole bOrdered By: Yoshi Hebert on 10-27-2024 GFR/1.73 sq M.predicted among non-blacks MDRD (S/P/Bld) [Vol rate/Area] 74 mL/min/{1.73_m2} >60 [facility] Comment on above: mL/min/1.73m2 CKD-EP I Creatinine Equation (2020) Hematocrit Auto (Bld) [Volum e fraction]Ordered By: Yoshi Hebert on 10-27-2024 Hematocrit (Bld) [Volume fraction] 39.0 % 37-47 [facility] Hemoglobin measurementOrdere d By: Yoshi Hebert on 10-27-2024 Hemoglobin (Bld) [Mass/Vol] 13.1 g/dL 12.0-15.0 [facility] Immature granulocytes/100 WB C Auto (Bld)Ordered By: Yoshi Hebert on 10-27-2024 Immature granulocytes/100 WBC (Bld) 0.700 % 0.0-0.9 [facility] Comment on above: IG% - Immature Granu locytes (promyelocytes, myelocytes and metamyelocytes) > 1% indicates that a LEFT SHIFT is Present. Ketones Test strip Ql (U)Ord ered By: Yoshi Hebert on 10-27-2024 Ketones Ql (U) Negative Negative [facility] - Chemistry and C hemistry - challengeOrdered By: Yoshi Hebert on 10-27-2024 AST [Catalytic activity/Vol] 18 U/L <32 [facility] MCV (mean corpuscular volume ) determinationOrdered By: Yoshi Hebert on 10-27-2024 MCV (RBC) [Entitic vol] 90.9 fL 81-99 [facility] Mean corpuscular hemoglobin (MCH) determinationOrdered By: Yoshi Hebert on 10-27-2024 MCH (RBC) [Entitic mass] 30.5 pg 27.0-32.0 [facility] Mean corpuscular hemoglobin concentration (MCHC) determinationOrdered By: Yoshi Hebert on 10-27-2024 MCHC (RBC) [Mass/Vol] 33.6 g/dL 32-36 [facility] Mean platelet volume determi nationOrdered By: Yoshi Hebert on 10-27-2024 Platelet mean volume (Bld) [Entitic vol] 9.4 fL 6.2-12.0 [facility] Microscopic analysis of urin e for red blood cells (RBC)Ordered By: Yoshi Hebert on 10-27-2024 Microscopic analysis of urine for red blood cells (RBC) 0 SEEN /hpf 0-5 [facility] Monocyte percentageOrdered B y: Yoshi Hebert on 10-27-2024 Monocytes/100 WBC (Bld) 9.6 % 0-10 [facility] Mucus LM Ql (Urine sed)Order ed By: Yoshi Hebert on 10-27-2024 Mucus Ql (Urine sed) 0 SEEN /hpf [facility] Neutrophil percentageOrdered By: Yoshi Hebert on 10-27-2024 Neutrophils/100 WBC (Bld) 65.2 % 47-70 [facility] Nitrite Test strip Ql (U)Ord ered By: Yoshi Hebert on 10-27-2024 Nitrite Ql (U) Negative Negative [facility] Nucleated red blood cell per centageOrdered By: Yoshi Hebert on 10-27-2024 Nucleated RBC/100 WBC (Bld) [Ratio] 0 % 0-5 [facility] Platelet countOrdered By: Ramon Hebert on 10-27-2024 Platelets (Bld) [#/Vol] 276 10*3/uL 150-450 [facility] Protein Test strip Ql (U)Ord ered By: Yoshi Hebert on 10-27-2024 Protein Ql (U) Negative Negative [facility] RBC Auto (Bld) [#/Vol]Ordere d By: Yoshi Hebert on 10-27-2024 RBC (Bld) [#/Vol] 4.29 10*6/uL 4.2-5.4 [facility] Serum creatinine measurement (mass/volume)Ordered By: Yoshi Hebert on 10-27-2024 Creatinine [Mass/Vol] 0.78 mg/dL 0.70-1.20 [facility] Serum globulin measurementOr dered By: Yoshi Hebert on 10-27-2024 Globulin (S) [Mass/Vol] 2.5 g/dL 2.2-4.2 [facility] Serum glucose measurement (m ass/volume)Ordered By: Yoshi Hebert on 10-27-2024 Glucose [Mass/Vol] 125 mg/dL High 70-99 [facility] Serum or plasma alanine husain otransferase (ALT) measurementOrdered By: Yoshi Hebert on 10-27-2024 ALT [Catalytic activity/Vol] 11 U/L <35 [facility] Serum or plasma albumin rosio urement (mass/volume)Ordered By: Yoshi Hebert on 10-27-2024 Albumin [Mass/Vol] 4.0 g/dL 3.4-4.8 [facility] Serum or plasma albumin/glob ulin mass ratioOrdered By: Yoshi Hebert on 10-27-2024 Albumin/Globulin [Mass ratio] 1.6 {ratio} 0.9-2.4 [facility] Serum or plasma alkaline ed sphatase measurementOrdered By: Yoshi Hebert on 10-27-2024 ALP [Catalytic activity/Vol] 34 U/L Low 35-104 [facility] Serum or plasma anion gap de termination (moles/volume)Ordered By: Yoshi Hebert on 10-27-2024 Anion gap [Moles/Vol] 10 mmol/L 5-15 [facility] Serum or plasma calcium rosio urement (mass/volume)Ordered By: Yoshi Hebert on 10-27-2024 Calcium [Mass/Vol] 9.0 mg/dL 7.6-11.0 [facility] Serum or plasma potassium me asurementOrdered By: Yoshi Hebert on 10-27-2024 Potassium [Moles/Vol] 4.0 mmol/L 3.3-5.1 [facility] Serum or plasma sodium measu rement (moles/volume)Ordered By: Yoshi Hebert on 10-27-2024 Sodium [Moles/Vol] 138 mmol/L 133-145 [facility] Serum or plasma urea nitroge n measurement (mass/volume)Ordered By: Yoshi Hebert on 10-27-2024 Urea nitrogen [Mass/Vol] 19 mg/dL 4-19 [facility] Squamous epithelial cells de tection in urine sediment by light microscopyOrdered By: Yoshi Hebert on 10-27-2024 Epithelial cells.squamous LM Ql (Urine sed) 0 SEEN /hpf 5-10 [facility] Total proteinOrdered By: Franklin Hebert on 10-27-2024 Protein [Mass/Vol] 6.6 g/dL 5.9-8.4 [facility] Urinalysis, Completeon 10-27 EPI,RENAL 0-5 SEEN Normal 0-5 [facility] Comment on above: Order Comment: CLEAN CATCH Performed By: #### L 500.4050, L501.9520, L506.1000, L100.0100 #### [facility] [address] [place], [address] RBC 0 SEEN Normal 0-5 [facility] Comment on above: Order Comment: CLEAN CATCH Performed By: #### L 500.4050, L501.9520, L506.1000, L100.0100 #### [facility] [address] [place], [address] WBC 0-5 SEEN Normal 0-5 [facility] Comment on above: Order Comment: CLEAN CATCH Performed By: #### L 500.4050, L501.9520, L506.1000, L100.0100 #### [facility] [address] [place], [address] BACTERIA 0 SEEN Normal None Seen [facility] Comment on above: Order Comment: CLEAN CATCH Performed By: #### L 500.4050, L501.9520, L506.1000, L100.0100 #### [facility] [address] [place], [address] EPI,SQUAMOUS 0 SEEN Normal 5-10 [facility] Comment on above: Order Comment: CLEAN CATCH Performed By: #### L 500.4050, L501.9520, L506.1000, L100.0100 #### [facility] [address] [place], [address] Mucus Ql (Urine sed) 0 SEEN Normal [facility] Comment on above: Order Comment: CLEAN CATCH Performed By: #### L 500.4050, L501.9520, L506.1000, L100.0100 #### [facility] [address] [place], [address] Urine clarityOrdered By: Franklin Hebert on 10-27-2024 Clarity (U) Clear Clear [facility] Urine color determinationOrd ered By: Yoshi Hebert on 10-27-2024 Color (U) Yellow Yellow [facility] Urine glucose detectionOrder ed By: Yoshi Hebert on 10-27-2024 Glucose Ql (U) Normal mg/dl Normal [facility] Urine leukocyte esterase det ection by dipstickOrdered By: Yoshi Hebert on 10-27-2024 Leukocyte esterase Test strip Ql (U) Negative Negative [facility] Urine pHOrdered By: Yoshi lima on 10-27-2024 pH (U) 7.0 [pH] 5.0 - 8.0 [facility] Urine sediment bacteria coun t by microscopy (number/high power field)Ordered By: Yoshi Hebert on 10-27-2024 Bacteria LM.HPF (Urine sed) [#/Area] 0 /[HPF] None Seen [facility] Urine sediment renal epithel ial cell count by microscopy (number/high power field)Ordered By: Yoshi Hebert on 10-27-2024 Epithelial cells.renal LM.HPF (Urine sed) [#/Area] 0 /[HPF] 0-5 [facility] Urine specific gravity measu rementOrdered By: Yoshi Hebert on 10-27-2024 Specific gravity (U) [Rel density] 1.010 1.002-1.030 [facility] Urine urobilinogen measureme ntOrdered By: Yoshi Hebert on 10-27-2024 Urobilinogen Ql (U) Normal mg/dl Normal [facility] White blood cell (WBC) count Ordered By: Yoshi Hebert on 10-27-2024 WBC (Bld) [#/Vol] 5.7 10*3/uL 4.4-11.0 [facility] White blood cell countOrdere d By: Yoshi Hebert on 10-27-2024 White blood cell count 0-5 SEEN /hpf 0-5 [facility] Absolute lymphocyte countOrd ered By: Adrian Hahn on 10-05-2024 Lymphocytes Auto (Unsp spec) [#/Vol] 1.60 10*3/uL 0.83-4.51 [facility] Absolute neutrophil countOrd ered By: Adrian Hahn on 10-05-2024 Neutrophils (Bld) [#/Vol] 4.3 10*3/uL 2.0-7.7 [facility] Albumin to globulin ratioOrd ered By: Adrian Hahn on 10-05-2024 Albumin/Globulin [Mass ratio] 1.0 {ratio} 0.9-2.4 [facility] Automated lymphocyte count a s percentage of total leukocytesOrdered By: Adrian Hahn on 10-05-2024 Lymphocytes/100 WBC Auto (Unsp spec) 24.3 % 19-41 [facility] Basophil percentageOrdered B y: Adrian Hahn on 10-05-2024 Basophils/100 WBC (Bld) 1.1 % High 0-1 [facility] Bilirubin, totalOrdered By: Adrian Hahn on 10-05-2024 Bilirubin [Mass/Vol] 0.70 mg/dL 0.20-1.00 [facility] Comment on above: For patients on eltr ombopag therapy, use of Dimension Turney TBIL is not recommended. Blood urea nitrogen (BUN)/cr eatinine ratioOrdered By: Adrian Hahn on 10-05-2024 Urea nitrogen/Creatinine [Mass ratio] 19.2 mg/mg 10-20 [facility] CBC W/Diff, Automatedon Absolute Lymph 1.60 X10 3/uL Normal 0.83-4.51 [facility] Comment on above: Performed By: #### L 501.9520, L100.0100, L500.4050, L506.1000 #### [facility] [address] [place], [address] Absolute Neut 4.3 X10 3/uL Normal 2.0-7.7 [facility] Comment on above: Performed By: #### L 501.9520, L100.0100, L500.4050, L506.1000 #### [facility] [address] [place], [address] Basophils/100 WBC (Bld) 1.1 % High 0-1 [facility] Comment on above: Performed By: #### L 501.9520, L100.0100, L500.4050, L506.1000 #### [facility] [address] [place], [address] Eosinophils/100 WBC (Bld) 0.5 % Normal 0-5 [facility] Comment on above: Performed By: #### L 501.9520, L100.0100, L500.4050, L506.1000 #### [facility] [address] [place], [address] Erythrocyte distribution width (RBC) [Ratio] 12.3 % Normal 11.6-14.6 [facility] Comment on above: Performed By: #### L 501.9520, L100.0100, L500.4050, L506.1000 #### [facility] [address] [place], [address] Hematocrit (Bld) [Volume fraction] 43.2 % Normal 37-47 [facility] Comment on above: Performed By: #### L 501.9520, L100.0100, L500.4050, L506.1000 #### [facility] [address] [place], [address] Hemoglobin (Bld) [Mass/Vol] 14.2 g/dL Normal 12.0-15.0 [facility] Comment on above: Performed By: #### L 501.9520, L100.0100, L500.4050, L506.1000 #### [facility] [address] [place], [address] IG% 0.600 Normal 0.0-0.9 [facility] Comment on above: Result Comment: IG% - Immature Granulocytes (promyelocytes, myelocytes and metamyelocytes) > 1% indicates that a LEFT SHIFT is Present. Performed By: #### L 501.9520, L100.0100, L500.4050, L506.1000 #### [facility] [address] [place], [address] Lymphocytes/100 WBC (Bld) 24.3 % Normal 19-41 [facility] Comment on above: Performed By: #### L 501.9520, L100.0100, L500.4050, L506.1000 #### [facility] [address] [place], [address] MCH (RBC) [Entitic mass] 30.6 pg Normal 27.0-32.0 [facility] Comment on above: Performed By: #### L 501.9520, L100.0100, L500.4050, L506.1000 #### [facility] [address] [place], [address] MCHC (RBC) [Mass/Vol] 32.9 g/dL Normal 32-36 [facility] Comment on above: Performed By: #### L 501.9520, L100.0100, L500.4050, L506.1000 #### [facility] [address] [place], [address] MCV (RBC) [Entitic vol] 93.1 fL Normal 81-99 [facility] Comment on above: Performed By: #### L 501.9520, L100.0100, L500.4050, L506.1000 #### [facility] [address] [place], [address] Monocytes/100 WBC (Bld) 9.0 % Normal 0-10 [facility] Comment on above: Performed By: #### L 501.9520, L100.0100, L500.4050, L506.1000 #### [facility] [address] [place], [address] Neutrophils/100 WBC (Bld) 64.5 % Normal 47-70 [facility] Comment on above: Performed By: #### L 501.9520, L100.0100, L500.4050, L506.1000 #### [facility] [address] [place], [address] Nucleated RBC (Bld) [#/Vol] 0 10*3/uL Normal 0-5 [facility] Comment on above: Performed By: #### L 501.9520, L100.0100, L500.4050, L506.1000 #### [facility] [address] [place], [address] Platelet mean volume (Bld) [Entitic vol] 9.5 fL Normal 6.2-12.0 [facility] Comment on above: Performed By: #### L 501.9520, L100.0100, L500.4050, L506.1000 #### [facility] [address] [place], [address] Platelets (Bld) [#/Vol] 310 10*3/uL Normal 150-450 [facility] Comment on above: Performed By: #### L 501.9520, L100.0100, L500.4050, L506.1000 #### [facility] [address] [place], [address] RBC (Bld) [#/Vol] 4.64 10*6/uL Normal 4.2-5.4 [facility] Comment on above: Performed By: #### L 501.9520, L100.0100, L500.4050, L506.1000 #### [facility] [address] [place], [address] RDW SD 42.1 fl Normal 35.1-43.9 [facility] Comment on above: Performed By: #### L 501.9520, L100.0100, L500.4050, L506.1000 #### [facility] [address] [place], [address] WBC (Bld) [#/Vol] 6.6 10*3/uL Normal 4.4-11.0 [facility] Comment on above: Performed By: #### L 501.9520, L100.0100, L500.4050, L506.1000 #### [facility] [address] [place], [address] Carbon dioxide measurementOr dered By: Adrian Hahn on 10-05-2024 CO2 [Moles/Vol] 28.0 mmol/L 21.0-32.0 [facility] Chloride measurementOrdered By: Adrian Hahn on 10-05-2024 Chloride [Moles/Vol] 105 mmol/L 98-107 [facility] Comprehensive Metabolic Prof ilon 10-05-2024 Albumin [Mass/Vol] 3.9 g/dL Normal 3.2-5.0 [facility] Comment on above: Performed By: #### L 501.9520, L100.0100, L500.4050, L506.1000 #### [facility] [address] [place], [address] Albumin/Globulin [Mass ratio] 1.0 {ratio} Normal 0.9-2.4 [facility] Comment on above: Performed By: #### L 501.9520, L100.0100, L500.4050, L506.1000 #### [facility] [address] [place], [address] ALK P 36 U/L Low 45-117 [facility] Comment on above: Performed By: #### L 501.9520, L100.0100, L500.4050, L506.1000 #### [facility] [address] [place], [address] ALT [Catalytic activity/Vol] 16 U/L Normal 13-56 [facility] Comment on above: Performed By: #### L 501.9520, L100.0100, L500.4050, L506.1000 #### [facility] [address] [place], [address] AST [Catalytic activity/Vol] 15 U/L Normal 15-37 [facility] Comment on above: Performed By: #### L 501.9520, L100.0100, L500.4050, L506.1000 #### [facility] [address] [place], [address] Bilirubin [Mass/Vol] 0.70 mg/dL Normal 0.20-1.00 [facility] Comment on above: Result Comment: For patients on eltrombopag therapy, use of Dimension [place] TBIL is not recommended. Performed By: #### L 501.9520, L100.0100, L500.4050, L506.1000 #### [facility] [address] [place], [address] BUN/CRE 19.2 RATIO Normal 10-20 [facility] Comment on above: Performed By: #### L 501.9520, L100.0100, L500.4050, L506.1000 #### [facility] [address] [place], [address] CA,Total 9.7 mg/dL Normal 8.5-10.1 [facility] Comment on above: Performed By: #### L 501.9520, L100.0100, L500.4050, L506.1000 #### [facility] [address] [place], [address] Chloride [Moles/Vol] 105 mmol/L Normal 98-107 [facility] Comment on above: Performed By: #### L 501.9520, L100.0100, L500.4050, L506.1000 #### [facility] [address] [place], [address] CO2 [Moles/Vol] 28.0 mmol/L Normal 21.0-32.0 [facility] Comment on above: Performed By: #### L 501.9520, L100.0100, L500.4050, L506.1000 #### [facility] [address] [place], [address] Creatinine [Mass/Vol] 1.04 mg/dL High 0.55-1.02 [facility] Comment on above: Result Comment: The validity of the calculated GFR GFRAA in patients over 70 years has not been determined. Clinical correlation is essential. Performed By: #### L 501.9520, L100.0100, L500.4050, L506.1000 #### [facility] [address] [place], [address] EST GFR - AA 65 mL/min Normal >60 [facility] Comment on above: Result Comment: Afri can Malian GFR Calc Performed By: #### L 501.9520, L100.0100, L500.4050, L506.1000 #### [facility] [address] [place], [address] GAP 8 Normal 5-15 [facility] Comment on above: Performed By: #### L 501.9520, L100.0100, L500.4050, L506.1000 #### [facility] [address] [place], [address] GFR/1.73 sq M.predicted among non-blacks MDRD (S/P/Bld) [Vol rate/Area] 54 mL/min/{1.73_m2} Low >60 [facility] Comment on above: Result Comment: Non- GFR Calc Performed By: #### L 501.9520, L100.0100, L500.4050, L506.1000 #### [facility] [address] [place], [address] Globulin (S) [Mass/Vol] 4.0 g/dL Normal 2.2-4.2 [facility] Comment on above: Performed By: #### L 501.9520, L100.0100, L500.4050, L506.1000 #### [facility] [address] [place], [address] Glucose [Mass/Vol] 119 mg/dL High 74-106 [facility] Comment on above: Result Comment: Fast ing Glucose result from 100 to 125 mg/dL suggests IMPAIRED HOMEOSTASIS per A.D.A. criteria. Performed By: #### L 501.9520, L100.0100, L500.4050, L506.1000 #### [facility] [address] [place], [address] Potassium [Moles/Vol] 4.1 mmol/L Normal 3.5-5.1 [facility] Comment on above: Performed By: #### L 501.9520, L100.0100, L500.4050, L506.1000 #### [facility] [address] [place], [address] Sodium [Moles/Vol] 141 mmol/L Normal 136-145 [facility] Comment on above: Performed By: #### L 501.9520, L100.0100, L500.4050, L506.1000 #### [facility] [address] [place], [address] T PROT 7.9 g/dL Normal 6.4-8.2 [facility] Comment on above: Performed By: #### L 501.9520, L100.0100, L500.4050, L506.1000 #### [facility] [address] [place], [address] Urea nitrogen [Mass/Vol] 20 mg/dL High 7-18 [facility] Comment on above: Performed By: #### L 501.9520, L100.0100, L500.4050, L506.1000 #### [facility] [address] [place], [address] Eosinophil percentageOrdered By: Adrian Hahn on 10-05-2024 Eosinophils/100 WBC (Bld) 0.5 % 0-5 [facility] Erythrocyte distribution wid th ratioOrdered By: Adrian Hahn on 10-05-2024 Erythrocyte distribution width (RBC) [Ratio] 12.3 % 11.6-14.6 [facility] Erythrocyte distribution wid th standard deviationOrdered By: Adrian Hahn on 10-05-2024 Erythrocyte distribution width (RBC) [Ratio] 42.1 fl 35.1-43.9 [facility] Glomerular filtration rate ( GFR) estimationOrdered By: Adrian Hahn on 10-05-2024 GFR/1.73 sq M.predicted among non-blacks MDRD (S/P/Bld) [Vol rate/Area] 54 mL/min/{1.73_m2} Low >60 [facility] Comment on above: Non- GFR Calc Glucose measurementOrdered B y: Adrian Hahn on 10-05-2024 Glucose [Mass/Vol] 119 mg/dL High 74-106 [facility] Comment on above: Fasting Glucose resu lt from 100 to 125 mg/dL suggests IMPAIRED HOMEOSTASIS per A.D.A. criteria. Hematocrit Auto (Bld) [Volum e fraction]Ordered By: Adrian Hahn on 10-05-2024 Hematocrit (Bld) [Volume fraction] 43.2 % 37-47 [facility] Hemoglobin measurementOrdere d By: Adrian Hahn on 10-05-2024 Hemoglobin (Bld) [Mass/Vol] 14.2 g/dL 12.0-15.0 [facility] Immature granulocytes/100 WB C Auto (Bld)Ordered By: Adrian Hahn on 10-05-2024 Immature granulocytes/100 WBC (Bld) 0.600 % 0.0-0.9 [facility] Comment on above: IG% - Immature Granu locytes (promyelocytes, myelocytes and metamyelocytes) > 1% indicates that a LEFT SHIFT is Present. Laboratory - Chemistry and C hemistry - challengeOrdered By: Adrian Hahn on 10-05-2024 AST [Catalytic activity/Vol] 15 U/L 15-37 [facility] MCV (mean corpuscular volume ) determinationOrdered By: Adrian Hahn 10-05-2024 MCV (RBC) [Entitic vol] 93.1 fL 81-99 [facility] Mean corpuscular hemoglobin (MCH) determinationOrdered By: Adrian Hahn 10-05-2024 MCH (RBC) [Entitic mass] 30.6 pg 27.0-32.0 [facility] Mean corpuscular hemoglobin concentration (MCHC) determinationOrdered By: Adrian Hahn 10-05-2024 MCHC (RBC) [Mass/Vol] 32.9 g/dL 32-36 [facility] Mean platelet volume determi nationOrdered By: Adrian Hahn 10-05-2024 Platelet mean volume (Bld) [Entitic vol] 9.5 fL 6.2-12.0 [facility] Monocyte percentageOrdered B y: Adrian Hahn on 10-05-2024 Monocytes/100 WBC (Bld) 9.0 % 0-10 [facility] Neutrophil percentageOrdered By: Adrian Hahn on 10-05-2024 Neutrophils/100 WBC (Bld) 64.5 % 47-70 [facility] Nucleated red blood cell per centageOrdered By: Adrian Hahn on 10-05-2024 Nucleated RBC/100 WBC (Bld) [Ratio] 0 % 0-5 [facility] Platelet countOrdered By: Clarence Hahn on 10-05-2024 Platelets (Bld) [#/Vol] 310 10*3/uL 150-450 [facility] Potassium measurementOrdered By: Adrian Hahn on 10-05-2024 Potassium [Moles/Vol] 4.1 mmol/L 3.5-5.1 [facility] RBC Auto (Bld) [#/Vol]Ordere d By: Adrian Hahn on 10-05-2024 RBC (Bld) [#/Vol] 4.64 10*6/uL 4.2-5.4 [facility] Serum anion gap measurementO rdered By: Adrian Hahn on 10-05-2024 Anion gap [Moles/Vol] 8 mmol/L 5-15 [facility] Serum globulin measurementOr dered By: Adrian Hahn on 10-05-2024 Globulin (S) [Mass/Vol] 4.0 g/dL 2.2-4.2 [facility] Serum or plasma alanine husain otransferase (ALT) measurementOrdered By: Adrian Hahn on 10-05-2024 ALT [Catalytic activity/Vol] 16 U/L 13-56 [facility] Serum or plasma albumin rosio urement (mass/volume)Ordered By: Adrian Hahn on 10-05-2024 Albumin [Mass/Vol] 3.9 g/dL 3.2-5.0 [facility] Serum or plasma alkaline ed sphatase measurementOrdered By: Adrian Hahn on 10-05-2024 ALP [Catalytic activity/Vol] 36 U/L Low 45-117 [facility] Serum or plasma calcium rosio urement (mass/volume)Ordered By: Adrian Hahn on 10-05-2024 Calcium [Mass/Vol] 9.7 mg/dL 8.5-10.1 [facility] Serum or plasma creatinine m easurement (mass/volume)Ordered By: Adrian Hahn on 10-05-2024 Creatinine [Mass/Vol] 1.04 mg/dL High 0.55-1.02 [facility] Comment on above: The validity of the calculated GFR & GFRAA in patients over 70 years has not been determined. Clinical correlation is essential. Serum or plasma thyroid stim ulating hormone (TSH) measurement (units/volume)Ordered By: Adrian Hahn on 10-05-2024 TSH Qn 2.060 uIU/mL 0.358-3.740 [facility] Serum or plasma urea nitroge n measurement (mass/volume)Ordered By: Adrian Hahn on 10-05-2024 Urea nitrogen [Mass/Vol] 20 mg/dL High 7-18 [facility] Sodium levelOrdered By: Adrian Hahn on 10-05-2024 Sodium [Moles/Vol] 141 mmol/L 136-145 [facility] Thyroid Stim Hormone (TSH)on 10-05-2024 TSH 2.060 uIU/mL Normal 0.358-3.740 [facility] Comment on above: Performed By: #### L 501.9520, L100.0100, L500.4050, L506.1000 #### [facility] [address] [place], [place], [address] Total proteinOrdered By: Adrian Hahn on 10-05-2024 Protein [Mass/Vol] 7.9 g/dL 6.4-8.2 [facility] Vitamin D,25 Hydroxyon 10-05 Vitamin D 25-OH 32.1 ng/mL Normal [facility] Comment on above: Result Comment: Claritza min D 25(OH) Status Range Deficiency <20 ng/mL (50nmol/L) Insufficiency 20 - 30 ng/mL (50 - 75 nmol/L) Sufficiency 30 - 100 ng/mL (75 - 250 nmol/L) Toxicity >100 ng/mL (>250 nmol/L) Performed By: #### L 501.9520, L100.0100, L500.4050, L506.1000 #### [facility] [address] [place], [address] White blood cell (WBC) count Ordered By: Adrian Hahn on 10-05-2024 WBC (Bld) [#/Vol] 6.6 10*3/uL 4.4-11.0 [facility] CBC W/Diff, Automatedon 10-0 7-2023 Absolute Lymph 1.48 X10 3/uL Normal 0.83-4.51 [facility] Comment on above: Performed By: #### L 500.4050, L501.9520, L506.1000, L100.0100 #### [facility] [address] [place], [address] Absolute Neut 3.4 X10 3/uL Normal 2.0-7.7 [facility] Comment on above: Performed By: #### L 500.4050, L501.9520, L506.1000, L100.0100 #### [facility] [address] [place], [address] Basophils/100 WBC (Bld) 0.7 % Normal 0-1 [facility] Comment on above: Performed By: #### L 500.4050, L501.9520, L506.1000, L100.0100 #### [facility] [address] [place], [address] Eosinophils/100 WBC (Bld) 0.7 % Normal 0-5 [facility] Comment on above: Performed By: #### L 500.4050, L501.9520, L506.1000, L100.0100 #### [facility] [address] [place], [address] Erythrocyte distribution width (RBC) [Ratio] 12.3 % Normal 11.6-14.6 [facility] Comment on above: Performed By: #### L 500.4050, L501.9520, L506.1000, L100.0100 #### [facility] [address] [place], [address] Hematocrit (Bld) [Volume fraction] 40.4 % Normal 37-47 [facility] Comment on above: Performed By: #### L 500.4050, L501.9520, L506.1000, L100.0100 #### [facility] [address] [place], [address] Hemoglobin (Bld) [Mass/Vol] 13.3 g/dL Normal 12.0-15.0 [facility] Comment on above: Performed By: #### L 500.4050, L501.9520, L506.1000, L100.0100 #### [facility] [address] [place], [address] IG% 1.300 High 0.0-0.9 [facility] Comment on above: Result Comment: IG% - Immature Granulocytes (promyelocytes, myelocytes and metamyelocytes) > 1% indicates that a LEFT SHIFT is Present. Performed By: #### L 500.4050, L501.9520, L506.1000, L100.0100 #### [facility] [address] [place], [address] Lymphocytes/100 WBC (Bld) 26.5 % Normal 19-41 [facility] Comment on above: Performed By: #### L 500.4050, L501.9520, L506.1000, L100.0100 #### [facility] [address] [place], [address] MCH (RBC) [Entitic mass] 29.9 pg Normal 27.0-32.0 [facility] Comment on above: Performed By: #### L 500.4050, L501.9520, L506.1000, L100.0100 #### [facility] [address] [place], [address] MCHC (RBC) [Mass/Vol] 32.9 g/dL Normal 32-36 [facility] Comment on above: Performed By: #### L 500.4050, L501.9520, L506.1000, L100.0100 #### [facility] [address] [place], [address] MCV (RBC) [Entitic vol] 90.8 fL Normal 81-99 [facility] Comment on above: Performed By: #### L 500.4050, L501.9520, L506.1000, L100.0100 #### [facility] [address] [place], [address] Monocytes/100 WBC (Bld) 10.6 % High 0-10 [facility] Comment on above: Performed By: #### L 500.4050, L501.9520, L506.1000, L100.0100 #### [facility] [address] [place], [address] Neutrophils/100 WBC (Bld) 60.2 % Normal 47-70 [facility] Comment on above: Performed By: #### L 500.4050, L501.9520, L506.1000, L100.0100 #### [facility] [address] [place], [address] Nucleated RBC (Bld) [#/Vol] 0 10*3/uL Normal 0-5 [facility] Comment on above: Performed By: #### L 500.4050, L501.9520, L506.1000, L100.0100 #### [facility] [address] [place], [address] Platelet mean volume (Bld) [Entitic vol] 9.5 fL Normal 6.2-12.0 [facility] Comment on above: Performed By: #### L 500.4050, L501.9520, L506.1000, L100.0100 #### [facility] [address] [place], [address] Platelets (Bld) [#/Vol] 277 10*3/uL Normal 150-450 [facility] Comment on above: Performed By: #### L 500.4050, L501.9520, L506.1000, L100.0100 #### [facility] [address] [place], [address] RBC (Bld) [#/Vol] 4.45 10*6/uL Normal 4.2-5.4 [facility] Comment on above: Performed By: #### L 500.4050, L501.9520, L506.1000, L100.0100 #### [facility] [address] [place], [address] RDW SD 40.8 fl Normal 35.1-43.9 [facility] Comment on above: Performed By: #### L 500.4050, L501.9520, L506.1000, L100.0100 #### [facility] [address] [place], [address] WBC (Bld) [#/Vol] 5.6 10*3/uL Normal 4.4-11.0 [facility] Comment on above: Performed By: #### L 500.4050, L501.9520, L506.1000, L100.0100 #### [facility] [address] [place], [address] Comprehensive Metabolic Prof [facility] 06-05-2024 Albumin [Mass/Vol] 3.8 g/dL Normal 3.2-5.0 [facility] Comment on above: Performed By: #### L 500.4050, L501.9520, L506.1000, L100.0100 #### [facility] [address] [place], [address] Albumin/Globulin [Mass ratio] 1.1 {ratio} Normal 0.9-2.4 [facility] Comment on above: Performed By: #### L 500.4050, L501.9520, L506.1000, L100.0100 #### [facility] [address] [place], [address] ALK P 33 U/L Low 45-117 [facility] Comment on above: Performed By: #### L 500.4050, L501.9520, L506.1000, L100.0100 #### [facility] [address] [place], [address] ALT [Catalytic activity/Vol] 18 U/L Normal 13-56 [facility] Comment on above: Performed By: #### L 500.4050, L501.9520, L506.1000, L100.0100 #### [facility] [address] [place], [address] AST [Catalytic activity/Vol] 19 U/L Normal 15-37 [facility] Comment on above: Performed By: #### L 500.4050, L501.9520, L506.1000, L100.0100 #### [facility] [address] [place], [address] Bilirubin [Mass/Vol] 0.70 mg/dL Normal 0.20-1.00 [facility] Comment on above: Result Comment: For patients on eltrombopag therapy, use of Dimension Turney TBIL is not recommended. Performed By: #### L 500.4050, L501.9520, L506.1000, L100.0100 #### [facility] [address] [place], [address] BUN/CRE 17.7 RATIO Normal 10-20 [facility] Comment on above: Performed By: #### L 500.4050, L501.9520, L506.1000, L100.0100 #### [facility] [address] [place], [address] CA,Total 9.2 mg/dL Normal 8.5-10.1 [facility] Comment on above: Performed By: #### L 500.4050, L501.9520, L506.1000, L100.0100 #### [facility] [address] [place], [address] Chloride [Moles/Vol] 106 mmol/L Normal 98-107 [facility] Comment on above: Performed By: #### L 500.4050, L501.9520, L506.1000, L100.0100 #### [facility] [address] [place], [address] CO2 [Moles/Vol] 27.0 mmol/L Normal 21.0-32.0 [facility] Comment on above: Performed By: #### L 500.4050, L501.9520, L506.1000, L100.0100 #### [facility] [address] [place], [address] Creatinine [Mass/Vol] 0.96 mg/dL Normal 0.55-1.02 [facility] Comment on above: Result Comment: The validity of the calculated GFR GFRAA in patients over 70 years has not been determined. Clinical correlation is essential. Performed By: #### L 500.4050, L501.9520, L506.1000, L100.0100 #### [facility] [address] [place], [address] EST GFR - AA 71 mL/min Normal >60 [facility] Comment on above: Result Comment: Afri can Malian GFR Calc Performed By: #### L 500.4050, L501.9520, L506.1000, L100.0100 #### [facility] [address] [place], [address] GAP 6 Normal 5-15 [facility] Comment on above: Performed By: #### L 500.4050, L501.9520, L506.1000, L100.0100 #### [facility] [address] [place], [address] GFR/1.73 sq M.predicted among non-blacks MDRD (S/P/Bld) [Vol rate/Area] 59 mL/min/{1.73_m2} Low >60 [facility] Comment on above: Result Comment: Non- GFR Calc Performed By: #### L 500.4050, L501.9520, L506.1000, L100.0100 #### [facility] [address] [place], [address] Globulin (S) [Mass/Vol] 3.6 g/dL Normal 2.2-4.2 [facility] Comment on above: Performed By: #### L 500.4050, L501.9520, L506.1000, L100.0100 #### [facility] [address] [place], [address] Glucose [Mass/Vol] 103 mg/dL Normal 74-106 [facility] Comment on above: Result Comment: Fast ing Glucose result from 100 to 125 mg/dL suggests IMPAIRED HOMEOSTASIS per A.D.A. criteria. Performed By: #### L 500.4050, L501.9520, L506.1000, L100.0100 #### [facility] [address] [place], [address] Potassium [Moles/Vol] 4.0 mmol/L Normal 3.5-5.1 [facility] Comment on above: Performed By: #### L 500.4050, L501.9520, L506.1000, L100.0100 #### [facility] [address] [place], [address] Sodium [Moles/Vol] 139 mmol/L Normal 136-145 [facility] Comment on above: Performed By: #### L 500.4050, L501.9520, L506.1000, L100.0100 #### [facility] [address] [place], [address] T PROT 7.4 g/dL Normal 6.4-8.2 [facility] Comment on above: Performed By: #### L 500.4050, L501.9520, L506.1000, L100.0100 #### [facility] [address] [place], [address] Urea nitrogen [Mass/Vol] 17 mg/dL Normal 7-18 [facility] Comment on above: Performed By: #### L 500.4050, L501.9520, L506.1000, L100.0100 #### [facility] [address] [place], [address] Thyroid Stim Hormone (TSH)on 06-05-2024 TSH 2.880 uIU/mL Normal 0.358-3.740 [facility] Comment on above: Performed By: #### L 500.4050, L501.9520, L506.1000, L100.0100 #### [facility] [address] [place], [address] Vitamin D,25 Hydroxyon 06-05 Vitamin D 25-OH 33.0 ng/mL Normal [facility] Comment on above: Result Comment: Claritza min D 25(OH) Status Range Deficiency <20 ng/mL (50nmol/L) Insufficiency 20 - 30 ng/mL (50 - 75 nmol/L) Sufficiency 30 - 100 ng/mL (75 - 250 nmol/L) Toxicity >100 ng/mL (>250 nmol/L) Performed By: #### L 500.4050, L501.9520, L506.1000, L100.0100 #### [facility] [address] [place], [address] Absolute lymphocyte countOrd ered By: Adrian Hahn on 10-04-2023 Lymphocytes Auto (Unsp spec) [#/Vol] 1.62 10*3/uL 0.83-4.51 [facility] Automated lymphocyte count a s percentage of total leukocytesOrdered By: Adrian Hahn on 10-04-2023 Lymphocytes/100 WBC Auto (Unsp spec) 22.1 % 19-41 [facility] Basophil percentageOrdered B y: Adrian Hahn on 10-04-2023 Basophils/100 WBC (Bld) 0.7 % 0-1 [facility] Bilirubin [Mass/Vol] 0.50 mg/dL 0.20-1.00 [facility] Comment on above: For patients on eltr ombopag therapy, use of Dimension Turney TBIL is not recommended. Chloride [Moles/Vol] 105 mmol/L 98-107 [facility] Eosinophils/100 WBC (Bld) 0.8 % 0-5 [facility] Glucose [Mass/Vol] 122 mg/dL 74-106 [facility] Comment on above: Fasting Glucose resu lt from 100 to 125 mg/dL suggests IMPAIRED HOMEOSTASIS per A.D.A. criteria. Hemoglobin (Bld) [Mass/Vol] 13.4 g/dL 12.0-15.0 [facility] Monocytes/100 WBC (Bld) 9.3 % 0-10 [facility] Neutrophils (Bld) [#/Vol] 4.9 10*3/uL 2.0-7.7 [facility] Neutrophils/100 WBC (Bld) 66.3 % 47-70 [facility] Potassium [Moles/Vol] 4.2 mmol/L 3.5-5.1 [facility] Protein [Mass/Vol] 8.1 g/dL 6.4-8.2 [facility] Sodium [Moles/Vol] 140 mmol/L 136-145 [facility] WBC (Bld) [#/Vol] 7.3 10*3/uL 4.4-11.0 [facility] Determination of erythrocyte mean corpuscular volume (MCV)Ordered By: Adrian Hahn on 10-04-2023 MCV (RBC) [Entitic vol] 91.1 fL 81-99 [facility] Erythrocyte distribution wid th ratioOrdered By: Adrian Hahn 10-04-2023 Erythrocyte distribution width (RBC) [Ratio] 11.9 % 11.6-14.6 [facility] Erythrocyte distribution wid th standard deviationOrdered By: Adrian Hahn on 10-04-2023 Erythrocyte distribution width (RBC) [Entitic vol] 39.6 fL 35.1-43.9 [facility] Hematocrit Auto (Bld) [Volum e fraction]Ordered By: Adrian Hahn on 10-04-2023 Hematocrit (Bld) [Volume fraction] 40.1 % 37-47 [facility] Immature granulocytes/100 WB C Auto (Bld)Ordered By: Adrian Hahn on 10-04-2023 Immature granulocytes/100 WBC (Bld) 0.800 % 0.0-0.9 [facility] Comment on above: IG% - Immature Granu locytes (promyelocytes, myelocytes and metamyelocytes) > 1% indicates that a LEFT SHIFT is Present. Laboratory - Chemistry and C hemistry - challengeOrdered By: Adrian Hahn on 10-04-2023 Albumin/Globulin [Mass ratio] 0.9 {ratio} 0.9-2.4 [facility] ALP [Catalytic activity/Vol] 40 U/L 45-117 [facility] ALT [Catalytic activity/Vol] 22 U/L 13-56 [facility] CO2 [Moles/Vol] 27.0 mmol/L 21.0-32.0 [facility] Globulin (S) [Mass/Vol] 4.2 g/dL 2.2-4.2 [facility] Urea nitrogen/Creatinine [Mass ratio] 24.9 mg/mg 10-20 [facility] - Hematology and Cell countsOrdered By: Adrian Hahn on 10-04-2023 MCH (RBC) [Entitic mass] 30.5 pg 27.0-32.0 [facility] MCHC (RBC) [Mass/Vol] 33.4 g/dL 32-36 [facility] Nucleated RBC/100 WBC (Bld) [Ratio] 0 % 0-5 [facility] Platelets (Bld) [#/Vol] 292 10*3/uL 150-450 [facility] No Panel InformationOrdered By: Adrian Hahn on 10-04-2023 Estimated GFR (MDRD) Amer 83 mL/min >60 [facility] Comment on above: GFR Calc Estimated GFR (MDRD) Non-Af Amer 68 mL/min >60 [facility] Comment on above: Non- GFR Calc Vitamin D 25-Hydroxy 29.7 ng/mL [facility] Comment on above: Vitamin D 25(OH) Sta tus Range Deficiency <20 ng/mL (50nmol/L) Insufficiency 20 - 30 ng/mL (50 - 75 nmol/L) Sufficiency 30 - 100 ng/mL (75 - 250 nmol/L) Toxicity >100 ng/mL (>250 nmol/L) Platelet mean volume Delio-Ec ker (Bld) [Entitic vol]Ordered By: Adrian Hahn on 10-04-2023 Platelet mean volume (Bld) [Entitic vol] 9.8 fL 6.2-12.0 [facility] RBC Auto (Bld) [#/Vol]Ordere d By: Adrian Hahn on 10-04-2023 RBC (Bld) [#/Vol] 4.40 10*6/uL 4.2-5.4 [facility] Serum or plasma calcium rosio urement (mass/volume)Ordered By: Adrian Hahn on 10-04-2023 Calcium [Mass/Vol] 9.4 mg/dL 8.5-10.1 [facility] Serum or plasma creatinine m easurement (mass/volume)Ordered By: Adrian Hahn on 10-04-2023 Creatinine [Mass/Vol] 0.84 mg/dL 0.55-1.02 [facility] Comment on above: The validity of the calculated GFR & GFRAA in patients over 70 years has not been determined. Clinical correlation is essential. Serum or plasma thyroid stim ulating hormone (TSH) measurement (units/volume)Ordered By: Adrian Hahn on 10-04-2023 TSH Qn 2.92 uIU/mL 0.358-3.74 [facility] Serum or plasma urea nitroge n measurement (mass/volume)Ordered By: Adrian Hahn on 10-04-2023 Urea nitrogen [Mass/Vol] 21 mg/dL 7-18 [facility] Thin prep Papanicolaou smear with manual screeningOrdered By: Adrian Hahn on 10-04-2023 Thin prep Papanicolaou smear with manual screening 3.9 g/dL 3.2-5.0 [facility] Thin prep Papanicolaou smear with manual screening 11 U/L 15-37 [facility] Thin prep Papanicolaou smear with manual screening 8 5-15 [facility] No Panel InformationOrdered By: Adrian Hahn on 08-04-2023 Miscellaneous Test See comment [facility] Comment on above: TEST RESULTS LIMITSA JOHNNY Alzheimer's RiskMethodology: Patient DNA is assayed for the APOE genotype by PCRamplification of a specific region in exon 4 of the APOEgene followed by digestion with restriction enzyme [employer] Iand separation of fragments by polyacrylamide gelelectrophoresis. [...] can be familial (15-20%) or sporadic. The [id number] increases the risk for late onset AD and maycontribute to the pathology of the disease. This risk isincreased by approximately 2 to 3-fold for individuals withone copy of the APOE4 variant and by approximately [id number] for individuals with two copies of this [...] with late onset AD, the presence of [id number] lead to earlier development of symptoms.However, APOE4 [...] was developed and its performance characteristicsdetermined by [employer]. It has not been cleared or approvedby the Food and Drug Administration. The FDA has determinedthat such clearance or approval is not necessary.REFERENCESAlladonna A et al. Sex modifies the APOE-related risk ofdeveloping Alzheimer disease. Annal Ibnbfu6255;75(4):563-573Bird TD. Alzheimer Disease Overview. GeneReviews(internet). Adrian JIMENEZ et al., editors. [facility]:[employer], [place], [place]. Last revised 2014.Silvino JS et al. Genetic counseling and testing forAlzheimer disease: Joint practice guidelines of theAmerican College of Medical Genetics and the [facility]. [place] in Bio9459;13(5)299-604.Ben MCCRAY. Apolipoprotein E: Implications for ADneurobiology, epidemiology and risk assessment.Neurobiology of Aging 2011;32:778-790 TESTING PERFORMED AT [facility]. ORIGINAL REPORT ON FILE IN LAB CONTAINS ADDITIONAL TEST SITE INFORMATION. Absolute lymphocyte countOrd ered By: Adrian Hahn on 07-01-2023 Lymphocytes Auto (Unsp spec) [#/Vol] 1.59 10*3/uL 0.83-4.51 [facility] Basophil percentageOrdered B y: Adrian Hahn on 07-01-2023 Basophils/100 WBC (Bld) 0.6 % 0-1 [facility] Bilirubin [Mass/Vol] 0.40 mg/dL 0.20-1.00 [facility] Comment on above: For patients on eltr ombopag therapy, use of Dimension [place] TBIL is not recommended. Chloride [Moles/Vol] 105 mmol/L 98-107 [facility] Eosinophils/100 WBC (Bld) 0.9 % 0-5 [facility] Glucose [Mass/Vol] 100 mg/dL 74-106 [facility] Comment on above: Fasting Glucose resu lt from 100 to 125 mg/dL suggests IMPAIRED HOMEOSTASIS per A.D.A. criteria. Neutrophils (Bld) [#/Vol] 4.2 10*3/uL 2.0-7.7 [facility] Neutrophils/100 WBC (Bld) 64.3 % 47-70 [facility] Potassium [Moles/Vol] 4.1 mmol/L 3.5-5.1 [facility] Protein [Mass/Vol] 7.2 g/dL 6.4-8.2 [facility] Sodium [Moles/Vol] 140 mmol/L 136-145 [facility] WBC (Bld) [#/Vol] 6.5 10*3/uL 4.4-11.0 [facility] Blood erythrocytes count (nu mber/volume)Ordered By: Adrian Hahn on 07-01-2023 RBC (Bld) [#/Vol] 4.31 10*6/uL 4.2-5.4 [facility] Blood hemoglobin measurement (mass/volume)Ordered By: Adrian Hahn on 07-01-2023 Hemoglobin (Bld) [Mass/Vol] 13.4 g/dL 12.0-15.0 [facility] Blood lymphocytes/100 leukoc ytesOrdered By: Adrian Hahn on 07-01-2023 Lymphocytes/100 WBC (Bld) 24.5 % 19-41 [facility] Blood monocytes/100 leukocyt esOrdered By: [facility] on 07-01-2023 Monocytes/100 WBC (Bld) 9.1 % 0-10 [facility] Blood platelet mean volumeOr dered By: [facility] Jovani on 07-01-2023 Platelet mean volume (Bld) [Entitic vol] 9.8 fL 6.2-12.0 [facility] Determination of erythrocyte mean corpuscular volume (MCV)Ordered By: Adrian Hahn on 07-01-2023 MCV (RBC) [Entitic vol] 92.3 fL 81-99 [facility] Hematocrit Auto (Bld) [Volum e fraction]Ordered By: [facility] on 07-01-2023 Hematocrit (Bld) [Volume fraction] 39.8 % 37-47 [facility] Laboratory - Chemistry and C hemistry - challengeOrdered By: [facility] Jovani 07-01-2023 ALP [Catalytic activity/Vol] 28 U/L 45-117 [facility] ALT [Catalytic activity/Vol] 22 U/L 13-56 [facility] CO2 [Moles/Vol] 31.0 mmol/L 21.0-32.0 [facility] Globulin (S) [Mass/Vol] 3.4 g/dL 2.2-4.2 [facility] Urea nitrogen/Creatinine [Mass ratio] 22.2 mg/mg 10-20 [facility] - Hematology and Cell countsOrdered By: Adrian Hahn on 07-01-2023 Erythrocyte distribution width (RBC) [Entitic vol] 41.9 fL 35.1-43.9 [facility] Erythrocyte distribution width (RBC) [Ratio] 12.3 % 11.6-14.6 [facility] Immature granulocytes/100 WBC (Bld) 0.600 % 0.0-0.9 [facility] Comment on above: IG% - Immature Granu locytes (promyelocytes, myelocytes and metamyelocytes) > 1% indicates that a LEFT SHIFT is Present. MCH (RBC) [Entitic mass] 31.1 pg 27.0-32.0 [facility] Nucleated RBC/100 WBC (Bld) [Ratio] 0 % 0-5 [facility] MCHC Auto (RBC) [Mass/Vol]Or dered By: Adrian Hahn on 07-01-2023 MCHC (RBC) [Mass/Vol] 33.7 g/dL 32-36 [facility] No Panel InformationOrdered By: Adrian Hahn on 07-01-2023 Estimated GFR (MDRD) Amer 86 mL/min >60 [facility] Comment on above: GFR Calc Estimated GFR (MDRD) Non-Af Amer 71 mL/min >60 [facility] Comment on above: Non- GFR Calc Thyroid Stimulating Hormone (TSH) 2.03 uIU/mL 0.358-3.74 [facility] Vitamin D 25-Hydroxy 15.7 ng/mL [facility] Comment on above: Vitamin D 25(OH) Sta tus Range Deficiency <20 ng/mL (50nmol/L) Insufficiency 20 - 30 ng/mL (50 - 75 nmol/L) Sufficiency 30 - 100 ng/mL (75 - 250 nmol/L) Toxicity >100 ng/mL (>250 nmol/L) Platelets bldOrdered By: Adrian Hahn on 07-01-2023 Platelets (Bld) [#/Vol] 286 10*3/uL 150-450 [facility] Serum or plasma albumin rosio urement (mass/volume)Ordered By: Adrian Hahn on 07-01-2023 Albumin [Mass/Vol] 3.8 g/dL 3.2-5.0 [facility] Serum or plasma albumin/glob ulin mass ratioOrdered By: dArian Hahn on 07-01-2023 Albumin/Globulin [Mass ratio] 1.1 {ratio} 0.9-2.4 [facility] Serum or plasma calcium rosio urement (mass/volume)Ordered By: Adrian Hahn on 07-01-2023 Calcium [Mass/Vol] 8.8 mg/dL 8.5-10.1 [facility] Serum or plasma creatinine m easurement (mass/volume)Ordered By: Adrian Hahn on 07-01-2023 Creatinine [Mass/Vol] 0.81 mg/dL 0.55-1.02 [facility] Comment on above: The validity of the calculated GFR & GFRAA in patients over 70 years has not been determined. Clinical correlation is essential. Serum or plasma urea nitroge n measurement (mass/volume)Ordered By: Adrian Hahn on 07-01-2023 Urea nitrogen [Mass/Vol] 18 mg/dL 7-18 [facility] Thin prep Papanicolaou smear with manual screeningOrdered By: Adrian Hahn on 07-01-2023 Thin prep Papanicolaou smear with manual screening 18 U/L 15-37 [facility] Thin prep Papanicolaou smear with manual screening 4 5-15 [facility] Absolute lymphocyte countOrd ered By: Adrian Hahn on 03-25-2023 Lymphocytes Auto (Unsp spec) [#/Vol] 1.65 10*3/uL 0.83-4.51 [facility] Basophil percentageOrdered B y: Adrian Hahn on 03-25-2023 Basophils/100 WBC (Bld) 0.8 % 0-1 [facility] Bilirubin [Mass/Vol] 0.60 mg/dL 0.20-1.00 [facility] Comment on above: For patients on eltr ombopag therapy, use of Dimension Tur[place] TBIL is not recommended. Chloride [Moles/Vol] 105 mmol/L 98-107 [facility] Eosinophils/100 WBC (Bld) 1.1 % 0-5 [facility] Glucose [Mass/Vol] 115 mg/dL 74-106 [facility] Comment on above: Fasting Glucose resu lt from 100 to 125 mg/dL suggests IMPAIRED HOMEOSTASIS per A.D.A. criteria. Neutrophils (Bld) [#/Vol] 3.7 10*3/uL 2.0-7.7 [facility] Neutrophils/100 WBC (Bld) 59.9 % 47-70 [facility] Potassium [Moles/Vol] 4.3 mmol/L 3.5-5.1 [facility] Protein [Mass/Vol] 7.4 g/dL 6.4-8.2 [facility] Sodium [Moles/Vol] 139 mmol/L 136-145 [facility] WBC (Bld) [#/Vol] 6.2 10*3/uL 4.4-11.0 [facility] Blood erythrocytes count (nu mber/volume)Ordered By: Adrian Hahn on 03-25-2023 RBC (Bld) [#/Vol] 4.46 10*6/uL 4.2-5.4 [facility] Blood hemoglobin measurement (mass/volume)Ordered By: Adrian Hahn on 03-25-2023 Hemoglobin (Bld) [Mass/Vol] 13.6 g/dL 12.0-15.0 [facility] Blood lymphocytes/100 leukoc ytesOrdered By: Adrian Hahn on 03-25-2023 Lymphocytes/100 WBC (Bld) 26.7 % 19-41 [facility] Blood monocytes/100 leukocyt esOrdered By: Adrian Hahn on 03-25-2023 Monocytes/100 WBC (Bld) 11.0 % 0-10 [facility] Blood platelet mean volumeOr dered By: Adrian Hahn on 03-25-2023 Platelet mean volume (Bld) [Entitic vol] 10.4 fL 6.2-12.0 [facility] Determination of erythrocyte mean corpuscular volume (MCV)Ordered By: Adrian Hahn 03-25-2023 MCV (RBC) [Entitic vol] 93.7 fL 81-99 [facility] Hematocrit Auto (Bld) [Volum e fraction]Ordered By: Adrian Hahn 03-25-2023 Hematocrit (Bld) [Volume fraction] 41.8 % 37-47 [facility] Laboratory - Chemistry and C hemistry - challengeOrdered By: Adrian Hahn on 03-25-2023 ALP [Catalytic activity/Vol] 31 U/L 45-117 [facility] ALT [Catalytic activity/Vol] 21 U/L 13-56 [facility] CO2 [Moles/Vol] 30.0 mmol/L 21.0-32.0 [facility] Globulin (S) [Mass/Vol] 3.6 g/dL 2.2-4.2 [facility] Urea nitrogen/Creatinine [Mass ratio] 25.1 mg/mg 10-20 [facility] Laboratory - Hematology and Cell countsOrdered By: Adrian Hahn on 03-25-2023 Erythrocyte distribution width (RBC) [Entitic vol] 41.9 fL 35.1-43.9 [facility] Erythrocyte distribution width (RBC) [Ratio] 12.1 % 11.6-14.6 [facility] Immature granulocytes/100 WBC (Bld) 0.500 % 0.0-0.9 [facility] Comment on above: IG% - Immature Granu locytes (promyelocytes, myelocytes and metamyelocytes) > 1% indicates that a LEFT SHIFT is Present. MCH (RBC) [Entitic mass] 30.5 pg 27.0-32.0 [facility] Nucleated RBC/100 WBC (Bld) [Ratio] 0 % 0-5 [facility] MCHC Auto (RBC) [Mass/Vol]Or dered By: Adrian Hahn on 03-25-2023 MCHC (RBC) [Mass/Vol] 32.5 g/dL 32-36 [facility] No Panel InformationOrdered By: Adrian Hahn on 03-25-2023 Estimated GFR (MDRD) Amer 75 mL/min >60 [facility] Comment on above: GFR Calc Estimated GFR (MDRD) Non-Af Amer 62 mL/min >60 [facility] Comment on above: Non- GFR Calc Thyroid Stimulating Hormone (TSH) 2.26 uIU/mL 0.358-3.74 [facility] Vitamin D 25-Hydroxy 18.1 ng/mL [facility] Comment on above: Vitamin D 25(OH) Sta tus Range Deficiency <20 ng/mL (50nmol/L) Insufficiency 20 - 30 ng/mL (50 - 75 nmol/L) Sufficiency 30 - 100 ng/mL (75 - 250 nmol/L) Toxicity >100 ng/mL (>250 nmol/L) Platelets bldOrdered By: Adrian Hahn on 03-25-2023 Platelets (Bld) [#/Vol] 295 10*3/uL 150-450 [facility] Serum or plasma albumin rosio urement (mass/volume)Ordered By: Adrian Hahn on 03-25-2023 Albumin [Mass/Vol] 3.8 g/dL 3.2-5.0 [facility] Serum or plasma albumin/glob ulin mass ratioOrdered By: Adrian Hahn on 03-25-2023 Albumin/Globulin [Mass ratio] 1.1 {ratio} 0.9-2.4 [facility] Serum or plasma calcium rosio urement (mass/volume)Ordered By: Adrian Hahn on 03-25-2023 Calcium [Mass/Vol] 8.8 mg/dL 8.5-10.1 [facility] Serum or plasma creatinine m easurement (mass/volume)Ordered By: Adrian Hahn on 03-25-2023 Creatinine [Mass/Vol] 0.92 mg/dL 0.55-1.02 [facility] Comment on above: The validity of the calculated GFR & GFRAA in patients over 70 years has not been determined. Clinical correlation is essential. Serum or plasma urea nitroge n measurement (mass/volume)Ordered By: Adrian Hahn on 03-25-2023 Urea nitrogen [Mass/Vol] 23 mg/dL 7-18 [facility] Thin prep Papanicolaou smear with manual screeningOrdered By: Adrian Hahn 03-25-2023 Thin prep Papanicolaou smear with manual screening 17 U/L 15-37 [facility] Thin prep Papanicolaou smear with manual screening 4 5-15 [facility] Absolute lymphocyte countOrd ered By: Adrian Hahn on 09-29-2022 Lymphocytes Auto (Unsp spec) [#/Vol] 1.94 10*3/uL 0.83-4.51 [facility] Basophil percentageOrdered B y: Adrian Hahn on 09-29-2022 Basophils/100 WBC (Bld) 0.7 % 0-1 [facility] Bilirubin [Mass/Vol] 0.40 mg/dL 0.20-1.00 [facility] Comment on above: For patients on eltr ombopag therapy, use of Dimension [place] TBIL is not recommended. Chloride [Moles/Vol] 103 mmol/L 98-107 [facility] Eosinophils/100 WBC (Bld) 1.1 % 0-5 [facility] Glucose [Mass/Vol] 101 mg/dL 74-106 [facility] Comment on above: Fasting Glucose resu lt from 100 to 125 mg/dL suggests IMPAIRED HOMEOSTASIS per A.D.A. criteria. Neutrophils (Bld) [#/Vol] 4.4 10*3/uL 2.0-7.7 [facility] Neutrophils/100 WBC (Bld) 60.8 % 47-70 [facility] Potassium [Moles/Vol] 3.8 mmol/L 3.5-5.1 [facility] Protein [Mass/Vol] 8.0 g/dL 6.4-8.2 [facility] Sodium [Moles/Vol] 140 mmol/L 136-145 [facility] WBC (Bld) [#/Vol] 7.2 10*3/uL 4.4-11.0 [facility] Blood erythrocytes count (nu mber/volume)Ordered By: Adrian Hahn on 09-29-2022 RBC (Bld) [#/Vol] 4.61 10*6/uL 4.2-5.4 [facility] Blood hemoglobin measurement (mass/volume)Ordered By: Adrian Hahn on 09-29-2022 Hemoglobin (Bld) [Mass/Vol] 13.6 g/dL 12.0-15.0 [facility] Blood lymphocytes/100 leukoc ytesOrdered By: Adrian Hahn on 09-29-2022 Lymphocytes/100 WBC (Bld) 26.8 % 19-41 [facility] Blood monocytes/100 leukocyt esOrdered By: Adrian Hahn on 09-29-2022 Monocytes/100 WBC (Bld) 10.0 % 0-10 [facility] Blood platelet mean volumeOr dered By: Adrian Hahn on 09-29-2022 Platelet mean volume (Bld) [Entitic vol] 10.1 fL 6.2-12.0 [facility] Determination of erythrocyte mean corpuscular volume (MCV)Ordered By: Adrian Hahn on 09-29-2022 MCV (RBC) [Entitic vol] 90.5 fL 81-99 [facility] Hematocrit Auto (Bld) [Volum e fraction]Ordered By: Adrian Hahn on 09-29-2022 Hematocrit (Bld) [Volume fraction] 41.7 % 37-47 [facility] Laboratory - Chemistry and C hemistry - challengeOrdered By: Adrian Hahn on 09-29-2022 ALP [Catalytic activity/Vol] 32 U/L 45-117 [facility] ALT [Catalytic activity/Vol] 23 U/L 13-56 [facility] CO2 [Moles/Vol] 29.0 mmol/L 21.0-32.0 [facility] Cobalamin (Vitamin B12) [Mass/Vol] 391 pg/mL 211-911 [facility] Globulin (S) [Mass/Vol] 4.0 g/dL 2.2-4.2 [facility] Urea nitrogen/Creatinine [Mass ratio] 26.7 mg/mg 10-20 [facility] Laboratory - Hematology and Cell countsOrdered By: Adrian Hahn on 09-29-2022 Erythrocyte distribution width (RBC) [Entitic vol] 39.9 fL 35.1-43.9 [facility] Erythrocyte distribution width (RBC) [Ratio] 12.2 % 11.6-14.6 [facility] Immature granulocytes/100 WBC (Bld) 0.600 % 0.0-0.9 [facility] Comment on above: IG% - Immature Granu locytes (promyelocytes, myelocytes and metamyelocytes) > 1% indicates that a LEFT SHIFT is Present. MCH (RBC) [Entitic mass] 29.5 pg 27.0-32.0 [facility] Nucleated RBC/100 WBC (Bld) [Ratio] 0 % 0-5 [facility] MCHC Auto (RBC) [Mass/Vol]Or dered By: Adrian Hahn on 09-29-2022 MCHC (RBC) [Mass/Vol] 32.6 g/dL 32-36 [facility] No Panel InformationOrdered By: Adrian Hahn on 09-29-2022 Estimated GFR (MDRD) Amer 90 mL/min >60 [facility] Comment on above: GFR Calc Estimated GFR (MDRD) Non-Af Amer 74 mL/min >60 [facility] Comment on above: Non- GFR Calc Hepatitis C Antibody Non-Reactive Nonreactive [facility] Comment on above: Non Reactive: < 0.8 Equivocal: >/= 0.8 to < 1.0 Reactive: >/= 1.0The CDC recommends that a reactive/equivocal HCV antibody result be followed up by the HCV Nucleic Acid Amplificationtest (808309) Thyroid Stimulating Hormone (TSH) 2.53 uIU/mL 0.358-3.74 [facility] Vitamin D 25-Hydroxy 12.3 ng/mL [facility] Comment on above: Vitamin D 25(OH) Sta tus Range Deficiency <20 ng/mL (50nmol/L) Insufficiency 20 - 30 ng/mL (50 - 75 nmol/L) Sufficiency 30 - 100 ng/mL (75 - 250 nmol/L) Toxicity >100 ng/mL (>250 nmol/L) Platelets bldOrdered By: Adrian Hahn on 09-29-2022 Platelets (Bld) [#/Vol] 313 10*3/uL 150-450 [facility] Serum Treponema species anti body detectionOrdered By: Adrian Hahn on 09-29-2022 Treponema sp Ab Ql (S) Non-Reactive [facility] Serum or plasma albumin rosio urement (mass/volume)Ordered By: Adrian Hahn 09-29-2022 Albumin [Mass/Vol] 4.0 g/dL 3.2-5.0 [facility] Serum or plasma albumin/glob ulin mass ratioOrdered By: Adrian Hahn 09-29-2022 Albumin/Globulin [Mass ratio] 1.0 {ratio} 0.9-2.4 [facility] Serum or plasma calcium rosio urement (mass/volume)Ordered By: Adrian Hahn 09-29-2022 Calcium [Mass/Vol] 9.2 mg/dL 8.5-10.1 [facility] Serum or plasma creatinine m easurement (mass/volume)Ordered By: Adrian Hahn 09-29-2022 Creatinine [Mass/Vol] 0.79 mg/dL 0.55-1.02 [facility] Comment on above: The validity of the calculated GFR & GFRAA in patients over 70 years has not been determined. Clinical correlation is essential. Serum or plasma folate measu rement (mass/volume)Ordered By: Adrian Hahn on 09-29-2022 Folate [Mass/Vol] 14.80 ng/mL 3.1-55.4 [facility] Serum or plasma urea nitroge n measurement (mass/volume)Ordered By: Adrian Hahn on 09-29-2022 Urea nitrogen [Mass/Vol] 21 mg/dL 7-18 [facility] Thin prep Papanicolaou smear with manual screeningOrdered By: Adrian Hahn on 09-29-2022 Thin prep Papanicolaou smear with manual screening 21 U/L 15-37 [facility] Thin prep Papanicolaou smear with manual screening 8 5-15 [facility] Vital Signs Date Time Vital Sign Value Performing Clinician Faci lity 10-27-2024 10:39-0500 Body temperature 97.9 [degF] Dr. Adrian Hahn MD Work Phone: [facility] 10-27-2024 10:39-0500 Diastolic blood pressure 70 mm[Hg] Dr. Adrian Hahn MD Work Phone: [facility] 10-27-2024 10:39-0500 Heart rate 70 /min Dr. Adrian Hahn MD Work Phone: [facility] 10-27-2024 10:39-0500 Respiratory rate 16 /min Dr. Adrian Hahn MD Work Phone: [facility] 10-27-2024 10:39-0500 SaO2% (BldA) [Mass fraction] 99 % Dr. Adrian Hahn MD Work Phone: [facility] 10-27-2024 10:39-0500 Systolic blood pressure 128 mm[Hg] Dr. Adrian Hahn MD Work Phone: [facility] 10-27-2024 08:07-0500 Body height 152.[address] Adrian Hahn MD Work Phone: [facility] 10-27-2024 08:07-0500 Body mass index (BMI) [Ratio] 19.5 kg/m2 Dr. Adrian Hahn MD Work Phone: [facility] 10-27-2024 08:07-0500 Body weight 45.[address] Adrian Hahn MD Work Phone: [facility] Encounters Encounter Date Encounter Type Care Provider Facility Start: 02-26-2025 ambulatory Adrian Hahn Facility:[facility] Start: 01-26-2025 End: 01-26-[address] Adrian Hahn MD Work Phone: [facility] Work Phone: Start: 01-26-2025 End: 01-26-[address] Adrian Hahn MD -Laboratory Work Phone: Start: 01-26-2025 End: 01-26-2025 ambulatory [facility] Facility:[facility] Start: 10-27-2024 End: 10-27-2024 Emergency department patient visit Dr. Yoshi Hebert DO -Emergency Department Work Phone: Start: 10-05-2024 End: 10-05-[address] Adrian Hahn MD -Laboratory Phy Office 3rd Flr Start: 10-05-2024 End: 10-05-2024 ambulatory [facility] Facility:[facility] Start: 06-05-2024 End: 06-05-2024 ambulatory [facility] Facility:[facility] Start: 10-04-2023 End: 10-04-2023 ambulatory [facility] Work Phone: Start: 10-04-2023 End: 10-04-2023 Patient encounter procedure [facility]-Laboratory, Phy Office 3rd Flr Start: 08-04-2023 End: 08-04-2023 ambulatory [facility] Work Phone: Start: 08-04-2023 End: 08-04-2023 Patient encounter procedure [facility]-Laboratory, Phy Office 3rd Flr Start: 08-02-2023 End: 08-02-2023 ambulatory [facility] Work Phone: Start: 08-02-2023 End: 08-02-2023 Patient encounter procedure [facility] Work Phone: Start: 07-01-2023 End: 07-01-2023 ambulatory [facility] Work Phone: Start: 07-01-2023 End: 07-01-2023 Patient encounter procedure [facility]-Laboratory, Phy Office 3rd Flr Start: 03-25-2023 End: 03-25-2023 ambulatory [facility] Work Phone: Start: 03-25-2023 End: 03-25-2023 Patient encounter procedure [facility]-Laboratory, Phy Office 3rd Flr Start: 10-05-2022 Patient encounter procedure [facility]-Cat Scan, [facility] Start: 09-29-2022 End: 09-29-2022 ambulatory [facility] Work Phone: Start: 09-29-2022 End: 09-29-2022 Patient encounter procedure [facility]-Laboratory, Phy Office 3rd Flr Procedures Date Procedure [...] Date Care Activity Detail Author Start: 10-27-2024 [facility] Start: 08-04-2023 Procedure [facility] Patient Education ED DEMENTIA Alzheimer's [facility] Work Phone: Patient referral [facility] Work Phone: Payers Date Payer Category Payer Medicare [id number] 2024 Self-pay [id number] Private Health Insurance [employer] [facility] [id number] Unknown [facility] AMER [id number] Unknown [id number] Unknown [id number] Unknown [id number] Unknown [id number] Unknown [id number] Social History Date Type Detail Facility Start: 08-16-2017 End: 08-16-2017 Tobacco smoking status NHIS Unknown if ever smoked [facility] Start: 1940 Sex Assigned At Female [facility] Start: 10-27-2024 Tobacco smoking stat us NHIS Never smoked tobacco (finding) [facility] Mental Status Date Assessment Result Facility 10-27-2024 Cognitive function Voice/Name [facility] Work Phone: Clinical Note 07-08-2021 Note Date & Type Note Facility 07-08-2021 Note Patient Outreach (DEVEN CRUZ) JUAN CALDERON ([id number]) 1940 F Date Time Provider Department 07/08/21 [...] future healthcare decisions with a power of automotive service technician, living will, or advance directives? No. Please bring a copy to your next appointment or email to Referrals: N/A Message Sent to Practice: NO Navigation Signature: Joelle Cardozo Population Health Navigator July 08, 2021 11:10 AM Allergies As of Date: 07/08/2021 Noted Allergy Reaction LIPITOR (ATORVASTATIN CALCIUM) 08/08/2007 SULFA (SULFONAMIDE ANTIBIOTICS) 06/17/2005 2 - Rash Date Reviewed: 08/10/2017 [facility] KEVIN Jones.GUERRERO - Fully Assessed Reason for Visit: Population Health Navigation Outreach [3910] Cmt: Offboarding Problem List As Of Date 07/08/2021 Noted Resolved DIVERTICULOSIS OF COLON W/O BLEED [K57.30] HYPERLIPIDEMIA NEC/NOS [E78.5] PALPITATIONS [R00.2] 09/02/2007 Letter Text Encounter Status:Closed by JULIANE POPULATION HEALTH NAVIGATOR, JOELLE Mills on 07/08/21 [facility] Progress note 07-08-2021 Note Date & Type Note Facility 07-08-2021 Note HNO ID: [id number] Author: Joelle Cardozo Population Health Navigciro Service: [...] future healthcare decisions with a power of automotive service technician, living will, or advance directives? No. Please bring a copy to your next appointment or email to Referrals: N/A Message Sent to Practice: NO Navigation Signature: Joelle Cardozo Population Health Navigator July 08, 2021 11:10 AM [facility] Evaluation note Note Date & Type Note Facility Evaluation note No assessment information availa [facility] Work Phone: Reason for referral (narrative) Note Date & Type Note Facility Reason for referral (narrative) No reason for referral information available [facility] Work Phone: Summary Purpose Family History No Family History Records FoundNo Family History Records Found Advance Directives No Advanced Directives Records Found Advance Directive Response Recorded Date/ Time Living Will Yes August 16 017 2:52pm Power of Trademark Attorney Yes August 16, 2017 2:52pm Advance Directive Response Recorded Date/ Time Living Will Yes August 16 017 3:52pm Power of Trademark Attorney Yes August 16, 2017 3:52pm Advance Directive Response Recorded Date/ Time Living Will No October 27 025 9:20am Do you have a Healthcare Power of Trademark Attorney? No October 27, 2024 9:20am Chief Complaint and Reason for Visit Chief Complaint ALZHEIMERS Chief Complaint Alzheimer's disease, unspecified Chief Complaint Admit Date CONFUSION October 27, 2024 8:03am Additional Source Comments INFORMATION SOURCE (unrecogn ized section and content) DATE CREATED AUTHOR 07/09/2021 [facility] DATE CREATED AUTHOR AUTHOR'S ORGANIZ ATION 03/20/2025 [facility] Care Teams (unrecognized sec tion and content) Team Status: Active Member Role Status Dates Dr. Antonino aMndel III, MD Family Provider Active Dr. Adrian [...] BE BASED ON THE PRIMARY CLINICAL RECORDS. [employer] provides no warranty or guarantee of the accuracy or completeness of information in this document.
[2025-04-04 17:49] LABS: Xtra Tube Kwok EXTRA TUBE
== END | disposition home or self-care (01) ==
LOC: POLAB3 09:48
PROVIDERS: PCP Family Medicine Geriatric Medicine; Visit Provider Family Medicine Geriatric Medicine
DX: E55.9 Vitamin D deficiency, unspecified (principal); R53.83 Other fatigue
CPT/HCPCS: 36415; 80053; 82306; 84443; 85025

== ENCOUNTER 2025-05-02 11:15 | Emergency (ER) | payer MEDICARE, SELFPAY ==
[2025-05-02 11:16] VITALS: BP 104/83; PULSE 81; RESP 14; TEMP 36.8; O2SAT 98
[2025-05-02 11:25] VITALS: BMI 22.1
--- NOTE | 2025-05-02 11:31 | EKG12_ITS ---
Test Reason : O Blood Pressure : */* mmHG Vent. Rate : 65 BPM Atrial Rate : 65 BPM P-R Int : 212 ms QRS Dur : 92 ms QT Int : 406 ms P-R-T Axes : 31 -30 45 degrees QTcB Int : 422 ms Sinus rhythm with 1st degree A-V block Left axis deviation Abnormal ECG Confirmed by DEJAH VARGAS, CARLY ([id number]), associate editor JESUS BACH ([id number]) on 05/04/2025 9:38:29 AM Referred By: Confirmed By: CARLY POND MD
[2025-05-02 12:18] LABS: Hematocrit 35.8 % (37-47); Hemoglobin 12.2 g/dL (12.0-15.0); Immature Granulocytes Count 0.180 X10^3/uL (0.0-0.0); Mean Corp Hgb Conc 34.1 g/dL (32-36); Mean Corpuscular Volume 91.1 fL (81-99); Mean Platelet Vol. 9.3 fl (6.2-12.0); NRBC Flagged by Analyzer 0 % (0-5); Platelet Count 285 K/mm3 (150-450); RBC Distribution Width CV 12.0 % (11.6-14.6); RBC Distribution Width SD 40.4 fl (35.1-43.9); Red Blood Count 3.93 M/mm3 (4.2-5.4); White Blood Count 8.4 K/mm3 (4.4-11.0)
--- NOTE | 2025-05-02 12:20 | CT_ITS ---
PROCEDURE: SPINE CERVICAL WITHOUT CONTRAS 05/02/2025 REASON FOR EXAM: FALL Neck pain following a fall. Confusion. TECHNIQUE: Procedure Code: CTS Modality: CT Procedure: SPINE CERVICAL WITHOUT CONTRAS Coronal and Sagittal reconstruction series were provided. One or more dose reduction techniques were used (e.g., Automated exposure control, adjustment of the mA and/or kV according to patient size, use of iterative reconstruction technique. RADIATION DOSE SUMMARY: CTDlvol: 12.04 mGy DLP: 196.09 mGycm COMPARISON: None FINDINGS: Alignment: Minimal anterior listhesis of C4 on C5 most likely secondary to facet joint osteoarthritis. Vertebrae: Heterogeneous appearance of the cervical vertebrae with the focal sclerosis. Metastatic deposit should be ruled out. Soft Tissues: Atherosclerotic calcification of the carotid arteries. Other: C1-2: Degenerative changes of the atlantoaxial joint. C2-3: Facet joint osteoarthritis and hypertrophy worse on the right side. C3-4: Moderate degree of disc space narrowing. Spondylosis. Uncovertebral arthrosis. Bilateral facet joint osteoarthritis and hypertrophy worse on the right side. Bilateral neural foraminal stenosis. C4-5: Minimal anterior listhesis of C4 on C5. Facet joint osteoarthritis and hypertrophy worse on the right side. Uncovertebral arthrosis. Bilateral neural foraminal stenosis. C5-6: Marked degree of disc space narrowing. Spondylosis. Uncovertebral arthrosis. Bilateral neural foraminal stenosis. C6-7: Marked degree of disc space narrowing. Spondylosis. Facet joint osteoarthritis. Uncovertebral arthrosis and bilateral neural foraminal stenosis C7-T1: Disc space narrowing. Spondylosis. Facet joint osteoarthritis. CT/Spine Cervical without Contras IMPRESSION: DEGENERATIVE CHANGES OF THE CERVICAL SPINE. NO EVIDENCE OF SIGNIFICANT OSSEOUS CENTRAL CANAL OR NEURAL FORAMINAL STENOSIS. Reading Location: [facility]
--- NOTE | 2025-05-02 12:20 | CT_ITS ---
PROCEDURE: BRAIN/HEAD WITHOUT CONTRAST 05/02/2025 REASON FOR EXAM: FALL, LAC TO HEAD TECHNIQUE: Procedure Code: CTBR Modality: CT Procedure: BRAIN/HEAD WITHOUT CONTRAST Coronal and Sagittal reconstruction series were provided. One or more dose reduction techniques were used (e.g., Automated exposure control, adjustment of the mA and/or kV according to patient size, use of iterative reconstruction technique. RADIATION DOSE SUMMARY: CTDlvol: 56 mGy DLP: 975 mGycm COMPARISON: October 27, 2024, August 02, 2023 FINDINGS: Brain: There is no evidence of hemorrhage, acute ischemia or mass. No extra- axial fluid collection, midline shift or mass effect. CSF Spaces: Mild generalized cerebral atrophy Sinuses/Mastoids: None Bones: Unremarkable CT/Brain/Head without Contrast IMPRESSION: No acute intracranial abnormality Reading Location: [id number]
--- NOTE | 2025-05-02 12:25 | RAD_ITS ---
PROCEDURE: CHEST PA AND LATERAL 05/02/2025 REASON FOR EXAM: FALL TECHNIQUE: Procedure Code: RADCXR Modality: DX Procedure: CHEST PA AND LATERAL COMPARISON: None FINDINGS: Hardware: None Heart: The heart size is normal. Mediastinum: The mediastinal contour is unremarkable. Lungs: Elevation of the right hemidiaphragm. Lungs are clear. Bones: Degenerative changes are identified within the thoracic spine. Osteoarthritis of both shoulders. RAD/Chest PA and Lateral IMPRESSION: NO ACUTE FINDINGS. Reading Location: [place] [id number]
[2025-05-02 12:58] LABS: Anion Gap 10 (5-15); BUN 22 mg/dL (4-19); BUN/Creat Ratio 23.3 RATIO (10-20); Calcium,Total 9.2 mg/dL (7.6-11.0); Carbon Dioxide 24.9 mmol/L (21.0-32.0); Chloride 105 mmol/L (98-108); Estimated Creatinine Clearance 31.43 ml/min (50-250); Glucose 101 mg/dL (70-99); Potassium 4.3 mmol/L (3.3-5.1)
[2025-05-02 13:07] LABS: Squamous Epithelial Cells - UA 0 SEEN /hpf (5-10)
[2025-05-02 13:09] LABS: Color, Urine Yellow (Yellow); Glucose, Dipstick Normal (Normal); Ketone-Dipstick Negative (Negative); Leukocyte Esterase-Dipstick 25 /ul (Negative); Nitrite-Dipstick Negative (Negative); Occult Blood-Urine Negative /ul (Negative); Protein-Dipstick 15 mg/dl (Negative); Specific Gravity, Urine 1.020 (1.002-1.030); Urine Bilirubin Dipstick Negative (Negative)
[2025-05-02 13:16] VITALS: BP 128/80; PULSE 67; RESP 16; O2SAT 94
[2025-05-02 13:20] LABS: Red Blood Cells-Urine 0-5 SEEN /hpf (0-5)
--- NOTE | 2025-05-02 13:20 | EX.ED.GENINJ ---
HPI History of Present Illness Chief Complaint: Head Injury Narrative Narrative: Patient is a 84-year-old female presenting to the emergency department for a unwitnessed fall with head injury. She is not on any oral anticoagulation. She has a history of dementia. Patient lives at [facility]. Nursing staff noticed that she had a cut to her head this morning and sent her in for evaluation. She states she thinks she slipped on something causing her to fall. She is a poor historian due to her dementia. She denies any pain. Denies any neck or back pain. Denies any shoulder or hip pain. Denies any difficulty ambulating. Sister is at bedside to help provide history. [facility] Medical History Alzheimer dementia Home Medications ?Medication ?Instructions ?Recorded ?Last Taken ?Type ciprofloxacin HCl 500 mg tablet 1 tab PO BID 08/16/17 Unknown History metronidazole 500 mg tablet 1 tab PO TID 08/16/17 Unknown History Allergy/AdvReac Type Severity Reaction Status Date / Time Sulfa (Sulfonamide Allergy Hives Verified 10/27/24 08:09 Antibiotics) Social History Smoking Status: Never smoker ROS ROS ED ROS Narrative See HPI EXAM Physical Exam Narrative Exam Narrative: Vital signs: Reviewed General: Alert and orientedx2. No acute distress HEENT: Head is normocephalic, 2.5 cm linear laceration to the left parietal scalp. No active bleeding. Small cephalohematoma noted under the laceration. Sinuses nontender, pupils equal round and reactive. Nares are patent. Oropharynx and throat exams normal. Neck: Supple without lymphadenopathy nontender. No midline cervical spinal tenderness to palpation. No step-offs or deformities. Cardiovascular: Regular rate and rhythm, no murmurs. No rubs or gallops. Normal S1 and S2 Respiratory: Clear to auscultation bilaterally. No wheezes, rales, rhonchi Chest: Chest wall is atraumatic and nontender to palpation, no crepitus. Abdominal: Soft and nontender. Normal bowel sounds. No guarding or rebound. Nonsurgical abdomen Extremities: Hips are stable and nontender to palpation. No midline thoracic or lumbar spinal tenderness to palpation. No step-offs or deformities. Extremities are atraumatic and nontender to palpation with normal active range of motion. No tenderness. No bruising. Normal range of motion. Normal sensation. Skin: No rash or redness. Neurological: Cranial nerves II through XII are grossly intact. Normal strength and sensation. Normal cerebellar function The rest of the physical exam is unremarkable Const Vital Signs: 05/02/25 11:16 05/02/25 11:25 05/02/25 13:16 Temperature 98.3 F Temperature Source Temporal Pulse Rate 81 67 Respiratory Rate 14 16 Blood Pressure 104/83 H 128/80 H Blood Pressure Mean 90 96 Pulse Ox 98 94 Oxygen Delivery Method Room Air Room Air 05/02/25 14:00 05/02/25 15:45 Temperature 98.9 F Temperature Source Pulse Rate 74 71 Respiratory Rate 16 16 Blood Pressure 112/72 117/70 Blood Pressure Mean 85 85 Pulse Ox 100 100 Oxygen Delivery Method MDM MDM MDM Narrative Medical decision making narrative: Patient is a 84-year-old female presenting to the emergency department for a fall with head laceration. Patient was seen and examined. Vitals are stable. Patient resting in bed comfortably in no acute distress. CT brain and cervical spine were ordered given the patient's fall. Patient tells me that she slipped and fell but is not able to provide any other history about the fall or when it happened. Will obtain basic blood work including CBC, BMP, urinalysis, CXR and troponin to evaluate if there is any other reason for the fall. She has no areas of tenderness on exam to warrant any additional imaging. EKG shows sinus rhythm with a first-degree AV block. No ischemic changes noted. No dysrhythmia. CBC with no leukocytosis and a normal hemoglobin. BMP with mild elevation of BUN but otherwise no significant abnormalities. Urinalysis with no evidence of infection. Unknown last tetanus vaccine, updated here. Wound was copiously irrigated. No foreign bodies noted. Lidocaine was injected in the wound and wound was stapled with 5 alize. Patient tolerated well. Troponin of initially 67, no baseline to compare to. Patient has no chest pain, SOB, palpitations. Reflex obtained and is 8. I suspect the first level was not accurate given I would not expect the troponin to clear this quickly. Nonetheless, the level is downtrending and she has no ACS symptoms. I updated sister and patient on the findings. Given wound care instructions. Instructed to follow-up with primary care doctor soon as possible. Patient discharged from the Emergency Department. I do not feel that the patient's evaluation reveals any acute reason for admission at this time. I instructed them to either follow-up with their primary care physician or promptly return to the Emergency Department for reevaluation should symptoms worsen or new symptoms develop. I explained what symptoms would indicate the need to return to the emergency department. Shared decision making was used. The patient voiced understanding of the treatment plan and is agreeable with it. Clinical impression: Fall Head trauma Laceration History & Record Review Discussion w/independent historian: Patient and Family Lab Data Attestation: I reviewed the patient's lab results. Labs: Laboratory Results - last 24 hr 05/02/25 05/02/25 05/02/25 12:13 13:04 14:00 WBC 8.4 RBC 3.93 L Hgb 12.2 Hct 35.8 L MCV 91.1 MCH 31.0 MCHC 34.1 RDW Std Deviation 40.4 RDW Coeff of Teresa 12.0 Plt Count 285 MPV 9.3 Immature Gran % (Auto) 2.100 H Neut % (Auto) 68.9 Lymph % (Auto) 17.7 L [place] % (Auto) 10.1 H Eos % (Auto) 0.6 Baso % (Auto) 0.6 Absolute Neuts (auto) 5.8 Absolute Lymphs (auto) 1.49 Nucleated RBC % 0 Sodium 140 Potassium 4.3 Chloride 105 Carbon Dioxide 24.9 Anion Gap 10 BUN 22 H Creatinine 0.94 Estim Creat Clear Calc 31.43 L Est GFR (MDRD) Non-Af 59 L BUN/Creatinine Ratio 23.3 H Glucose 101 H Calcium 9.2 Troponin T High Sens 67 H* Troponin T Hi Sens 2 Hr 8 Urine Color Yellow Urine Clarity Clear Urine pH 6.0 Ur Specific [place] 1.020 Urine Protein 15 H Urine Glucose (UA) Normal Urine Ketones Negative Urine Occult Blood Negative Urine Nitrite Negative Urine Bilirubin Negative Urine Urobilinogen 1 H Ur Leukocyte Esterase 25 H Urine RBC 0-5 SEEN Urine WBC 0-5 SEEN Ur Squamous Epith Cells 0 SEEN Urine Bacteria 0 SEEN Urine Mucus 1+ Radiography Diagnostic Testing: Clinical Impression(s) from Imaging Studies Brain CT 05/02/25 12:20 IMPRESSION: No acute intracranial abnormality Reading Location: [id number] Cervical Spine CT 05/02/25 12:20 IMPRESSION: DEGENERATIVE CHANGES OF THE CERVICAL SPINE. NO EVIDENCE OF SIGNIFICANT OSSEOUS CENTRAL CANAL OR NEURAL FORAMINAL STENOSIS. Reading Location: [place] [address] Chest X-Ray 05/02/25 12:25 IMPRESSION: NO ACUTE FINDINGS. Reading Location: [place] [address] Discharge Plan Triage Chief Complaint: Head Injury ED Provider: Phyllis Granados Dx/Rx/DC Orders Instructions: ED Scalp Contusion, ED Fall Prevention Prescriptions: No Action metronidazole 500 MG tablet 1 tab PO TID Patient Comments: ciprofloxacin HCl 500 MG tablet 1 tab PO BID Patient Comments: Primary Care Provider: Adrian Hahn Chi Referrals: Adrian Hahn Chi, MD [Primary Care Provider] - 2 Days Activity Restrictions/Additional Instructions: Please keep the wound clean and dry. Watch the wound for signs of infection including redness, warmth or drainage. Use gentle soaps to wash your hair. Do not scrub around this area. Your evaluation in the Emergency Department did not reveal any acute reason for admission. However, I want to emphasize that you may be early in the course of a disease process or illness even if it is not present. For this reason you should follow-up within 24 hours for reevaluation with either your primary care physician or if necessary back here in the Emergency Department. You should return to the Emergency Department immediately if your symptoms worsen or new symptoms develop. Print Language: French Disposition Disposition: Home, Self Care Discharge Date/Time: 05/02/25 15:46
[2025-05-02 13:22] LABS: Mucous, Urine 1+ /hpf (<or=2+)
[2025-05-02] MEDS: Lidocaine 1% (20 ml mdv) 20 ML Vial 10 ML INFILT (13:22)
[2025-05-02 13:46] LABS: Troponin T High Sensitivity 67 ng/L (<=14)
[2025-05-02 14:00] VITALS: BP 112/72; PULSE 74; RESP 16; O2SAT 100
[2025-05-02 14:24] LABS: Troponin T High Sens 2 HR 8 ng/L (<=14)
[2025-05-02 15:45] VITALS: BP 117/70; PULSE 71; RESP 16; TEMP 37.2; O2SAT 100
== END 2025-05-02 15:46 | disposition home or self-care (01) ==
PROVIDERS: Emergency Provider Student in an Organized Health Care Education/Training Program; PCP Family Medicine Geriatric Medicine; Visit Provider Student in an Organized Health Care Education/Training Program
DX: S01.01XA Laceration without foreign body of scalp, initial encounter (principal); F02.80 Dementia in other diseases classified elsewhere, unspecified severity, without behavioral disturbance, psychotic disturbance, mood disturbance, and anxiety; G30.9 Alzheimer's disease, unspecified; S06.2X0A Diffuse traumatic brain injury without loss of consciousness, initial encounter; I44.0 Atrioventricular block, first degree; W01.0XXA Fall on same level from slipping, tripping and stumbling without subsequent striking against object, initial encounter; Z23 Encounter for immunization
CPT/HCPCS: 12001; 70450; 71046; 72125; 80048; 81001; 84484; 85025; 90471; 93005; 99283; A4216

== ENCOUNTER → 2025-06-13 10:00 | Outpatient (REF) | payer MEDICARE, SELFPAY ==
[2025-06-13 10:51] LABS: Color, Urine Yellow (Yellow); Glucose, Dipstick Normal (Normal); Ketone-Dipstick Negative (Negative); Leukocyte Esterase-Dipstick 500 /ul (Negative); Nitrite-Dipstick Negative (Negative); Occult Blood-Urine 10 /ul (Negative); Protein-Dipstick Negative (Negative); Specific Gravity, Urine 1.015 (1.002-1.030); Urine Bilirubin Dipstick Negative (Negative)
[2025-06-13 10:59] LABS: Red Blood Cells-Urine 0-5 SEEN /hpf (0-5)
[2025-06-13 11:00] LABS: Squamous Epithelial Cells - UA 5-10 SEEN /hpf (5-10)
[2025-06-13 11:01] LABS: Mucous, Urine 1+ /hpf (<or=2+)
== END ==
LOC: OLS.BROOKB 10:00
PROVIDERS: PCP Family Medicine Geriatric Medicine; Visit Provider Family Medicine Geriatric Medicine
DX: N39.0 Urinary tract infection, site not specified (principal)
CPT/HCPCS: 81001; 87086; 87088

== ENCOUNTER → 2025-07-19 | Outpatient (REF) | payer MEDICARE, SELFPAY ==
[2025-07-19 10:23] LABS: Hematocrit 40.0 % (37-47); Hemoglobin 13.0 g/dL (12.0-15.0); Immature Granulocytes Count 0.070 X10^3/uL (0.0-0.0); Mean Corp Hgb Conc 32.5 g/dL (32-36); Mean Corpuscular Volume 94.3 fL (81-99); Mean Platelet Vol. 12.0 fl (6.2-12.0); NRBC Flagged by Analyzer 0 % (0-5); Platelet Count 267 K/mm3 (150-450); RBC Distribution Width CV 12.9 % (11.6-14.6); RBC Distribution Width SD 44.3 fl (35.1-43.9); Red Blood Count 4.24 M/mm3 (4.2-5.4); White Blood Count 6.8 K/mm3 (4.4-11.0)
[2025-07-19 10:47] LABS: AST(SGOT) 18 U/L (<=31); Alanine Aminotransfer ALT/SGPT 9 U/L (<=34); Albumin, Serum 3.8 g/dL (3.4-4.8); Alkaline Phosphatase 35 U/L (35-104); Anion Gap 10 (5-15); BUN 20 mg/dL (4-19); BUN/Creat Ratio 23.0 RATIO (10-20); Calcium,Total 9.5 mg/dL (7.6-11.0); Carbon Dioxide 26.9 mmol/L (21.0-32.0); Chloride 105 mmol/L (98-108); Globulin 2.9 g/dL (2.2-4.2); Glucose 85 mg/dL (70-99); Potassium 4.6 mmol/L (3.3-5.1)
== END ==
LOC: OLS.BROOKB 06:30
PROVIDERS: PCP Family Medicine Geriatric Medicine
DX: G30.9 Alzheimer's disease, unspecified (principal); N39.0 Urinary tract infection, site not specified; F41.9 Anxiety disorder, unspecified; Z79.899 Other long term (current) drug therapy
CPT/HCPCS: 36415; 80053; 85025

== ENCOUNTER → 2025-07-20 09:00 | Outpatient (REF) | payer MEDICARE, SELFPAY ==
[2025-07-20 15:29] LABS: Mucous, Urine 0 SEEN /hpf (<or=2+); Red Blood Cells-Urine 0 SEEN /hpf (0-5)
[2025-07-20 22:58] LABS: Glucose, Dipstick Normal (Normal); Ketone-Dipstick Negative (Negative); Leukocyte Esterase-Dipstick 500 /ul (Negative); Nitrite-Dipstick Negative (Negative); Occult Blood-Urine 10 /ul (Negative); Protein-Dipstick 15 mg/dl (Negative); Specific Gravity, Urine 1.020 (1.002-1.030); Urine Bilirubin Dipstick Negative (Negative)
[2025-07-20 23:01] LABS: Color, Urine Yellow (Yellow)
[2025-07-21 00:53] LABS: Calcium Oxalate Crystals Ur 2+ /hpf (<or=2+)
[2025-07-21 00:55] LABS: Transitional Epithelial - Ur 0-5 SEEN /hpf (0-5)
[2025-07-21 00:56] LABS: Squamous Epithelial Cells - UA 0-5 SEEN /hpf (5-10)
== END ==
LOC: OLS.BROOKB 09:00
PROVIDERS: PCP Family Medicine Geriatric Medicine
DX: N39.0 Urinary tract infection, site not specified (principal)
CPT/HCPCS: 81001; 87086; 87088

== ENCOUNTER → 2025-08-13 17:00 | Outpatient (REF) | payer MEDICARE, SELFPAY ==
[2025-08-14 07:31] LABS: Mucous, Urine 0 SEEN /hpf (<or=2+); Red Blood Cells-Urine 0 SEEN /hpf (0-5); Squamous Epithelial Cells - UA 0 SEEN /hpf (5-10)
--- OUTSIDE RECORDS SUMMARY | 2025-08-14 07:33 | XMS RPT_ITS | CCD ---
Author Organization [facility] Care Team Providers Care Socket Puller Name Role Phone Jovani VARGAS, Dr. Adrian Tomas Primary Care Provider Jovani VARGAS, Dr. Adrian Tomas Attending Provider Dr. Yoshi eHbert DO Attending Provider Dr. Yoshi Hebert DO Emergency Provider Jovani VARGAS, Dr. Adrian Tomas Referring Provider Jovani VARGAS, Dr. Adrian Tomas Primary Care Provider Jovani VARGAS, Dr. Adrian Tomas Attending Provider Adrian Hahn MD, Chi Attending Provider Unavailable Dr. Phyllis Granados MD Emergency Provider Unavailab fernando Hahn MD, Dr. Adrian Tomas Primary Care Physician Jovani VARGAS, Adrian Tomas Attending Physician Unavailable Jovani VARGAS, Dr. Adrian Tomas Attending Physician Dr. Phyllis Granados MD Attending Physician Unavailben Granados MD, Dr. Ferguson Emergency Department Physici an Unavailable Jovani, Adrian Chi Primary Care Unavailable Jovani KATERIN, Adrian Chi Attending Unavailable Jovani, Adrian Chi Primary Care Unavailable Jovani, Adrian Chi Attending Unavailable Jovani, Adrian Chi Referring Unavailable Jovani, Adrian Chi Primary Care Unavailable Jovani, Adrian Chi Attending Unavailable Jovani, Adrian Chi Attending Unavailable Jovani, Adrian Chi Primary Care Unavailable Jovani, Adrian Chi Primary Care Unavailable Phyllis Granados Attending Unavailable Yoshi Hebert Attending Unavailable Jovani, Adrian Chi Primary Care Unavailable Jovani, Adrian Chi Primary Care Unavailable Jovani OLS, Adrian Chi Attending Unavailable Allergies Allergy Classification Reported Allergen(s) Allergy Type Date of Onset Reaction(s) Facility (10 sources) Sulfonamides (Antibiotic) Allergy to substance 0 [facility] (1 source) Sulfonamides (Antibiotic) Drug allergy (disorder) 5 [facility] Medications Current Medications Medication Drug Class(es) Dates Sig (Normalized) Sig (Original) ciprofloxacin 500 mg oral tablet (10 sources) Quinolone Antimicrobial Start: 08-16-2017 metroNIDAZOLE 500 mg oral tablet (10 sources) Nitroimidazole Antimicrobial Start: 08-16-2017 Problems Active Problems Problem Classification Problem Date Documented Da te Episodic/Chronic Delirium, dementia, and amnestic and other cognitive disorders (4 sources) Alzheimer's disease; Translations: [Alzheimer's disease, unspecified] 11-04-2024 Chronic Nutritional deficiencies (1 source) Vitamin D deficiency, unspecified; Translations: [Vitamin D deficiency, unspecified] Onset: 04-13-2025 Chronic Other injuries and conditions due to external causes (1 source) Unspecified injury of head, initial encounter; Translations: [Unspecified injury of head, initial encounter] Onset: 05-07-2025 Episodic Other nervous system disorders (1 source) Encephalopathy, unspecified; Translations: [Encephalopathy, unspecified] Onset: 01-30-2025 Chronic Residual codes; unclassified (4 sources) Confusional state; Translations: [Disorientation, unspecified] 11-04-2024 Episodic Urinary tract infections (2 sources) Urinary tract infection, site not specified; Translations: [Urinary tract infection, site not specified] Onset: 06-01-2025 Episodic Past or Other Problems Problem Classification Problem Date Documented Da te Episodic/Chronic Malaise and fatigue (1 source) Other fatigue; Translations: [Other fatigue] Onset: 10-19-2024 Episodic Residual codes; unclassified (1 source) Disorientation, unspecified; Translations: [Disorientation, unspecified] Onset: 11-09-2024 Episodic Results Test Name Value Interpretation Reference Range Facility 12 Lead EKGon 05-02-2025 12 Lead EKG [facility] [address] [place] [address] 12 Lead EKG 05/02/25 1131 MR#: [id number] Acct: [id number] Name: JUAN CALDERON Rep #: [id number] : 1940 84 From: Ten Dixon MD Attending Dr: Status: DEP ER Ordering Dr: Phyllis Granados MD Date: 05/02/25 Location: ED Sex: F C Admitted: Test Reason : O Blood Pressure : */* mmHG Vent. Rate : 65 BPM Atrial Rate : 65 BPM P-R Int : 212 ms QRS Dur : 92 ms QT Int : 406 ms P-R-T Axes : 31 -30 45 degrees QTcB Int : 422 ms Sinus rhythm with 1st degree A-V block Left axis deviation Abnormal ECG Confirmed by DEJAH VARGAS, CARLY ([id number]), editorial clerk JESUS BACH ([id number]) on 05/04/2025 9:38:29 AM Referred By: Confirmed By: CARLY DIXON MD 05/04/25937 Date Ten Dixon MD CC: Dr. Phyllis Granados MD; Dr. Adrian Hahn MD Signed Normal [facility] Absolute lymphocyte countOrd ered By: Phyllis Granados on 05-02-2025 Lymphocytes Auto (Unsp spec) [#/Vol] 1.49 10*3/uL 0.83-4.51 [facility] Absolute neutrophil countOrd ered By: Phyllis Granados on 05-02-2025 Neutrophils (Bld) [#/Vol] 5.8 10*3/uL 2.0-7.7 [facility] Anion gap in Serum or Plasma Ordered By: Phyllis Granados on 05-02-2025 Anion gap [Moles/Vol] 10 mmol/L 5-15 [facility] Automated lymphocyte count a s percentage of total leukocytesOrdered By: Phyllis Granados on 05-02-2025 Lymphocytes/100 WBC Auto (Unsp spec) 17.7 % Low 19-41 [facility] BUN/creatinine ratioOrdered By: Phyllis Granados on 05-02-2025 Urea nitrogen/Creatinine [Mass ratio] 23.3 mg/mg High 10- [facility] Basic Metabolic Profile (BMP )on 05-02-2025 BUN/CRE 23.3 RATIO High 06-18 [facility] Comment on above: Performed By: #### L 100.0100, L500.2500 #### [facility] [address] [place], [address] Calcium [Mass/Vol] 9.2 mg/dL Normal 7.6-11.0 [facility] Comment on above: Performed By: #### L 100.0100, L500.2500 #### [facility] [address] [place], [address] Chloride [Moles/Vol] 105 mmol/L Normal 98-108 [facility] Comment on above: Performed By: #### L 100.0100, L500.2500 #### [facility] [address] [place], [address] CO2 [Moles/Vol] 24.9 mmol/L Normal 21.0-32.0 [facility] Comment on above: Performed By: #### L 100.0100, L500.2500 #### [facility] [address] [place], [address] Creatinine [Mass/Vol] 0.94 mg/dL Normal 0.70-1.20 [facility] Comment on above: Performed By: #### L 100.0100, L500.2500 #### [facility] [address] [place], [address] ECRCL 31.43 ml/min Low 50-250 [facility] Comment on above: Performed By: #### L 100.0100, L500.2500 #### [facility] [address] [place], [address] GAP 10 Normal 5-15 [facility] Comment on above: Performed By: #### L 100.0100, L500.2500 #### [facility] [address] [place], [address] GFR/1.73 sq M.predicted among non-blacks MDRD (S/P/Bld) [Vol rate/Area] 59 mL/min/{1.73_m2} Low >60 [facility] Comment on above: Result Comment: mL/m in/1.73m2 CKD-EPI Creatinine Equation (2020) Performed By: #### L 100.0100, L500.2500 #### [facility] [address] [place], [address] Glucose [Mass/Vol] 101 mg/dL High 70-99 [facility] Comment on above: Performed By: #### L 100.0100, L500.2500 #### [facility] [address] [place], [address] Potassium [Moles/Vol] 4.3 mmol/L Normal 3.3-5.1 [facility] Comment on above: Performed By: #### L 100.0100, L500.2500 #### [facility] [address] [place], [address] Sodium [Moles/Vol] 140 mmol/L Normal 133-145 [facility] Comment on above: Performed By: #### L 100.0100, L500.2500 #### [facility] [address] [place], [address] Urea nitrogen [Mass/Vol] 22 mg/dL High 4-19 [facility] Comment on above: Performed By: #### L 100.0100, L500.2500 #### [facility] [address] [place], [address] Basophil percentageOrdered B y: Phyllis Granados on 05-02-2025 Basophils/100 WBC (Bld) 0.6 % 0-1 [facility] Bilirubin Test strip Ql (U)O rdered By: Phyllis Granados on 05-02-2025 Bilirubin Ql (U) Negative Negative [facility] Brain/Head without Contrasto n 05-02-2025 Brain/Head without Contrast [facility] Imaging Services [address] [place], [place] [address] Brain/Head without Contrast MR#: [id number] Acct: [id number] Name: JUAN CALDERON Rep #: [id number] : 1940 F 84 From: Hima Jauregui MD PCP: Dr. Adrian Hahn MD Status: REG ER Study: Brain/Head without Contrast Date of Exam: 11/21 Exam# [id number] Ordering Dr: Phyllis Granados MD PROCEDURE: BRAIN/HEAD WITHOUT CONTRAST 05/02/2025 REASON FOR EXAM: FALL, LAC TO HEAD TECHNIQUE: Procedure Code: CTBR Modality: CT Procedure: BRAIN/HEAD WITHOUT CONTRAST Coronal and Sagittal reconstruction series were provided. One or more dose reduction techniques were used (e.g., Automated exposure control, adjustment of the mA and/or kV according to patient size, use of iterative reconstruction technique. RADIATION DOSE SUMMARY: CTDlvol: 56 mGy DLP: 975 mGycm COMPARISON: October 27, 2024, August 02, 2023 FINDINGS: Brain: There is no evidence of hemorrhage, acute ischemia or mass. No extra-axial fluid collection, midline shift or mass effect. CSF Spaces: Mild generalized cerebral atrophy Sinuses/Mastoids: None Bones: Unremarkable CT/Brain/Head without Contrast IMPRESSION: No acute intracranial abnormality Reading Location: [facility] CC: Dr. Phyllis Granados MD; Dr. Adrian Hahn MD Ground Water Contractor: Signed Normal [facility] CBC W/Diff, Automatedon 09-0 Absolute Lymph 1.49 X10 3/uL Normal 0.83-4.51 [facility] Comment on above: Performed By: #### L 100.0100, L500.2500 #### [facility] [address] [facility] [place], [place], [id number] Absolute Neut 5.8 X10 3/uL Normal 2.0-7.7 [facility] Comment on above: Performed By: #### L 100.0100, L500.2500 #### [facility] [address] [place], [address] Basophils/100 WBC (Bld) 0.6 % Normal 0-1 [facility] Comment on above: Performed By: #### L 100.0100, L500.2500 #### [facility] [address] [place], [address] Eosinophils/100 WBC (Bld) 0.6 % Normal 0-5 [facility] Comment on above: Performed By: #### L 100.0100, L500.2500 #### [facility] [address] [place], [address] Erythrocyte distribution width (RBC) [Ratio] 12.0 % Normal 11.6-14.6 [facility] Comment on above: Performed By: #### L 100.0100, L500.2500 #### [facility] [address] [place], [address] Hematocrit (Bld) [Volume fraction] 35.8 % Low 37-47 [facility] Comment on above: Performed By: #### L 100.0100, L500.2500 #### [facility] [address] [place], [address] Hemoglobin (Bld) [Mass/Vol] 12.2 g/dL Normal 12.0-15.0 [facility] Comment on above: Performed By: #### L 100.0100, L500.2500 #### [facility] [address] [place], [address] IG% 2.100 High 0.0-0.9 [facility] Comment on above: Result Comment: IG% - Immature Granulocytes (promyelocytes, myelocytes and metamyelocytes) > 1% indicates that a LEFT SHIFT is Present. Performed By: #### L 100.0100, L500.2500 #### [facility] [address] [place], [address] Lymphocytes/100 WBC (Bld) 17.7 % Low 19-41 [facility] Comment on above: Performed By: #### L 100.0100, L500.2500 #### [facility] [address] [place], [address] MCH (RBC) [Entitic mass] 31.0 pg Normal 27.0-32.0 [facility] Comment on above: Performed By: #### L 100.0100, L500.2500 #### [facility] [address] [place], [address] MCHC (RBC) [Mass/Vol] 34.1 g/dL Normal 32-36 [facility] Comment on above: Performed By: #### L 100.0100, L500.2500 #### [facility] [address] [place], [address] MCV (RBC) [Entitic vol] 91.1 fL Normal 81-99 [facility] Comment on above: Performed By: #### L 100.0100, L500.2500 #### [facility] [address] [place], [address] Monocytes/100 WBC (Bld) 10.1 % High 0-10 [facility] Comment on above: Performed By: #### L 100.0100, L500.2500 #### [facility] [address] [place], [address] Neutrophils/100 WBC (Bld) 68.9 % Normal 47-70 [facility] Comment on above: Performed By: #### L 100.0100, L500.2500 #### [facility] [address] [place], [address] Nucleated RBC (Bld) [#/Vol] 0 10*3/uL Normal 0-5 [facility] Comment on above: Performed By: #### L 100.0100, L500.2500 #### [facility] [address] [place], [address] Platelet mean volume (Bld) [Entitic vol] 9.3 fL Normal 6.2-12.0 [facility] Comment on above: Performed By: #### L 100.0100, L500.2500 #### [facility] [address] [place], [address] Platelets (Bld) [#/Vol] 285 10*3/uL Normal 150-450 [facility] Comment on above: Performed By: #### L 100.0100, L500.2500 #### [facility] [address] [place], [address] RBC (Bld) [#/Vol] 3.93 10*6/uL Low 4.2-5.4 [facility] Comment on above: Performed By: #### L 100.0100, L500.2500 #### [facility] [address] [place], [address] RDW SD 40.4 fl Normal 35.1-43.9 [facility] Comment on above: Performed By: #### L 100.0100, L500.2500 #### [facility] [address] [place], [address] WBC (Bld) [#/Vol] 8.4 10*3/uL Normal 4.4-11.0 [facility] Comment on above: Performed By: #### L 100.0100, L500.2500 #### [facility] [address] [place], [address] Carbon dioxide, total [Moles /volume] in Central venous bloodOrdered By: Phyllis Granados on 05-02-2025 CO2 [Moles/Vol] 24.9 mmol/L 21.0-32.0 [facility] Chest PA and Lateralon 05-02 Chest PA and Lateral [facility] Imaging Services [address] [place] [address] Chest PA and Lateral MR#: [id number] Acct: [id number] Name: JUAN CALDERON Rep #: [id number] : 1940 F 84 From: Sravan pendleton MD PCP: Dr. Adrian Hahn MD Status: REG ER Study: Chest PA and Lateral Date of Exam: 05/02/25 Exam# [id number] Ordering Dr: Phyllis Granados MD PROCEDURE: CHEST PA AND LATERAL 05/02/2025 REASON FOR EXAM: FALL TECHNIQUE: Procedure Code: RADCXR Modality: DX Procedure: CHEST PA AND LATERAL COMPARISON: None FINDINGS: Hardware: None Heart: The heart size is normal. Mediastinum: The mediastinal contour is unremarkable. Lungs: Elevation of the right hemidiaphragm. Lungs are clear. Bones: Degenerative changes are identified within the thoracic spine. Osteoarthritis of both shoulders. RAD/Chest PA and Lateral IMPRESSION: NO ACUTE FINDINGS. Reading Location: [place] [address] CC: Dr. Phyllis Granados MD; Dr. Adrian Hahn MD Ground Water Contractor: Signed Normal [facility] Chloride assayOrdered By: Goran Granados on 05-02-2025 Chloride [Moles/Vol] 105 mmol/L 98-108 [facility] Emergency Department Summary on 05-02-2025 Emergency Department Summary [facility] Medical Records Department [address] [place] [address] Emergency Department Summary 05/02/25 MR#: [id number] Acct: [id number] Name: JUAN CALDERON Rep #: [id number] : 1940 84 From: Phyllis Granados MD PCP: Dr. Adrian Hahn MD Status:[facility] ER Location: ED HPI History of Present Illness Chief Complaint: Head Injury Narrative Narrative: Patient is a 84-year-old female presenting to the emergency department for a unwitnessed fall with head injury. She is not on any oral anticoagulation. She has a history of dementia. Patient lives at [facility]. Nursing staff noticed that she had a cut to her head this morning and sent her in for evaluation. She states she thinks she slipped on something causing her to fall. She is a poor historian due to her dementia. She denies any pain. Denies any neck or back pain. Denies any shoulder or hip pain. Denies any difficulty ambulating. Sister is at bedside to help provide history. [facility] Medical History Alzheimer dementia Home Medications ???Medication ???Instructions ???Recorded ???Last Taken ???Type ciprofloxacin HCl 500 mg tablet 1 tab PO BID 08/16/17 Unknown Hist ory metronidazole 500 mg tablet 1 tab PO TID 08/16/17 Unknown Hist ory Allergy/AdvReac Type Severity Reaction Status Date / Time Sulfa (Sulfonamide Allergy Hives Verified 10/27/24 08:09 Antibiotics) Social History Smoking Status: Never smoker ROS ROS ED ROS Narrative See HPI EXAM Physical Exam Narrative Exam Narrative: Vital signs: Reviewed General: Alert and orientedx2. No acute distress HEENT: Head is normocephalic, 2.5 cm linear laceration to the left parietal scalp. No active bleeding. Small cephalohematoma noted under the laceration. Sinuses nontender, pupils equal round and reactive. Nares are patent. Oropharynx and throat exams normal. Neck: Supple without lymphadenopathy nontender. No midline cervical spinal tenderness to palpation. No step-offs or deformities. Cardiovascular: Regular rate and rhythm, no murmurs. No rubs or gallops. Normal S1 and S2 Respiratory: Clear to auscultation bilaterally. No wheezes, rales, rhonchi Chest: Chest wall is atraumatic and nontender to palpation, no crepitus. Abdominal: Soft and nontender. Normal bowel sounds. No guarding or rebound. Nonsurgical abdomen Extremities: Hips are stable and nontender to palpation. No midline thoracic or lumbar spinal tenderness to palpation. No step-offs or deformities. Extremities are atraumatic and nontender to palpation with normal active range of motion. No tenderness. No bruising. Normal range of motion. Normal sensation. Skin: No rash or redness. Neurological: Cranial nerves II through XII are grossly intact. Normal strength and sensation. Normal cerebellar function The rest of the physical exam is unremarkable Const Vital Signs: 05/02/25 11:16 05/02/25 11:25 05/02/25 13:16 Temperature 98.3 F Temperature Source Temporal Pulse Rate 81 67 Respiratory Rate 14 16 Blood Pressure 104/83 H 128/80 H Blood Pressure Mean 90 96 Pulse Ox 98 94 Oxygen Delivery Method Room Air Room Air 05/02/25 14:00 05/02/25 15:45 Temperature 98.9 F Temperature Source Pulse Rate 74 71 Respiratory Rate 16 16 Blood Pressure 112/72 117/70 Blood Pressure Mean 85 85 Pulse Ox 100 100 Oxygen Delivery Method MDM MDM MDM Narrative Medical decision making narrative: Patient is a 84-year-old female presenting to the emergency department for a fall with head laceration. Patient was seen and examined. Vitals are stable. Patient resting in bed comfortably in no acute distress. CT brain and cervical spine were ordered given the patient's fall. Patient tells me that she slipped and fell but is not able to provide any other history about the fall or when it happened. Will obtain basic blood work including CBC, BMP, urinalysis, CXR and troponin to evaluate if there is any other reason for the fall. She has no areas of tenderness on exam to warrant any additional imaging. EKG shows sinus rhythm with a first-degree AV block. No ischemic changes noted. No dysrhythmia. CBC with no leukocytosis and a normal hemoglobin. BMP with mild elevation of BUN but otherwise no significant abnormalities. Urinalysis with no evidence of infection. Unknown last tetanus vaccine, updated here. Wound was copiously irrigated. No foreign bodies noted. Lidocaine was injected in the wound and wound was stapled with 5 alize. Patient tolerated well. Troponin of initially 67, no baseline to compare to. Patient has no chest pain, SOB, palpitations. Reflex obtained and is 8. I suspect the first level was not accu (more content not included)... Normal [facility] Eosinophil percentageOrdered By: Phyllis Granados on 05-02-2025 Eosinophils/100 WBC (Bld) 0.6 % 0-5 [facility] Erythrocyte distribution wid th ratioOrdered By: Phyllis Granados on 05-02-2025 Erythrocyte distribution width (RBC) [Ratio] 12.0 % 11.6-14.6 [facility] Erythrocyte distribution wid th standard deviationOrdered By: Phyllis Granados on 05-02-2025 Erythrocyte distribution width (RBC) [Ratio] 40.4 fl 35.1-43.9 [facility] Glomerular filtration rate ( GFR) estimation/1.73 sq m using serum, plasma, or whole bOrdered By: Phyllis Granados on 05-02-2025 GFR/1.73 sq M.predicted among non-blacks MDRD (S/P/Bld) [Vol rate/Area] 59 mL/min/{1.73_m2} Low >60 [facility] Comment on above: mL/min/1.73m2 CKD-EP I Creatinine Equation (2020) Hematocrit Auto (Bld) [Volum e fraction]Ordered By: Phyllis Granados on 05-02-2025 Hematocrit (Bld) [Volume fraction] 35.8 % Low 37-47 [facility] Hemoglobin measurementOrdere d By: Phyllis Granados on 05-02-2025 Hemoglobin (Bld) [Mass/Vol] 12.2 g/dL 12.0-15.0 [facility] Immature granulocytes/100 WB C Auto (Bld)Ordered By: Phyllis Granados on 05-02-2025 Immature granulocytes/100 WBC (Bld) 2.100 % High 0.0-0.9 [facility] Comment on above: IG% - Immature Granu locytes (promyelocytes, myelocytes and metamyelocytes) > 1% indicates that a LEFT SHIFT is Present. Ketones Test strip Ql (U)Ord ered By: Phyllis Granados on 05-02-2025 Ketones Ql (U) Negative Negative [facility] L501.4021on 05-02-2025 Trop T High Sen 67 ng/L Invalid Interpretation Code <=14 [facility] Comment on above: Result Comment: Crit ical Result(s) Called at 05/02/2025-13:46 by Alfredo Fenton to Nava Garcia.??Results read back by same. Performed By: #### L 100.0100, L500.2500 #### [facility] [address] [place], [place], [id number] MCV (mean corpuscular volume ) determinationOrdered By: Phyllis Granados on 05-02-2025 MCV (RBC) [Entitic vol] 91.1 fL 81-99 [facility] Mean corpuscular hemoglobin (MCH) determinationOrdered By: Phyllis Granados on 05-02-2025 MCH (RBC) [Entitic mass] 31.0 pg 27.0-32.0 [facility] Mean corpuscular hemoglobin concentration (MCHC) determinationOrdered By: Phyllis Granados on 05-02-2025 MCHC (RBC) [Mass/Vol] 34.1 g/dL 32-36 [facility] Mean platelet volume determi nationOrdered By: Phyllis Granados on 05-02-2025 Platelet mean volume (Bld) [Entitic vol] 9.3 fL 6.2-12.0 [facility] Microscopic analysis of urin e for red blood cells (RBC)Ordered By: Phyllis Granados on 05-02-2025 Microscopic analysis of urine for red blood cells (RBC) 0-5 SEEN /hpf 0-5 [facility] Monocyte percentageOrdered B y: Phyllis Granados on 05-02-2025 Monocytes/100 WBC (Bld) 10.1 % High 0-10 [facility] Mucus LM Ql (Urine sed)Order ed By: Phyllis Granados on 05-02-2025 Mucus Ql (Urine sed) 1+ /hpf [facility] Neutrophil percentageOrdered By: Phyllis Granados on 05-02-2025 Neutrophils/100 WBC (Bld) 68.9 % 47-70 [facility] Nitrite Test strip Ql (U)Ord ered By: Phyllis Granados on 05-02-2025 Nitrite Ql (U) Negative Negative [facility] Nucleated red blood cell per centageOrdered By: Phyllis Granados on 05-02-2025 Nucleated RBC/100 WBC (Bld) [Ratio] 0 % 0-5 [facility] Platelet countOrdered By: Goran Granados on 05-02-2025 Platelets (Bld) [#/Vol] 285 10*3/uL 150-450 [facility] Potassium measurement (mass/ volume)Ordered By: Phyllis Granados on 05-02-2025 Potassium (Unsp spec) [Mass/Vol] 4.3 mmol/L 3.3-5.1 [facility] Protein Test strip Ql (U)Ord ered By: Phyllis Granados on 05-02-2025 Protein Ql (U) 15 mg/dl High Negative [facility] RBC Auto (Bld) [#/Vol]Ordere d By: Phyllis Granados on 05-02-2025 RBC (Bld) [#/Vol] 3.93 10*6/uL Low 4.2-5.4 [facility] Serum creatinine measurement (mass/volume)Ordered By: Phyllis Granados on 05-02-2025 Creatinine [Mass/Vol] 0.94 mg/dL 0.70-1.20 [facility] Serum glucose measurement (m ass/volume)Ordered By: Phyllis Granados on 05-02-2025 Glucose [Mass/Vol] 101 mg/dL High 70-99 [facility] Serum or plasma calcium rosio urement (mass/volume)Ordered By: Phyllis Granados on 05-02-2025 Calcium [Mass/Vol] 9.2 mg/dL 7.6-11.0 [facility] Serum or plasma urea nitroge n measurement (mass/volume)Ordered By: Phyllis Granados on 05-02-2025 Urea nitrogen [Mass/Vol] 22 mg/dL High 4-19 [facility] Sodium levelOrdered By: Wilbur Granados on 05-02-2025 Sodium [Moles/Vol] 140 mmol/L 133-145 [facility] Spine Cervical without Contr ason 05-02-2025 Spine Cervical without Contras [facility] [address] [place], [place] [id number] Spine Cervical without Contras MR#: [id number] Acct: [id number] Name: JUAN CALDERON Rep #: [id number] : 1940 F 84 From: Sravan pendleton MD PCP: Dr. Adrian Hahn MD Status: REG ER Study: Spine Cervical without Contras Date of Exam: 0 05/02/25 Exam# [id number] Ordering Dr: Phyllis Granados MD PROCEDURE: SPINE CERVICAL WITHOUT CONTRAS 05/02/2025 REASON FOR EXAM: FALL Neck pain following a fall. Confusion. TECHNIQUE: Procedure Code: CTSPC Modality: CT Procedure: SPINE CERVICAL WITHOUT CONTRAS Coronal and Sagittal reconstruction series were provided. One or more dose reduction techniques were used (e.g., Automated exposure control, adjustment of the mA and/or kV according to patient size, use of iterative reconstruction technique. RADIATION DOSE SUMMARY: CTDlvol: 12.04 mGy DLP: 196.09 mGycm COMPARISON: None FINDINGS: Alignment: Minimal anterior listhesis of C4 on C5 most likely secondary to facet joint osteoarthritis. Vertebrae: Heterogeneous appearance of the cervical vertebrae with the focal sclerosis. Metastatic deposit should be ruled out. Soft Tissues: Atherosclerotic calcification of the carotid arteries. Other: C1-2: Degenerative changes of the atlantoaxial joint. C2-3: Facet joint osteoarthritis and hypertrophy worse on the right side. C3-4: Moderate degree of disc space narrowing. Spondylosis. Uncovertebral arthrosis. Bilateral facet joint osteoarthritis and hypertrophy worse on the right side. Bilateral neural foraminal stenosis. C4-5: Minimal anterior listhesis of C4 on C5. Facet joint osteoarthritis and hypertrophy worse on the right side. Uncovertebral arthrosis. Bilateral neural foraminal stenosis. C5-6: Marked degree of disc space narrowing. Spondylosis. Uncovertebral arthrosis. Bilateral neural foraminal stenosis. C6-7: Marked degree of disc space narrowing. Spondylosis. Facet joint osteoarthritis. Uncovertebral arthrosis and bilateral neural foraminal stenosis C7-T1: Disc space narrowing. Spondylosis. Facet joint osteoarthritis. CT/Spine Cervical without Contras IMPRESSION: DEGENERATIVE CHANGES OF THE CERVICAL SPINE. NO EVIDENCE OF SIGNIFICANT OSSEOUS CENTRAL CANAL OR NEURAL FORAMINAL STENOSIS. Reading Location: [place] [address] CC: Dr. Phyllis Granados MD; Dr. Adrian Hahn MD [employer]: Signed Normal [facility] Squamous epithelial cells de tection in urine sediment by light microscopyOrdered By: Phyllis Granados on 05-02-2025 Epithelial cells.squamous LM Ql (Urine sed) 0 SEEN /hpf 5-10 [facility] Troponin T HS 2 HRon 025 Trop T High Sen 8 ng/L Normal <=14 [facility] Comment on above: Performed By: #### L 499.0042 #### [facility] [address] [place], [address] Troponin T HS 4 HRon 025 Trop T High Sen Normal <=14 [facility] Comment on above: Result Comment: Canc elled via OM: Order cancelled - Patient discharged Performed By: #### L 100.0100, L500.2500 #### [facility] [address] [place], [address] Troponin T.cardiac [Mass/vol ume] in Serum or Plasma by High sensitivity methodOrdered By: Phyllis Granados on 05-02-2025 Troponin T.cardiac High sensitivity method [Mass/Vol] 8 ng/L <14 [facility] Troponin T.cardiac High sensitivity method [Mass/Vol] 67 ng/L Critically high <14 [facility] Comment on above: Critical Result(s) C alled at 05/02/2025-13:46 by Alfredo Fenton to Nava Garcia. Results read back by same. Urinalysis, Completeon 05-02 Mucus Ql (Urine sed) 1+ /hpf Normal [facility] Comment on above: Order Comment: COLLE CTOR TO SPECIFY Performed By: #### L 400.0001 #### [facility] [address] [place], [address] RBC 0-5 SEEN Normal 0-5 [facility] Comment on above: Order Comment: COLLE CTOR TO SPECIFY Performed By: #### L 400.0001 #### [facility] [address] [place], [address] WBC 0-5 SEEN Normal 0-5 [facility] Comment on above: Order Comment: COLLE CTOR TO SPECIFY Performed By: #### L 400.0001 #### [facility] [address] [place], [address] BACTERIA 0 SEEN Normal None Seen [facility] Comment on above: Order Comment: COLLE CTOR TO SPECIFY Performed By: #### L 400.0001 #### [facility] [address] [place], [place], [address] EPI,SQUAMOUS 0 SEEN Normal 5-10 [facility] Comment on above: Order Comment: COLLE CTOR TO SPECIFY Performed By: #### L 400.0001 #### [facility] [address] [place], [place], [address] Urine clarityOrdered By: Desirae Granados on 05-02-2025 Clarity (U) Clear Clear [facility] Urine color determinationOrd ered By: Phyllis Granados on 05-02-2025 Color (U) Yellow Yellow [facility] Urine glucose detectionOrder ed By: Phyllis Granados on 05-02-2025 Glucose Ql (U) Normal mg/dl Normal [facility] Urine leukocyte esterase det ection by dipstickOrdered By: Phyllis Granados on 05-02-2025 Leukocyte esterase Test strip Ql (U) 25 /ul High Negative [facility] Urine pHOrdered By: Phyllis winters on 05-02-2025 pH (U) 6.0 [pH] 5.0 - 8.0 [facility] Urine sediment bacteria coun t by microscopy (number/high power field)Ordered By: Phyllis Granados on 05-02-2025 Bacteria LM.HPF (Urine sed) [#/Area] 0 /[HPF] None Seen [facility] Urine specific gravity measu rementOrdered By: Phyllis Granados on 05-02-2025 Specific gravity (U) [Rel density] 1.020 1.002-1.030 [facility] Urine urobilinogen measureme ntOrdered By: Phyllis Granados on 05-02-2025 Urobilinogen Ql (U) 1 mg/dl High Normal [facility] White blood cell (WBC) count Ordered By: Phyllis Granados on 05-02-2025 WBC (Bld) [#/Vol] 8.4 10*3/uL 4.4-11.0 [facility] White blood cell countOrdere d By: Phyllis Granados on 05-02-2025 White blood cell count 0-5 SEEN /hpf 0-5 [facility] Absolute lymphocyte countOrd ered By: Adrian Hahn on 04-04-2025 Lymphocytes Auto (Unsp spec) [#/Vol] 1.69 10*3/uL 0.83-4.51 [facility] Absolute neutrophil countOrd ered By: Adrian Hahn on 04-04-2025 Neutrophils (Bld) [#/Vol] 4.2 10*3/uL 2.0-7.7 [facility] Anion gap in Serum or Plasma Ordered By: Adrian Hahn on 04-04-2025 Anion gap [Moles/Vol] 14 mmol/L 5-15 [facility] Automated lymphocyte count a s percentage of total leukocytesOrdered By: Adrian Hahn on 04-04-2025 Lymphocytes/100 WBC Auto (Unsp spec) 24.7 % 19- [facility] BUN/creatinine ratioOrdered By: Adrian Hahn on 04-04-2025 Urea nitrogen/Creatinine [Mass ratio] 21.0 mg/mg High 10-20 [facility] Basophil percentageOrdered B y: Adrian Jovani on 04-04-2025 Basophils/100 WBC (Bld) 0.9 % 0-1 [facility] Bilirubin, totalOrdered By: Adrian Jovani on 04-04-2025 Bilirubin [Mass/Vol] 0.41 mg/dL 0.00-1.30 [facility] CBC W/Diff, Automatedon Absolute Lymph 1.69 X10 3/uL Normal 0.83-4.51 [facility] Comment on above: Performed By: #### L 100.0100, L500.2500 #### [facility] [address] [place], [address] Absolute Neut 4.2 X10 3/uL Normal 2.0-7.7 [facility] Comment on above: Performed By: #### L 100.0100, L500.2500 #### [facility] [address] [place], [address] Basophils/100 WBC (Bld) 0.9 % Normal 0-1 [facility] Comment on above: Performed By: #### L 100.0100, L500.2500 #### [facility] [address] [place], [address] Eosinophils/100 WBC (Bld) 1.3 % Normal 0-5 [facility] Comment on above: Performed By: #### L 100.0100, L500.2500 #### [facility] [address] [place], [address] Erythrocyte distribution width (RBC) [Ratio] 12.2 % Normal 11.6-14.6 [facility] Comment on above: Performed By: #### L 100.0100, L500.2500 #### [facility] [address] [place], [address] Hematocrit (Bld) [Volume fraction] 42.5 % Normal 37-47 [facility] Comment on above: Performed By: #### L 100.0100, L500.2500 #### [facility] [address] [place], [address] Hemoglobin (Bld) [Mass/Vol] 14.2 g/dL Normal 12.0-15.0 [facility] Comment on above: Performed By: #### L 100.0100, L500.2500 #### [facility] [address] [place], [address] IG% 0.700 Normal 0.0-0.9 [facility] Comment on above: Result Comment: IG% - Immature Granulocytes (promyelocytes, myelocytes and metamyelocytes) > 1% indicates that a LEFT SHIFT is Present. Performed By: #### L 100.0100, L500.2500 #### [facility] [address] [place], [address] Lymphocytes/100 WBC (Bld) 24.7 % Normal 19-41 [facility] Comment on above: Performed By: #### L 100.0100, L500.2500 #### [facility] [address] [place], [address] MCH (RBC) [Entitic mass] 31.1 pg Normal 27.0-32.0 [facility] Comment on above: Performed By: #### L 100.0100, L500.2500 #### [facility] [address] [place], [address] MCHC (RBC) [Mass/Vol] 33.4 g/dL Normal 32-36 [facility] Comment on above: Performed By: #### L 100.0100, L500.2500 #### [facility] [address] [place], [address] MCV (RBC) [Entitic vol] 93.2 fL Normal 81-99 [facility] Comment on above: Performed By: #### L 100.0100, L500.2500 #### [facility] [address] [place], [address] Monocytes/100 WBC (Bld) 10.7 % High 0-10 [facility] Comment on above: Performed By: #### L 100.0100, L500.2500 #### [facility] [address] [place], [address] Neutrophils/100 WBC (Bld) 61.7 % Normal 47-70 [facility] Comment on above: Performed By: #### L 100.0100, L500.2500 #### [facility] [address] [place], [address] Nucleated RBC (Bld) [#/Vol] 0 10*3/uL Normal 0-5 [facility] Comment on above: Performed By: #### L 100.0100, L500.2500 #### [facility] [address] [place], [address] Platelet mean volume (Bld) [Entitic vol] 10.3 fL Normal 6.2-12.0 [facility] Comment on above: Performed By: #### L 100.0100, L500.2500 #### [facility] [address] [place], [address] Platelets (Bld) [#/Vol] 279 10*3/uL Normal 150-450 [facility] Comment on above: Performed By: #### L 100.0100, L500.2500 #### [facility] [address] [place], [address] RBC (Bld) [#/Vol] 4.56 10*6/uL Normal 4.2-5.4 [facility] Comment on above: Performed By: #### L 100.0100, L500.2500 #### [facility] [address] [place], [address] RDW SD 42.1 fl Normal 35.1-43.9 [facility] Comment on above: Performed By: #### L 100.0100, L500.2500 #### [facility] [address] [place], [address] WBC (Bld) [#/Vol] 6.9 10*3/uL Normal 4.4-11.0 [facility] Comment on above: Performed By: #### L 100.0100, L500.2500 #### [facility] [address] [place], [address] Carbon dioxide, total [Moles /volume] in Central venous bloodOrdered By: Adrian Hahn on 04-04-2025 CO2 [Moles/Vol] 24.6 mmol/L 21.0-32.0 [facility] Chloride assayOrdered By: Clarence Hahn on 04-04-2025 Chloride [Moles/Vol] 103 mmol/L 98-108 [facility] Comprehensive Metabolic Prof ilon 04-04-2025 Albumin [Mass/Vol] 4.2 g/dL Normal 3.4-4.8 [facility] Comment on above: Performed By: #### L 100.0100, L500.2500 #### [facility] [address] [place], [address] Albumin/Globulin [Mass ratio] 1.4 {ratio} Normal 0.9-2.4 [facility] Comment on above: Performed By: #### L 100.0100, L500.2500 #### [facility] [address] [place], [address] ALK PHOS 38 U/L Normal 35-104 [facility] Comment on above: Performed By: #### L 100.0100, L500.2500 #### [facility] [address] [place], [address] ALT [Catalytic activity/Vol] 14 U/L Normal <=34 [facility] Comment on above: Performed By: #### L 100.0100, L500.2500 #### [facility] [address] [place], [address] AST [Catalytic activity/Vol] 19 U/L Normal <=31 [facility] Comment on above: Performed By: #### L 100.0100, L500.2500 #### [facility] [address] [place], [address] Bilirubin [Mass/Vol] 0.41 mg/dL Normal 0.00-1.30 [facility] Comment on above: Performed By: #### L 100.0100, L500.2500 #### [facility] [address] [place], [address] BUN/CRE 21.0 RATIO High 10-20 [facility] Comment on above: Performed By: #### L 100.0100, L500.2500 #### [facility] [address] [place], [address] Calcium [Mass/Vol] 9.6 mg/dL Normal 7.6-11.0 [facility] Comment on above: Performed By: #### L 100.0100, L500.2500 #### [facility] [address] [place], [address] Chloride [Moles/Vol] 103 mmol/L Normal 98-108 [facility] Comment on above: Performed By: #### L 100.0100, L500.2500 #### [facility] [address] [place], [id number] CO2 [Moles/Vol] 24.6 mmol/L Normal 21.0-32.0 [facility] Comment on above: Performed By: #### L 100.0100, L500.2500 #### [facility] [address] [place], [id number] Creatinine [Mass/Vol] 0.91 mg/dL Normal 0.70-1.20 [facility] Comment on above: Performed By: #### L 100.0100, L500.2500 #### [facility] [address] [place], [id number] GAP 14 Normal 5-15 [facility] Comment on above: Performed By: #### L 100.0100, L500.2500 #### [facility] [address] [place], [id number] GFR/1.73 sq M.predicted among non-blacks MDRD (S/P/Bld) [Vol rate/Area] 62 mL/min/{1.73_m2} Normal >60 [facility] Comment on above: Result Comment: mL/m in/1.73m2 CKD-EPI Creatinine Equation (2020) Performed By: #### L 100.0100, L500.2500 #### [facility] [address] [place], [id number] Globulin (S) [Mass/Vol] 3.0 g/dL Normal 2.2-4.2 [facility] Comment on above: Performed By: #### L 100.0100, L500.2500 #### [facility] [address] [place], [id number] Glucose [Mass/Vol] 117 mg/dL High 70-99 [facility] Comment on above: Performed By: #### L 100.0100, L500.2500 #### [facility] [address] [place], [address] Potassium [Moles/Vol] 4.2 mmol/L Normal 3.3-5.1 [facility] Comment on above: Performed By: #### L 100.0100, L500.2500 #### [facility] [address] [place], [address] Sodium [Moles/Vol] 141 mmol/L Normal 133-145 [facility] Comment on above: Performed By: #### L 100.0100, L500.2500 #### [facility] [address] [place], [address] T PROT 7.1 g/dL Normal 5.9-8.4 [facility] Comment on above: Performed By: #### L 100.0100, L500.2500 #### [facility] [address] [place], [address] Urea nitrogen [Mass/Vol] 19 mg/dL Normal 4-19 [facility] Comment on above: Performed By: #### L 100.0100, L500.2500 #### [facility] [address] [place], [address] Eosinophil percentageOrdered By: Adrian Hahn on 04-04-2025 Eosinophils/100 WBC (Bld) 1.3 % 0-5 [facility] Erythrocyte distribution wid th ratioOrdered By: Adrian Hahn on 04-04-2025 Erythrocyte distribution width (RBC) [Ratio] 12.2 % 11.6-14.6 [facility] Erythrocyte distribution wid th standard deviationOrdered By: Adrian Hahn on 04-04-2025 Erythrocyte distribution width (RBC) [Ratio] 42.1 fl 35.1-43.9 [facility] Glomerular filtration rate ( GFR) estimation/1.73 sq m using serum, plasma, or whole bOrdered By: Adrian Hahn on 04-04-2025 GFR/1.73 sq M.predicted among non-blacks MDRD (S/P/Bld) [Vol rate/Area] 62 mL/min/{1.73_m2} >60 [facility] Comment on above: mL/min/1.73m2 CKD-EP I Creatinine Equation (2020) Hematocrit Auto (Bld) [Volum e fraction]Ordered By: Adrian Hahn on 04-04-2025 Hematocrit (Bld) [Volume fraction] 42.5 % 37-47 [facility] Hemoglobin measurementOrdere d By: Adrian Hahn on 04-04-2025 Hemoglobin (Bld) [Mass/Vol] 14.2 g/dL 12.0-15.0 [facility] Immature granulocytes/100 WB C Auto (Bld)Ordered By: Adrian Hahn on 04-04-2025 Immature granulocytes/100 WBC (Bld) 0.700 % 0.0-0.9 [facility] Comment on above: IG% - Immature Granu locytes (promyelocytes, myelocytes and metamyelocytes) > 1% indicates that a LEFT SHIFT is Present. Laboratory - Chemistry and C hemistry - challengeOrdered By: Adrian Hahn 04-04-2025 AST [Catalytic activity/Vol] 19 U/L <32 [facility] MCV (mean corpuscular volume ) determinationOrdered By: Adrian Hahn 04-04-2025 MCV (RBC) [Entitic vol] 93.2 fL 81-99 [facility] Mean corpuscular hemoglobin (MCH) determinationOrdered By: Adrian Hahn 04-04-2025 MCH (RBC) [Entitic mass] 31.1 pg 27.0-32.0 [facility] Mean corpuscular hemoglobin concentration (MCHC) determinationOrdered By: Adrian Hahn 04-04-2025 MCHC (RBC) [Mass/Vol] 33.4 g/dL 32-36 [facility] Mean platelet volume determi nationOrdered By: Adrian Hahn 04-04-2025 Platelet mean volume (Bld) [Entitic vol] 10.3 fL 6.2-12.0 [facility] Monocyte percentageOrdered B y: Adrian Hahn on 04-04-2025 Monocytes/100 WBC (Bld) 10.7 % High 0-10 [facility] Neutrophil percentageOrdered By: Adrian Hahn on 04-04-2025 Neutrophils/100 WBC (Bld) 61.7 % 47-70 [facility] Nucleated red blood cell per centageOrdered By: Adrian Hahn on 04-04-2025 Nucleated RBC/100 WBC (Bld) [Ratio] 0 % 0-5 [facility] Platelet countOrdered By: Clarence Hahn on 04-04-2025 Platelets (Bld) [#/Vol] 279 10*3/uL 150-450 [facility] Potassium measurement (mass/ volume)Ordered By: Adrian Hahn on 04-04-2025 Potassium (Unsp spec) [Mass/Vol] 4.2 mmol/L 3.3-5.1 [facility] RBC Auto (Bld) [#/Vol]Ordere d By: Adrian Hahn on 04-04-2025 RBC (Bld) [#/Vol] 4.56 10*6/uL 4.2-5.4 [facility] Serum creatinine measurement (mass/volume)Ordered By: Adrian Hahn on 04-04-2025 Creatinine [Mass/Vol] 0.91 mg/dL 0.70-1.20 [facility] Serum globulin measurementOr dered By: Adrian Hahn on 04-04-2025 Globulin (S) [Mass/Vol] 3.0 g/dL 2.2-4.2 [facility] Serum glucose measurement (m ass/volume)Ordered By: Adrian Hahn on 04-04-2025 Glucose [Mass/Vol] 117 mg/dL High 70-99 [facility] Serum or plasma alanine husain otransferase (ALT) measurementOrdered By: Adrian Hahn on 04-04-2025 ALT [Catalytic activity/Vol] 14 U/L <35 [facility] Serum or plasma albumin rosio urement (mass/volume)Ordered By: Adrian Hahn on 04-04-2025 Albumin [Mass/Vol] 4.2 g/dL 3.4-4.8 [facility] Serum or plasma albumin/glob ulin mass ratioOrdered By: Adrian Hahn on 04-04-2025 Albumin/Globulin [Mass ratio] 1.4 {ratio} 0.9-2.4 [facility] Serum or plasma alkaline ed sphatase measurementOrdered By: Adrian Hahn on 04-04-2025 ALP [Catalytic activity/Vol] 38 U/L 35-104 [facility] Serum or plasma calcium rosio urement (mass/volume)Ordered By: Adrian Hahn on 04-04-2025 Calcium [Mass/Vol] 9.6 mg/dL 7.6-11.0 [facility] Serum or plasma urea nitroge n measurement (mass/volume)Ordered By: Adrian Hahn on 04-04-2025 Urea nitrogen [Mass/Vol] 19 mg/dL 4-19 [facility] Sodium levelOrdered By: Adrian Jovani on 04-04-2025 Sodium [Moles/Vol] 141 mmol/L 133-145 [facility] TSH DL <= 0.005 mIU/L QnOrde red By: Adrian Hahn on 04-04-2025 TSH Qn 2.920 uIU/mL 0.300-4.200 [facility] Thyroid Stim Hormone (TSH)on 04-04-2025 TSH 2.920 uIU/mL Normal 0.300-4.200 [facility] Comment on above: Performed By: #### L 100.0100, L500.2500 #### [facility] [address] [place], [address] Total proteinOrdered By: Adrian Hahn on 04-04-2025 Protein [Mass/Vol] 7.1 g/dL 5.9-8.4 [facility] Vitamin D,25 Hydroxyon 04-04 Vitamin D 25-OH 22.5 ng/mL Low 30-100 [facility] Comment on above: Result Comment: Claritza min D Status Deficiency: <20 ng/mL (50nmol/L) Insufficiency: 20-30 ng/mL (50-75 nmol/L) Sufficiency: 30-100 ng/mL (75-250 nmol/L) Toxicity: >100 ng/mL (>250 nmol/L) Performed By: #### L 100.0100, L500.2500 #### [facility] [address] [place], [address] White blood cell (WBC) count Ordered By: Adrian Hahn on 04-04-2025 WBC (Bld) [#/Vol] 6.9 10*3/uL 4.4-11.0 [facility] Bilirubin Test strip Ql (U)O rdered By: Adrian Hahn on 02-26-2025 Bilirubin Ql (U) Negative Negative [facility] Calcium oxalate crystals det ection in urine sediment by light microscopyOrdered By: Adrian Hahn on 02-26-2025 Calcium oxalate crystals LM Ql (Urine sed) 1+ /hpf [facility] Ketones Test strip Ql (U)Ord ered By: Adrian Hahn on 02-26-2025 Ketones Ql (U) Negative Negative [facility] Microscopic analysis of urin e for red blood cells (RBC)Ordered By: Adrian Hahn on 02-26-2025 Microscopic analysis of urine for red blood cells (RBC) 0 SEEN /hpf 0-5 [facility] Mucus LM Ql (Urine sed)Order ed By: Adrian Hahn on 02-26-2025 Mucus Ql (Urine sed) 0 SEEN /hpf [facility] Nitrite Test strip Ql (U)Ord ered By: Adrian Hahn on 02-26-2025 Nitrite Ql (U) Negative Negative [facility] Protein Test strip Ql (U)Ord ered By: Adrian Hahn on 02-26-2025 Protein Ql (U) 15 mg/dl High Negative [facility] Squamous epithelial cells de tection in urine sediment by light microscopyOrdered By: Adrian Hahn on 02-26-2025 Epithelial cells.squamous LM Ql (Urine sed) 0-5 SEEN /hpf 5-10 [facility] Urine clarityOrdered By: Adrian Hahn on 02-26-2025 Clarity (U) Sl. Cloudy Clear [facility] Urine color determinationOrd ered By: Adrian Hahn on 02-26-2025 Color (U) Yellow Yellow [facility] Urine cultureOrdered By: Adrian Hahn on 02-26-2025 Bacteria identified Cx Nom (U) Positive Abnormal [facility] Urine glucose detectionOrder ed By: Adrian Hahn on 02-26-2025 Glucose Ql (U) Normal mg/dl Normal [facility] Urine leukocyte esterase det ection by dipstickOrdered By: Adrian Hahn on 02-26-2025 Leukocyte esterase Test strip Ql (U) 500 /ul High Negative [facility] Urine pHOrdered By: Adrian Hahn on 02-26-2025 pH (U) 6.0 [pH] 5.0 - 8.0 [facility] Urine sediment bacteria coun t by microscopy (number/high power field)Ordered By: Adrian Hahn on 02-26-2025 Bacteria LM.HPF (Urine sed) [#/Area] 0 /[HPF] None Seen [facility] Urine specific gravity measu rementOrdered By: Adrian Jovani on 02-26-2025 Specific gravity (U) [Rel density] 1.025 1.002-1.030 [facility] Urine urobilinogen measureme ntOrdered By: Adrian Hahn on 02-26-2025 Urobilinogen Ql (U) Normal mg/dl Normal [facility] White blood cell countOrdere d By: Adrian Hahn on 02-26-2025 White blood cell count 5-10 SEEN /hpf 0-5 [facility] Urine Cultureon 01-29-2025 URC #1, 2 Below infectio n level. Staphylococcus aureus Aline Count <1000 Mixed Gram Pos Gram Neg [...] S Vancomycin Islt [place] 1 S Normal [facility] Comment on above: Performed By: #### L 100.0100, L500.2500 #### [facility] [address] [place], [address] Absolute lymphocyte countOrd ered By: Adrian Hahn on 01-26-2025 Lymphocytes Auto (Unsp spec) [#/Vol] 1.56 10*3/uL 0.83-4.51 [facility] Absolute neutrophil countOrd ered By: Adrian Hahn on 01-26-2025 Neutrophils (Bld) [#/Vol] 5.1 10*3/uL 2.0-7.7 [facility] Anion gap in Serum or Plasma Ordered By: Adrian Hahn on 01-26-2025 Anion gap [Moles/Vol] 11 mmol/L 5- [facility] Automated lymphocyte count a s percentage of total leukocytesOrdered By: Adrian Hahn on 01-26-2025 Lymphocytes/100 WBC Auto (Unsp spec) 20.4 % [facility] BUN/creatinine ratioOrdered By: Adrian Hahn on 01-26-2025 Urea nitrogen/Creatinine [Mass ratio] 20.2 mg/mg High 06-18 [facility] Basic Metabolic Profile (BMP )on 01-26-2025 BUN/CRE 20.2 RATIO High 06-18 [facility] Comment on above: Performed By: #### L 100.0100, L500.2500 #### [facility] [address] [place], [address] Calcium [Mass/Vol] 9.6 mg/dL Normal 7.6-11.0 [facility] Comment on above: Performed By: #### L 100.0100, L500.2500 #### [facility] [address] [place], [address] Chloride [Moles/Vol] 103 mmol/L Normal 98-108 [facility] Comment on above: Performed By: #### L 100.0100, L500.2500 #### [facility] [address] [place], [address] CO2 [Moles/Vol] 25.8 mmol/L Normal 21.0-32.0 [facility] Comment on above: Performed By: #### L 100.0100, L500.2500 #### [facility] [address] [place], [address] Creatinine [Mass/Vol] 0.95 mg/dL Normal 0.70-1.20 [facility] Comment on above: Performed By: #### L 100.0100, L500.2500 #### [facility] [address] [place], [address] GAP 11 Normal 5-15 [facility] Comment on above: Performed By: #### L 100.0100, L500.2500 #### [facility] [address] [place], [address] GFR/1.73 sq M.predicted among non-blacks MDRD (S/P/Bld) [Vol rate/Area] 58 mL/min/{1.73_m2} Low >60 [facility] Comment on above: Result Comment: mL/m in/1.73m2 CKD-EPI Creatinine Equation (2020) Performed By: #### L 100.0100, L500.2500 #### [facility] [address] [place], [address] Glucose [Mass/Vol] 112 mg/dL High 70-99 [facility] Comment on above: Performed By: #### L 100.0100, L500.2500 #### [facility] [address] [place], [address] Potassium [Moles/Vol] 4.4 mmol/L Normal 3.3-5.1 [facility] Comment on above: Performed By: #### L 100.0100, L500.2500 #### [facility] [address] [place], [address] Sodium [Moles/Vol] 140 mmol/L Normal 133-145 [facility] Comment on above: Performed By: #### L 100.0100, L500.2500 #### [facility] [address] [place], [address] Urea nitrogen [Mass/Vol] 19 mg/dL Normal 4-19 [facility] Comment on above: Performed By: #### L 100.0100, L500.2500 #### [facility] [address] [place], [address] Basophil percentageOrdered B y: Adrian Hahn on 01-26-2024 Basophils/100 WBC (Bld) 0.8 % 0-1 [facility] CBC W/Diff, Automatedon 12-30 Absolute Lymph 1.56 X10 3/uL Normal 0.83-4.51 [facility] Comment on above: Performed By: #### L 100.0100, L500.2500 #### [facility] [address] [place], [address] Absolute Neut 5.1 X10 3/uL Normal 2.0-7.7 [facility] Comment on above: Performed By: #### L 100.0100, L500.2500 #### [facility] [address] [place], [address] Basophils/100 WBC (Bld) 0.8 % Normal 0-1 [facility] Comment on above: Performed By: #### L 100.0100, L500.2500 #### [facility] [address] [place], [address] Eosinophils/100 WBC (Bld) 0.9 % Normal 0-5 [facility] Comment on above: Performed By: #### L 100.0100, L500.2500 #### [facility] [address] [place], [address] Erythrocyte distribution width (RBC) [Ratio] 12.5 % Normal 11.6-14.6 [facility] Comment on above: Performed By: #### L 100.0100, L500.2500 #### [facility] [address] [place], [address] Hematocrit (Bld) [Volume fraction] 40.0 % Normal 37-47 [facility] Comment on above: Performed By: #### L 100.0100, L500.2500 #### [facility] [address] [place], [address] Hemoglobin (Bld) [Mass/Vol] 13.4 g/dL Normal 12.0-15.0 [facility] Comment on above: Performed By: #### L 100.0100, L500.2500 #### [facility] [address] [place], [address] IG% 0.900 Normal 0.0-0.9 [facility] Comment on above: Result Comment: IG% - Immature Granulocytes (promyelocytes, myelocytes and metamyelocytes) > 1% indicates that a LEFT SHIFT is Present. Performed By: #### L 100.0100, L500.2500 #### [facility] [address] [place], [address] Lymphocytes/100 WBC (Bld) 20.4 % Normal 19-41 [facility] Comment on above: Performed By: #### L 100.0100, L500.2500 #### [facility] [address] [place], [address] MCH (RBC) [Entitic mass] 31.2 pg Normal 27.0-32.0 [facility] Comment on above: Performed By: #### L 100.0100, L500.2500 #### [facility] [address] [place], [address] MCHC (RBC) [Mass/Vol] 33.5 g/dL Normal 32-36 [facility] Comment on above: Performed By: #### L 100.0100, L500.2500 #### [facility] [address] [place], [address] MCV (RBC) [Entitic vol] 93.0 fL Normal 81-99 [facility] Comment on above: Performed By: #### L 100.0100, L500.2500 #### [facility] [address] [place], [address] Monocytes/100 WBC (Bld) 10.2 % High 0-10 [facility] Comment on above: Performed By: #### L 100.0100, L500.2500 #### [facility] [address] [place], [address] Neutrophils/100 WBC (Bld) 66.8 % Normal 47-70 [facility] Comment on above: Performed By: #### L 100.0100, L500.2500 #### [facility] [address] [place], [address] Nucleated RBC (Bld) [#/Vol] 0 10*3/uL Normal 0-5 [facility] Comment on above: Performed By: #### L 100.0100, L500.2500 #### [facility] [address] [place], [address] Platelet mean volume (Bld) [Entitic vol] 9.8 fL Normal 6.2-12.0 [facility] Comment on above: Performed By: #### L 100.0100, L500.2500 #### [facility] [address] [place], [address] Platelets (Bld) [#/Vol] 269 10*3/uL Normal 150-450 [facility] Comment on above: Performed By: #### L 100.0100, L500.2500 #### [facility] [address] [place], [address] RBC (Bld) [#/Vol] 4.30 10*6/uL Normal 4.2-5.4 [facility] Comment on above: Performed By: #### L 100.0100, L500.2500 #### [facility] [address] [place], [address] RDW SD 43.1 fl Normal 35.1-43.9 [facility] Comment on above: Performed By: #### L 100.0100, L500.2500 #### [facility] [address] [place], [address] WBC (Bld) [#/Vol] 7.7 10*3/uL Normal 4.4-11.0 [facility] Comment on above: Performed By: #### L 100.0100, L500.2500 #### [facility] [address] [place], [address] Carbon dioxide, total [Moles /volume] in Central venous bloodOrdered By: Adrian Hahn on 01-26-2025 CO2 [Moles/Vol] 25.8 mmol/L 21.0-32.0 [facility] Chloride assayOrdered By: Clarence Hahn on 01-26-2025 Chloride [Moles/Vol] 103 mmol/L 98-108 [facility] Eosinophil percentageOrdered By: Adrian Hahn 01-26-2025 Eosinophils/100 WBC (Bld) 0.9 % 0-5 [facility] Erythrocyte distribution wid th ratioOrdered By: Adrian Hahn 01-26-2025 Erythrocyte distribution width (RBC) [Ratio] 12.5 % 11.6-14.6 [facility] Erythrocyte distribution wid th standard deviationOrdered By: Adrian Hahn 01-26-2025 Erythrocyte distribution width (RBC) [Ratio] 43.1 fl 35.1-43.9 [facility] Glomerular filtration rate ( GFR) estimation/1.73 sq m using serum, plasma, or whole bOrdered By: Adrian Hahn 01-26-2025 GFR/1.73 sq M.predicted among non-blacks MDRD (S/P/Bld) [Vol rate/Area] 58 mL/min/{1.73_m2} Low >60 [facility] Comment on above: mL/min/1.73m2 CKD-EP I Creatinine Equation (2020) Hematocrit Auto (Bld) [Volum e fraction]Ordered By: Adrian Hahn on 01-26-2025 Hematocrit (Bld) [Volume fraction] 40.0 % 37-47 [facility] Hemoglobin measurementOrdere d By: Adrian Hahn on 01-26-2025 Hemoglobin (Bld) [Mass/Vol] 13.4 g/dL 12.0-15.0 [facility] Immature granulocytes/100 WB C Auto (Bld)Ordered By: Adrian Hahn on 01-26-2025 Immature granulocytes/100 WBC (Bld) 0.900 % 0.0-0.9 [facility] Comment on above: IG% - Immature Granu locytes (promyelocytes, myelocytes and metamyelocytes) > 1% indicates that a LEFT SHIFT is Present. MCV (mean corpuscular volume ) determinationOrdered By: Adrian Hahn on 01-26-2025 MCV (RBC) [Entitic vol] 93.0 fL 81-99 [facility] Mean corpuscular hemoglobin (MCH) determinationOrdered By: Adrian Hahn on 01-26-2025 MCH (RBC) [Entitic mass] 31.2 pg 27.0-32.0 [facility] Mean corpuscular hemoglobin concentration (MCHC) determinationOrdered By: Adrian Hahn on 01-26-2025 MCHC (RBC) [Mass/Vol] 33.5 g/dL 32-36 [facility] Mean platelet volume determi nationOrdered By: Adrian Hahn on 01-26-2025 Platelet mean volume (Bld) [Entitic vol] 9.8 fL 6.2-12.0 [facility] Monocyte percentageOrdered B y: Adrian Hahn on 01-26-2025 Monocytes/100 WBC (Bld) 10.2 % High 0-10 [facility] Neutrophil percentageOrdered By: Adrian Hahn on 01-26-2025 Neutrophils/100 WBC (Bld) 66.8 % 47-70 [facility] Nucleated red blood cell per centageOrdered By: Adrian Hahn on 01-26-2025 Nucleated RBC/100 WBC (Bld) [Ratio] 0 % 0-5 [facility] Platelet countOrdered By: Clarence Hahn on 01-26-2025 Platelets (Bld) [#/Vol] 269 10*3/uL 150-450 [facility] Potassium measurement (mass/ volume)Ordered By: Adrian Hahn on 01-26-2025 Potassium (Unsp spec) [Mass/Vol] 4.4 mmol/L 3.3-5.1 [facility] RBC Auto (Bld) [#/Vol]Ordere d By: Adrian Hahn on 01-26-2025 RBC (Bld) [#/Vol] 4.30 10*6/uL 4.2-5.4 [facility] Serum creatinine measurement (mass/volume)Ordered By: Adrian Hahn on 01-26-2025 Creatinine [Mass/Vol] 0.95 mg/dL 0.70-1.20 [facility] Serum glucose measurement (m ass/volume)Ordered By: Adrian Hahn on 01-26-2025 Glucose [Mass/Vol] 112 mg/dL High 70-99 [facility] Serum or plasma calcium rosio urement (mass/volume)Ordered By: Adrian Hahn on 01-26-2025 Calcium [Mass/Vol] 9.6 mg/dL 7.6-11.0 [facility] Serum or plasma urea nitroge n measurement (mass/volume)Ordered By: Adrian Hahn on 01-26-2025 Urea nitrogen [Mass/Vol] 19 mg/dL 4-19 [facility] Sodium levelOrdered By: Adrian Hahn on 01-26-2025 Sodium [Moles/Vol] 140 mmol/L 133-145 [facility] Urine cultureOrdered By: Adrian Hahn on 01-26-2025 Bacteria identified Cx Nom (U) Staphylococcus aureus Abnormal [facility] Bacteria identified Cx Nom (U) Mixed Gram Pos & Gram Neg Org Abnormal [facility] White blood cell (WBC) count Ordered By: Adrian Hahn on 01-26-2025 WBC (Bld) [#/Vol] 7.7 10*3/uL 4.4-11.0 [facility] Absolute lymphocyte countOrd ered By: Yoshi Hebert on 10-27-2024 Lymphocytes Auto (Unsp spec) [#/Vol] 1.29 10*3/uL 0.83-4.51 [facility] Absolute neutrophil countOrd ered By: Yoshi Hebert on 10-27-2024 Neutrophils (Bld) [#/Vol] 3.7 10*3/uL 2.0-7.7 [facility] Automated lymphocyte count a s percentage of total leukocytesOrdered By: Yoshi Hebert on 10-27-2024 Lymphocytes/100 WBC Auto (Unsp spec) 22.8 % 19-41 [facility] BUN/creatinine ratioOrdered By: Yoshi Stacyehne on 10-27-2024 Urea nitrogen/Creatinine [Mass ratio] 24.1 mg/mg High 10-20 [facility] Basophil percentageOrdered B y: Yoshi Hebert on 10-27-2024 Basophils/100 WBC (Bld) 0.5 % 0-1 [facility] Bilirubin Test strip Ql (U)O rdered By: Yoshi Hebert on 10-27-2024 Bilirubin Ql (U) Negative Negative [facility] Bilirubin, totalOrdered By: Yoshi Hebert on 10-27-2024 Bilirubin [Mass/Vol] 0.49 mg/dL 0.00-1.30 [facility] Brain/Head without Contrasto n 10-27-2024 Brain/Head without Contrast [facility] [address] [place] [address] Brain/Head without Contrast MR#: [id number] Acct: [id number] Name: JUAN CALDERON Rep #: [id number] : 1940 F 84 From: Sravan pendleton MD PCP: Dr. Adrian Hahn MD Status: REG ER Study: Brain/Head without Contrast Date of Exam: 10/01 04/23 Exam# [id number] Ordering Dr: Yoshi Hebert DO EXAM: BRAIN/HEAD [...] keeping with the patient's age. Reading Location: [id number] CC: Dr. Yoshi Hebert DO; Dr. Adrian Hahn MD [employer]: Signed Normal [facility] CBC W/Diff, Automatedon 10-01 Absolute Lymph 1.29 X10 3/uL Normal 0.83-4.51 [facility] Comment on above: Performed By: #### L 100.0100, L500.4050 #### [facility] [address] [place], [address] Absolute Neut 3.7 X10 3/uL Normal 2.0-7.7 [facility] Comment on above: Performed By: #### L 100.0100, L500.4050 #### [facility] [address] [place], [address] Basophils/100 WBC (Bld) 0.5 % Normal 0-1 [facility] Comment on above: Performed By: #### L 100.0100, L500.4050 #### [facility] [address] [place], [address] Eosinophils/100 WBC (Bld) 1.2 % Normal 0-5 [facility] Comment on above: Performed By: #### L 100.0100, L500.4050 #### [facility] [address] [place], [address] Erythrocyte distribution width (RBC) [Ratio] 12.2 % Normal 11.6-14.6 [facility] Comment on above: Performed By: #### L 100.0100, L500.4050 #### [facility] [address] [place], [address] Hematocrit (Bld) [Volume fraction] 39.0 % Normal 37-47 [facility] Comment on above: Performed By: #### L 100.0100, L500.4050 #### [facility] [address] [place], [address] Hemoglobin (Bld) [Mass/Vol] 13.1 g/dL Normal 12.0-15.0 [facility] Comment on above: Performed By: #### L 100.0100, L500.4050 #### [facility] [address] [place], [id number] IG% 0.700 Normal 0.0-0.9 [facility] Comment on above: Result Comment: IG% - Immature Granulocytes (promyelocytes, myelocytes and metamyelocytes) > 1% indicates that a LEFT SHIFT is Present. Performed By: #### L 100.0100, L500.4050 #### [facility] [address] [place], [address] Lymphocytes/100 WBC (Bld) 22.8 % Normal 19-41 [facility] Comment on above: Performed By: #### L 100.0100, L500.4050 #### [facility] [address] [place], [address] MCH (RBC) [Entitic mass] 30.5 pg Normal 27.0-32.0 [facility] Comment on above: Performed By: #### L 100.0100, L500.4050 #### [facility] [address] [place], [id number] MCHC (RBC) [Mass/Vol] 33.6 g/dL Normal 32-36 [facility] Comment on above: Performed By: #### L 100.0100, L500.4050 #### [facility] [address] [place], [address] MCV (RBC) [Entitic vol] 90.9 fL Normal 81-99 [facility] Comment on above: Performed By: #### L 100.0100, L500.4050 #### [facility] [address] [place], [address] Monocytes/100 WBC (Bld) 9.6 % Normal 0-10 [facility] Comment on above: Performed By: #### L 100.0100, L500.4050 #### [facility] [address] [place], [address] Neutrophils/100 WBC (Bld) 65.2 % Normal 47-70 [facility] Comment on above: Performed By: #### L 100.0100, L500.4050 #### [facility] [address] [place], [address] Nucleated RBC (Bld) [#/Vol] 0 10*3/uL Normal 0-5 [facility] Comment on above: Performed By: #### L 100.0100, L500.4050 #### [facility] [address] [place], [address] Platelet mean volume (Bld) [Entitic vol] 9.4 fL Normal 6.2-12.0 [facility] Comment on above: Performed By: #### L 100.0100, L500.4050 #### [facility] [address] [place], [address] Platelets (Bld) [#/Vol] 276 10*3/uL Normal 150-450 [facility] Comment on above: Performed By: #### L 100.0100, L500.4050 #### [facility] [address] [place], [address] RBC (Bld) [#/Vol] 4.29 10*6/uL Normal 4.2-5.4 [facility] Comment on above: Performed By: #### L 100.0100, L500.4050 #### [facility] [address] [place], [address] RDW SD 40.5 fl Normal 35.1-43.9 [facility] Comment on above: Performed By: #### L 100.0100, L500.4050 #### [facility] [address] [place], [address] WBC (Bld) [#/Vol] 5.7 10*3/uL Normal 4.4-11.0 [facility] Comment on above: Performed By: #### L 100.0100, L500.4050 #### [facility] [address] [place], [address] Carbon dioxide measurementOr dered By: Yoshi Hebert on 10-27-2024 CO2 [Moles/Vol] 25.5 mmol/L 22.0-29.0 [facility] Chloride measurementOrdered By: Yoshi Hebert on 10-27-2024 Chloride [Moles/Vol] 102 mmol/L 96-108 [facility] Comprehensive Metabolic Prof ilon 10-27-2024 Albumin [Mass/Vol] 4.0 g/dL Normal 3.4-4.8 [facility] Comment on above: Performed By: #### L 100.0100, L500.2500 #### [facility] [address] [place], [address] Albumin/Globulin [Mass ratio] 1.6 {ratio} Normal 0.9-2.4 [facility] Comment on above: Performed By: #### L 100.0100, L500.2500 #### [facility] [address] [place], [address] ALK PHOS 34 U/L Low 35-104 [facility] Comment on above: Performed By: #### L 100.0100, L500.2500 #### [facility] [address] [place], [address] ALT [Catalytic activity/Vol] 11 U/L Normal <=34 [facility] Comment on above: Performed By: #### L 100.0100, L500.2500 #### [facility] [address] [place], [address] Anion gap [Moles/Vol] 10 mmol/L Normal 5-15 [facility] Comment on above: Performed By: #### L 100.0100, L500.2500 #### [facility] [address] [place], [address] AST [Catalytic activity/Vol] 18 U/L Normal <=31 [facility] Comment on above: Performed By: #### L 100.0100, L500.2500 #### [facility] [address] [place], [address] Bilirubin [Mass/Vol] 0.49 mg/dL Normal 0.00-1.30 [facility] Comment on above: Performed By: #### L 100.0100, L500.2500 #### [facility] [address] [place], [address] BUN/CRE 24.1 RATIO High 10-20 [facility] Comment on above: Performed By: #### L 100.0100, L500.2500 #### [facility] [address] [place], [address] Calcium [Mass/Vol] 9.0 mg/dL Normal 7.6-11.0 [facility] Comment on above: Performed By: #### L 100.0100, L500.2500 #### [facility] [address] [place], [address] Chloride [Moles/Vol] 102 mmol/L Normal 96-108 [facility] Comment on above: Performed By: #### L 100.0100, L500.2500 #### [facility] [address] [place], [address] CO2 [Moles/Vol] 25.5 mmol/L Normal 22.0-29.0 [facility] Comment on above: Performed By: #### L 100.0100, L500.2500 #### [facility] [address] [place], [address] Creatinine [Mass/Vol] 0.78 mg/dL Normal 0.70-1.20 [facility] Comment on above: Performed By: #### L 100.0100, L500.2500 #### [facility] [address] [place], [id number] ECRCL 36.81 ml/min Normal [facility] Comment on above: Performed By: #### L 100.0100, L500.2500 #### [facility] [address] [place], [id number] GFR/1.73 sq M.predicted among non-blacks MDRD (S/P/Bld) [Vol rate/Area] 74 mL/min/{1.73_m2} Normal >60 [facility] Comment on above: Result Comment: mL/m in/1.73m2 CKD-EPI Creatinine Equation (2020) Performed By: #### L 100.0100, L500.2500 #### [facility] [address] [place], [address] Globulin (S) [Mass/Vol] 2.5 g/dL Normal 2.2-4.2 [facility] Comment on above: Performed By: #### L 100.0100, L500.2500 #### [facility] [address] [place], [id number] Glucose [Mass/Vol] 125 mg/dL High 70-99 [facility] Comment on above: Performed By: #### L 100.0100, L500.2500 #### [facility] [address] [place], [address] Potassium [Moles/Vol] 4.0 mmol/L Normal 3.3-5.1 [facility] Comment on above: Performed By: #### L 100.0100, L500.2500 #### [facility] [address] [place], [address] Sodium [Moles/Vol] 138 mmol/L Normal 133-145 [facility] Comment on above: Performed By: #### L 100.0100, L500.2500 #### [facility] [address] [place], [address] T PROT 6.6 g/dL Normal 5.9-8.4 [facility] Comment on above: Performed By: #### L 100.0100, L500.2500 #### [facility] [address] [place], [address] Urea nitrogen [Mass/Vol] 19 mg/dL Normal 4-19 [facility] Comment on above: Performed By: #### L 100.0100, L500.2500 #### [facility] [address] [place], [address] Emergency Department Summary on 10-27-2024 Emergency Department Summary [facility] Medical Records Department [address] [place] [address] Emergency Department Summary 10/27/24 MR#: [id number] Acct: [id number] Name: JUAN CALDERON Rep #: [id number] : 1940 84 From: Yoshi Hebert DO [...] dysuria or diarrhea cough or URI symptoms. [facility] Medical History Alzheimer dementia Home Medications ???Medication [...] Coeff of (more content not included)... Normal [facility] Eosinophil percentageOrdered By: Yoshi Hebert on 10-27-2024 Eosinophils/100 WBC (Bld) 1.2 % 0-5 [facility] Erythrocyte distribution wid th ratioOrdered By: Yoshi Hebert on 10-27-2024 Erythrocyte distribution width (RBC) [Ratio] 12.2 % 11.6-14.6 [facility] Erythrocyte distribution wid th standard deviationOrdered By: Yoshi Hebert on 10-27-2024 Erythrocyte distribution width (RBC) [Ratio] 40.5 fl 35.1-43.9 [facility] Glomerular filtration rate ( GFR) estimation/1.73 sq m using serum, plasma, or whole bOrdered By: Yoshi Hebert on 10-27-2024 GFR/1.73 sq M.predicted among non-blacks MDRD (S/P/Bld) [Vol rate/Area] 74 mL/min/{1.73_m2} >60 [facility] Comment on above: mL/min/1.73m2 CKD-EP I Creatinine Equation (2021) Hematocrit Auto (Bld) [Volum e fraction]Ordered By: Yoshi Hebert on 10-27-2024 Hematocrit (Bld) [Volume fraction] 39.0 % 37-47 [facility] Hemoglobin measurementOrdere d By: Yoshi Hebert on 10-27-2024 Hemoglobin (Bld) [Mass/Vol] 13.1 g/dL 12.0-15.0 [facility] Immature granulocytes/100 WB C Auto (Bld)Ordered By: Yoshi Hebert on 10-27-2024 Immature granulocytes/100 WBC (Bld) 0.700 % 0.0-0.9 [facility] Comment on above: IG% - Immature Granu locytes (promyelocytes, myelocytes and metamyelocytes) > 1% indicates that a LEFT SHIFT is Present. Ketones Test strip Ql (U)Ord ered By: Yoshi Hebert on 10-27-2024 Ketones Ql (U) Negative Negative [facility] - Chemistry and C hemistry - challengeOrdered By: Yoshi Hebert on 10-27-2024 AST [Catalytic activity/Vol] 18 U/L <32 [facility] MCV (mean corpuscular volume ) determinationOrdered By: Yoshi Hebert on 10-27-2024 MCV (RBC) [Entitic vol] 90.9 fL 81-99 [facility] Mean corpuscular hemoglobin (MCH) determinationOrdered By: Yoshi Hebert on 10-27-2024 MCH (RBC) [Entitic mass] 30.5 pg 27.0-32.0 [facility] Mean corpuscular hemoglobin concentration (MCHC) determinationOrdered By: Yoshi Hebert on 10-27-2024 MCHC (RBC) [Mass/Vol] 33.6 g/dL 32-36 [facility] Mean platelet volume determi nationOrdered By: Yoshi Hebert on 10-27-2024 Platelet mean volume (Bld) [Entitic vol] 9.4 fL 6.2-12.0 [facility] Microscopic analysis of urin e for red blood cells (RBC)Ordered By: Yoshi Hebert on 10-27-2024 Microscopic analysis of urine for red blood cells (RBC) 0 SEEN /hpf 0-5 [facility] Monocyte percentageOrdered B y: Yoshi Hebert on 10-27-2024 Monocytes/100 WBC (Bld) 9.6 % 0-10 [facility] Mucus LM Ql (Urine sed)Order ed By: Yoshi Hebert on 10-27-2024 Mucus Ql (Urine sed) 0 SEEN /hpf [facility] Neutrophil percentageOrdered By: Yoshi Hebert on 10-27-2024 Neutrophils/100 WBC (Bld) 65.2 % 47-70 [facility] Nitrite Test strip Ql (U)Ord ered By: Yoshi Hebert on 10-27-2024 Nitrite Ql (U) Negative Negative [facility] Nucleated red blood cell per centageOrdered By: Yoshi Hebert on 10-27-2024 Nucleated RBC/100 WBC (Bld) [Ratio] 0 % 0-5 [facility] Platelet countOrdered By: Ramon Hebert on 10-27-2024 Platelets (Bld) [#/Vol] 276 10*3/uL 150-450 [facility] Protein Test strip Ql (U)Ord ered By: Yoshi Hebert on 10-27-2024 Protein Ql (U) Negative Negative [facility] RBC Auto (Bld) [#/Vol]Ordere d By: Yoshi Hebert on 10-27-2024 RBC (Bld) [#/Vol] 4.29 10*6/uL 4.2-5.4 [facility] Serum creatinine measurement (mass/volume)Ordered By: Yoshi Hebert on 10-27-2024 Creatinine [Mass/Vol] 0.78 mg/dL 0.70-1.20 [facility] Serum globulin measurementOr dered By: Yoshi Hebert on 10-27-2024 Globulin (S) [Mass/Vol] 2.5 g/dL 2.2-4.2 [facility] Serum glucose measurement (m ass/volume)Ordered By: Yoshi Hebert on 10-27-2024 Glucose [Mass/Vol] 125 mg/dL High 70-99 [facility] Serum or plasma alanine husain otransferase (ALT) measurementOrdered By: Yoshi Hebert on 10-27-2024 ALT [Catalytic activity/Vol] 11 U/L <35 [facility] Serum or plasma albumin rosio urement (mass/volume)Ordered By: Yoshi Hebert on 10-27-2024 Albumin [Mass/Vol] 4.0 g/dL 3.4-4.8 [facility] Serum or plasma albumin/glob ulin mass ratioOrdered By: Yoshi Hebert on 10-27-2024 Albumin/Globulin [Mass ratio] 1.6 {ratio} 0.9-2.4 [facility] Serum or plasma alkaline ed sphatase measurementOrdered By: Yoshi Hebert on 10-27-2024 ALP [Catalytic activity/Vol] 34 U/L Low 35-104 [facility] Serum or plasma anion gap de termination (moles/volume)Ordered By: Yoshi Hebert on 10-27-2024 Anion gap [Moles/Vol] 10 mmol/L 5-15 [facility] Serum or plasma calcium rosio urement (mass/volume)Ordered By: Yoshi Hebert on 10-27-2024 Calcium [Mass/Vol] 9.0 mg/dL 7.6-11.0 [facility] Serum or plasma potassium me asurementOrdered By: Yoshi Hebert on 10-27-2024 Potassium [Moles/Vol] 4.0 mmol/L 3.3-5.1 [facility] Serum or plasma sodium measu rement (moles/volume)Ordered By: Yoshi Hebert on 10-27-2024 Sodium [Moles/Vol] 138 mmol/L 133-145 [facility] Serum or plasma urea nitroge n measurement (mass/volume)Ordered By: Yoshi Hebert on 10-27-2024 Urea nitrogen [Mass/Vol] 19 mg/dL 4-19 [facility] Squamous epithelial cells de tection in urine sediment by light microscopyOrdered By: Yoshi Hebert on 10-27-2024 Epithelial cells.squamous LM Ql (Urine sed) 0 SEEN /hpf 5-10 [facility] Total proteinOrdered By: Franklin Hebert on 10-27-2024 Protein [Mass/Vol] 6.6 g/dL 5.9-8.4 [facility] Urinalysis, Completeon 10-27 EPI,RENAL 0-5 SEEN Normal 0-5 [facility] Comment on above: Order Comment: CLEAN CATCH Performed By: #### L 100.0100, L500.2500 #### [facility] [address] [place], [address] RBC 0 SEEN Normal 0-5 [facility] Comment on above: Order Comment: CLEAN CATCH Performed By: #### L 100.0100, L500.2500 #### [facility] [address] [place], [address] WBC 0-5 SEEN Normal 0-5 [facility] Comment on above: Order Comment: CLEAN CATCH Performed By: #### L 100.0100, L500.2500 #### [facility] [address] [place], [address] BACTERIA 0 SEEN Normal None Seen [facility] Comment on above: Order Comment: CLEAN CATCH Performed By: #### L 100.0100, L500.2500 #### [facility] [address] [place], [address] EPI,SQUAMOUS 0 SEEN Normal 5-10 [facility] Comment on above: Order Comment: CLEAN CATCH Performed By: #### L 100.0100, L500.2500 #### [facility] [address] [place], [address] Mucus Ql (Urine sed) 0 SEEN Normal [facility] Comment on above: Order Comment: CLEAN CATCH Performed By: #### L 100.0100, L500.2500 #### [facility] [address] [place], [address] Urine clarityOrdered By: Franklin Hebert on 10-27-2024 Clarity (U) Clear Clear [facility] Urine color determinationOrd ered By: Yoshi Hebert on 10-27-2024 Color (U) Yellow Yellow [facility] Urine glucose detectionOrder ed By: Yoshi Hebert on 10-27-2024 Glucose Ql (U) Normal mg/dl Normal [facility] Urine leukocyte esterase det ection by dipstickOrdered By: Yoshi Hebert on 10-27-2024 Leukocyte esterase Test strip Ql (U) Negative Negative [facility] Urine pHOrdered By: Ysohi lima on 10-27-2024 pH (U) 7.0 [pH] 5.0 - 8.0 [facility] Urine sediment bacteria coun t by microscopy (number/high power field)Ordered By: Yoshi Hebert on 10-27-2024 Bacteria LM.HPF (Urine sed) [#/Area] 0 /[HPF] None Seen [facility] Urine sediment renal epithel ial cell count by microscopy (number/high power field)Ordered By: Yoshi Hebert on 10-27-2024 Epithelial cells.renal LM.HPF (Urine sed) [#/Area] 0 /[HPF] 0-5 [facility] Urine specific gravity measu rementOrdered By: Yoshi Hebert on 10-27-2024 Specific gravity (U) [Rel density] 1.010 1.002-1.030 [facility] Urine urobilinogen measureme ntOrdered By: Yoshi Hebert on 10-27-2024 Urobilinogen Ql (U) Normal mg/dl Normal [facility] White blood cell (WBC) count Ordered By: Yoshi Hebert on 10-27-2024 WBC (Bld) [#/Vol] 5.7 10*3/uL 4.4-11.0 [facility] White blood cell countOrdere d By: Yoshi Hebert on 10-27-2024 White blood cell count 0-5 SEEN /hpf 0-5 [facility] Absolute lymphocyte countOrd ered By: Adrian Hahn on 10-05-2024 Lymphocytes Auto (Unsp spec) [#/Vol] 1.60 10*3/uL 0.83-4.51 [facility] Absolute neutrophil countOrd ered By: Adrian Hahn on 10-05-2024 Neutrophils (Bld) [#/Vol] 4.3 10*3/uL 2.0-7.7 [facility] Albumin to globulin ratioOrd ered By: Adrian Hahn on 02-06-2025 Albumin/Globulin [Mass ratio] 1.0 {ratio} 0.9-2.4 [facility] Automated lymphocyte count a s percentage of total leukocytesOrdered By: Adrian Jovani on 10-05-2024 Lymphocytes/100 WBC Auto (Unsp spec) 24.3 % - [facility] Basophil percentageOrdered B y: Adrian Hahn on 10-05-2024 Basophils/100 WBC (Bld) 1.1 % High 0-1 [facility] Bilirubin, totalOrdered By: Adrian Jovani on 10-05-2024 Bilirubin [Mass/Vol] 0.70 mg/dL 0.20-1.00 [facility] Comment on above: For patients on eltr ombopag therapy, use of Dimension [place] TBIL is not recommended. Blood urea nitrogen (BUN)/cr eatinine ratioOrdered By: Adrian Hahn on 10-05-2024 Urea nitrogen/Creatinine [Mass ratio] 19.2 mg/mg 10-20 [facility] CBC W/Diff, Automatedon Absolute Lymph 1.60 X10 3/uL Normal 0.83-4.51 [facility] Comment on above: Performed By: #### L 500.4050, L506.1000, L501.9520, L100.0100 #### [facility] [address] [place], [address] Absolute Neut 4.3 X10 3/uL Normal 2.0-7.7 [facility] Comment on above: Performed By: #### L 500.4050, L506.1000, L501.9520, L100.0100 #### [facility] [address] [place], [address] Basophils/100 WBC (Bld) 1.1 % High 0-1 [facility] Comment on above: Performed By: #### L 500.4050, L506.1000, L501.9520, L100.0100 #### [facility] [address] [place], [address] Eosinophils/100 WBC (Bld) 0.5 % Normal 0-5 [facility] Comment on above: Performed By: #### L 500.4050, L506.1000, L501.9520, L100.0100 #### [facility] [address] [place], [address] Erythrocyte distribution width (RBC) [Ratio] 12.3 % Normal 11.6-14.6 [facility] Comment on above: Performed By: #### L 500.4050, L506.1000, L501.9520, L100.0100 #### [facility] [address] [place], [address] Hematocrit (Bld) [Volume fraction] 43.2 % Normal 37-47 [facility] Comment on above: Performed By: #### L 500.4050, L506.1000, L501.9520, L100.0100 #### [facility] [address] [place], [address] Hemoglobin (Bld) [Mass/Vol] 14.2 g/dL Normal 12.0-15.0 [facility] Comment on above: Performed By: #### L 500.4050, L506.1000, L501.9520, L100.0100 #### [facility] [address] [place], [address] IG% 0.600 Normal 0.0-0.9 [facility] Comment on above: Result Comment: IG% - Immature Granulocytes (promyelocytes, myelocytes and metamyelocytes) > 1% indicates that a LEFT SHIFT is Present. Performed By: #### L 500.4050, L506.1000, L501.9520, L100.0100 #### [facility] [address] [place], [address] Lymphocytes/100 WBC (Bld) 24.3 % Normal 19-41 [facility] Comment on above: Performed By: #### L 500.4050, L506.1000, L501.9520, L100.0100 #### [facility] [address] [place], [id number] MCH (RBC) [Entitic mass] 30.6 pg Normal 27.0-32.0 [facility] Comment on above: Performed By: #### L 500.4050, L506.1000, L501.9520, L100.0100 #### [facility] [address] [place], [address] MCHC (RBC) [Mass/Vol] 32.9 g/dL Normal 32-36 [facility] Comment on above: Performed By: #### L 500.4050, L506.1000, L501.9520, L100.0100 #### [facility] [address] [place], [id number] MCV (RBC) [Entitic vol] 93.1 fL Normal 81-99 [facility] Comment on above: Performed By: #### L 500.4050, L506.1000, L501.9520, L100.0100 #### [facility] [address] [place], [id number] Monocytes/100 WBC (Bld) 9.0 % Normal 0-10 [facility] Comment on above: Performed By: #### L 500.4050, L506.1000, L501.9520, L100.0100 #### [facility] [address] [place], [id number] Neutrophils/100 WBC (Bld) 64.5 % Normal 47-70 [facility] Comment on above: Performed By: #### L 500.4050, L506.1000, L501.9520, L100.0100 #### [facility] [address] [place], [id number] Nucleated RBC (Bld) [#/Vol] 0 10*3/uL Normal 0-5 [facility] Comment on above: Performed By: #### L 500.4050, L506.1000, L501.9520, L100.0100 #### [facility] [address] [place], [id number] Platelet mean volume (Bld) [Entitic vol] 9.5 fL Normal 6.2-12.0 [facility] Comment on above: Performed By: #### L 500.4050, L506.1000, L501.9520, L100.0100 #### [facility] [address] [place], [address] Platelets (Bld) [#/Vol] 310 10*3/uL Normal 150-450 [facility] Comment on above: Performed By: #### L 500.4050, L506.1000, L501.9520, L100.0100 #### [facility] [address] [place], [address] RBC (Bld) [#/Vol] 4.64 10*6/uL Normal 4.2-5.4 [facility] Comment on above: Performed By: #### L 500.4050, L506.1000, L501.9520, L100.0100 #### [facility] [address] [place], [address] RDW SD 42.1 fl Normal 35.1-43.9 [facility] Comment on above: Performed By: #### L 500.4050, L506.1000, L501.9520, L100.0100 #### [facility] [address] [place], [address] WBC (Bld) [#/Vol] 6.6 10*3/uL Normal 4.4-11.0 [facility] Comment on above: Performed By: #### L 500.4050, L506.1000, L501.9520, L100.0100 #### [facility] [address] [place], [address] Carbon dioxide measurementOr dered By: Adrian Hahn on 10-05-2024 CO2 [Moles/Vol] 28.0 mmol/L 21.0-32.0 [facility] Chloride measurementOrdered By: Adrian Hahn on 10-05-2024 Chloride [Moles/Vol] 105 mmol/L 98-107 [facility] Comprehensive Metabolic Prof ilon 10-05-2024 Albumin [Mass/Vol] 3.9 g/dL Normal 3.2-5.0 [facility] Comment on above: Performed By: #### L 500.4050, L506.1000, L501.9520, L100.0100 #### [facility] [address] [place], [address] Albumin/Globulin [Mass ratio] 1.0 {ratio} Normal 0.9-2.4 [facility] Comment on above: Performed By: #### L 500.4050, L506.1000, L501.9520, L100.0100 #### [facility] [address] [place], [id number] ALK P 36 U/L Low 45-117 [facility] Comment on above: Performed By: #### L 500.4050, L506.1000, L501.9520, L100.0100 #### [facility] [address] [place], [id number] ALT [Catalytic activity/Vol] 16 U/L Normal 13-56 [facility] Comment on above: Performed By: #### L 500.4050, L506.1000, L501.9520, L100.0100 #### [facility] [address] [place], [address] AST [Catalytic activity/Vol] 15 U/L Normal 15-37 [facility] Comment on above: Performed By: #### L 500.4050, L506.1000, L501.9520, L100.0100 #### [facility] [address] [place], [address] Bilirubin [Mass/Vol] 0.70 mg/dL Normal 0.20-1.00 [facility] Comment on above: Result Comment: For patients on eltrombopag therapy, use of Dimension [place] TBIL is not recommended. Performed By: #### L 500.4050, L506.1000, L501.9520, L100.0100 #### [facility] [address] [place], [address] BUN/CRE 19.2 RATIO Normal 10-20 [facility] Comment on above: Performed By: #### L 500.4050, L506.1000, L501.9520, L100.0100 #### [facility] [address] [place], [address] CA,Total 9.7 mg/dL Normal 8.5-10.1 [facility] Comment on above: Performed By: #### L 500.4050, L506.1000, L501.9520, L100.0100 #### [facility] [address] [place], [address] Chloride [Moles/Vol] 105 mmol/L Normal 98-107 [facility] Comment on above: Performed By: #### L 500.4050, L506.1000, L501.9520, L100.0100 #### [facility] [address] [place], [address] CO2 [Moles/Vol] 28.0 mmol/L Normal 21.0-32.0 [facility] Comment on above: Performed By: #### L 500.4050, L506.1000, L501.9520, L100.0100 #### [facility] [address] [place], [address] Creatinine [Mass/Vol] 1.04 mg/dL High 0.55-1.02 [facility] Comment on above: Result Comment: The validity of the calculated GFR GFRAA in patients over 70 years has not been determined. Clinical correlation is essential. Performed By: #### L 500.4050, L506.1000, L501.9520, L100.0100 #### [facility] [address] [place], [address] EST GFR - AA 65 mL/min Normal >60 [facility] Comment on above: Result Comment: Afri can [place] GFR Calc Performed By: #### L 500.4050, L506.1000, L501.9520, L100.0100 #### [facility] [address] [place], [address] GAP 8 Normal 5-15 [facility] Comment on above: Performed By: #### L 500.4050, L506.1000, L501.9520, L100.0100 #### [facility] [address] [place], [address] GFR/1.73 sq M.predicted among non-blacks MDRD (S/P/Bld) [Vol rate/Area] 54 mL/min/{1.73_m2} Low >60 [facility] Comment on above: Result Comment: Non- GFR Calc Performed By: #### L 500.4050, L506.1000, L501.9520, L100.0100 #### [facility] [address] [place], [address] Globulin (S) [Mass/Vol] 4.0 g/dL Normal 2.2-4.2 [facility] Comment on above: Performed By: #### L 500.4050, L506.1000, L501.9520, L100.0100 #### [facility] [address] [place], [address] Glucose [Mass/Vol] 119 mg/dL High 74-106 [facility] Comment on above: Result Comment: Fast ing Glucose result from 100 to 125 mg/dL suggests IMPAIRED HOMEOSTASIS per A.D.A. criteria. Performed By: #### L 500.4050, L506.1000, L501.9520, L100.0100 #### [facility] [address] [place], [id number] Potassium [Moles/Vol] 4.1 mmol/L Normal 3.5-5.1 [facility] Comment on above: Performed By: #### L 500.4050, L506.1000, L501.9520, L100.0100 #### [facility] [address] [place], [address] Sodium [Moles/Vol] 141 mmol/L Normal 136-145 [facility] Comment on above: Performed By: #### L 500.4050, L506.1000, L501.9520, L100.0100 #### [facility] [address] [place], [address] T PROT 7.9 g/dL Normal 6.4-8.2 [facility] Comment on above: Performed By: #### L 500.4050, L506.1000, L501.9520, L100.0100 #### [facility] [address] [place], [address] Urea nitrogen [Mass/Vol] 20 mg/dL High 7-18 [facility] Comment on above: Performed By: #### L 500.4050, L506.1000, L501.9520, L100.0100 #### [facility] [address] [place], [address] Eosinophil percentageOrdered By: Adrian Hahn on 10-05-2024 Eosinophils/100 WBC (Bld) 0.5 % 0-5 [facility] Erythrocyte distribution wid th ratioOrdered By: Adrian Hahn on 10-05-2024 Erythrocyte distribution width (RBC) [Ratio] 12.3 % 11.6-14.6 [facility] Erythrocyte distribution wid th standard deviationOrdered By: Adrian Hahn on 10-05-2024 Erythrocyte distribution width (RBC) [Ratio] 42.1 fl 35.1-43.9 [facility] Glomerular filtration rate ( GFR) estimationOrdered By: Adrian Hahn on 10-05-2024 GFR/1.73 sq M.predicted among non-blacks MDRD (S/P/Bld) [Vol rate/Area] 54 mL/min/{1.73_m2} Low >60 [facility] Comment on above: Non- GFR Calc Glucose measurementOrdered B y: Adrian Hahn on 10-05-2024 Glucose [Mass/Vol] 119 mg/dL High 74-106 [facility] Comment on above: Fasting Glucose resu lt from 100 to 125 mg/dL suggests IMPAIRED HOMEOSTASIS per A.D.A. criteria. Hematocrit Auto (Bld) [Volum e fraction]Ordered By: Adrian Hahn on 10-05-2024 Hematocrit (Bld) [Volume fraction] 43.2 % 37-47 [facility] Hemoglobin measurementOrdere d By: Adrian Hahn on 10-05-2024 Hemoglobin (Bld) [Mass/Vol] 14.2 g/dL 12.0-15.0 [facility] Immature granulocytes/100 WB C Auto (Bld)Ordered By: Adrian Hahn 10-05-2024 Immature granulocytes/100 WBC (Bld) 0.600 % 0.0-0.9 [facility] Comment on above: IG% - Immature Granu locytes (promyelocytes, myelocytes and metamyelocytes) > 1% indicates that a LEFT SHIFT is Present. Laboratory - Chemistry and C hemistry - challengeOrdered By: Adrian Hahn on 10-05-2024 AST [Catalytic activity/Vol] 15 U/L 15-37 [facility] MCV (mean corpuscular volume ) determinationOrdered By: Adrian Hahn 10-05-2024 MCV (RBC) [Entitic vol] 93.1 fL 81-99 [facility] Mean corpuscular hemoglobin (MCH) determinationOrdered By: Adrian Hahn 10-05-2024 MCH (RBC) [Entitic mass] 30.6 pg 27.0-32.0 [facility] Mean corpuscular hemoglobin concentration (MCHC) determinationOrdered By: Adrian Hahn 10-05-2024 MCHC (RBC) [Mass/Vol] 32.9 g/dL 32-36 [facility] Mean platelet volume determi nationOrdered By: Adrian Hahn on 10-05-2024 Platelet mean volume (Bld) [Entitic vol] 9.5 fL 6.2-12.0 [facility] Monocyte percentageOrdered B y: Adrian Hahn on 10-05-2024 Monocytes/100 WBC (Bld) 9.0 % 0-10 [facility] Neutrophil percentageOrdered By: Adrian Hahn on 10-05-2024 Neutrophils/100 WBC (Bld) 64.5 % 47-70 [facility] Nucleated red blood cell per centageOrdered By: Adrian Hahn on 10-05-2024 Nucleated RBC/100 WBC (Bld) [Ratio] 0 % 0-5 [facility] Platelet countOrdered By: Clarence Hahn on 10-05-2024 Platelets (Bld) [#/Vol] 310 10*3/uL 150-450 [facility] Potassium measurementOrdered By: Adrian Hahn on 10-05-2024 Potassium [Moles/Vol] 4.1 mmol/L 3.5-5.1 [facility] RBC Auto (Bld) [#/Vol]Ordere d By: Adrian Hahn on 10-05-2024 RBC (Bld) [#/Vol] 4.64 10*6/uL 4.2-5.4 [facility] Serum anion gap measurementO rdered By: dArian Hahn on 10-05-2024 Anion gap [Moles/Vol] 8 mmol/L 5-15 [facility] Serum globulin measurementOr dered By: Adrian Hahn on 10-05-2024 Globulin (S) [Mass/Vol] 4.0 g/dL 2.2-4.2 [facility] Serum or plasma alanine husain otransferase (ALT) measurementOrdered By: Adrian Hahn 10-05-2024 ALT [Catalytic activity/Vol] 16 U/L 13-56 [facility] Serum or plasma albumin rosio urement (mass/volume)Ordered By: Adrian Hahn on 10-05-2024 Albumin [Mass/Vol] 3.9 g/dL 3.2-5.0 [facility] Serum or plasma alkaline ed sphatase measurementOrdered By: Adrian Hahn on 10-05-2024 ALP [Catalytic activity/Vol] 36 U/L Low 45-117 [facility] Serum or plasma calcium rosio urement (mass/volume)Ordered By: Adrian Hahn on 10-05-2024 Calcium [Mass/Vol] 9.7 mg/dL 8.5-10.1 [facility] Serum or plasma creatinine m easurement (mass/volume)Ordered By: Adrian Hahn on 10-05-2024 Creatinine [Mass/Vol] 1.04 mg/dL High 0.55-1.02 [facility] Comment on above: The validity of the calculated GFR & GFRAA in patients over 70 years has not been determined. Clinical correlation is essential. Serum or plasma thyroid stim ulating hormone (TSH) measurement (units/volume)Ordered By: Adrian Hahn on 10-05-2024 TSH Qn 2.060 uIU/mL 0.358-3.740 [facility] Serum or plasma urea nitroge n measurement (mass/volume)Ordered By: Adrian Hahn on 10-05-2024 Urea nitrogen [Mass/Vol] 20 mg/dL High 7-18 [facility] Sodium levelOrdered By: Adrian Hahn on 10-05-2024 Sodium [Moles/Vol] 141 mmol/L 136-145 [facility] Thyroid Stim Hormone (TSH)on 10-05-2024 TSH 2.060 uIU/mL Normal 0.358-3.740 [facility] Comment on above: Performed By: #### L 500.4050, L506.1000, L501.9520, L100.0100 #### [facility] [address] [place], [address] Total proteinOrdered By: Adrian Hahn on 10-05-2024 Protein [Mass/Vol] 7.9 g/dL 6.4-8.2 [facility] Vitamin D,25 Hydroxyon 10-05 Vitamin D 25-OH 32.1 ng/mL Normal [facility] Comment on above: Result Comment: Claritza min D 25(OH) Status Range Deficiency <20 ng/mL (50nmol/L) Insufficiency 20 - 30 ng/mL (50 - 75 nmol/L) Sufficiency 30 - 100 ng/mL (75 - 250 nmol/L) Toxicity >100 ng/mL (>250 nmol/L) Performed By: #### L 500.4050, L506.1000, L501.9520, L100.0100 #### [facility] [place], [address] White blood cell (WBC) count Ordered By: Adrian Hahn on 10-05-2024 WBC (Bld) [#/Vol] 6.6 10*3/uL 4.4-11.0 [facility] Absolute lymphocyte countOrd ered By: Adrian Hahn on 10-04-2023 Lymphocytes Auto (Unsp spec) [#/Vol] 1.62 10*3/uL 0.83-4.51 [facility] Automated lymphocyte count a s percentage of total leukocytesOrdered By: Adrian Hahn on 10-04-2023 Lymphocytes/100 WBC Auto (Unsp spec) 22.1 % 19-41 [facility] Basophil percentageOrdered B y: Adrian Hahn on 10-04-2023 Basophils/100 WBC (Bld) 0.7 % 0-1 [facility] Bilirubin [Mass/Vol] 0.50 mg/dL 0.20-1.00 [facility] Comment on above: For patients on eltr ombopag therapy, use of Dimension [place] TBIL is not recommended. Chloride [Moles/Vol] 105 mmol/L 98-107 [facility] Eosinophils/100 WBC (Bld) 0.8 % 0-5 [facility] Glucose [Mass/Vol] 122 mg/dL 74-106 [facility] Comment on above: Fasting Glucose resu lt from 100 to 125 mg/dL suggests IMPAIRED HOMEOSTASIS per A.D.A. criteria. Hemoglobin (Bld) [Mass/Vol] 13.4 g/dL 12.0-15.0 [facility] Monocytes/100 WBC (Bld) 9.3 % 0-10 [facility] Neutrophils (Bld) [#/Vol] 4.9 10*3/uL 2.0-7.7 [facility] Neutrophils/100 WBC (Bld) 66.3 % 47-70 [facility] Potassium [Moles/Vol] 4.2 mmol/L 3.5-5.1 [facility] Protein [Mass/Vol] 8.1 g/dL 6.4-8.2 [facility] Sodium [Moles/Vol] 140 mmol/L 136-145 [facility] WBC (Bld) [#/Vol] 7.3 10*3/uL 4.4-11.0 [facility] Determination of erythrocyte mean corpuscular volume (MCV)Ordered By: Adrian Hahn on 10-04-2023 MCV (RBC) [Entitic vol] 91.1 fL 81-99 [facility] Erythrocyte distribution wid th ratioOrdered By: [facility] 10-04-2023 Erythrocyte distribution width (RBC) [Ratio] 11.9 % 11.6-14.6 [facility] Erythrocyte distribution wid th standard deviationOrdered By: [facility] on 10-04-2023 Erythrocyte distribution width (RBC) [Entitic vol] 39.6 fL 35.1-43.9 [facility] Hematocrit Auto (Bld) [Volum e fraction]Ordered By: [facility] Jovani on 10-04-2023 Hematocrit (Bld) [Volume fraction] 40.1 % 37-47 [facility] Immature granulocytes/100 WB C Auto (Bld)Ordered By: [facility] Jovani 10-04-2023 Immature granulocytes/100 WBC (Bld) 0.800 % 0.0-0.9 [facility] Comment on above: IG% - Immature Granu locytes (promyelocytes, myelocytes and metamyelocytes) > 1% indicates that a LEFT SHIFT is Present. Laboratory - Chemistry and C hemistry - challengeOrdered By: Adrian Hahn on 10-04-2023 Albumin/Globulin [Mass ratio] 0.9 {ratio} 0.9-2.4 [facility] ALP [Catalytic activity/Vol] 40 U/L 45-117 [facility] ALT [Catalytic activity/Vol] 22 U/L 13-56 [facility] CO2 [Moles/Vol] 27.0 mmol/L 21.0-32.0 [facility] Globulin (S) [Mass/Vol] 4.2 g/dL 2.2-4.2 [facility] Urea nitrogen/Creatinine [Mass ratio] 24.9 mg/mg 10-20 [facility] - Hematology and Cell countsOrdered By: Adrian Hahn on 10-04-2023 MCH (RBC) [Entitic mass] 30.5 pg 27.0-32.0 [facility] MCHC (RBC) [Mass/Vol] 33.4 g/dL 32-36 [facility] Nucleated RBC/100 WBC (Bld) [Ratio] 0 % 0-5 [facility] Platelets (Bld) [#/Vol] 292 10*3/uL 150-450 [facility] No Panel InformationOrdered By: Adrian Hahn on 10-04-2023 Estimated GFR (MDRD) Amer 83 mL/min >60 [facility] Comment on above: GFR Calc Estimated GFR (MDRD) Non-Af Amer 68 mL/min >60 [facility] Comment on above: Non- GFR Calc Vitamin D 25-Hydroxy 29.7 ng/mL [facility] Comment on above: Vitamin D 25(OH) Sta tus Range Deficiency <20 ng/mL (50nmol/L) Insufficiency 20 - 30 ng/mL (50 - 75 nmol/L) Sufficiency 30 - 100 ng/mL (75 - 250 nmol/L) Toxicity >100 ng/mL (>250 nmol/L) Platelet mean volume Delio-Ec ker (Bld) [Entitic vol]Ordered By: Adrian Hahn on 10-04-2023 Platelet mean volume (Bld) [Entitic vol] 9.8 fL 6.2-12.0 [facility] RBC Auto (Bld) [#/Vol]Ordere d By: Adrian Hahn on 10-04-2023 RBC (Bld) [#/Vol] 4.40 10*6/uL 4.2-5.4 [facility] Serum or plasma calcium rosio urement (mass/volume)Ordered By: Adrian Hahn on 10-04-2023 Calcium [Mass/Vol] 9.4 mg/dL 8.5-10.1 [facility] Serum or plasma creatinine m easurement (mass/volume)Ordered By: Adrian Hahn on 10-04-2023 Creatinine [Mass/Vol] 0.84 mg/dL 0.55-1.02 [facility] Comment on above: The validity of the calculated GFR & GFRAA in patients over 70 years has not been determined. Clinical correlation is essential. Serum or plasma thyroid stim ulating hormone (TSH) measurement (units/volume)Ordered By: Adrian Hahn on 10-04-2023 TSH Qn 2.92 uIU/mL 0.358-3.74 [facility] Serum or plasma urea nitroge n measurement (mass/volume)Ordered By: Adrian Hahn on 10-04-2023 Urea nitrogen [Mass/Vol] 21 mg/dL 7-18 [facility] Thin prep Papanicolaou smear with manual screeningOrdered By: Adrian Hahn on 10-04-2023 Thin prep Papanicolaou smear with manual screening 3.9 g/dL 3.2-5.0 [facility] Thin prep Papanicolaou smear with manual screening 11 U/L 15-37 [facility] Thin prep Papanicolaou smear with manual screening 8 5-15 [facility] No Panel InformationOrdered By: Adrian Hahn on 08-04-2023 Miscellaneous Test See comment [facility] Comment on above: TEST RESULTS LIMITSA JOHNNY Alzheimer's RiskMethodology: Patient DNA is assayed for the APOE genotype by PCRamplification of a specific region in exon 4 of the APOEgene followed by digestion with restriction enzyme [employer] Iand separation of fragments by polyacrylamide gelelectrophoresis. [...] can be familial (15-20%) or sporadic. The [id number] increases the risk for late onset AD and maycontribute to the pathology of the disease. This risk isincreased by approximately 2 to 3-fold for individuals withone copy of the APOE4 variant and by approximately [id number] for individuals with two copies of this [...] with late onset AD, the presence of [id number] lead to earlier development of symptoms.However, APOE4 [...] was developed and its performance characteristicsdetermined by [facility]. It has not been cleared or approvedby the Food and Drug Administration. The FDA has determinedthat such clearance or approval is not necessary.REFERENCESAlladonna A et al. Sex modifies the APOE-related risk ofdeveloping Alzheimer disease. Annal Uxebyk8884;75(4):563-573Bird TD. Alzheimer Disease Overview. registracija vozila(internet). Adrian RA et al., editors. [facility], [place], [place]. Last revised 2014.Silvino LEIJA et al. Genetic counseling and testing forAlzheimer disease: Joint practice guidelines of theQue[facility] Centeran College of Medical Genetics and the [facility] [employer]. Leatha in Atj6570;13(0)242-604.Ben MCCRAY. Apolipoprotein E: Implications for ADneurobiology, epidemiology and risk assessment.Neurobiology of Aging 2011;32:778-790 TESTING PERFORMED AT THE [facility]. ORIGINAL REPORT ON FILE IN LAB CONTAINS ADDITIONAL TEST SITE INFORMATION. Absolute lymphocyte countOrd ered By: Adrian Hahn on 07-01-2023 Lymphocytes Auto (Unsp spec) [#/Vol] 1.59 10*3/uL 0.83-4.51 [facility] Basophil percentageOrdered B y: Adrian Hahn on 07-01-2023 Basophils/100 WBC (Bld) 0.6 % 0-1 [facility] Bilirubin [Mass/Vol] 0.40 mg/dL 0.20-1.00 [facility] Comment on above: For patients on eltr ombopag therapy, use of [place] TBIL is not recommended. Chloride [Moles/Vol] 105 mmol/L 98-107 [facility] Eosinophils/100 WBC (Bld) 0.9 % 0-5 [facility] Glucose [Mass/Vol] 100 mg/dL 74-106 [facility] Comment on above: Fasting Glucose resu lt from 100 to 125 mg/dL suggests IMPAIRED HOMEOSTASIS per A.D.A. criteria. Neutrophils (Bld) [#/Vol] 4.2 10*3/uL 2.0-7.7 [facility] Neutrophils/100 WBC (Bld) 64.3 % 47-70 [facility] Potassium [Moles/Vol] 4.1 mmol/L 3.5-5.1 [facility] Protein [Mass/Vol] 7.2 g/dL 6.4-8.2 [facility] Sodium [Moles/Vol] 140 mmol/L 136-145 [facility] WBC (Bld) [#/Vol] 6.5 10*3/uL 4.4-11.0 [facility] Blood erythrocytes count (nu mber/volume)Ordered By: Adrian Hahn on 07-01-2023 RBC (Bld) [#/Vol] 4.31 10*6/uL 4.2-5.4 [facility] Blood hemoglobin measurement (mass/volume)Ordered By: Adrian Hahn on 07-01-2023 Hemoglobin (Bld) [Mass/Vol] 13.4 g/dL 12.0-15.0 [facility] Blood lymphocytes/100 leukoc ytesOrdered By: Adrian Hahn on 07-01-2023 Lymphocytes/100 WBC (Bld) 24.5 % 19-41 [facility] Blood monocytes/100 leukocyt esOrdered By: Adrian Hahn on 07-01-2023 Monocytes/100 WBC (Bld) 9.1 % 0-10 [facility] Blood platelet mean volumeOr dered By: Adrian Hahn on 07-01-2023 Platelet mean volume (Bld) [Entitic vol] 9.8 fL 6.2-12.0 [facility] Determination of erythrocyte mean corpuscular volume (MCV)Ordered By: Adrian Hahn on 07-01-2023 MCV (RBC) [Entitic vol] 92.3 fL 81-99 [facility] Hematocrit Auto (Bld) [Volum e fraction]Ordered By: [facility] Jovani on 07-01-2023 Hematocrit (Bld) [Volume fraction] 39.8 % 37-47 [facility] - Chemistry and C hemistry - challengeOrdered By: [facility] Jovani on 07-01-2023 ALP [Catalytic activity/Vol] 28 U/L 45-117 [facility] ALT [Catalytic activity/Vol] 22 U/L 13-56 [facility] CO2 [Moles/Vol] 31.0 mmol/L 21.0-32.0 [facility] Globulin (S) [Mass/Vol] 3.4 g/dL 2.2-4.2 [facility] Urea nitrogen/Creatinine [Mass ratio] 22.2 mg/mg 10-20 [facility] - Hematology and Cell countsOrdered By: [facility] 07-01-2023 Erythrocyte distribution width (RBC) [Entitic vol] 41.9 fL 35.1-43.9 [facility] Erythrocyte distribution width (RBC) [Ratio] 12.3 % 11.6-14.6 [facility] Immature granulocytes/100 WBC (Bld) 0.600 % 0.0-0.9 [facility] Comment on above: IG% - Immature Granu locytes (promyelocytes, myelocytes and metamyelocytes) > 1% indicates that a LEFT SHIFT is Present. MCH (RBC) [Entitic mass] 31.1 pg 27.0-32.0 [facility] Nucleated RBC/100 WBC (Bld) [Ratio] 0 % 0-5 [facility] MCHC Auto (RBC) [Mass/Vol]Or dered By: [facility] Jovani on 07-01-2023 MCHC (RBC) [Mass/Vol] 33.7 g/dL 32-36 [facility] No Panel InformationOrdered By: Adrian Hahn on 07-01-2023 Estimated GFR (MDRD) Amer 86 mL/min >60 [facility] Comment on above: GFR Calc Estimated GFR (MDRD) Non-Af Amer 71 mL/min >60 [facility] Comment on above: Non- GFR Calc Thyroid Stimulating Hormone (TSH) 2.03 uIU/mL 0.358-3.74 [facility] Vitamin D 25-Hydroxy 15.7 ng/mL [facility] Comment on above: Vitamin D 25(OH) Sta tus Range Deficiency <20 ng/mL (50nmol/L) Insufficiency 20 - 30 ng/mL (50 - 75 nmol/L) Sufficiency 30 - 100 ng/mL (75 - 250 nmol/L) Toxicity >100 ng/mL (>250 nmol/L) Platelets bldOrdered By: Adrian Hahn on 07-01-2023 Platelets (Bld) [#/Vol] 286 10*3/uL 150-450 [facility] Serum or plasma albumin rosio urement (mass/volume)Ordered By: Adrian Hahn on 07-01-2023 Albumin [Mass/Vol] 3.8 g/dL 3.2-5.0 [facility] Serum or plasma albumin/glob ulin mass ratioOrdered By: Adrian Hahn on 07-01-2023 Albumin/Globulin [Mass ratio] 1.1 {ratio} 0.9-2.4 [facility] Serum or plasma calcium rosio urement (mass/volume)Ordered By: Adrian Hahn on 07-01-2023 Calcium [Mass/Vol] 8.8 mg/dL 8.5-10.1 [facility] Serum or plasma creatinine m easurement (mass/volume)Ordered By: Adrian Hahn on 07-01-2023 Creatinine [Mass/Vol] 0.81 mg/dL 0.55-1.02 [facility] Comment on above: The validity of the calculated GFR & GFRAA in patients over 70 years has not been determined. Clinical correlation is essential. Serum or plasma urea nitroge n measurement (mass/volume)Ordered By: Adrian Hahn on 07-01-2023 Urea nitrogen [Mass/Vol] 18 mg/dL 7-18 [facility] Thin prep Papanicolaou smear with manual screeningOrdered By: Adrian Hahn on 07-01-2023 Thin prep Papanicolaou smear with manual screening 18 U/L 15-37 [facility] Thin prep Papanicolaou smear with manual screening 4 5-15 [facility] Absolute lymphocyte countOrd ered By: Adrian Hahn on 03-25-2023 Lymphocytes Auto (Unsp spec) [#/Vol] 1.65 10*3/uL 0.83-4.51 [facility] Basophil percentageOrdered B y: Adrian Hahn on 03-25-2023 Basophils/100 WBC (Bld) 0.8 % 0-1 [facility] Bilirubin [Mass/Vol] 0.60 mg/dL 0.20-1.00 [facility] Comment on above: For patients on eltr ombopag therapy, use of [place] TBIL is not recommended. Chloride [Moles/Vol] 105 mmol/L 98-107 [facility] Eosinophils/100 WBC (Bld) 1.1 % 0-5 [facility] Glucose [Mass/Vol] 115 mg/dL 74-106 [facility] Comment on above: Fasting Glucose resu lt from 100 to 125 mg/dL suggests IMPAIRED HOMEOSTASIS per A.D.A. criteria. Neutrophils (Bld) [#/Vol] 3.7 10*3/uL 2.0-7.7 [facility] Neutrophils/100 WBC (Bld) 59.9 % 47-70 [facility] Potassium [Moles/Vol] 4.3 mmol/L 3.5-5.1 [facility] Protein [Mass/Vol] 7.4 g/dL 6.4-8.2 [facility] Sodium [Moles/Vol] 139 mmol/L 136-145 [facility] WBC (Bld) [#/Vol] 6.2 10*3/uL 4.4-11.0 [facility] Blood erythrocytes count (nu mber/volume)Ordered By: Adrian Hahn on 03-25-2023 RBC (Bld) [#/Vol] 4.46 10*6/uL 4.2-5.4 [facility] Blood hemoglobin measurement (mass/volume)Ordered By: Adrian Hahn on 03-25-2023 Hemoglobin (Bld) [Mass/Vol] 13.6 g/dL 12.0-15.0 [facility] Blood lymphocytes/100 leukoc ytesOrdered By: Adrian Hahn on 03-25-2023 Lymphocytes/100 WBC (Bld) 26.7 % 19-41 [facility] Blood monocytes/100 leukocyt esOrdered By: Adrian Hahn on 03-25-2023 Monocytes/100 WBC (Bld) 11.0 % 0-10 [facility] Blood platelet mean volumeOr dered By: Adrian Hahn on 03-25-2023 Platelet mean volume (Bld) [Entitic vol] 10.4 fL 6.2-12.0 [facility] Determination of erythrocyte mean corpuscular volume (MCV)Ordered By: Adrian Hahn on 03-25-2023 MCV (RBC) [Entitic vol] 93.7 fL 81-99 [facility] Hematocrit Auto (Bld) [Volum e fraction]Ordered By: Adrian Hahn on 03-25-2023 Hematocrit (Bld) [Volume fraction] 41.8 % 37-47 [facility] - Chemistry and C hemistry - challengeOrdered By: Adrian Hahn 03-25-2023 ALP [Catalytic activity/Vol] 31 U/L 45-117 [facility] ALT [Catalytic activity/Vol] 21 U/L 13-56 [facility] CO2 [Moles/Vol] 30.0 mmol/L 21.0-32.0 [facility] Globulin (S) [Mass/Vol] 3.6 g/dL 2.2-4.2 [facility] Urea nitrogen/Creatinine [Mass ratio] 25.1 mg/mg 10-20 [facility] - Hematology and Cell countsOrdered By: Adrian Hahn 03-25-2023 Erythrocyte distribution width (RBC) [Entitic vol] 41.9 fL 35.1-43.9 [facility] Erythrocyte distribution width (RBC) [Ratio] 12.1 % 11.6-14.6 [facility] Immature granulocytes/100 WBC (Bld) 0.500 % 0.0-0.9 [facility] Comment on above: IG% - Immature Granu locytes (promyelocytes, myelocytes and metamyelocytes) > 1% indicates that a LEFT SHIFT is Present. MCH (RBC) [Entitic mass] 30.5 pg 27.0-32.0 [facility] Nucleated RBC/100 WBC (Bld) [Ratio] 0 % 0-5 [facility] MCHC Auto (RBC) [Mass/Vol]Or dered By: Adrian Hahn on 03-25-2023 MCHC (RBC) [Mass/Vol] 32.5 g/dL 32-36 [facility] No Panel InformationOrdered By: Adrian Hahn on 03-25-2023 Estimated GFR (MDRD) Amer 75 mL/min >60 [facility] Comment on above: GFR Calc Estimated GFR (MDRD) Non-Af Amer 62 mL/min >60 [facility] Comment on above: Non- GFR Calc Thyroid Stimulating Hormone (TSH) 2.26 uIU/mL 0.358-3.74 [facility] Vitamin D 25-Hydroxy 18.1 ng/mL [facility] Comment on above: Vitamin D 25(OH) Sta tus Range Deficiency <20 ng/mL (50nmol/L) Insufficiency 20 - 30 ng/mL (50 - 75 nmol/L) Sufficiency 30 - 100 ng/mL (75 - 250 nmol/L) Toxicity >100 ng/mL (>250 nmol/L) Platelets bldOrdered By: Adrian Hahn on 03-25-2023 Platelets (Bld) [#/Vol] 295 10*3/uL 150-450 [facility] Serum or plasma albumin rosio urement (mass/volume)Ordered By: Adrian Hahn 03-25-2023 Albumin [Mass/Vol] 3.8 g/dL 3.2-5.0 [facility] Serum or plasma albumin/glob ulin mass ratioOrdered By: Adrian Hahn 03-25-2023 Albumin/Globulin [Mass ratio] 1.1 {ratio} 0.9-2.4 [facility] Serum or plasma calcium rosio urement (mass/volume)Ordered By: Adrian Hahn 03-25-2023 Calcium [Mass/Vol] 8.8 mg/dL 8.5-10.1 [facility] Serum or plasma creatinine m easurement (mass/volume)Ordered By: Adrian Hahn 03-25-2023 Creatinine [Mass/Vol] 0.92 mg/dL 0.55-1.02 [facility] Comment on above: The validity of the calculated GFR & GFRAA in patients over 70 years has not been determined. Clinical correlation is essential. Serum or plasma urea nitroge n measurement (mass/volume)Ordered By: Adrian Hahn on 03-25-2023 Urea nitrogen [Mass/Vol] 23 mg/dL 7-18 [facility] Thin prep Papanicolaou smear with manual screeningOrdered By: Adrina Hahn on 03-25-2023 Thin prep Papanicolaou smear with manual screening 17 U/L 15-37 [facility] Thin prep Papanicolaou smear with manual screening 4 5-15 [facility] Absolute lymphocyte countOrd ered By: Adrian Hahn on 09-29-2022 Lymphocytes Auto (Unsp spec) [#/Vol] 1.94 10*3/uL 0.83-4.51 [facility] Basophil percentageOrdered B y: Adrian Hahn on 09-29-2022 Basophils/100 WBC (Bld) 0.7 % 0-1 [facility] Bilirubin [Mass/Vol] 0.40 mg/dL 0.20-1.00 [facility] Comment on above: For patients on eltr ombopag therapy, use of [place] TBIL is not recommended. Chloride [Moles/Vol] 103 mmol/L 98-107 [facility] Eosinophils/100 WBC (Bld) 1.1 % 0-5 [facility] Glucose [Mass/Vol] 101 mg/dL 74-106 [facility] Comment on above: Fasting Glucose resu lt from 100 to 125 mg/dL suggests IMPAIRED HOMEOSTASIS per A.D.A. criteria. Neutrophils (Bld) [#/Vol] 4.4 10*3/uL 2.0-7.7 [facility] Neutrophils/100 WBC (Bld) 60.8 % 47-70 [facility] Potassium [Moles/Vol] 3.8 mmol/L 3.5-5.1 [facility] Protein [Mass/Vol] 8.0 g/dL 6.4-8.2 [facility] Sodium [Moles/Vol] 140 mmol/L 136-145 [facility] WBC (Bld) [#/Vol] 7.2 10*3/uL 4.4-11.0 [facility] Blood erythrocytes count (nu mber/volume)Ordered By: Adrian Hahn on 09-29-2022 RBC (Bld) [#/Vol] 4.61 10*6/uL 4.2-5.4 [facility] Blood hemoglobin measurement (mass/volume)Ordered By: [facility] on 09-29-2022 Hemoglobin (Bld) [Mass/Vol] 13.6 g/dL 12.0-15.0 [facility] Blood lymphocytes/100 leukoc ytesOrdered By: [facility] 09-29-[facility] Lymphocytes/100 WBC (Bld) 26.8 % 19-41 [facility] Blood monocytes/100 leukocyt esOrdered By: [facility] on 09-29-2022 Monocytes/100 WBC (Bld) 10.0 % 0-10 [facility] Blood platelet mean volumeOr dered By: [facility] on 09-29-2022 Platelet mean volume (Bld) [Entitic vol] 10.1 fL 6.2-12.0 [facility] Determination of erythrocyte mean corpuscular volume (MCV)Ordered By: [facility] on 09-29-2022 MCV (RBC) [Entitic vol] 90.5 fL 81-99 [facility] Hematocrit Auto (Bld) [Volum e fraction]Or[facility] By: [facility] on 09-29-2022 Hematocrit (Bld) [Volume fraction] 41.7 % 37-47 [facility] - Chemistry and C hemistry - challengeOrdered By: [facility] 09-29-2022 ALP [Catalytic activity/Vol] 32 U/L 45-117 [facility] ALT [Catalytic activity/Vol] 23 U/L 13-56 [facility] CO2 [Moles/Vol] 29.0 mmol/L 21.0-32.0 [facility] Cobalamin (Vitamin B12) [Mass/Vol] 391 pg/mL 211-911 [facility] Globulin (S) [Mass/Vol] 4.0 g/dL 2.2-4.2 [facility] Urea nitrogen/Creatinine [Mass ratio] 26.7 mg/mg 10-20 [facility] - Hematology and Cell countsOrdered By: [facility] 09-29-2022 Erythrocyte distribution width (RBC) [Entitic vol] 39.9 fL 35.1-43.9 [facility] Erythrocyte distribution width (RBC) [Ratio] 12.2 % 11.6-14.6 [facility] Immature granulocytes/100 WBC (Bld) 0.600 % 0.0-0.9 [facility] Comment on above: IG% - Immature Granu locytes (promyelocytes, myelocytes and metamyelocytes) > 1% indicates that a LEFT SHIFT is Present. MCH (RBC) [Entitic mass] 29.5 pg 27.0-32.0 [facility] Nucleated RBC/100 WBC (Bld) [Ratio] 0 % 0-5 [facility] MCHC Auto (RBC) [Mass/Vol]Or dered By: Adrian Hahn on 09-29-2022 MCHC (RBC) [Mass/Vol] 32.6 g/dL 32-36 [facility] No Panel InformationOrdered By: Adrian Hahn on 09-29-2022 Estimated GFR (MDRD) Amer 90 mL/min >60 [facility] Comment on above: GFR Calc Estimated GFR (MDRD) Non-Af Amer 74 mL/min >60 [facility] Comment on above: Non- GFR Calc Hepatitis C Antibody Non-Reactive Nonreactive [facility] Comment on above: Non Reactive: < 0.8 Equivocal: >/= 0.8 to < 1.0 Reactive: >/= 1.0The CDC recommends that a reactive/equivocal HCV antibody result be followed up by the HCV Nucleic Acid Amplificationtest ([id number]) Thyroid Stimulating Hormone (TSH) 2.53 uIU/mL 0.358-3.74 [facility] Vitamin D 25-Hydroxy 12.3 ng/mL [facility] Comment on above: Vitamin D 25(OH) Sta tus Range Deficiency <20 ng/mL (50nmol/L) Insufficiency 20 - 30 ng/mL (50 - 75 nmol/L) Sufficiency 30 - 100 ng/mL (75 - 250 nmol/L) Toxicity >100 ng/mL (>250 nmol/L) Platelets bldOrdered By: Adrian Hahn on 09-29-2022 Platelets (Bld) [#/Vol] 313 10*3/uL 150-450 [facility] Serum Treponema species anti body detectionOrdered By: Adrian Hahn on 09-29-2022 Treponema sp Ab Ql (S) Non-Reactive [facility] Serum or plasma albumin rosio urement (mass/volume)Ordered By: Adrian Hahn on 09-29-2022 Albumin [Mass/Vol] 4.0 g/dL 3.2-5.0 [facility] Serum or plasma albumin/glob ulin mass ratioOrdered By: Adrian Hahn on 09-29-2022 Albumin/Globulin [Mass ratio] 1.0 {ratio} 0.9-2.4 [facility] Serum or plasma calcium rosio urement (mass/volume)Ordered By: Adrian Hahn on 09-29-2022 Calcium [Mass/Vol] 9.2 mg/dL 8.5-10.1 [facility] Serum or plasma creatinine m easurement (mass/volume)Ordered By: Adrian Hahn on 09-29-2022 Creatinine [Mass/Vol] 0.79 mg/dL 0.55-1.02 [facility] Comment on above: The validity of the calculated GFR & GFRAA in patients over 70 years has not been determined. Clinical correlation is essential. Serum or plasma folate measu rement (mass/volume)Ordered By: Adrian Hahn on 09-29-2022 Folate [Mass/Vol] 14.80 ng/mL 3.1-55.4 [facility] Serum or plasma urea nitroge n measurement (mass/volume)Ordered By: Adrian Hahn 09-29-2022 Urea nitrogen [Mass/Vol] 21 mg/dL 7-18 [facility] Thin prep Papanicolaou smear with manual screeningOrdered By: Adrian Hahn 09-29-2022 Thin prep Papanicolaou smear with manual screening 21 U/L 15-37 [facility] Thin prep Papanicolaou smear with manual screening 8 5-15 [facility] Vital Signs Date Time Vital Sign Value Performing Clinician Faci lity 05-02-2025 15:45-0400 Body temperature 98.9 [degF] Dr. Adrian Hahn MD Work Phone: [facility] 05-02-2025 15:45-0400 Diastolic blood pressure 70 mm[Hg] Dr. Adrian Hahn MD Work Phone: [facility] 05-02-2025 15:45-0400 Heart rate 71 /min Dr. Adrian Hahn MD Work Phone: [facility] 05-02-2025 15:45-0400 Respiratory rate 16 /min Dr. Adrian Hahn MD Work Phone: 6([phone] [place] [address] 05-02-2025 15:45-0400 SaO2% (BldA) [Mass fraction] 100 % Dr. Adrian Hahn MD Work Phone: 0(188)[phone] [place] [address] 05-02-2025 15:45-0400 Systolic blood pressure 117 mm[Hg] Dr. Adrian Hahn MD Work Phone: 7(888)274-069375 [place] [address] 05-02-2025 11:25-0400 Body mass index (BMI) [Ratio] 22.1 kg/m2 Dr. Adrian Hahn MD Work Phone: 6(423)948-758175 [place] [address] 05-02-2025 11:25-0400 Body weight 51.[address] Adrian Hahn MD Work Phone: 2(019)759-199875 [place] [address] 05-02-2025 11:16-0400 Body height 152.[address] Adrian Hahn MD Work Phone: 3([phone])698-986939 [place] [address] 10-27-2024 10:39-0500 Body temperature 97.9 [degF] Dr. Adrian Hahn MD Work Phone: 6([phone])[phone] [place] [address] 10-27-2024 10:39-0500 Diastolic blood pressure 70 mm[Hg] Dr. Adrian Hahn MD Work Phone: 0(409)[phone] [place] [address] 10-27-2024 10:39-0500 Heart rate 70 /min Dr. Adrian Hahn MD Work Phone: 3(012)[phone] [place] [address] 10-27-2024 10:39-0500 Respiratory rate 16 /min Dr. Adrian Hahn MD Work Phone: 6([phone])[phone] [place] [address] 10-27-2024 10:39-0500 SaO2% (BldA) [Mass fraction] 99 % Dr. Adrian Hahn MD Work Phone: 5(544)593-857439 [place] [address] 10-27-2024 10:39-0500 Systolic blood pressure 128 mm[Hg] Dr. Adrian Hahn MD Work Phone: 8([phone])344-556839 [place] [address] 10-27-2024 08:07-0500 Body height 152.[address] Adrian Hahn MD Work Phone: [facility] 10-27-2024 08:07-0500 Body mass index (BMI) [Ratio] 19.5 kg/m2 Dr. Adrian Hahn MD Work Phone: [facility] 10-27-2024 08:07-0500 Body weight 45.[address] Adrian Hahn MD Work Phone: [facility] Encounters Encounter Date Encounter Type Care Provider Facility Start: 06-13-2025 ambulatory Adrian Thom Jovani Facility:[facility] Start: 05-02-2025 End: 05-02-2025 Emergency department patient visit Dr. Adrian Hahn MD Work Phone: -Emergency Department Work Phone: Start: 04-04-2025 End: 04-04-[address] Adrian Hahn MD Work Phone: -Laboratory Phy Office 3rd Flr Start: 04-04-2025 End: 04-04-[address] Adrian Hahn MD -Laboratory Phy Office 3rd Flr Start: 04-04-2025 End: 04-04-2025 ambulatory Adrian Hahn Facility:[facility] Start: 02-26-2025 End: 02-26-[address] Adrian Hahn MD Work Phone: -[facility] [place] Start: 02-26-2025 End: 02-26-2025 Departed Referred Adrian Hahn MD -[facility] Work Phone: Start: 02-26-2025 Registered Referred Adrian Hahn MD -[facility] [place] Work Phone: Start: 02-26-2025 End: 02-26-2025 ambulatory Adrian Hahn Facility:[facility] Start: 01-26-2025 End: 01-26-[address] Adrian Hahn MD Work Phone: [facility] Work Phone: Start: 01-26-2025 End: 01-26-[address] Adrian Hahn MD -Laboratory Work Phone: Start: 01-26-2025 End: 01-26-2025 ambulatory [facility] Facility:[facility] Start: 10-27-2024 End: 10-27-2024 Emergency department patient visit Dr. Yoshi Hebert DO -Emergency Department Work Phone: Start: 10-05-2024 End: 10-05-[address] Adrian Hahn MD -Laboratory Phy Office 3rd Flr Start: 10-05-2024 End: 10-05-2024 ambulatory [facility] Facility:[facility] Start: 10-04-2023 End: 10-04-2023 ambulatory [facility] Work Phone: Start: 10-04-2023 End: 10-04-2023 Patient encounter procedure [facility]-Laboratory, Phy Office 3rd Flr Start: 08-04-2023 End: 08-04-2023 ambulatory [facility] Work Phone: Start: 08-04-2023 End: 08-04-2023 Patient encounter procedure [facility]-Laboratory, Phy Office 3rd Flr Start: 08-02-2023 End: 08-02-2023 ambulatory [facility] Work Phone: Start: 08-02-2023 End: 08-02-2023 Patient encounter procedure [facility] Work Phone: Start: 07-01-2023 End: 07-01-2023 ambulatory [facility] Work Phone: Start: 07-01-2023 End: 07-01-2023 Patient encounter procedure [facility]-Laboratory, Phy Office 3rd Flr Start: 03-25-2023 End: 03-25-2023 ambulatory [facility] Work Phone: Start: 03-25-2023 End: 03-25-2023 Patient encounter procedure [facility]-Laboratory, Phy Office 3rd Flr Start: 10-05-2022 Patient encounter procedure [facility]-Cat Scan, [facility] Start: 09-29-2022 End: 09-29-2022 ambulatory [facility] Work Phone: Start: 09-29-2022 End: 09-29-2022 Patient encounter procedure [facility]-Laboratory, Phy Office 3rd Flr Procedures Date Procedure Procedure Detail Performing Clinician Start: 05-02-2025 Urnls dip stick/tabl et reagent auto microscopy Dr. Adrian Hahn MD Work Phone: Start: 05-02-2025 X-ray of chest, PA a nd lateral views Dr. Adrian Hahn MD Work Phone: Start: 05-02-2025 CT cervical spine wi thout contrast Dr. Adrian Hahn MD Work Phone: Start: 05-02-2025 CT of head without contrast Dr. Adrian Hahn MD Work Phone: Start: 05-02-[address] Adrian Hahn MD Work Phone: Start: 04-04-2025 Vitamin D, 25-hydrox y measurement Dr. Adrian Hahn MD Work Phone: Comment on above: Vitamin D StatusDefi ciency: <20 ng/mL (50nmol/L)Insufficiency: 20-30 ng/mL (50-75 nmol/L)Sufficiency: 30-100 ng/mL (75-250 nmol/L)Toxicity: >100 ng/mL (>250 nmol/L) Start: 02-26-[address] Adrian zabala MD Work Phone: Start: 02-26-2025 Urnls dip stick/tabl et reagent auto microscopy Dr. Adrian Hahn MD Work Phone: Start: 01-26-[address] Adrian zabala [...] Treatment Date Care Activity Detail Author Start: 05-02-2025 [facility] Start: 05-02-2025 Simple repair scalp/neck/ax/genit/trun k 2.5cm/< RPR S/N/AX/GEN/TRNK 2.5CM/< [facility] Start: 05-02-2025 [facility] Start: 05-02-2025 [facility] Start: 10-27-2024 [facility] Start: 08-04-2023 Procedure [facility] Patient Education [facility] Work Phone: Patient referral [facility] Work Phone: Immunizations Immunization Date Immunization Notes Care Provider Fa cility 05-02-2025 tetanus toxoid, redu stacey diphtheria toxoid, and acellular pertussis vaccine, adsorbed Dr. Adrian Hahn MD Work Phone: [facility] Payers Date Payer Category Payer Medicare [id number] 2024 Self-pay [id number] Private Health Insurance NHB [id number] Unknown MED [facility] AMER [id number] Unknown [id number] Unknown [id number] Unknown [id number] Unknown [id number] Unknown [id number] Unknown [id number] Unknown [id number] Social History Date Type Detail Facility Start: 08-16-2017 End: 08-16-2017 Tobacco smoking status ARIS Unknown if ever smoked [facility] Start: 1940 Sex Assigned At Female [facility] Start: 10-27-2024 End: 05-02-2025 Tobacco smoking status NHIS Never smoked tobacco (finding) [facility] Sex Female [facility] Mental Status Date Assessment Result Facility 10-27-2024 Cognitive function Voice/Name [facility] Work Phone: Radiology Diagnostic study note 05-02-2025 Note Date & Type Note Facility 05-02-2025 Radiology Diagnostic study note [facility] Imaging Services [address] [place], [place] [id number] Spine Cervical without Contras MR#: [id number] Acct: [id number] Name: JUAN CALDERON Rep #: [id number] : 1940 F 84 From: Willem Troncoso MD PCP: Dr. Adrian Hahn MD Status: REG E R Study:Spine Cervical without Contras Date of Exam: 05/02/25 Exam# [id number] Ordering Dr: Goran Granados MD PROCEDURE: SPINE CERVICAL WITHOUT CONTRAS 05/02/2025 REASON FOR EXAM: FALL Neck pain following a fall. Confusion. TECHNIQUE: Procedure Code: CTSPC Modality: CT Procedure: SPINE CERVICAL WITHOUT CONTRAS Coronal and Sagittal reconstruction series were provided. One or more dose reduction techniques were used (e.g., Automated exposure control, adjustment of the mA and/or kV according to patient size, use of iterative reconstruction technique. RADIATION DOSE SUMMARY: CTDlvol: 12.04 mGy DLP: 196.09 mGycm COMPARISON: None FINDINGS: Alignment: Minimal anterior listhesis of C4 on C5 most likely secondary to facetjoint osteoarthritis. Vertebrae: Heterogeneous appearance of the cervical vertebrae with the focal sclerosis. Metastatic deposit should be ruled out. Soft Tissues: Atherosclerotic calcification of the carotid arteries. Other: C1-2: Degenerative changes of the atlantoaxial joint. C2-3: Facet joint osteoarthritis and hypertrophy worse on the right side. C3-4: Moderate degree of disc space narrowing. Spondylosis. Uncovertebral arthrosis. Bilateral facet joint osteoarthritis and hypertrophy worse on the right side. Bilateral neural foraminal stenosis. C4-5: Minimal anterior listhesis of C4 on C5. Facet joint osteoarthritis and hypertrophy worse on the right side. Uncovertebral arthrosis. Bilateral neural foraminal stenosis. C5-6: Marked degree of disc space narrowing. Spondylosis. Uncovertebral arthrosis. Bilateral neural foraminal stenosis. C6-7: Marked degree of disc space narrowing. Spondylosis. Facet joint osteoarthritis. Uncovertebral arthrosis and bilateral neural foraminal stenosis C7-T1: Disc space narrowing. Spondylosis. Facet joint osteoarthritis. CT/Spine Cervical without Contras IMPRESSION: DEGENERATIVE CHANGES OF THE CERVICAL SPINE. NO EVIDENCE OF SIGNIFICANT OSSEOUS CENTRAL CANAL OR NEURAL FORAMINAL STENOSIS. Reading Location: [place] [address] CC: Dr. Phyllis Granados MD; Dr. Adrian Hahn MD ~ Ground Water Contractor: Signed [facility] Radiology Diagnostic study note 05-02-2025 Note Date & Type Note Facility 05-02-2025 Radiology Diagnostic study note [facility] Imaging Services [address] [place] [address] Brain/Head without Contrast MR#: [id number] Acct: [id number] Name: JUAN CALDERON Rep #: [id number] 1 : 1940 F 84 From: Eric Jauregui MD PCP: Dr. Adrian Hahn MD Status: REG E R Study:Brain/Head without Contrast Date of Exa m: 05/02/25 Exam# [id number] Ordering Dr: Goran Granados MD PROCEDURE: BRAIN/HEAD WITHOUT CONTRAST 05/02/2025 REASON FOR EXAM: FALL, LAC TO HEAD TECHNIQUE: Procedure Code: CTBR Modality: CT Procedure: BRAIN/HEAD WITHOUT CONTRAST Coronal and Sagittal reconstruction series were provided. One or more dose reduction techniques were used (e.g., Automated exposure control, adjustment of the mA and/or kV according to patient size, use of iterative reconstruction technique. RADIATION DOSE SUMMARY: CTDlvol: 56 mGy DLP: 975 mGycm COMPARISON: October 27, 2024, August 02, 2023 FINDINGS: Brain: There is no evidence of hemorrhage, acute ischemia or mass. No extra-axial fluid collection, midline shift or mass effect. CSF Spaces: Mild generalized cerebral atrophy Sinuses/Mastoids: None Bones: Unremarkable CT/Brain/Head without Contrast IMPRESSION: No acute intracranial abnormality Reading Location: [facility] CC: Dr. Phyllis Granados MD; Dr. Adrian Hahn MD ~ Ground Water Contractor: Signed [facility] Radiology Diagnostic study note 05-02-2025 Note Date & Type Note Facility 05-02-2025 Radiology Diagnostic study note [facility] Imaging Services [address] [place] [id number] Chest PA and Lateral MR#: [id number] Acct: [id number] Name: JUAN CALDERON Rep #: [id number] : 1940 F 84 From: Willem Troncoso MD PCP: Dr. Adrian Hahn MD Status: REG E R Study:Chest PA and Lateral Date of Exam: 05/02/25 Exam# [id number] Ordering Dr: Goran Granados MD PROCEDURE: CHEST PA AND LATERAL 05/02/2025 REASON FOR EXAM: FALL TECHNIQUE: Procedure Code: RADCXR Modality: DX Procedure: CHEST PA AND LATERAL COMPARISON: None FINDINGS: Hardware: None Heart: The heart size is normal. Mediastinum: The mediastinal contour is unremarkable. Lungs: Elevation of the right hemidiaphragm. Lungs are clear. Bones: Degenerative changes are identified within the thoracic spine. Osteoarthritis of both shoulders. RAD/Chest PA and Lateral IMPRESSION: NO ACUTE FINDINGS. Reading Location: [place] [address] CC: Dr. Phyllis Granados MD; Dr. Adrian Hahn MD ~ Ground Water Contractor: Signed [facility] Clinical Note 07-08-2021 Note Date & Type Note Facility 07-08-2021 Note Patient Outreach (NE TNAV) JUAN CALDERON ([id number]) 1940 F Date Time Provider Department 07/08/21 [...] future healthcare decisions with a power of lead burner helper, living will, or advance directives? No. Please bring a copy to your next appointment or email to Referrals: N/A Message Sent to Practice: NO Navigation Signature: Joelle Cardozo Population Health Navigator July 08, 2021 11:10 AM Allergies As of Date: 07/08/2021 Noted Allergy Reaction LIPITOR (ATORVASTATIN CALCIUM) 08/08/2007 SULFA (SULFONAMIDE ANTIBIOTICS) 06/17/2005 2 - Rash Date Reviewed: 08/10/2017 Reviewed by: Lou (Costume Designer) KEVIN Jones.STORE STOCKER - Fully Assessed Reason for Visit: Population Health Navigation Outreach [3910] Cmt: Offboarding Problem List As Of Date 07/08/2021 Noted Resolved DIVERTICULOSIS OF COLON W/O BLEED [K57.30] HYPERLIPIDEMIA NEC/NOS [E78.5] PALPITATIONS [R00.2] 09/02/2007 Letter Text Encounter Status:Closed by JULIANE ORTIZ HEALTH NAVIGJOELLE BECKWITH on 07/08/21 [facility] Progress note 07-08-2021 Note Date & Type Note Facility 07-08-2021 Note HNO ID: [id number] Author: Joelle Ortiz Health Navigciro Service: ? Author Type: ? [...] future healthcare decisions with a power of lead burner helper, living will, or advance directives? No. Please bring a copy to your next appointment or email to [email or web address] Referrals: N/A Message Sent to Practice: NO Navigation Signature: Joelle Cardozo Population Health Navigator July 08, 2021 11:10 AM [facility] Evaluation note Note Date & Type Note Facility Evaluation note No assessment information availa [facility] Work Phone: Hospital Discharge instructions Note Date & Type Note Facility Hospital Discharge instructions Additional Instructions Please keep the wound clean and dry. Watch the wound for signs of infection including redness, warmth or drainage. Use gentle soaps to wash your hair. Do not scrub around this area. Your evaluation in the Emergency Department did not reveal any acute reason for admission. However, I want to emphasize that you may be early in the course of a disease process or illness even if it is not present. For this reason you should follow-up within 24 hours for reevaluation with either your primary care physician or if necessary back here in the Emergency Department. You should return to the Emergency Department immediately if your symptoms worsen or new symptoms develop. [facility] Work Phone: Reason for referral (narrative) Note Date & Type Note Facility Reason for referral (narrative) No reason for referral information available [facility] Work Phone: Summary Purpose Family History No Family History Records FoundNo Family History Records Found Advance Directives No Advanced Directives Records Found Advance Directive Response Recorded Date/ Time Living Will Yes August 16 017 2:52pm Power of Business Analyst Manager Yes August 16, 2017 2:52pm Advance Directive Response Recorded Date/ Time Living Will Yes August 16 017 3:52pm Power of Business Analyst Manager Yes August 16, 2017 3:52pm Advance Directive Response Recorded Date/ Time Living Will No October 27 9:20am Do you have a Healthcare Power of Business Analyst Manager? No October 27, 2024 9:20am Advance Directive Response Recorded Date/ Time Do you have a Healthcare Power of Business Analyst Manager? Yes May 02, 2025 11:25am Chief Complaint and Reason for Visit Chief Complaint ALZHEIMERS Chief Complaint Alzheimer's disease, unspecified Chief Complaint Admit Date CONFUSION October 27, 2024 8:03am Chief Complaint Admit Date HALFWAY LAB WORK February 26, 2025 2: 00am Chief Complaint Admit Date HALFWAY LAB WORK February 26, 2025 2: 00am LAC May 02, 2025 11:15am Additional Source Comments INFORMATION SOURCE (unrecogn ized section and content) DATE CREATED AUTHOR 07/09/2021 [facility] DATE CREATED AUTHOR AUTHOR'S ORGANIZ ATION 07/11/2025 [facility] Care Teams (unrecognized sec tion and content) [...] January 26, 2025 End: January 26, 2025 Team Status: Active Member Role/Relationship Status Dates Dr. Adrian Hahn MD Primary Care Provider Active Team Status: Inactive Member Role/Relationship Status Dates Dr. Adrian Hahn MD Primary Care Provider Active Start: January 26, 2025 End: January 26, 2025 Dr. Adrian Hahn MD Attending Provider Active Start: January 26, 2025 End: January 26, 2025 Dr. Adrian Hahn MD Referring Provider Active Start: January 26, 2025 End: January 26, 2025 Team Status: Active Member Role/Relationship Status Dates Dr. Adrian Hahn MD Primary Care Provider Active Start: February 26, 2025 Adrian CONKLIN MD Attending Provider Active S tart: February 26, 2025 Team Status: Inactive Member Role/Relationship Status Dates Dr. Adrian Hahn MD Primary Care Provider Active Start: April 04, 2025 End: April 04, 2025 Dr. Adrain Hahn MD Attending Provider Active Start: April 04, 2025 End: April 04, 2025 Team Status: Inactive Member Role/Relationship Status Dates Dr. Adrian Hahn MD Primary Care Provider Active Start: May 02, 2025 End: May 02, 2025 Dr. Phyllis Granados MD Emergency Provider Active S tart: May 02, 2025 End: May 02, 2025 Team Status: Active Member Role/Relationship Status Dates Dr. Adrian Hahn MD Primary care physician Active Team Status: Inactive Member Role/Relationship Status Dates Dr. Adrian Hahn MD Primary care physician Active Start: February 26, 2025 End: February 26, 2025 Adrian CONKLIN MD Attending physician Active Start: February 26, 2025 End: February 26, 2025 Team Status: Inactive Member Role/Relationship Status Dates Dr. Adrian Hahn MD Primary care physician Active Start: April 04, 2025 End: April 04, 2025 Dr. Adrian Hahn MD Attending physician Active Start: April 04, 2025 End: April 04, 2025 Team Status: Inactive Member Role/Relationship Status Dates Dr. Adrian Hahn MD Primary care physician Active Start: May 02, 2025 End: May 02, 2025 Dr. Phyllis Granados MD Attending physician Active Start: May 02, 2025 End: May 02, 2025 Dr. [facility] Active Start: May 02, 2025 End: May 02, 2025 Goals (unrecognized section and content) Goals [...] BE BASED ON THE PRIMARY CLINICAL RECORDS. [facility] [facility]. provides no warranty or guarantee of the accuracy or completeness of information in this document.
[2025-08-14 07:57] LABS: Color, Urine Straw (Yellow); Glucose, Dipstick 100 mg/dl (Normal); Ketone-Dipstick Negative (Negative); Leukocyte Esterase-Dipstick 500 /ul (Negative); Nitrite-Dipstick Negative (Negative); Occult Blood-Urine 25 /ul (Negative); Protein-Dipstick 30 mg/dl (Negative); Specific Gravity, Urine 1.030 (1.002-1.030); Urine Bilirubin Dipstick Negative (Negative)
[2025-08-14 08:25] LABS: Calcium Oxalate Crystals Ur 1+ /hpf (<or=2+)
== END ==
LOC: OLS.BROOKB 17:00
PROVIDERS: PCP Family Medicine Geriatric Medicine; Visit Provider Family Medicine Geriatric Medicine
DX: N39.0 Urinary tract infection, site not specified (principal); R46.89 Other symptoms and signs involving appearance and behavior
CPT/HCPCS: 81001; 87086; 87088